=== PATIENT | female | born 1945 | race Caucasian/White ===

== ENCOUNTER 2021-01-15 09:22 | Emergency (ER) | payer MEDICARE, SELFPAY ==
[2021-01-15] VITALS (8 sets, daily range): BP systolic 134–168; BP diastolic 64–95; PULSE 58–77; RESP 16–24; TEMP 36.4; O2SAT 89–100
[2021-01-15 10:03] LABS: Basophils Percent Auto 0.6 % (0.2-1.2); Eosinophils Absolute Auto 0.1 K/mm3 (0-0.3); Eosinophils Percent Auto 1.6 % (0-4.4); Hematocrit 40.1 % (37.0-47.0); Hemoglobin 13.4 g/dL (12.0-15.0); Immature Granulocyte Absolute 0.01 K/mm3 (0.00-0.031); Immature Granulocyte Percent A 0.2 % (0-0.5); Lymphocytes Absolute Auto 1.64 K/mm3 (0.9-3.2); Lymphocytes Percent Auto 26.2 % (18.3-44.2); Mean Corpuscular HGB Conc 33.4 g/dl (32-36); Mean Corpuscular Hemoglobin 32.8 pg (26-34); Mean Corpuscular Volume 98.3 fl (80-100); Mean Platelet Volume 10.4 fl (7.4-10.4); Monocytes Absolute Auto 0.5 K/mm3 (0.1-0.6); Monocytes Percent Auto 7.4 % (2.6-8.5); Platelet Count Result 207 k/mm3 (150-375); Red Blood Count 4.08 M/mm3 (4.2-5.4); Red Cell Distribution Width 13.5 % (11.5-14.5); White Blood Count 6.3 K/mm3 (4.5-10.0)
[2021-01-15 10:17] LABS: Prothrombin Time 13.4 Seconds (11.1-14.7)
[2021-01-15 10:18] LABS: Partial Thromboplastin Time 23.8 SECONDS (22.3-36.8)
[2021-01-15 10:28] LABS: Alanine Aminotransferase 19 U/L (4-35); Albumin Level 4.1 g/dL (3.5-5.1); Alkaline Phosphatase 78 U/L (38-126); Anion Gap 12 mmol/L (8-16); Aspartate Amino Transferase 25 U/L (14-36); Blood Urea Nitrogen 18 mg/dL (7-17); Calcium 9.2 mg/dL (8.4-10.2); Carbon Dioxide 26 mmol/L (22-30); Chloride 100 mmol/L (98-107); Estimated CRCL calculation 40 ml/min; Estimated Glomerular Filt Rate 40; Glucose 110 mg/dL (65-110); Sodium 138 mmol/L (137-145)
--- NOTE | 2021-01-15 12:19 | ED.GIBLEED ---
HPI - GI Bleed General Chief complaint: GI Bleed Stated complaint: rectal bleed, sob, dizzy Time Seen by Provider: 01/15/21 09:34 History of Present Illness HPI Narrative: Patient is a 76-year-old female who presents to the ER with concerns of rectal bleeding. And over the last 3 or 4 days she has been having bright red blood per rectum. She has history of internal hemorrhoids and thinks one may be bleeding. Denies constipation or straining. No fevers or chills or sweats. Will occasionally turn the water red and she will have small flecks of blood in her stool. No syncope. Has chronic shortness of breath and wears oxygen as needed. She does not take any blood thinners or antiplatelet medications. Related Data Allergies Allergy/AdvReac Type Severity Reaction Status Date / Time No Known Allergies Allergy Unverified 02/05/18 12:47 Review of Systems Review of Systems: All systems reviewed & are unremarkable except as noted in HPI and below Constitutional: Constitutional: Denies chills, Denies fever(s) and Reports weakness ENT: Denies nasal congestion and Denies sore throat Gastrointestinal: Gastrointestinal: Denies abdominal pain, Denies constipation, Denies nausea and Denies vomiting Comments: Rectal bleeding Musculoskeletal: Musculoskeletal: Denies arthralgias, Denies joint swelling and Denies muscle cramps Integumentary/Breasts: Skin/Breast: Denies erythema and Denies rash PMFSH Past Medical History Medical History (Updated 01/15/21 @ 12:37 by Francisco Andrews MD) COPD (chronic obstructive pulmonary disease) Depression Hypothyroidism Surgical History Surgical History (Updated 01/15/21 @ 12:26 by Francisco Andrews MD) History of appendectomy History of hysterectomy Exam Narrative: GENERAL: Well-appearing, well-nourished, and in no acute distress. HEAD: Normocephalic, atraumatic. EYES: PERRL and EOMI. ENT: Mucous membranes moist. CHEST: Clear to auscultation. No respiratory distress. HEART: Regular rate and rhythm. Normal peripheral pulses. ABDOMEN: Soft, nontender, nondistended. Dried blood on outside of rectum without actively bleeding or thrombosed hemorrhoid. ANDRES without significant gross blood, there are only a couple small bright red clots that were no larger than 2 mm. EXTREMITIES: Normal range of motion. No edema. SKIN: Warm, dry, no rash. NEURO: Alert and oriented x3. Course Course Emergency Course: Labs unremarkable. Recommend stool softener and suppository. Follow-up with PCP. Patient verbalized understanding. Vital Signs Vital signs: Vital Signs Temperature 97.6 F 01/15/21 09:20 Pulse Rate 77 01/15/21 09:20 Respiratory Rate 16 01/15/21 09:20 Pulse Oximetry 89 L 01/15/21 09:20 Temperature 97.6 F 01/15/21 09:20 Pulse Rate 67 01/15/21 12:02 Respiratory Rate 23 H 01/15/21 12:02 Blood Pressure 139/91 H 01/15/21 12:02 Pulse Oximetry 100 01/15/21 11:03 MDM - GI Bleed Lab Data Result diagrams: 01/15/21 09:56 01/15/21 09:56 Labs: Lab Results 01/15/21 01/15/21 01/15/21 Range/Units 09:56 09:56 09:56 WBC 6.3 (4.5-10.0) K/mm3 RBC 4.08 L (4.2-5.4) M/mm3 Hgb 13.4 (12.0-15.0) g/dL Hct 40.1 (37.0-47.0) % MCV 98.3 (80-100) fl MCH 32.8 (26-34) pg MCHC 33.4 (32-36) g/dl RDW 13.5 (11.5-14.5) % Plt Count 207 (150-375) k/mm3 MPV 10.4 (7.4-10.4) fl Immature Gran % (Auto) 0.2 (0-0.5) % Neut % (Auto) 64.0 (45.5-73.1) % Lymph % (Auto) 26.2 (18.3-44.2) % Bates % (Auto) 7.4 (2.6-8.5) % Eos % (Auto) 1.6 (0-4.4) % Baso % (Auto) 0.6 (0.2-1.2) % Lymph # (Auto) 1.64 (0.9-3.2) K/mm3 Bates # (Auto) 0.5 (0.1-0.6) K/mm3 Eos # (Auto) 0.1 (0-0.3) K/mm3 Baso # (Auto) 0.0 (0.0-0.1) K/mm3 Abs Immat Gran (auto) 0.01 (0.00-0.031) K/mm3 Absolute Neuts (auto) 4.0 (1.3-6.7) K/mm3 Absolute Nucleated RBC 0.0 (0.0-0.012) K/mm3 Nucleated
== END 2021-01-15 13:00 | disposition home or self-care (01) ==
PROVIDERS: Emergency Provider Emergency Medicine; PCP Internal Medicine
DX: K64.9 Unspecified hemorrhoids (principal); J44.9 Chronic obstructive pulmonary disease, unspecified; E03.9 Hypothyroidism, unspecified
CPT/HCPCS: 36415; 80053; 85025; 85610; 85730; 86850; 86900; 86901; 99283

== ENCOUNTER 2021-09-22 20:08 | Emergency (ER) | payer MEDICARE, SELFPAY ==
--- NOTE | ~2021-09-22 | XR_ITS ---
XR chest 2V DATE: 09/22/2021 21:25 INDICATION: Bilateral rib pain and flank pain. Shortness of breath. History of COPD. TECHNIQUE: AP and lateral views COMPARISON: 02/05/2018 CT pulmonary scan 02/05/2018 portable AP chest FINDINGS: Heart size is within normal range. Is aortic calcification. No hilar or mediastinal. No pulmonary infiltrate or consolidation, pleural effusion or pulmonary vascular congestion or pneumo thorax. Diffuse osteopenia. Chronic loss of height and anterior wedging of T12 and interval moderate loss of height and anterior wedging of T8 since 02/05/2018. 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
[2021-09-22 20:12] VITALS: PULSE 71; RESP 16; TEMP 36.3; O2SAT 99
[2021-09-22 20:34] VITALS: BP 96/43; PULSE 67; O2SAT 99
--- NOTE | 2021-09-22 20:54 | ED.GENADULT ---
HPI - General Adult General Chief complaint: Unspecified Stated complaint: Bilateral flank/abd pain Time Seen by Provider: 09/22/21 20:30 History of Present Illness HPI narrative: 76-year-old female presenting to the emergency department for evaluation of bilateral posterior lower rib pain. Patient states that she began having similar symptoms on Friday and patient presented to [facility]. Patient was admitted for further work-up. Patient states she did have multiple CT scans that showed no acute abnormality. Patient states she was discharged home with medications for pain control including tizanidine for muscle spasm. Patient states today she had been feeling improved but was fairly active. Patient states this evening when she bent over she felt like she had spasms of her back that were compressing her lungs. Patient states with rest she was able to regain her breath. Patient is normally on 0 to 3 L of oxygen depending on level of activity. Patient is saturating at 99% on 1 L of nasal cannula O2. Patient denies any chest pains, denies any increase in breath at this time. Related Data Allergies Allergy/AdvReac Type Severity Reaction Status Date / Time No Known Allergies Allergy Unverified 02/05/18 12:47 Review of Systems Review of Systems: CONSTITUTIONAL: Denies fever, chills, or sweats. EYES: Denies visual changes, redness, or discharge. ENT: Denies rhinorrhea, congestion, sore throat, or otalgia. CARDIOVASCULAR: Denies chest pain, palpitations, or edema. RESPIRATORY: Cough, bilateral lower rib pain GASTROINTESTINAL: Denies abdominal pain, nausea, vomiting, or diarrhea. GENITOURINARY: Denies dysuria or hematuria. SKIN: Denies rash or itching. MUSCULOSKELETAL: Denies back pain, joint pain, or myalgia. NEUROLOGIC: Denies headache, numbness, or weakness. PMFSH Past Medical History Medical History (Updated 09/22/21 @ 22:11 by Aubrey Cornejo MD) COPD (chronic obstructive pulmonary disease) Depression Hypothyroidism Surgical History Surgical History (Updated 01/15/21 @ 12:26 by Francisco Andrews MD) History of appendectomy History of hysterectomy Exam Narrative: APPEARANCE: Well appearing, no pain, no distress, well-nourished. HEAD: normocephalic, atraumatic. EYES: PERRLA/EOMI, conjunctivae clear. NOSE: Normal no drainage EARS:TMS clear with good light reflex. THROAT: Pharynx clear, no exudate. NECK: Supple. No adenopathy, no masses. RESPIRATORY: Airway patent, respirations nonlabored. Clear to auscultation bilaterally, no rales, rhonchi, wheezing. Bilateral posterior lower rib tenderness with palpation. CARDIOVASCULAR: Regular rate and rhythm without murmurs rubs or gallops. ABDOMINAL: Soft, nontender, nondistended, normal bowel sounds MUSCULOSKELETAL: Moves all extremities. Strength/ROM intact, No edema, No calf tenderness. NEURO: Alert. Cranial nerves II through XII intact. Good gait. Good coordination SKIN: Warm, dry. Normal Color Course Course Emergency Course: Patient did feel improved with treatment. Chest x-ray showed no acute cardiopulmonary normality. Labs are within normal limits. Patient and family were updated on the results of the work-up. Patient was also updated on reasons to return to the ED. All questions and concerns were addressed. Patient does have follow-up on 10/02 Vital Signs Vital signs: Vital Signs Temperature 97.3 F L 09/22/21 20:12 Pulse Rate 71 09/22/21 20:12 Respiratory Rate 16 09/22/21 20:12 Pulse Oximetry 99 09/22/21 20:12 Oxygen Delivery Nasal Cannula 09/22/21 20:12 Oxygen Flow Rate 1 09/22/21 20:12 Temperature 97.3 F L 09/22/21 20:12 Pulse Rate 68 09/22/21 21:14 Respiratory Rate 20 09/22/21 21:14 Blood Pressure 96/43 L 09/22/21 20:34 Pulse Oximetry 99 09/22/21 20:34 Oxygen Delivery Nasal Cannula 09/22/21 20:12 Oxygen Flow Rate 1 09/22/21 20:12 Medical Decision Making Vital Signs Vital Signs: Vital Signs
[2021-09-22] MEDS: HYDROcodone/acetaminophen (*CRX) 5-325 MG TABLET 1 TAB PO ×2 (20:56→22:24)
--- NOTE | 2021-09-22 21:01 | PC.NURSE ---
Patient reports she wears 3L of O2 per nasal cannula at home as needed and at bedtime.
[2021-09-22 21:05] VITALS: PULSE 76; RESP 22
[2021-09-22] MEDS: ALBUTEROL SULFATE NEB 2.5 MG/3 ML INH 5 MG INHALATION (21:05)
[2021-09-22 21:14] VITALS: PULSE 68; RESP 20
[2021-09-22 21:19] LABS: Basophils Absolute Auto 0.1 K/mm3 (0.0-0.1); Basophils Percent Auto 0.5 % (0.2-1.2); Eosinophils Absolute Auto 0.1 K/mm3 (0-0.3); Eosinophils Percent Auto 0.5 % (0-4.4); Hematocrit 40.5 % (37.0-47.0); Hemoglobin 13.2 g/dL (12.0-15.0); Immature Granulocyte Absolute 0.04 K/mm3 (0.00-0.031); Immature Granulocyte Percent A 0.4 % (0-0.5); Lymphocytes Absolute Auto 1.93 K/mm3 (0.9-3.2); Lymphocytes Percent Auto 18.9 % (18.3-44.2); Mean Corpuscular HGB Conc 32.6 g/dl (32-36); Mean Corpuscular Hemoglobin 32.1 pg (26-34); Mean Corpuscular Volume 98.5 fl (80-100); Monocytes Absolute Auto 0.6 K/mm3 (0.1-0.6); Monocytes Percent Auto 5.5 % (2.6-8.5); Neutrophils Absolute Auto 7.6 K/mm3 (1.3-6.7); Neutrophils Percent Auto 74.2 % (45.5-73.1); Platelet Count Result 249 k/mm3 (150-375); Red Blood Count 4.11 M/mm3 (4.2-5.4); Red Cell Distribution Width 14.6 % (11.5-14.5); White Blood Count 10.2 K/mm3 (4.5-10.0)
[2021-09-22 21:27] LABS: Lactic Acid Reflex 2.5 mmol/L (0.7-2.0)
[2021-09-22 21:28] LABS: Alanine Aminotransferase 18 U/L (6-35); Albumin Level 4.3 g/dL (3.5-5.1); Alkaline Phosphatase 90 U/L (38-126); Anion Gap 8 mmol/L (8-16); Aspartate Amino Transferase 26 U/L (14-36); Bilirubin,Total 0.6 mg/dL (0.2-1.3); Blood Urea Nitrogen 33 mg/dL (7-17); Calcium 9.1 mg/dL (8.4-10.2); Carbon Dioxide 27 mmol/L (22-30); Chloride 97 mmol/L (98-107); Estimated CRCL calculation 29 ml/min; Estimated Glomerular Filt Rate 29; Glucose 94 mg/dL (65-110); Potassium 3.9 mmol/L (3.4-5.0); Sodium 132 mmol/L (137-145)
[2021-09-23 00:17] LABS: Reflex Lactic Acid Yes or No Add Lactic
== END 2021-09-22 22:33 | disposition home or self-care (01) ==
PROVIDERS: Emergency Provider Emergency Medicine; PCP Internal Medicine
DX: R07.81 Pleurodynia (principal); J44.9 Chronic obstructive pulmonary disease, unspecified; E03.9 Hypothyroidism, unspecified
CPT/HCPCS: 36415; 71046; 80053; 83605; 85025; 94640; 99283; A9270

== ENCOUNTER 2021-09-27 18:02 | Observation (INO) | payer MEDICARE, SELFPAY ==
[2021-09-27] VITALS (20 sets, daily range): BP systolic 88–128; BP diastolic 47–82; PULSE 67–84; RESP 10–24; TEMP 35.8–36.7; O2SAT 88–100; BMI 34.5
--- NOTE | 2021-09-27 | ECG_ITS ---
Measurements Intervals [place] Rate: 76 P: 23 [place]: 159 QRS: 33 QRSD: 88 T: 41 QT: 365 QTc: 411 Interpretive Statements SINUS RHYTHM MODERATE T-WAVE ABNORMALITY, CONSIDER ANTERIOR ISCHEMIA [-0.1+ mV T WAVE IN V3/V4] ABNORMAL ECG Electronically Signed On 10-01-2021 10:20:30 CDT by Joe Bro M.D.
--- NOTE | ~2021-09-27 | XR_ITS ---
EXAMINATION: XR chest 1V portable INDICATION: Cough TECHNIQUE: Portable AP chest at 1847 hours COMPARISON: 09/22/2021 FINDINGS: There are minimal airspace opacities of the left lung base. There is no pleural effusion or pneumothorax. The heart size is upper limits of normal for technique. IMPRESSION: 1. Minimal left basilar airspace opacities, consistent with atelectasis versus pneumonia. Reviewed, dictated and finalized at location F.
--- NOTE | 2021-09-27 18:36 | ED.GENADULT ---
HPI - General Adult General Chief complaint: Weakness <Argentina Salcedo PA-C - Last Filed: 09/28/21 00:01> Stated complaint: DEHYDRATION <Argentina Salcedo PA-C - Last Filed: 09/28/21 00:01> Time Seen by Provider: 09/27/21 18:22 <Argentina Salcedo PA-C - Last Filed: 09/28/21 00:01> History of Present Illness HPI narrative: Patient is a 76-year-old female with a history of COPD (on home O2) and hypothyroidism for evaluation of dehydration . Patient states that she has been feeling lightheaded with exertion and position changes over the past week or so, and has had about 3 episodes of presyncope. Denies falls or head injury. Additionally reporting a cough that she feels are compressing her lungs for the past 2 weeks.?The cough is productive of clear sputum. Patient is normally on 0 to 3 L of oxygen depending on level of activity for COPD. She presented to her primary care doctor today, was unable to get lab work due to bad veins , so reportedly he sent her to the ED to get rehydrated. Patient is unsure of any of her home medications, it is noted that she takes Lasix, but she is unsure why. Denies chest pain, shortness of breath, fevers, chills, abdominal pain, nausea, vomiting. She does have chronic back pain due to compression fracture that she takes [place] for, she has not taken this today. Last heart cath >1 year ago, was normal per patient. <Argentina Salcedo PA-C - Last Filed: 09/28/21 00:01> Related Data Home medications: Home Medications Medication Instructions Recorded Confirmed albuterol sulfate 90 mcg/actuation 2 inh inhalation PRN PRN Shortness 09/27/21 09/27/21 aerosol inhaler Of Breath Or Wheezing cefdinir 300 mg capsule 300 mg PO DAILY 09/27/21 09/27/21 diltiazem HCl 120 mg 120 mg PO DAILY 09/27/21 09/27/21 capsule,extended release 24 hr duloxetine 30 mg capsule,delayed 60 mg PO DAILY 09/27/21 09/28/21 release ergocalciferol (vitamin D2) 1,250 1,250 mcg PO DAILY 09/27/21 09/28/21 mcg (50,000 unit) capsule famotidine 20 mg tablet 20 tablet PO DAILY 09/27/21 09/28/21 furosemide 40 mg tablet 40 tablet PO DAILY 09/27/21 09/28/21 hydrochlorothiazide 25 mg tablet 25 mg PO DAILY 09/27/21 09/28/21 levothyroxine 100 mcg tablet 100 mcg PO DAILY 09/27/21 09/28/21 losartan 50 mg tablet 50 mg PO DAILY 09/27/21 09/28/21 magnesium oxide 400 mg (241.3 mg 400 mg PO DAILY 09/27/21 09/28/21 magnesium) tablet montelukast 10 mg tablet 10 tablet PO DAILY 09/27/21 09/28/21 potassium chloride 10 mEq 10 meq PO DAILY 09/27/21 09/28/21 capsule,extended release prednisone 20 mg tablet 20 mg PO DAILY 09/27/21 09/28/21 quetiapine 25 mg tablet 25 tablet PO DAILY 09/27/21 09/28/21 clonazepam 0.5 mg tablet 0.5 mg PO DAILY 09/28/21 09/28/21 escitalopram oxalate 5 mg tablet 5 mg PO DAILY 09/28/21 09/28/21 hydrocodone 5 mg-acetaminophen 325 5 - 325 tablet PO Q8H PRN pain 09/28/21 09/28/21 mg tablet tizanidine 4 mg tablet 4 mg PO HS PRN pain 09/28/21 09/28/21 <Argentina Salcedo PA-C - Last Filed: 09/28/21 00:01> Allergies/adverse reactions: Allergies Allergy/AdvReac Type Severity Reaction Status Date / Time No Known Allergies Allergy Verified 09/27/21 18:20 <Argentina Salcedo PA-C - Last Filed: 09/28/21 00:01> Review of Systems Review of Systems: Gen: Reports lightheadedness and presyncope. Eyes: Denies eye pain or visual change ENT: Denies congestion Respiratory: Denies shortness of breath or cough CV: Denies chest pain or palpitations GI: Denies abdominal pain nausea, emesis or diarrhea : denies burning, urgency, frequency or hematuria Musculoskeletal: Reports back pain. Neuro: Denies numbness, tingling, weakness or focal weakness Skin: Denies rash Except as documented, all other systems reviewed and negative <Argentina Salcedo PA-C - Last Filed: 09/28/21 00:01> [facility] Past Medical History Medical History: Medical History (Updated 09/27
[2021-09-27 18:58] LABS: Basophils Percent Auto 0.3 % (0.2-1.2); Eosinophils Absolute Auto 0.1 K/mm3 (0-0.3); Eosinophils Percent Auto 0.7 % (0-4.4); Hematocrit 45.3 % (37.0-47.0); Hemoglobin 14.9 g/dL (12.0-15.0); Immature Granulocyte Percent A 0.8 % (0-0.5); Mean Corpuscular HGB Conc 32.9 g/dl (32-36); Mean Corpuscular Hemoglobin 31.6 pg (26-34); Mean Corpuscular Volume 96.2 fl (80-100); Mean Platelet Volume 10.3 fl (7.4-10.4); Monocytes Absolute Auto 0.7 K/mm3 (0.1-0.6); Monocytes Percent Auto 5.2 % (2.6-8.5); Neutrophils Absolute Auto 9.1 K/mm3 (1.3-6.7); Platelet Count Result 334 k/mm3 (150-375); Red Blood Count 4.71 M/mm3 (4.2-5.4); Red Cell Distribution Width 13.9 % (11.5-14.5); White Blood Count 12.5 K/mm3 (4.5-10.0)
[2021-09-27 19:10] LABS: Alanine Aminotransferase 20 U/L (6-35); Albumin Level 5.1 g/dL (3.5-5.1); Alkaline Phosphatase 116 U/L (38-126); Anion Gap 10 mmol/L (8-16); Aspartate Amino Transferase 26 U/L (14-36); Bilirubin,Total 1.3 mg/dL (0.2-1.3); Blood Urea Nitrogen 29 mg/dL (7-17); Calcium 9.8 mg/dL (8.4-10.2); Carbon Dioxide 30 mmol/L (22-30); Chloride 90 mmol/L (98-107); Estimated Glomerular Filt Rate 29; Glucose 117 mg/dL (65-110); Potassium 3.1 mmol/L (3.4-5.0); Sodium 130 mmol/L (137-145)
[2021-09-27 19:22] LABS: NT Pro B Type Natriuretic Pept 506 pg/mL (5-100)
--- NOTE | 2021-09-27 20:21 | PM.IMHP ---
H&P: HPI History of Present Illness Date/Time: 09/27/21 20:21 Chief Complaint: Shortness of breath. Narrative: This is a 75-year-old female with past medical history significant for COPD/emphysema, chronic hypoxic respiratory failure patient uses 1 L of supplemental oxygen at nighttime 3 L, former smoker, osteoporosis, fracture vertebrae at the level of T12, chronic T8 vertebrae fracture. Patient presents for the 3rd time to the emergency room due to back pain however at that time there were no findings patient was discharged home with muscle relaxants however she comes back today due to worsening shortness of breath cough productive of phlegm which is whitish, has had chills, and decreased oral intake, fatigue, patient denies any chest pain, palpitations, leg swelling, calves pain, pain is still present it is along the rib cage on her back. Preliminary workup was significant for chest x-ray with lung infiltrate and a T12 which fracture of the vertebrae which has evolved. Patient has been admitted for further evaluation management and treatment. Review of Systems Review of Systems: Worsening shortness of breath, productive cough, of whitish sputum, fatigue, decreased oral intake. Constitutional: Constitutional: Reports chills, Reports fatigue, Denies night sweats and Reports poor appetite Eyes: Eyes: Denies change in vision ENT: Denies dysphagia, Denies vertigo, Denies dizziness, Denies nasal congestion, Denies nasal discharge and Denies odynophagia Cardiovascular: Cardiovascular: Denies chest pain, Denies syncope, Denies pedal edema, Denies claudication, Denies lightheadedness, Denies radiating jaw, neck or arm pain and Denies palpitations Respiratory: Respiratory: Reports cough, Denies hemoptysis, Denies pain with cough, Reports dyspnea and Reports dyspnea on exertion Gastrointestinal: Gastrointestinal: Denies abdominal pain, Denies dyspepsia, Denies heartburn, Denies diarrhea, Denies nausea and Denies vomiting Genitourinary: Genitourinary: Denies dysuria Musculoskeletal: Musculoskeletal: Reports back pain Integumentary/Breasts: Skin/Breast: Denies rash Neurologic: Denies vertigo, Denies dizziness, Denies focal weakness and Denies Sensory deficit (Neuro) Psychiatric: Psychiatric: Reports no additional psychiatric complaints and Reports as per HPI Endocrine: Endocrine: Denies cold intolerance, Denies flushing, Denies heat intolerance, Denies polyphagia, Denies polydipsia and Denies palpitations Hematologic/Lymphatic: Hematologic/Lymphatic: Reports no additional hematologic/lymphatic complaints and Reports as per HPI Allergic/Immunologic: Allergic/Immunologic: Reports no additional allergic/immunologic complaints and Reports as per HPI [facility] Past Medical History Medical History (Updated 09/27/21 @ 21:35 by Jessica Chowdhury MD) COPD (chronic obstructive pulmonary disease) Depression Hypothyroidism Surgical History Surgical History History of appendectomy History of hysterectomy Social History Social History (Updated 09/27/21 @ 21:00 by Jessica Chowdhury MD) Social History: Lives in apartment by herself sister visits her upset with her medications. Smoking status: Former smoker Tobacco type: cigars Alcohol intake: never Substance use: never Living arrangements: alone Meds Home Medications and Allergies Home Medications Medication Instructions Recorded Confirmed Type docusate sodium 100 mg capsule 100 mg PO DAILY #7 caps 01/15/21 Rx (Colace) hydrocortisone acetate 25 mg 25 mg RECTAL BID #12 ea 01/15/21 Rx rectal suppository (Anucort-HC) hydrocodone 5 mg-acetaminophen 325 1 tablet PO Q8H PRN pain #14 tabs 09/22/21 Rx mg tablet Allergies Allergy/AdvReac Type Severity Reaction Status Date / Time No Known Allergies Allergy Verified 09/27/21 18:20 Exam Narrative: Patient is laying in a stretcher in semi
[2021-09-27 20:42] LABS: Appearance Urine Clear (Clear); Bilirubin Urine 1+ (Negative); Blood Urine Negative (Negative); Color Urine Yellow (Yellow); Glucose Urine UA Negative (Negative); Ketones Urine Trace mg/dL (Negative); Leukocyte Esterase Ur 1+ LEU/UL (Negative); Nitrate Urine Positive (Negative); Protein Urine Negative (Negative); Urobilinogen Urine 0.2 mg/dL (<2.0); pH Urine 5.5 (5.0-9.0)
[2021-09-27 20:48] LABS: Bacteria Urine Trace /hpf; Mucus Urine Rare /lpf; Squamous Epithelial Cell Urine Occasional /hpf (Few); WBC Urine 31-50 /hpf
[2021-09-27 20:52] LABS: Add Urine Microscopic? YES
[2021-09-27 21:46] LABS: SARS-CoV-2 RNA PCR Negative
[2021-09-27] MEDS: METOCLOPRAMIDE HCL INJ 10 MG/2 ML VIAL IV PUSH (22:04)
--- NOTE | 2021-09-27 23:37 | ADMGEN ---
This patient, Vibha Hill, was admitted to [facility] Surg Room 315-02. Patient/family oriented to hospital policies and general routines including ID bracelet, bed and alarms, visiting hours, pain management, procedures, bathroom and other care routines, personal items, smoking policy, room service/diet, and visiting hours. Information on how to activate the Rapid Response Team has been discussed. Patient/Family are encouraged to report perceived risks to care and to ask questions if they do not understand what they are told or what they should do.
[2021-09-28] VITALS (7 sets, daily range): BP systolic 106–127; BP diastolic 63–81; PULSE 75–91; RESP 16–20; TEMP 36–36.3; O2SAT 94–96
--- NOTE | 2021-09-28 01:32 | PM.IMHP ---
H&P: HPI History of Present Illness Date/Time: 09/28/21 01:33 Chief Complaint: Shortness of breath Narrative: This is a 76-year-old female with past medical history significant for COPD/emphysema, supplemental oxygen 1 L by nasal cannula during the daytime and 3 L by nasal cannula at nighttime, hypertension, depression, hypothyroidism, former smoker. Patient presents to the emergency room for the 3rd time for evaluation of shortness of breath chest x-ray showed lung infiltrate. Patient has a chronic cough productive of white phlegm which is no change from her usual, patient denies any fevers, rigors, chills, no syncope, near syncope, no lightheadedness, no chest pain, no palpitations, no leg swelling, no ankle swelling. Patient also complains of having poor stamina has not been able to work with her physical therapy who comes home. Preliminary workup was significant for chest x-ray with lung infiltrate. Patient has been admitted for further evaluation management and treatment. Review of Systems Review of Systems: Shortness of breath. Constitutional: Constitutional: Denies chills, Reports fatigue, Denies fever(s), Denies malaise and Denies night sweats Eyes: Eyes: Denies change in vision ENT: Denies vertigo, Denies dizziness, Denies nasal congestion, Denies nasal discharge, Denies nose pain and Denies odynophagia Cardiovascular: Cardiovascular: Denies chest pain, Denies pedal edema, Denies irregular heart rhythm, Denies claudication, Denies lightheadedness, Denies radiating jaw, neck or arm pain, Denies palpitations, Denies dyspnea, Reports dyspnea on exertion and Denies orthopnea Respiratory: Respiratory: Denies chest congestion, Reports cough and Denies pain on inspiration Gastrointestinal: Gastrointestinal: Denies abdominal pain, Denies dyspepsia and Denies heartburn Genitourinary: Genitourinary: Denies dysuria Musculoskeletal: Musculoskeletal: Denies arthralgias and Denies joint swelling Integumentary/Breasts: Skin/Breast: Denies rash Psychiatric: Psychiatric: Reports no additional psychiatric complaints and Reports as per HPI Endocrine: Endocrine: Denies cold intolerance, Denies fatigue, Denies flushing, Denies heat intolerance, Denies polyphagia and Denies polydipsia Hematologic/Lymphatic: Hematologic/Lymphatic: Reports no additional hematologic/lymphatic complaints and Reports as per HPI Allergic/Immunologic: Allergic/Immunologic: Reports no additional allergic/immunologic complaints and Reports as per HPI PMFSH Past Medical History Medical History (Updated 09/27/21 @ 21:35 by Jessica Chowdhury MD) COPD (chronic obstructive pulmonary disease) Depression Hypothyroidism Surgical History Surgical History History of appendectomy History of hysterectomy Social History Social History (Updated 09/27/21 @ 21:00 by Jessica Chowdhury MD) Social History: Lives in apartment by herself sister visits her upset with her medications. Smoking status: Former smoker Tobacco type: cigars Second hand tobacco smoke exposure: No Additional smoking assessment comments: pt states she stopped smoking years ago. Alcohol intake: former Substance use: never Living arrangements: alone Spiritual care concerns: No Meds Home Medications and Allergies Home Medications Medication Instructions Recorded Confirmed Type docusate sodium 100 mg capsule 100 mg PO DAILY #7 caps 01/15/21 09/28/21 Rx (Colace) albuterol sulfate 90 mcg/actuation 2 inh inhalation PRN PRN Shortness 09/27/21 09/27/21 History aerosol inhaler Of Breath Or Wheezing cefdinir 300 mg capsule 300 mg PO DAILY 09/27/21 09/27/21 History diltiazem HCl 120 mg 120 mg PO DAILY 09/27/21 09/27/21 History capsule,extended release 24 hr duloxetine 30 mg capsule,delayed 30 mg PO DAILY 09/27/21 09/27/21 History release ergocalciferol (vitamin D2) 1,250 1,250 mcg PO DAILY 09/27/21 06
[2021-09-28] MEDS: LEVOTHYROXINE SODIUM 100 MCG TABLET PO (06:21)
[2021-09-28] MEDS: MAGNESIUM OXIDE 400 MG TABLET PO (09:02)
[2021-09-28] MEDS: predniSONE 20 MG TABLET PO (09:02)
[2021-09-28] MEDS: DOCUSATE SODIUM 100 MG CAPSULE PO (09:02)
[2021-09-28] MEDS: FAMOTIDINE 20 MG TABLET PO ×2 (09:02→16:42)
[2021-09-28] MEDS: MONTELUKAST SODIUM 10 MG TABLET PO (09:02)
[2021-09-28] MEDS: ENOXAPARIN 40 MG/0.4 ML SYRINGE SUB-Q (09:02)
[2021-09-28] MEDS: DULoxetine HCL 30 MG CAPSULE.DR PO (09:02)
[2021-09-28] MEDS: hydroCHLOROthiazide 25 MG TABLET PO (09:03)
[2021-09-28] MEDS: LOSARTAN POTASSIUM 50 MG TABLET PO (09:03)
--- NOTE | 2021-09-28 11:10 | PC.NURSE ---
Pt's sister, Lexii Pulido, called wanting an update. She informed me that the meds that had been entered into the system were not accurate. She is the one who handles all the meds so she provided me with updated information. I subsequently update the med rec to reflect the correct information. I attempted to contact the hospitalist, Dr. Theodore, to make him aware of this information but he did not answer and his voicemail was full.
--- NOTE | 2021-09-28 11:22 | PM.IMPN ---
Progress Note: A&P Assessment and Plan (1) Lung infiltrate: Code(s): R91.8 - Other nonspecific abnormal finding of lung field Status: Acute Assessment and Plan: Patient has been started on antibiotics Cultures in progress Supportive care (2) Chronic respiratory failure with hypoxia: Code(s): J96.11 - Chronic respiratory failure with hypoxia Status: Acute Assessment and Plan: Continue supplemental oxygen by nasal cannula (3) LEFTY (acute kidney injury): Code(s): N17.9 - Acute kidney failure, unspecified Status: Acute Assessment and Plan: Continue to monitor BUN and creatinine (4) Closed wedge compression fracture of T12 vertebra: Code(s): S22.080A - Wedge compression fracture of T11-T12 vertebra, initial encounter for closed fracture Status: Acute Assessment and Plan: Continue supportive care (5) Chronic kidney disease: Code(s): N18.9 - Chronic kidney disease, unspecified Status: Acute Assessment and Plan: Supportive care (6) COPD (chronic obstructive pulmonary disease): Code(s): J44.9 - Chronic obstructive pulmonary disease, unspecified Status: Acute (7) Hyponatremia: Code(s): E87.1 - Hypo-osmolality and hyponatremia Status: Acute Plan #Generalized weakness hypotension number presentation. Workup with evidence of pneumonia on chest x-ray mildly elevated white cell count of 12.5 with hyponatremia. Evidence of UTI on urinalysis #Hypotension improved with hydration #Hyponatremia IV normal saline #Hypokalemia replace and monitor #Pneumonia COVID negative. Cultures pending #UTI antibiotics follow cultures #Chronic hypoxic respiratory failure remains on same oxygen requirement. Continue same COVID negative BNP 506. #LEFTY on CKD stage 3 baseline creatinine 1.3 last year. Current creatinine 1.7 IV hydration continue to monitor. Hold Lasix #compression fracture T12 vertebra supportive care #COPD #DVT prophylaxis Lovenox #Anxiety depression home medication #Hypothyroidism home medication #Code status full code Subjective Date/time seen: 09/28/21 11:23 Interval history: HPI:This is a 76-year-old female with past medical history significant for COPD/emphysema, supplemental oxygen 1 L by nasal cannula during the daytime and 3 L by nasal cannula at nighttime, hypertension, depression, hypothyroidism, former smoker.? Patient presents to the emergency room for the 3rd time for evaluation of shortness of breath chest x-ray showed lung infiltrate.? Patient has a chronic cough productive of white phlegm which is no change from her usual, patient denies any fevers, rigors, chills, no syncope, near syncope, no lightheadedness, no chest pain, no palpitations, no leg swelling, no ankle swelling.? Patient also complains of having poor stamina has not been able to work with her physical therapy who comes home.? Preliminary workup was significant for chest x-ray with lung infiltrate.? Patient has been admitted for further evaluation management and treatment. 09/28/2021 She feels okay. Reports weakness and cough shortness of breath on exertion. Denies any leg swelling. Review of Systems Review of Systems: All systems reviewed & are unremarkable except as noted in HPI and below (HPI) Exam Narrative: APPEARANCE: Chronically ill-appearing not in acute distress Head: normocephalic and atraumatic. EYES: PERRLA/EOMI, conjunctivae clear THROAT: Oropharynx is clear. Mucous membranes are moist. NECK: Supple. No adenopathy, no masses. RESPIRATORY: Airway patent, respirations nonlabored. Clear to auscultation bilaterally, no rales, rhonchi, wheezing. CARDIOVASCULAR: Regular rate and rhythm without murmurs, rubs, or gallops. ABDOMINAL: Normoactive bowel sounds. Soft, nontender, nondistended. No rebound tenderness or guarding. MUSCULOSKELETAL: Extremities are warm and well-perfused. Moves all extremities well. No edema.
[2021-09-28] MEDS: ESCITALOPRAM OXALATE 5 MG TABLET PO (12:48)
[2021-09-28] MEDS: clonazePAM (*CRX) 0.5 MG TABLET PO (12:48)
[2021-09-28] MEDS: TIZANIDINE HCL 4 MG TABLET PO (20:51)
[2021-09-29 05:28] VITALS: BP 140/70; PULSE 62; RESP 20; TEMP 36.1; O2SAT 92
[2021-09-29] MEDS: LEVOTHYROXINE SODIUM 100 MCG TABLET PO (05:45)
[2021-09-29 06:07] LABS: Basophils Absolute Auto 0.1 K/mm3 (0.0-0.1); Basophils Percent Auto 0.5 % (0.2-1.2); Eosinophils Absolute Auto 0.1 K/mm3 (0-0.3); Eosinophils Percent Auto 0.5 % (0-4.4); Hematocrit 36.7 % (37.0-47.0); Hemoglobin 12.3 g/dL (12.0-15.0); Immature Granulocyte Absolute 0.06 K/mm3 (0.00-0.031); Immature Granulocyte Percent A 0.7 % (0-0.5); Lymphocytes Absolute Auto 2.23 K/mm3 (0.9-3.2); Lymphocytes Percent Auto 24.2 % (18.3-44.2); Mean Corpuscular HGB Conc 33.5 g/dl (32-36); Mean Corpuscular Hemoglobin 31.9 pg (26-34); Mean Corpuscular Volume 95.3 fl (80-100); Mean Platelet Volume 9.8 fl (7.4-10.4); Monocytes Absolute Auto 0.6 K/mm3 (0.1-0.6); Monocytes Percent Auto 6.9 % (2.6-8.5); Neutrophils Absolute Auto 6.2 K/mm3 (1.3-6.7); Neutrophils Percent Auto 67.2 % (45.5-73.1); Platelet Count Result 274 k/mm3 (150-375); Red Blood Count 3.85 M/mm3 (4.2-5.4); Red Cell Distribution Width 13.6 % (11.5-14.5); White Blood Count 9.2 K/mm3 (4.5-10.0)
[2021-09-29 06:20] LABS: Alanine Aminotransferase 17 U/L (6-35); Albumin Level 3.9 g/dL (3.5-5.1); Alkaline Phosphatase 85 U/L (38-126); Anion Gap 6 mmol/L (8-16); Aspartate Amino Transferase 25 U/L (14-36); Bilirubin,Total 0.8 mg/dL (0.2-1.3); Blood Urea Nitrogen 30 mg/dL (7-17); Calcium 8.9 mg/dL (8.4-10.2); Carbon Dioxide 29 mmol/L (22-30); Chloride 93 mmol/L (98-107); Estimated CRCL calculation 31 ml/min; Estimated Glomerular Filt Rate 31; Glucose 102 mg/dL (65-110); Potassium 3.1 mmol/L (3.4-5.0); Sodium 128 mmol/L (137-145)
[2021-09-29 09:00] VITALS: O2SAT 92
[2021-09-29] MEDS: predniSONE 20 MG TABLET PO (09:04)
[2021-09-29] MEDS: ENOXAPARIN 40 MG/0.4 ML SYRINGE SUB-Q (09:04)
[2021-09-29] MEDS: MONTELUKAST SODIUM 10 MG TABLET PO (09:04)
[2021-09-29] MEDS: DOCUSATE SODIUM 100 MG CAPSULE PO (09:04)
[2021-09-29] MEDS: ESCITALOPRAM OXALATE 5 MG TABLET PO (09:04)
[2021-09-29] MEDS: DULoxetine HCL 30 MG CAPSULE.DR PO (09:04)
[2021-09-29] MEDS: FAMOTIDINE 20 MG TABLET PO (09:04)
--- NOTE | 2021-09-29 11:00 | PM.DS ---
DS: Admitting Diagnosis Discharge Date 09/29/2021 Admitting Diagnosis Generalized weakness DS: Discharge Diagnosis Discharge Diagnosis Plan #Generalized weakness hypotension on presentation. Workup with evidence of pneumonia on chest x-ray mildly elevated white cell count of 12.5 with hyponatremia. Evidence of UTI on urinalysis. Treated with antibiotics IV fluid with improvement. Her WBC count continue to improve and normalize at the time of discharge. She was evaluated PT OT and was independent. She will continue oral antibiotics at discharge for her UTI and pneumonia. She is at her baseline oxygen requirement the time of discharge which will be continued as previously ordered #Hypotension improved with hydration and antibiotics #Hyponatremia IV normal saline mildly low but stable #Hypokalemia replace and monitor #Pneumonia COVID negative. Cultures no growth to date #UTI antibiotics urine culture with Citrobacter freundii which is pansensitive. #Chronic hypoxic respiratory failure remains on same oxygen requirement. Continue same COVID negative BNP 506. Resume Lasix and potassium supplement #LEFTY on CKD stage 3 baseline creatinine 1.3 last year. Current creatinine 1.7 IV hydration continue to monitor. He Lasix during hospital stay. Resume at discharge #compression fracture T12 vertebra supportive care #COPD #DVT prophylaxis Lovenox #Anxiety depression home medication #Hypothyroidism home medication #Code status full code DS: Summary Hospital Course Hospital Course: See above Time Spent with Patient Time attestation: Total time spent providing and/or coordinating discharge services: 50 minutes Exam Narrative: APPEARANCE: Chronically ill-appearing not in acute distress Head: normocephalic and atraumatic. EYES: PERRLA/EOMI, conjunctivae clear THROAT: Oropharynx is clear. Mucous membranes are moist. NECK: Supple. No adenopathy, no masses. RESPIRATORY: Airway patent, respirations nonlabored. Clear to auscultation bilaterally, no rales, rhonchi, wheezing. CARDIOVASCULAR: Regular rate and rhythm without murmurs, rubs, or gallops. ABDOMINAL: Normoactive bowel sounds. Soft, nontender, nondistended. No rebound tenderness or guarding. MUSCULOSKELETAL: Extremities are warm and well-perfused. Moves all extremities well. No edema. NEURO: Normal speech. No focal neurologic deficits. SKIN: Skin is warm and dry. No rashes. PSYCHIATRIC: Normal affect/mood. DS: Data Data Completed and Pending Labs on day of discharge: Labs from last 24 hours 09/29/21 09/29/21 05:52 05:52 WBC 9.2 RBC 3.85 L Hgb 12.3 Hct 36.7 L MCV 95.3 MCH 31.9 MCHC 33.5 RDW 13.6 Plt Count 274 MPV 9.8 Immature Gran % (Auto) 0.7 H Neut % (Auto) 67.2 Lymph % (Auto) 24.2 [place] % (Auto) 6.9 Eos % (Auto) 0.5 Baso % (Auto) 0.5 Lymph # (Auto) 2.23 [place] # (Auto) 0.6 Eos # (Auto) 0.1 Baso # (Auto) 0.1 Abs Immat Gran (auto) 0.06 H Absolute Neuts (auto) 6.2 Absolute Nucleated RBC 0.0 Nucleated RBC % 0.0 Sodium 128 L Potassium 3.1 L Chloride 93 L Carbon Dioxide 29 Anion Gap 6 L BUN 30 H Creatinine 1.60 H Estim Creat Clear Calc 31 Estimated GFR 31 L Glucose 102 Calcium 8.9 Magnesium 2.0 Total Bilirubin 0.8 AST 25 ALT 17 Alkaline Phosphatase 85 Total Protein 6.0 L Albumin 3.9 Preliminary micro results at discharge 09/28/21 02:04 Blood Culture - Preliminary Blood 09/27/21 21:27 Blood Culture - Preliminary Blood Imaging Radiologist's impression: ITS Impressions Chest X-Ray 09/27/21 19:17 IMPRESSION: 1. Minimal left basilar airspace opacities, consistent with atelectasis versus pneumonia. Discharge Plan Discharge Attending physician on discharge: Jus Theodore Consulting providers: [place] Salcedo Discharging Clinician: Jus Theodore Anticipated Discharge Date/Time: 09/29/21 10:57 Pat
[2021-09-29] MEDS: POTASSIUM CHLORIDE 20 MEQ PACKET (FOR LIQUID) 40 MEQ PO (12:25)
== END 2021-09-29 14:00 | disposition home or self-care (01) ==
LOC: ANHED 18:39 → ANH3MEDSUR 09-28 03:24
PROVIDERS: Physician Assistant; Admitting Provider Internal Medicine; Emergency Provider Emergency Medicine; PCP Internal Medicine; Visit Provider Internal Medicine
DX: I95.9 Hypotension, unspecified (principal); J44.9 Chronic obstructive pulmonary disease, unspecified; J96.11 Chronic respiratory failure with hypoxia; Z87.891 Personal history of nicotine dependence; M81.0 Age-related osteoporosis without current pathological fracture; E03.9 Hypothyroidism, unspecified; E87.1 Hypo-osmolality and hyponatremia; N17.9 Acute kidney failure, unspecified; S22.080A Wedge compression fracture of T11-T12 vertebra, initial encounter for closed fracture; E87.6 Hypokalemia; J18.9 Pneumonia, unspecified organism; N18.30 Chronic kidney disease, stage 3 unspecified; Z99.81 Dependence on supplemental oxygen; F41.8 Other specified anxiety disorders; Z20.822 Contact with and (suspected) exposure to COVID-19
CPT/HCPCS: 36415; 71045; 80053; 81001; 83735; 83880; 84484; 85025; 87040; 87077; 87086; 87186; 93005; 96365; 96366; 96367; 96372; 96375; 97161; 97165; 99285; A9270; C9803; G0378; J0456; J0696; J1650; J2765; J7512; U0003; U0005

== ENCOUNTER 2024-01-27 11:36 | Outpatient (CLI) | payer MEDICARE, SELFPAY ==
--- NOTE | ~2024-01-27 | PE_ITS ---
EXAMINATION: PET skull to mid thigh DATE: 01/27/2024 13:58 INDICATION: Solitary nodule of lung. TECHNIQUE: Blood glucose level was 102 mg/dL. 9.734 mCi of 18-fluorodeoxyglucose (18-FDG) was adminis tered i.v. Low dose computed tomography (CT) images were acquired from the base of the brain to the p roximal thighs for attenuation correction and anatomic localization. Automated exposure control was e mployed. Dose-length product (DLP) was 1133 mGy-cm. Positron emission tomography (PET) images were ac quired in the same distribution. COMPARISON: Chest CT 02/05/2018 FINDINGS: Head/neck: There are likely changes of ocular lens replacement surgeries. There is a 12 mm mass in ri ght parotid gland with maximum SUV of 8.1. There are no pathologically enlarged lymph nodes. Chest: There is mild emphysema. There are patchy airspace opacities in the upper lobes. Calcified javid ateral lung nodules and calcified hilar and mediastinal lymph nodes are consistent with old granuloma tous disease. There is a 4 mm nodule in right lung, likely benign. There is a 15 mm part-solid nodule in right lung upper lobe abutting the mediastinum with maximum SUV of 12.8. No pleural effusion. The heart size is normal. No pericardial effusion. There are coronary artery calcifications. Abdomen/pelvis/proximal thighs: Calcifications in the liver and spleen are consistent with old granul omatous disease. There are gallstones in the gallbladder which is normal in size. The pancreas, adren al glands, and kidneys are normal. There is calcified atherosclerosis of the aorta and many of the ot her arteries. 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 There are no pathologically en larged lymph nodes. There is no free intraperitoneal fluid. IMPRESSION: 1. 15 mL part-solid nodule with increased activity in right lung upper lobe abutting the mediastinum. This finding may be infection or malignancy. Comparison with outside imaging is recommended. If this is a new finding, noncontrast low-dose chest CT is recommended in 3 months. 2. Patchy airspace opacities in left lung upper lobe, consistent with atelectasis versus pneumonia. 3. 12 mm right parotid mass with increased activity. The differential diagnosis includes benign mixed tumor, Warthin tumor, and less likely primary malignancy or jose metastatic disease. Consider ultra sound-guided fine-needle aspiration. 4. 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 Reviewed, dictated and finalized at location A. IMPRESSION: 1. 15 mL part-solid nodule with increased activity in right lung upper lobe abu tting the mediastinum. This finding may be infection or malignancy. Comparison with outside imaging is recommended. If this is a new finding, noncontrast low- dose chest CT is recommended in 3 months. 2. Patchy airspace opacities in left lung upper lobe, consistent with atelectas is versus pneumonia. 3. 12 mm right parotid mass with increased activity. The differential diagnosis includes benign mixed tumor, Warthin tumor, and less likely primary malignancy or jose metastatic disease. Consider ultrasound-guided fine-needle aspiration . 4. 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
[2024-01-27 12:39] LABS: Glucose Point of Care 102 mg/dl (65-105)
== END 2024-01-27 11:37 | disposition home or self-care (01) ==
PROVIDERS: PCP Internal Medicine; Visit Provider Internal Medicine Pulmonary Disease
DX: R91.1 Solitary pulmonary nodule (principal); R91.8 Other nonspecific abnormal finding of lung field; K05.6 Periodontal disease, unspecified; I72.2 Aneurysm of renal artery
CPT/HCPCS: 78815; A9552

== ENCOUNTER 2024-03-30 10:42 | Outpatient (CLI) | payer MEDICARE, SELFPAY ==
--- NOTE | ~2024-03-30 | XR_ITS ---
EXAMINATION:XR_CERV2-3V_CR DATE: 03/30/2024 11:18 INDICATION: Lower cervical pain radiating to the top of the head TECHNIQUE: AP, lateral, lateral swimmers and odontoid views of the cervical spine are provided. COMPARISON: None FINDINGS: Thoracic kyphosis with exaggerated cervical lordosis. No spondylolisthesis or facet subluxation. Mild osteoarthritis at the atlantoaxial articulation. Cervical vertebral body and disc heights appear nor mal. Mild to moderate lower cervical predominant facet osteoarthritis. Evaluation limited in the lowe r cervical spine which is suboptimally visualized on the lateral swimmers projection and obscured on the lateral projection. Mild to moderate spondylosis in the upper thoracic spine. Arthroscopic calcif ic lesions at the bilateral carotid bulbs. Prevertebral soft tissues are otherwise unremarkable. Visu alized apices of the lungs are clear. IMPRESSION: 1. Exaggerated cervical lordosis with mild to moderate lower cervical predominant facet osteoarthriti s. 2. Thoracic kyphosis with mild to moderate upper thoracic spondylosis. Reviewed, dictated and finalized at location A. M OVEN OPERATOR IMPRESSION: 1. Exaggerated cervical lordosis with mild to moderate lower cervical predomina nt facet osteoarthritis. 2. Thoracic kyphosis with mild to moderate upper thoracic spondylosis.
--- NOTE | ~2024-03-30 | CT_ITS ---
EXAMINATION: CT brain wo con DATE: 03/30/2024 11:08 INDICATION: Headache. TECHNIQUE: Computed tomography (CT) of the head was performed without intravenous contrast. The mA wa s adjusted according to patient size. Iterative reconstruction technique was employed. The dose-lengt h product was 599.57 mGy-cm. COMPARISON: PET/CT 01/27/2024 FINDINGS: There is no intracranial hemorrhage, acute infarction, or abnormal intracranial mass lesion . There are scattered areas of low attenuation in the cerebral white matter, which is within normal l imits for the patient's age. The ventricles are normal in size. There are likely changes of ocular le ns replacement surgeries. The paranasal sinuses are clear. The mastoid air cells are normal. Partiall y visualized is a 12 x 10 mm right parotid mass. IMPRESSION: 1. Normal aging brain. 2. Stable 12 mm right parotid mass. The differential diagnosis includes benign mixed tumor, Warthin t umor, and less likely primary malignancy or jose metastatic disease. Consider ultrasound-guided fine needle aspiration. Reviewed, dictated and finalized at location A. AR TURNER OPERATOR IMPRESSION: 1. Normal aging brain. 2. Stable 12 mm right parotid mass. The differential diagnosis includes benign mixed tumor, Warthin tumor, and less likely primary malignancy or jose metasta tic disease. Consider ultrasound-guided fine needle aspiration.
== END 2024-03-30 10:43 | disposition home or self-care (01) ==
LOC: MICIMG 10:44
PROVIDERS: PCP Internal Medicine; Visit Provider Internal Medicine
DX: R51.9 Headache, unspecified (principal); M47.894 Other spondylosis, thoracic region
CPT/HCPCS: 70450; 72040

== ENCOUNTER 2024-05-31 15:21 | Outpatient (CLI) | payer MEDICARE, SELFPAY ==
--- OUTSIDE RECORDS SUMMARY | 2024-05-31 16:10 | XMS_ITS | CONTINUITY OF CARE DOCUMENT ---
Author Name elodia clifton Address Unknown Organization [facility] Address [address] [place] [address] Phone [phone] Care Team Providers Care Pie Topper Name Role Phone Quinton NARVAEZ, Sima Unavailable ALICIA HOOPER MD Unavailable ALICIA HOOPER MD Unavailable PROBLEMS Condition Status Date Provider Notes AV paroxysmal tachycardia (PSVT) active Carlos Alberto Alcantara MD Bipolar disorder active Sima Alcantara MD Sinus bradycardia active Sima Alcantara MD Hypothyroidism active Sima Alcantara MD COPD;has lung md active Santi Ramirez MD CKD stage 3 (gfr 40)- follow s Dr. Altman;neg renal ango active Sima Alcantara MD CAD- cor calcification seen on CT, nml cor on cath 11/13 active Sima Alcantara MD HTN borderline--LVEF 60%, ca th 10/2020 active Sima Alcantara MD Vitamin D deficiency active Santi Ramirez Tobacco use, quit active Santi Ramirez MD Lung nodule active Santi Ramirez MD Diastolic dysfunction and lvh active Santi Ramirez MD Obesity active Santi Ramirez MD ? Sleep apnea completed - Sima Alcantara MD CAD, cor calcification seen on CT, mild plaque LCX on cath 11/13 completed - Sima Alcantara MD Fatigue active Sima Alcantara MD Cramp, hands completed - Sima Alcantara MD SOB active Sima Alcantara MD Hyperthyroidism active Ap Julietalaryjustina Carotid arterial disease--<5 0% disease by doppler 11/2021 active Sima Alcantara MD Exposure to COVID-19 coronavirus completed - Sima Alcantara MD Atrial fibrillation active Sima Alcantara MD ENCOUNTERS Date Type Provider Location Encounter Diag nosis - In-person encounter Office Visit Sima Alcantara MD [place] [facility] - In-person encounter Office Visit Sima Alcantara MD [place] [facility] - In-person encounter Office Visit Sima Alcantara MD [place] [facility] ? Sleep apneaCAD, cor calcification seen on CT, mild plaque LCX on cath 11/13Cramp, handsExposure to COVID-19 coronavirusAtrial fibrillation - In-person encounter Office Visit Sima Alcantara MD [place] [facility] - In-person encounter Office Visit Sima Alcantara MD [place] [facility] Carotid arterial disease--<50% disease by doppler 11/2021 - In-person encounter Office Visit Sima Alcantara MD [place] [facility] Hyperthyroidism - In-person encounter Office Visit Sima Alcantara MD [place] [facility] SOB - In-person encounter Office Visit Sima Alcantara MD [facility] Office - In-person encounter Office Visit Sima Alcantara MD [place] [facility] HTN borderline--LVEF 60%, cath 10/2020 - In-person encounter Office Visit Sima Alcantara MD [place] [facility] Fatigue - In-person encounter Office Visit Sima Alcantara MD [place] [facility] CAD- cor calcification seen on CT, nml cor on cath 11/13HTN borderline--LVEF 60%, cath 10/2020 - In-person encounter Office Visit Santi Ramirez MD [place] [facility] COPD;has lung mdCKD stage 3 (gfr 40)- follows Dr. Altman;neg renal angoHTN borderline--LVEF 60%, cath 10/2020Vitamin D deficiencyTobacco use, quitLung noduleDiastolic dysfunction and lvhObesity - In-person encounter Office Visit Sima Alcantara MD [place] [facility] CKD stage 3 (gfr 40)- follows Dr. Altman;neg renal angoCAD- cor calcification seen on CT, nml cor on cath 11/13 VITAL SIGNS Date Observation Value Provider Body Mass Index (Ratio) 33.94 kg/m2 Elmer Alcantara MD Inhaled O2 2.5 L/min [facility] oxygen saturation, oximetry 92 % [facility] respiratory rate E&M 12 /min Dionna Mckeon pulse rate 74 /min Dionna Mckeon blood pressure, cuff size regular [facility], diastolic 78 mm[Hg] [facility], systolic 110 mm[Hg] Tab [facility] weight E&M 204 [lb_av] Dionna Mckeon height E&M 65 [in_i] Dionna Mckeon Body Mass Index (Ratio) 34.24 kg/m2 Jeanie ching [place] weight E&M 205.8 [lb_av] Dionna Mckeon pulse rate 95 /min Dionna Mckeon blood pressure, cuff size large [facility], diastolic 76 mm[Hg] [facility], systolic 118 mm[Hg] [facility] oxygen saturation, oximetry 93 % Dionna Mckeon respiratory rate E&M 12 /min Dionna Mckeon height E&M 65 [in_i] Dionna Mckeon Body Mass Index (Ratio) 34.61 kg/m2 Elmer Alcantara MD blood pressure, diastolic 87 mm[Hg] Li [facility] blood pressure, systolic 119 mm[Hg] Delia [facility] blood pressure, cuff size regular Ja rr blood pressure, diastolic 87 mm[Hg] Ja rret blood pressure, systolic 119 mm[Hg] Jar ret pulse rate 71 /min Clint oxygen saturation, oximetry 92 % Clint Inhaled O2 1 L/min Clint respiratory rate E&M 16 /min Clint weight E&M 208 [lb_av] Clint y height E&M 65 [in_i] Clint y Body Mass Index (Ratio) 33.44 kg/m2 Elmer Alcantara MD blood pressure, diastolic 83 mm[Hg] [facility] [place] blood pressure, systolic 129 mm[Hg] Mundo phanie [place] blood pressure, cuff size large [facility] [place] respiratory rate E&M 16 /min Guille ie Alpa pulse rate 88 /min Cayla Lohma n weight E&M 201 [lb_av] Cayla Lohma n height E&M 65 [in_i] Cayla Lohma n Inhaled O2 2 L/min Cayla Lohma n oxygen saturation, oximetry 91 % Cayla [place] Body Mass Index (Ratio) 34.28 kg/m2 Elmer Alcantara MD oxygen saturation, oximetry 95 % Deana Nichols pulse rate 64 /min Deana ramirez blood pressure, diastolic 79 mm[Hg] Wa mendy [place] blood pressure, systolic 112 mm[Hg] [facility] helviry [place] Inhaled O2 1 L/min Deana ramirez weight E&M 206 [lb_av] Daena Chandu ramirez respiratory rate E&M 16 /min Karen weston [place] blood pressure, cuff size large Wa mendy [place] height E&M 65 [in_i] Deana ramirez Body Mass Index (Ratio) 34.61 kg/m2 Elmer Alcantara MD blood pressure, cuff size large Wa mendy [place] blood pressure, diastolic 84 mm[Hg] Wa mendy [place] blood pressure, systolic 136 mm[Hg] [facility] enedina [place] respiratory rate E&M 16 /min Karen weston [place] pulse rate 95 /min Deana ramirez oxygen saturation, oximetry 98 % Deana Nichols weight E&M 208 [lb_av] Deana ramirez Inhaled O2 1 L/min Deana ramirez height E&M 65 [in_i] Deana ramirez Body Mass Index (Ratio) 37.44 kg/m2 Elmer Alcantara MD blood pressure, diastolic 74 mm[Hg] Munira connerLogvanessa blood pressure, systolic 142 mm[Hg] Delia Hicks blood pressure, diastolic 74 mm[Hg] Carol Treadwell blood pressure, systolic 142 mm[Hg] Cabrera Treadwell pulse rate 66 /min Alon [place] oxygen saturation, oximetry 85 % Alon Treadwell Inhaled O2 9 L/min Alon [place] weight E&M 225 [lb_av] Alon [place] blood pressure, cuff size regular Carol Treadwell height E&M 65 [in_i] Alon bangura Body Mass Index (Ratio) 40.60 kg/m2 Elmer Alcantara MD blood pressure, cuff size regular [facility] [place] blood pressure, diastolic 75 mm[Hg] Pa ris [place] blood pressure, systolic 157 mm[Hg] Par is [place] oxygen saturation, oximetry 98 % [facility] E&M 22 /min [facility] zaynab pulse rate 77 /min [facility] E&M 244 [lb_av] [facility] E&M 65 [in_i] [facility] Body Mass Index (Ratio) 41.43 kg/m2 Elmer Alcantara MD respiratory rate E&M 18 /min [facility] blood pressure, diastolic 57 mm[Hg] To [facility] blood pressure, systolic 101 mm[Hg] [facility] oxygen saturation, oximetry 92 % [facility] pulse rate 61 /min [facility] weight E&M 249 [lb_av] [facility] height E&M 65 [in_i] [facility] Body Mass Index (Ratio) 40.60 kg/m2 Elmer Alcantara MD oxygen saturation, oximetry 95 % [facility] E&M 16 /min Chastit y José pulse rate 71 /min Chastity José blood pressure, diastolic 64 mm[Hg] Ch astity José blood pressure, systolic 112 mm[Hg] Morena stity José weight E&M 244 [lb_av] Chastnayeli José height E&M 65 [in_i] Susan Kumar Body Mass Index (Ratio) 40.77 kg/m2 Dora Ramirez MD blood pressure, cuff size regular Cy nasir Mccullough blood pressure, diastolic 90 mm[Hg] Cy nasir Mccullough blood pressure, systolic 130 mm[Hg] Di johnyn Mccullough oxygen saturation, oximetry 92 % Nathalie Mccullough respiratory rate E&M 18 /min Nathaliejohnny Mccullough pulse rate 56 /min Nathaliejohnny Moreira l weight E&M 245 [lb_av] Nathalie Campbel l height E&M 65 [in_i] Nathalie Campbel l Body Mass Index (Ratio) 40.60 kg/m2 Elmer Alcantara MD blood pressure, resting Yes Pedro bryan [place] blood pressure, diastolic 74 mm[Hg] Jorje blackha [place] blood pressure, systolic 120 mm[Hg] Mireille silva [place] height E&M 65 [in_i] Tash [place] oxygen saturation, oximetry 90 % Tash [place] respiratory rate E&M 18 /min Tash [place] pulse rate 75 /min Tash [place] weight E&M 244 [lb_av] Tash [place] ALLERGIES No Known Drug Allergies RESULTS Date Observation Value Provider Reference Range Interpretation Location 4 pro brain natriuretic peptide 1125 pg/mL [facility] 0-301 High 4 microalbumin/creatin ine ratio, urine 13.9 MG/G CREAT [facility] 0.0-30.0 4 microalbumin, random, urine 1.38 mg/dL [facility] Units converted. See lab report for original value. 4 creatinine, random, urine 99.1 mg/dL [facility] Not Estab. 4 lipoprotein, beta, serum, point, quantitative, calculated 86 mg/dL [facility] 0-99 4 very low density lipoproteins 23 mg/dL [facility] 5-40 4 HDL cholesterol, serum 63 mg/dL [facility] >39 4 triglyceride, serum, random 113 mg/dL [facility] 0-149 4 cholesterol, serum 172 mg/dL [facility] 398-436 6744/08/1 4 hemoglobin A1C, blood, as % of total hemoglobin 5.0 % [facility] 4.8-5.6 4 free thyroxine index 3.3 [facility] 1.2-4.9 4 triiodothyronine resin uptake 32 % [facility] 24-39 4 thyroxine, serum, total 10.4 ug/dL [facility] 4.5-12.0 4 thyroid stimulating hormone, serum 0.485 u[IU]/mL [facility] 0.450-4.500 4 alanine aminotransferase (SGPT), serum 12 1/L [facility] 0-32 4 aspartate aminotransferase (SGOT), serum 16 1/L [facility] 0-40 4 alkaline phosphatase, serum 83 1/L [facility] 39-117 4 bilirubin, serum, total 0.6 mg/dL [facility] 0.0-1.2 4 albumin/globulin ratio, serum 1.6 [facility] 1.2-2.2 4 globulin, serum 2.6 [facility] 1.5-4.5 4 albumin, serum 4.2 g/dL [facility] 3.5-4.8 4 protein, total, serum 6.8 g/dL [facility] 6.0-8.5 4 calcium, serum 8.8 mg/dL [facility] 8.7-10.3 4 carbon dioxide, venous blood 19 mmol/L [facility] 20-29 Low 4 chloride, serum 102 mmol/L [facility] 96-106 4 potassium, serum 4.6 mmol/L [facility] 3.5-5.2 4 sodium, serum 141 mmol/L [facility] 047-769 8604/08/1 4 urea nitrogen/creatinine ratio, serum 13 [facility] 12-28 4 eGFR if 48 mL/min/{1 .73_m2} [facility] >59 Low 4 eGFR if not 42 mL/min/{1 .73_m2} [facility] >59 Low 4 creatinine, serum 1.27 mg/dL [facility] 0.57-1.00 High 4 urea nitrogen, blood 16 mg/dL [facility] 8-27 4 blood glucose, random 80 mg/dL [facility] 65-99 8 prothrombin time (patient) 11.2 s [facility] 9.1-12.0 8 international normalized ratio (INR) 1.1 [facility] 0.8-1.2 8 basophil count, absolute 0.0 x10E3/uL [facility] 0.0-0.2 8 Eosinophil Absolute Count 0.0 X10E3/UL [facility] 0.0-0.4 8 monocyte count, blood, automated 0.4 X10E3/UL [facility] 0.1-0.9 8 lymphocyte count, blood, automated 1.4 X10E3/UL [facility] 0.7-3.1 8 Absolute Neutrophils 4.6 X10E3/UL [facility] 1.4-7.0 8 basophils as percent of blood leukocytes 0 % [facility] Not Estab. 8 eosinophils as percent of blood leukocytes 0 % [facility] Not Estab. 8 monocytes as percent of blood leukocytes 6 % [facility] Not Estab. 8 lymphocytes as percent of blood leukocytes 22 % [facility] Not Estab. 8 neutrophils as percent of blood leukocytes 72 % [facility] Not Estab. 8 platelet count 233 X10E3/UL [facility] [phone]/07/1 8 red blood cell distribution width 14.1 % [facility] 12.3-15.4 8 mean corpuscular hemoglobin concentration, RBC 32.9 G/DL [facility] 31.5-35.7 8 mean corpuscular hemoglobin, RBC 30.0 pg [facility] 26.6-33.0 8 mean corpuscular volume, RBC 91 fL [facility] 79-97 8 hematocrit, blood 43.1 % [facility] 34.0-46.6 8 hemoglobin, blood 14.2 g/dL [facility] 11.1-15.9 8 erythrocyte (RBC) count 4.73 X10E6/UL [facility] 3.77-5.28 8 leukocyte count, blood 6.4 [facility]10E3/UL [facility] HISTORY OF MEDICATION USE Medication Status Instructions Dates Provider Indications Com ments diltiazem HCl 120 mg tablet extended release 24 hr active TAKE 1 TABLET BY MOUTH EVERY NIGHT Leelee Mccain Tylenol 500 mg active Dionna Mckeon loratadine 10 mg tablet active Dionna Mckeon Eliquis 5 mg tablet active Take 1 table t by mouth twice a day 08/31 Ap Mae ergocalciferol (vitamin D2) 1,250 mcg (50,000 unit) capsule active TAKE 1 CAPSULE BY MOUTH 1 TIME A WEEK atorvastatin 40 mg tablet active TAKE 1 TABLET BY MOUTH EVERY DAY 05/09 Merry Rushing furosemide 40 mg tablet active TAKE 1 TABLET BY MOUTH ONCE A DAY Sima Alcantara MD losartan 50 mg tablet completed TAKE 1 TABLET BY MOUTH DAILY 09/28 - 10/14 Dionna Mckeon hydrochlorothiazide 25 mg tablet completed Take 1 tablet by mouth once a day 09/10 - 10/22 Ap Mae atorvastatin 40 mg tablet completed Take 1 tablet by mouth once a day 09/02 - 05/09 Merry Rushing duloxetine 30 mg capsule,delayed release(DR/EC) active Ap Mae famotidine 20 mg tablet active Ap Mae furosemide 40 mg tablet completed Take 1 1/2 tablet by mouth once a day 08/21 - 06/26 Ap Mae diltiazem HCl 120 mg capsule,extended release 24hr completed TAKE ONE CAPSULE BY MOUTH EVERY EVENING 06/18 - 06/13 Ap Ahmedzai losartan 50 mg tablet completed TAKE 1 TABLET BY MOUTH DAILY 11/26 - 06/26 Nichelle Shuklar hydrochlorothiazide 25 mg tablet completed TAKE 1 TABLET BY MOUTH DAILY 11/25 - 08/21 Joya Fried atorvastatin 40 mg tablet completed TAKE 1 TABLET BY MOUTH DAILY 11/25 - 09/02 Joya Fried ergocalciferol (vitamin D2) 1,250 mcg (50,000 unit) capsule completed TAKE 1 CAPSULE BY MOUTH ONCE A WEEK 01/20 - Clint Azar magnesium 200 mg tablet completed 1 tablet by mouth every night 05/16 - 10/14 Dionna Mckeon hydrochlorothiazide 25 mg tablet completed Take 1 tablet by mouth once a day 12/03 - 11/25 Kimberly Bolanos ADIPEX-P 37.5 MG ORAL TABLET completed one tab by mouth daily 12/07 - 01/19 Sima Alcantara MD NALTREXONE HCL 50 MG ORAL TABLET completed 1/2 tab by mouth daily, if not effective after 1 week may increase to 1/2 tab twice daily 12/07 - 01/19 Sima Alcantara MD atorvastatin 40 mg tablet completed Take 1 tablet by mouth once a day 12/03 - 11/25 Kimberly Bolanos losartan 50 mg tablet completed Take 1 tablet by mouth once a day 12/03 - 11/26 Nichelle Rudolph ASPIRIN ADULT LOW DOSE 81 MG ORAL TABLET DELAYED RELEASE completed One Tab By Mouth Daily 10/19 - 12/07 Nathalie Mccullough TYLENOL EXTRA STRENGTH 500 MG ORAL TABLET completed as needed 10/19 - 05/16 Constantin Nacht Trelegy Ellipta 100-62.5-25 mcg blister with device completed Take 1 puff once a day 10/19 - 10/14 Dionnasmita Mckeon FLONASE ALLERGY RELIEF 50 MCG/ACT NASAL SUSPENSION completed once daily 10/19 - 05/16 Constantin Carbajal Dialyvite Vitamin D3 Max 1,250 mcg (50,000 unit) tablet completed tablet by mouth every other day 10/19 - 10/14 Dionna Mckeon levothyroxine 100 mcg tablet active 1 tablet by mouth once a day 10/19 Ap Julietasantiago montelukast 10 mg tablet completed 1 tablet by mouth once a day 10/19 - 10/14 Dionnasmita Mckeon ProAir HFA 90 mcg/actuation HFA aerosol inhaler completed as needed 09/11 - 10/14 Dionna Mckeon #85, 16 days supply, Filled 10/09/2018 escitalopram oxalate 5 mg tablet completed 1 tablet by mouth once a day 10/09 - 10/14 Dionnasmita Mckeon #14, 14 days supply, Prescribed by KEATON MARIO, Filled 10/09/2018 alprazolam 0.5 mg tablet active Take 1 tablet by mouth three times a day as directed 10/09 Tash Johnson #90, 30 days supply, Prescribed by KEATON MARIO, Filled 10/09/2018 SOCIAL HISTORY Date Observation Value Provider cigarette use yes Ap Ahmedzai smoking status Former smoker Ap Ahmedza i cigarette use yes Ap Ahmedzai smoking status Former smoker Ap Ahmedza i cigarette use yes Cayla Vince mirza smoking status Former smoker Cayla Katelyn clay social history reviewed E&M revi ewed - no changes required Ap Ahmedzai cigarette use yes Deana Carmona nd smoking status Former smoker Deana johnson social history reviewed E&M revi ewed - no changes required Ap Mae social history reviewed E&M revi ewed - no changes required Ap Mae social history reviewed E&M revi ewed - no changes required Ap Mae cigarette use yes Jessica Pryorron smoking status Former smoker Jessica Pryorron social history reviewed E&M revi ewed - no changes required Ap Mae social history E&M S moking History: Lucy altamirano is a former smoker. Sima Alcantara MD social history reviewed E&M revi ewed - no changes required Sima Alcantara MD cigarette use yes Fernie Aguirre smoking status Former smoker Fernie Aguirre number of grandchildren Sima Alcantara MD T sera Alcantara MD social history E&M S moking History: Lucy altamirano is a former smoker. Sima Alcantara MD social history reviewed E&M revi ewed - no changes required Sima Alcantara MD cigarette use yes Susan Ramirezue smoking status Former smoker Susan Ramirez ue smoking status Former smoker Santi ordoñez MD social history E&M S moking History: Lucy altamirano is a former smoker. Santi Ramirez MD social history reviewed E&M revi ewed - no changes required Santi Ramirez MD quit smoking, stage quit Santi terrazas MD appendectomy, history of yes Stewart Ramirez MD cigarette use yes Nathalie mercado social history reviewed E&M revi ewed - no changes required Sima Alcantara MD social history E&M S moking History: Lucy altamirano is a former smoker. Sima Alcantara MD cigarette use yes Tash Johnson smoking status Former smoker Tash montelonog FUNCTIONAL STATUS Date Observation Value Provider HRA, CV Assess/Plan, Angina (inactive) Management Plan continue current therapy Ap Ahmedzai HRA, CV Assess/Plan, Angina (inactive) Management Plan continue current therapy Ap Ahmedzai HRA, CV Assess/Plan, Angina (inactive) Management Plan continue current therapy Ap Ahmedzai HRA, CV Assess/Plan, Angina (inactive) Management Plan continue current therapy Ap Ahmedzai HRA, CV Assess/Plan, Angina (inactive) Management Plan continue current therapy Ap Ahmedzai HRA, CV Assess/Plan, Angina (inactive) Management Plan continue current therapy Ap Ahmedzai HRA, CV Assess/Plan, Angina (inactive) Management Plan continue current therapy Sima Alcantara MD HRA, CV Assess/Plan, Angina (inactive) Management Plan continue current therapy Sima Alcantara MD HRA, CV Assess/Plan, Angina (inactive) Management Plan continue current therapy Santi Ramirez MD HRA, CV Assess/Plan, Angina (inactive) Management Plan continue current therapy Sima Alcantara MD FAMILY HISTORY Family Member Condition Father Family History of Co ronary Artery Disease: INSURANCE PROVIDERS Payer name Policy type / Coverage type [place] [employer] republic[employer] ID [employer] MEDICARE ADVANTAGE HMO-POS HMO [id number] ADVANCE DIRECTIVES Name Date DISCUSSED - NO DECISION MADE TREATMENT PLAN Date Name Performer [id number],S, Ap Ahmedza i [id number],S, Ap Ahmedza i [id number],S, Ap Ahmedza i [id number],S, Ap Ahmedza i [id number],S, Ap Ahmedza i [id number],S, Ap Ahmedza i [id number],S, Ap Ahmedza i [id number],S, Ap Ahmedza i [id number],S, Ap Ahmedza i [id number],S, Ap Ahmedza i [id number],S, Ap Ahmedza i [id number],S, Ap Ahmedza i [id number],S, Ap Ahmedza i [id number],S, Ap Ahmedza i [id number],S, Ap Ahmedza i [id number],S, Pa Ahmedza i [id number],S, Ap Ahmedza i [id number],S, Ap Ahmedza i [id number],S, Ap Ahmedza i [id number],S, Ap Ahmedza i [id number],S, Ap Ahmedza i [id number],S, Ap Ahmedza i [id number],S, Ap Ahmedza i [id number],S, Ap Ahmedza i [id number],S, Ap Ahmedza i [id number],S, Ap Ahmedza i [id number],S, Ap Ahmedza i [id number],S, Ap Ahmedza i [id number],S, Ap Ahmedza i [id number],S, Ap Ahmedza i [id number],S, Ap Ahmedza i [id number],N, Ap Ahmedza i [id number],S, Ap Ahmedza i [id number],S, Ap Ahmedza i [id number],S, Ap Ahmedza i [id number],S, Ap Ahmedza i [id number],S, Ap Ahmedza i [id number],S, Ap Ahmedza i [id number],S, Ap Ahmedza i [id number],S, Ap medza i [id number],S, Ap medza i [id number],S, Ap medza i [id number],S, Ap medza i [id number],W, Sima Alcantara MD [id number],S, Sima Alcantara MD [id number],S, Sima Alcantara MD [id number],S, Sima Alcantara MD [id number],S, Sima Alcantara MD [id number],SSima MD [id number],SSima MD Cardiology:This visi t has been a part of the consistent, comprehensive, and ongoing management of the chronic medical condition(s) listed above for the patient. Her updated medication list for this problem includes: Diltiazem Hcl 120 Mg Tablet Extended Release 24 Hr (Diltiazem hcl) ..... Take 1 tablet by mouth every night Sima Alcantara MD Cardiology Ap Mae Cardiology: H er updated medication list for this problem includes: Furosemide 40 Mg Tablet (Furosemide) ..... Take 1 tablet by mouth once a day Diltiazem Hcl 120 Mg Tablet Extended Release 24 Hr (Diltiazem hcl) ..... Take 1 tablet by mouth every night Ap Mae Cardiology: B P today: 110/78 P rior BP: 118/76 (10/15/2023) Labs Reviewed: C reat: 1.27 (12/09/2018) C hol: 172 (12/09/2018) HDL: 63 (12/09/2018) LDL: 86 (12/09/2018) T (12/09/2018) Her updated medication list for this problem includes: Furosemide 40 Mg Tablet (Furosemide) ..... Take 1 tablet by mouth once a day Diltiazem Hcl 120 Mg Tablet Extended Release 24 Hr (Diltiazem hcl) ..... Take 1 tablet by mouth every night Ap Mae Cardiology Ap Mae Cardiology Ap Mae Cardiology Ap Mae Cardiology: H er updated medication list for this problem includes: Diltiazem Hcl 120 Mg Tablet Extended Release 24 Hr (Diltiazem hcl) ..... Take 1 tablet by mouth every night Ap Mae Cardiology Ap Mae Cardiology Sima Alcantara MD Cardiology Sima Alcantara MD Cardiology Sima Alcantara MD Cardiology Sima Alcantara MD Cardiology:This brandoni t has been a part of the consistent, comprehensive, and ongoing management of the chronic medical condition(s) listed above for the patient. Her updated medication list for this problem includes: Diltiazem Hcl 120 Mg Tablet Extended Release 24 Hr (Diltiazem hcl) ..... Take 1 tablet by mouth every night Sima Alcantara MD Cardiology Ap Ahmedzai Cardiology Ap Ahmedzai Cardiology: O rders: M onitor - Telemetry (Mobile Cardiac) ([id number]) Ap Ahmedzai Cardiology Ap Ahmedzai Cardiology: B P today: 119/87 P rior BP: 129/83 (06/26/2022) Labs Reviewed: C reat: 1.27 (12/09/2018) C hol: 172 (12/09/2018) HDL: 63 (12/09/2018) LDL: 86 (12/09/2018) T (12/09/2018) Ap Ahmedzai Cardiology Ap Ahmedzai Cardiology Ap Ahmedzai Cardiology Ap Ahmedzai Cardiology Ap Ahmedzai Cardiology Ap Ahmedzai Cardiology Ap Ahmedzai Cardiology Ap Ahmedzai Cardiology Ap Ahmedzai Cardiology Ap Ahmedzai Cardiology Ap Ahmedzai Cardiology Ap Ahmedzai Cardiology Ap Ahmedzai Cardiology Ap Ahmedzai Cardiology Ap Ahmedzai Cardiology Ap Ahmedzai Cardiology Ap Ahmedzai Cardiology Ap Ahmedzai Cardiology Ap Ahmedzai Cardiology Ap Ahmedzai Cardiology Ap Ahmedzai Cardiology Ap Ahmedzai Cardiology Ap Ahmedzai Cardiology Ap Ahmedzai Cardiology Ap Ahmedzai Cardiology Ap Ahmedzai Cardiology Ap Ahmedzai Cardiology Ap Ahmedzai Cardiology Ap Ahmedzai Cardiology Ap Ahmedzai Telehealth Ap Ahmedzai Telehealth Ap Ahmedzai Telehealth Ap Ahmedzai Telehealth Ap Ahmedzai Telehealth Ap Ahmedzai Telehealth Ap Ahmedzai Telehealth Ap Ahmedzai Telehealth Ap Ahmedzai Telehealth Ap Ahmedzai Telehealth Ap Ahmedzai Cardiology Ap Ahmedzai Cardiology Ap Ahmedzai Cardiology Ap Ahmedzai Cardiology Ap Ahmedzai Cardiology Ap Ahmedzai Cardiology Ap Rendonmedzai Telehealth Sima Alcantara MD Telehealth Sima Alcantara MD Telehealth Sima Alcantara MD Telehealth Sima Alcantara MD Telehealth Sima Alcantara MD Telehealth Sima Alcantara MD Telehealth Sima Alcantara MD Telehealth Constantin Carbajal Telehealth Constantin Carbajal Telehealth Constantin Florest Telehealth Constantin Florest Telehealth Constantin Florest Telehealth Constantin Carbajal Telehealth:Currently on Losartan 50mg. Was not able to tolerate HCTZ, she got palpitations on this drug. Sima Alcantara MD Telehealth:Will check LABS: Magn esium and CMP Sima Alcantara MD Telehealth:She is us ing supplemental oxygen at night and reports that it has improved her sleep. However she continues to fatigue quickly. She continues to follow with pulmonology. will f/u in six months. Sima Alcantara MD Telehealth:Not currently using C PAP. Sima Alcantara MD Cardiology Sima Alcantara MD Cardiology Sima Alcantara MD Cardiology Sima Alcantara MD Cardiology Sima Alcantara MD Cardiology Sima Alcantara MD Cardiology Sima Alcantara MD Cardiology Sima Alcantara MD Cardiology Sima Alcantara MD Cardiology Sima Alcantara MD Cardiology Sima Alcantara MD Cardiology Sima Alcantara MD Cardiology Sima Alcantara MD Cardiology follow up Sanit almaraz MD Cardiology follow up :many sx wi ll tubbs Santi Ramirez MD Cardiology follow up Santi almaraz MD Cardiology follow up Santi almaraz MD Cardiology follow up Santi almaraz MD Cardiology follow up Santi almaraz MD Cardiology follow up :will try naltrexone nad adipex to lose wt, and refer to surgery Santi Ramirez MD Cardiology follow up :gettting y earlyu ct Santi Ramirez MD Cardiology follow up Santi almaraz MD Cardiology follow up :plauqe on cath, pos nuc Santi Ramirez MD Cardiology Sima Alcantara MD Cardiology Sima Alcantara MD Cardiology Sima Alcantara MD Cardiology Sima Alcantara MD Cardiology Sima Alcantara MD Date Name Complete Echo Monitor - Telemetry (Mobile Cardiac) Monitor - Telemetry (Mobile Cardiac) Carotid Duplex Bilat eral COMPREHENSIVE METABO LIC PANEL, W/EGFR MAGNESIUM URINALYSIS, RANDOM, MICROALB/CREATININE HEMOGLOBIN A1c THYROID PANEL WITH T SH, 3RD GENERATION PROBNP, N TERMINAL LIPID PANEL COMPREHENSIVE METABO LIC PANEL, W/EGFR PROBNP, N TERMINAL COMPREHENSIVE METABO LIC PANEL, W/EGFR URINALYSIS, RANDOM, MICROALB/CREATININE HEMOGLOBIN A1c LIPID PANEL THYROID PANEL WITH T SH, 3RD GENERATION Complete Echo Holter Monitor 24 Hr PROTHROMBIN TIME WIT H INR CBC (INCLUDES DIFF/P LT) HISTORY OF PROCEDURES Procedure Date Procedure Name Provider Procedure Notes S tatus Complex e/m visit add on Sima Alcantara MD completed Complex e/m visit add on Sima Alcantara MD completed EKG Sima Alcantara MD completed EKG Sima Alcantara MD completed Event Monitor Sima Alcantara MD comple dann Holter, 24 or 48 Santi Ramirez MD co mpleted Regadenoson, 4 units Sima Alcantara MD completed Cardiolite, 2 units Sima Alcantara MD completed SPECT Images Sima Alcantara MD complet ed Stress EKG Sima Alcantara MD completed EKG Sima Alcantara MD completed
[2024-05-31 16:37] LABS: Basophils Absolute Auto 0.1 K/mm3 (0.0-0.1); Basophils Percent Auto 0.7 % (0.2-1.2); Eosinophils Absolute Auto 0.1 K/mm3 (0-0.3); Hematocrit 46.2 % (37.0-47.0); Hemoglobin 15.1 g/dL (12.0-15.0); Immature Granulocyte Absolute 0.04 K/mm3 (0.00-0.031); Immature Granulocyte Percent A 0.4 % (0-0.5); Lymphocytes Absolute Auto 2.11 K/mm3 (0.9-3.2); Mean Corpuscular HGB Conc 32.7 g/dl (32-36); Mean Corpuscular Hemoglobin 31.6 pg (26-34); Mean Corpuscular Volume 96.7 fl (80-100); Mean Platelet Volume 10.6 fl (7.4-10.4); Monocytes Absolute Auto 0.4 K/mm3 (0.1-0.6); Monocytes Percent Auto 3.9 % (2.6-8.5); Neutrophils Absolute Auto 7.3 K/mm3 (1.3-6.7); Platelet Count Result 273 k/mm3 (150-375); Red Blood Count 4.78 M/mm3 (4.2-5.4); Red Cell Distribution Width 14.7 % (11.5-14.5)
[2024-05-31 16:41] LABS: Alanine Aminotransferase 11 U/L (6-35); Albumin Level 4.5 g/dL (3.5-5.1); Alkaline Phosphatase 99 U/L (38-126); Anion Gap 12 mmol/L (4-12); Aspartate Amino Transferase 21 U/L (14-36); Bilirubin,Total 0.9 mg/dL (0.2-1.3); Blood Urea Nitrogen 24 mg/dL (7-17); Calcium 9.6 mg/dL (8.4-10.2); Carbon Dioxide 28 mmol/L (22-30); Chloride 100 mmol/L (98-107); Cholesterol 243 mg/dL (0-200); Estimated Glomerular Filt Rate 38; Glucose 102 mg/dL (65-110); HDL Direct 70 mg/dL; Potassium 3.9 mmol/L (3.4-5.0); Sodium 140 mmol/L (137-145); Triglycerides 178 mg/dL (<150)
[2024-05-31 16:43] LABS: Magnesium 2.2 mg/dL (1.6-2.3); Phosphorus 3.4 mg/dL (2.5-4.5); Uric Acid 9.2 mg/dL (2.5-7.5)
[2024-05-31 16:52] LABS: LDL Cholesterol Direct 119 mg/dL; Parathyroid Intact 130.5 pg/mL (14.5-75.2)
[2024-05-31 17:02] LABS: Add Urine Microscopic? YES; Appearance Urine Clear (Clear); Bacteria Urine 3+ /hpf; Bilirubin Urine Negative (Negative); Blood Urine Negative (Negative); Color Urine Yellow (Yellow); Glucose Urine UA Negative (Negative); Ketones Urine Negative (Negative); Leukocyte Esterase Ur 1+ LEU/UL (Negative); Mucus Urine Present /lpf; Need Manual Microscopic Reviewed; Nitrate Urine Negative (Negative); Non Pathogenic Casts 0-2; Protein Urine Negative (Negative); RBC Urine 0-2 /hpf (0-2); Squamous Epithelial Cell Urine Occasional /hpf (Few); Urobilinogen Urine 0.2 mg/dL (<2.0); WBC Urine 0-5 /hpf (0-3); pH Urine 6.5 (5.0-9.0)
[2024-05-31 17:18] LABS: Free T4 Free Thyroxine 1.61 ng/dL (0.78-2.19); Vitamin D 25 Hydroxy 34.3 ng/mL
[2024-05-31 17:29] LABS: Hemoglobin A1C 5.2 % (<5.7)
[2024-05-31 17:40] LABS: Total Protein Urine Random 10 mg/dL
[2024-05-31 18:09] LABS: Creatinine Urine 37.4 mg/dL
[2024-05-31 18:10] LABS: Creatinine Urine 37.7 mg/dL; Ur Ttl Prot Creatinine Ratio 0.27 mg/mg (0-0.20)
[2024-05-31 18:15] LABS: MALB Creatinine Ratio < 16.0 mg/g (0-30); Microalbumin Urine Random < 6.0 mg/L (0-16.7)
== END 2024-05-31 15:22 | disposition home or self-care (01) ==
PROVIDERS: PCP Internal Medicine; Referring Provider Internal Medicine
DX: I12.9 Hypertensive chronic kidney disease with stage 1 through stage 4 chronic kidney disease, or unspecified chronic kidney disease (principal); E11.22 Type 2 diabetes mellitus with diabetic chronic kidney disease; N18.30 Chronic kidney disease, stage 3 unspecified; E78.5 Hyperlipidemia, unspecified; E55.9 Vitamin D deficiency, unspecified; R60.9 Edema, unspecified; E11.65 Type 2 diabetes mellitus with hyperglycemia; R82.90 Unspecified abnormal findings in urine
CPT/HCPCS: 36415; 80053; 80061; 81001; 82043; 82306; 82570; 83036; 83735; 83970; 84100; 84156; 84439; 84443; 84550; 85025; 87086; 87186

== ENCOUNTER 2024-08-11 15:04 | Outpatient (CLI) | payer MEDICARE, SELFPAY ==
--- OUTSIDE RECORDS SUMMARY | 2024-08-11 15:24 | XMS_ITS ---
Author Organization [facility] Address [address] [place] [address] Care Team Providers Care Hotel And Dining Room Cashier Name Role Phone Angie Willams Unavailable [phone] SOCIAL HISTORY Sex Assigned At : Social History Observation Description Sex Assigned At Female Encounters Encounter Location Date Provider Diagnosis [place] [facility] [address] [facility] [address] [phone] 04/12/2024 Angie Willams PLAN OF TREATMENT Next Appt Details Provider Name:Angie ordoñez, 08/16/2024 03:45:00 PM, [address], [place], [address], Progress Notes * MARIO CURTISB:1945 ( 79 yo F)Acc No.[id number]:04/12/2024 Progress Notes Patient: MARGIE CURTIS Provider: ANGIE WILLAMS M.D :1945 Age:79 Y Sex:Female Date:04/12/2024 Address:[address] [place] [address] Subjective: * Chief Complaints: * * Medical History: Objective: Assessment: Plan: * Treatment: * Billing Information: * Visit Code: * Procedure Codes: * Sign off status: Pending * Provider: ANGIE WILLAMS M.D Date: 04/12/2024
--- OUTSIDE RECORDS SUMMARY | 2024-08-11 15:24 | XMS_ITS | Patient Health Record ---
Author Organization [facility] Address [address] [facility] [address] [place] [address] Care Team Providers Care Community Relations Director Name Role Phone Faiza Altman Unavailable [phone] REASON FOR REFERRAL No Information MEDICATIONS Medication SIG (Take, Route, Frequency, Duration) Notes Start Date End Date Status Atorvastatin Calcium 40 MG 1and a half tablet Orally Once a day for 90 days d/c last for just forty 04/07/2023 Active Atorvastatin Calcium 40 MG 1 and a half tablet Orally Once a day for 120 days 12/09/2022 Active SOCIAL HISTORY Sex Assigned At : Social History Observation Description Sex Assigned At Female Encounters Encounter Location Date Provider Diagnosis [place] [facility] [address] [place] [address] 01/12/2024 Faiza Agapito Chronic kidney disease, stage 3b N18.32 ; Hypokalemia E87.6 ; Hypoparathyroidism, unspecified E20.9 and Anxiety disorder, unspecified F41.9 [place] [address] [place] [id number] 04/12/2024 [place] [address] 05/10/2024 Faiza Agapito [facility] [address] [place] [address] 06/14/2024 Faiza Agapito ASSESSMENTS Encounter Date Diagnosis Assessment Notes Treatment Notes Treatment Clinical Notes Section Notes 01/12/2024 Chronic kidney disease, stage 3b (ICD-10 - N18.32) 01/12/2024 Hypokalemia (ICD-10 - E87.6) 01/12/2024 Hypoparathyroidi sm, unspecified (ICD-10 - E20.9) 01/12/2024 Anxiety disorder, unspecified (ICD-10 - F41.9) PLAN OF TREATMENT Next Appt Details Provider Name:Faiza ordoñez, 08/16/2024 03:45:00 PM, [address], [place], [address],
--- OUTSIDE RECORDS SUMMARY | 2024-08-11 15:24 | XMS_ITS ---
Author Organization [facility] Address [address] [place] [address] Care Team Providers Care Ux Developer Name Role Phone Angie Willams Unavailable [phone] REASON FOR VISIT pt needs phone call SOCIAL HISTORY Sex Assigned At : Social History Observation Description Sex Assigned At Female Encounters Encounter Location Date Provider Diagnosis [place] [facility] [address] [facility] [address] [phone] 06/14/2024 Angie Willams PLAN OF TREATMENT Next Appt Details Provider Name:Angie ordoñez, 08/16/2024 03:45:00 PM, [address], [place], [address], Progress Notes * AMRIO CURTISB:1945 ( 79 yo F)Acc No.[id number]:06/14/2024 Progress Notes Patient: MARGIE CURTIS Provider: ANGIE WILLAMS M.D :1945 Age:79 Y Sex:Female Date:06/14/2024 Address:[address] [place] [address] Subjective: * Chief Complaints: * 1. Pt needs phone call. * Medical History: Objective: Assessment: Plan: * Treatment: * Billing Information: * Visit Code: * Procedure Codes: * Sign off status: Pending * Provider: ANGIE WILLAMS M.D Date: 06/14/2024
--- OUTSIDE RECORDS SUMMARY | 2024-08-11 15:24 | XMS_ITS | CONTINUITY OF CARE DOCUMENT ---
Author Name elodia clifton Address Unknown Organization [facility] Address [address] [facility] [address] [place] [address] Phone [phone] Care Team Providers Care Legislative Assistant Name Role Phone Quinton NARVAEZ, Sima Unavailable [phone] ALICIA HOOPER MD Unavailable [phone] ALICIA HOOPER MD Unavailable PROBLEMS Condition Status [...] active Sima Alcantara MD Hyperthyroidism active Ap Mae Carotid arterial disease--<5 0% disease by doppler 11/2021 active Sima Alcantara MD Exposure to COVID-19 coronavirus completed - Sima Alcantara MD Atrial fibrillation active Sima Alcantara MD Infrarenal abdominal aortic aneurysm, 4.5 cm active Ap Mae ENCOUNTERS Date Type Provider Location Encounter Diag nosis - In-person encounter Office Visit Sima Alcantara MD [facility] Infrarenal abdominal aortic aneurysm, 4.5 cm - In-person encounter Office Visit Sima Alcantara MD [facility] - In-person encounter Office Visit Sima Alcantara MD [facility] - In-person encounter Office Visit Sima Alcantara MD [facility] ? Sleep apneaCAD, cor calcification seen on CT, mild plaque LCX on cath 11/13Cramp, handsExposure to COVID-19 coronavirusAtrial fibrillation - In-person encounter Office Visit Sima Alcantara MD [facility] - In-person encounter Office Visit Sima Alcantara MD [facility] Carotid arterial disease--<50% disease by doppler 11/2021 - In-person encounter Office Visit Sima Alcantara MD [facility] Hyperthyroidism - In-person encounter Office Visit Sima Alcantara MD [facility] SOB - In-person encounter Office Visit Sima Alcantara MD [facility] Office - In-person encounter Office Visit Sima Alcantara MD [facility] HTN borderline--LVEF 60%, cath 10/2020 - In-person encounter Office Visit Sima Alcantara MD [facility] Fatigue - In-person encounter Office Visit Sima Alcantara MD [facility] CAD- cor calcification seen on CT, nml cor on cath 11/13HTN borderline--LVEF 60%, cath 10/2020 - In-person encounter Office Visit Santi Ramirez MD [facility] COPD;has lung mdCKD stage 3 (gfr 40)- follows Dr. Altman;neg renal angoHTN borderline--LVEF 60%, cath 10/2020Vitamin D deficiencyTobacco use, quitLung noduleDiastolic dysfunction and lvhObesity - In-person encounter Office Visit Sima Alcantara MD [facility] CKD stage 3 (gfr 40)- follows Dr. Altman;neg renal angoCAD- cor calcification seen on CT, nml cor on cath 11/13 VITAL SIGNS Date Observation Value Provider Body Mass Index (Ratio) 33.78 kg/m2 Elmer Alcantara MD blood pressure, diastolic 82 mm[Hg] Kassie Johnson blood pressure, systolic 112 mm[Hg] Estela Johnson oxygen saturation, oximetry 84 % Leslie Johnson pulse rate 74 /min Leslie Johnson respiratory rate E&M 14 /min Leslie Johnson weight E&M 203 [lb_av] Leslie Johnson height E&M 65 [in_i] Leslie Johnson blood pressure, cuff size regular Kassie Johnson Body Mass Index (Ratio) 33.94 kg/m2 Elmer Alcantara MD Inhaled O2 2.5 L/min Dionna Mckeon oxygen saturation, oximetry 92 % Dionna Mckeon respiratory rate E&M 12 /min Dionna Mckeon pulse rate 74 /min Dionna Mckeon blood pressure, cuff size regular Blair bourgeois Mckeon blood pressure, diastolic 78 mm[Hg] Ta bk Mckeon blood pressure, systolic 110 mm[Hg] Tab chas Mckeon weight E&M 204 [lb_av] Dionna Mckeon height E&M 65 [in_i] Dionna [place] Body Mass Index (Ratio) 34.24 kg/m2 Jeanie ching Puhse weight E&M 205.8 [lb_av] Dionna Mckeon pulse rate 95 /min Dionna [place] blood pressure, cuff size large Blair bourgeois [place] blood pressure, diastolic 76 mm[Hg] Blair bourgeois [place] blood pressure, systolic 118 mm[Hg] Tab chas [place] oxygen saturation, oximetry 93 % Dionna [place] respiratory rate E&M 12 /min Dionna [place] height E&M 65 [in_i] Dionna [place] Body Mass Index (Ratio) 34.61 kg/m2 Elmer Alcantara MD blood pressure, diastolic 87 mm[Hg] Munira nkLogic blood pressure, systolic 119 mm[Hg] Delia kLogic blood pressure, cuff size regular Ja rret blood pressure, diastolic 87 mm[Hg] Ja rret blood pressure, systolic 119 mm[Hg] Jar ret pulse rate 71 /min Clint er y oxygen saturation, oximetry 92 % Clint Inhaled O2 1 L/min Clint erda y respiratory rate E&M 16 /min Clint weight E&M 208 [lb_av] Clint erda y height E&M 65 [in_i] Clint Meek y Body Mass Index (Ratio) 33.44 kg/m2 Elmer Alcantara MD blood pressure, diastolic 83 mm[Hg] [facility] [place] blood pressure, systolic 129 mm[Hg] Mundo steinberg [place] blood pressure, cuff size large [facility] [place] respiratory rate E&M 16 /min Guille ie [place] pulse rate 88 /min Cayla Vickima n weight E&M 201 [lb_av] Calya Vickima n height E&M 65 [in_i] Cayla Vickima n Inhaled O2 2 L/min [facility], oximetry 91 % Cayla [place] Body Mass Index (Ratio) 34.28 kg/m2 Elmer Alcantara MD oxygen saturation, oximetry 95 % Deana Nichols pulse rate 64 /min Deana ramirez blood pressure, diastolic 79 mm[Hg] Mi mendy Simone blood pressure, systolic 112 mm[Hg] Jules helle Simone Inhaled O2 1 L/min Deana ramirez weight E&M 206 [lb_av] Deana ramirez respiratory rate E&M 16 /min Karen Nichols blood pressure, cuff size large Amalia finkviry Nichols height E&M 65 [in_i] Deana ramirez Body Mass Index (Ratio) 34.61 kg/m2 Elmer Alcantara MD blood pressure, cuff size large Amalia brooke Simone blood pressure, diastolic 84 mm[Hg] Mi mendy Simone blood pressure, systolic 136 mm[Hg] Jules helle Simone respiratory rate E&M 16 /min Karen weston Simone pulse rate 95 /min Deana Schofiled james oxygen saturation, oximetry 98 % Deana Simone weight E&M 208 [lb_av] Deana Schofield james Inhaled O2 1 L/min Deana Chandu ramirez height E&M 65 [in_i] Deana Chandu ramirez Body Mass Index (Ratio) 37.44 kg/m2 Elmer Alcantara MD blood pressure, diastolic 74 mm[Hg] Munira nkLogic blood pressure, systolic 142 mm[Hg] Delia Radhaogvanessa blood pressure, diastolic 74 mm[Hg] Carol Treadwell [...] blood pressure, cuff size regular Pa ris Nixon blood pressure, diastolic 75 mm[Hg] Pa ris [place] blood pressure, systolic 157 mm[Hg] Par is [place] oxygen saturation, oximetry 98 % Jessica Nixon respiratory rate E&M 22 /min Jessica H zaynab pulse rate 77 /min Jessica Nixon weight E&M 244 [lb_av] Jessica Nixon height E&M 65 [in_i] Jessica Nixon Body Mass Index (Ratio) 41.43 kg/m2 Elmer Alcantara MD respiratory rate E&M 18 /min [facility] blood pressure, diastolic 57 mm[Hg] To [facility] blood pressure, systolic 101 mm[Hg] [facility] oxygen saturation, oximetry 92 % [facility] pulse rate 61 /min [facility] weight E&M 249 [lb_av] [facility] height E&M 65 [in_i] [facility] Body Mass Index (Ratio) 40.60 kg/m2 Elmer Alcantara MD oxygen saturation, oximetry 95 % [facility] respiratory rate E&M 16 /min Chastit y José pulse rate 71 /min [facility] José blood pressure, diastolic 64 mm[Hg] astity José blood pressure, systolic 112 mm[Hg] Morena stity José weight E&M 244 [lb_av] [facility] E&M 65 [in_i] [facility] (Ratio) 40.77 kg/m2 Dora Ramirez MD blood pressure, cuff size regular Cy ntmaral Mccullough blood pressure, diastolic 90 mm[Hg] Cy ntmaral Mccullough blood pressure, systolic 130 mm[Hg] Di johnny Mccullough oxygen saturation, oximetry 92 % Nathalie Mccullough respiratory rate E&M 18 /min Nathalie Mccullough pulse rate 56 /min Nathalie Campbel l weight E&M 245 [lb_av] Nathalie Campbel l height E&M 65 [in_i] Nathalie Campbel l Body Mass Index (Ratio) 40.60 kg/m2 Elmer Alcantara MD blood pressure, resting Yes [place] bryan O'Betito blood pressure, diastolic 74 mm[Hg] Ma rsha O'Betito blood pressure, systolic 120 mm[Hg] Mireille Schmidtal height E&M 65 [in_i] Tash ClaudioBetito oxygen saturation, oximetry 90 % Tash O'Betito [...] 0-149 4 cholesterol, serum 172 mg/dL [employer] [id number]/08/1 4 hemoglobin A1C, blood, as % of [...] 3.5-4.8 4 protein, total, serum 6.8 g/dL [facility] 6.0-8.5 4 calcium, serum 8.8 mg/dL [facility] 8.7-10.3 4 carbon dioxide, venous blood 19 mmol/L [employer] 20-29 Low 4 chloride, serum 102 mmol/L [employer] 96-106 4 potassium, serum 4.6 mmol/L [employer] 3.5-5.2 4 sodium, serum 141 mmol/L [employer] 501-657 0907/08/1 4 urea nitrogen/creatinine ratio, serum 13 [employer] [...] Estab. 8 platelet count 233 X10E3/UL [facility] [phone]/07/1 8 red blood cell distribution width 14.1 [...] 3.77-5.28 8 leukocyte count, blood 6.4 X10E3/UL [employer] 3.4-10.8 HISTORY OF MEDICATION USE Medication Status Instructions Dates Provider Indications Com ments diltiazem HCl 120 mg tablet extended release 24 hr active Take 1 tablet by mouth every night Joya Fried Tylenol 500 mg active Dionna Mike loratadine 10 mg tablet active Dionna Mckeon Eliquis 5 mg tablet active Take 1 table t by mouth twice a day 08/31 Nicolette Phelps ergocalciferol (vitamin D2) 1,250 mcg (50,000 unit) capsule active TAKE 1 CAPSULE BY MOUTH 1 TIME A WEEK Clint Easterday atorvastatin 40 mg tablet active TAKE 1 TABLET BY MOUTH EVERY DAY 05/09 Ap Lirianozai furosemide 40 mg tablet active TAKE 1 TABLET BY MOUTH ONCE A DAY Nicolette Coeenz losartan 50 mg tablet completed TAKE 1 TABLET BY MOUTH DAILY 09/28 - 10/14 Dionna Mckeon hydrochlorothiazide 25 mg tablet completed Take 1 tablet by mouth once a day 09/10 - 10/22 Ap Lirianozai atorvastatin 40 mg tablet completed Take 1 tablet by mouth once a day 09/02 - 05/09 Merry Chu duloxetine 30 mg capsule,delayed release(DR/EC) active Ap Lirianozawhitney famotidine 20 mg tablet active Ap Lirianozai furosemide 40 mg tablet completed Take 1 1/2 tablet by mouth once a day 08/21 - 06/26 Ap Lirianozai diltiazem HCl 120 mg capsule,extended release 24hr completed TAKE ONE CAPSULE BY MOUTH EVERY EVENING 06/18 - 06/13 Ap Lirianozai losartan 50 mg tablet completed TAKE 1 TABLET BY MOUTH DAILY 11/26 - 06/26 Nichelle Rudolph hydrochlorothiazide 25 mg tablet completed TAKE 1 TABLET BY MOUTH DAILY 11/25 - 08/21 Joya Fried atorvastatin 40 mg tablet completed TAKE 1 TABLET BY MOUTH DAILY 11/25 - 09/02 Joya Fried ergocalciferol (vitamin D2) 1,250 mcg (50,000 unit) capsule completed TAKE 1 CAPSULE BY MOUTH ONCE A WEEK 01/20 - Clint er magnesium 200 mg tablet completed 1 tablet by mouth every night 05/16 - 10/14 Dionna Mckeon hydrochlorothiazide 25 mg tablet completed Take 1 tablet by mouth once a day 12/03 - 11/25 Kimberly Cici ADIPEX-P 37.5 MG ORAL TABLET completed one [...] completed as needed 10/19 - 05/16 Constantin Carbajal Trelegy Ellipta 100-62.5-25 mcg blister with device completed Take 1 puff once a day 10/19 - 10/14 Dionna Mckeon FLONASE ALLERGY RELIEF 50 MCG/ACT NASAL SUSPENSION completed once daily 10/19 - 05/16 Constantin Carbajal Dialyvite Vitamin D3 Max 1,250 mcg (50,000 unit) tablet completed tablet by mouth every other day 10/19 - 10/14 Dionna Mckeon levothyroxine 100 mcg tablet active 1 tablet by mouth once a day 10/19 Ap Mae montelukast 10 mg tablet completed 1 tablet by mouth once a day 10/19 - 10/14 Dionna Mckeon ProAir HFA 90 mcg/actuation HFA aerosol inhaler completed as needed 09/11 - 10/14 Dionna Mckeon #85, 16 days supply, Filled 10/09/2018 escitalopram oxalate 5 mg tablet completed 1 tablet by mouth once a day 10/09 - 10/14 Dionna Mckeon #14, 14 days supply, Prescribed by [...] Ap Ahmedzai smoking status Former smoker Ap Rendonmedza i cigarette use yes Cayla Clarke an smoking status Former smoker Cayla clay social history reviewed E&M revi ewed - no changes required Ap Ahmedzai cigarette use yes Deana Carmona ricardo smoking status Former smoker Deana johnson social history reviewed E&M revi ewed - no changes required Ap Rendonmedzai social history reviewed E&M revi ewed - no changes required Ap Ahmedzai social history reviewed E&M revi ewed - no changes required Ap Ahmedzai cigarette use yes Jessica Pryorron smoking status Former smoker Jessica Alicea social history reviewed E&M revi ewed - no changes required Ap Ahmedzai social history E&M S moking History: Lucy altamirano is a former smoker. Sima Alcantara MD social history reviewed E&M revi ewed - no changes required Sima Alcantara MD cigarette use yes Tonsirvin Aguirre smoking status Former smoker Tonsirvin Aguirre number of grandchildren Sima Alcantara MD [...] Tash Johnson smoking status Former smoker Tash Cain'Luna l FUNCTIONAL STATUS Date Observation Value Provider HRA, [...] Payer name Policy type / Coverage type [place] red constitution party ID AARP MEDICARE ADVANTAGE HMO-POS HMO [id number] ADVANCE DIRECTIVES Name Date DISCUSSED - NO DECISION MADE TREATMENT PLAN Date Name Performer [id number],S, Ap Ahmedza i [id number],S, Ap Ahmedza i [id number],S, Ap Ahmedza i [id number],S, Ap Ahmedza i [id number],S, Ap Ahmedza i [id number],S, Ap Ahmedza i [id number],S, Ap Ahmedza i [id number],S, Ap Ahmedza i [id number],S, Ap Ahmedza i [id number],S, Ap Ahmedza i [id number],S, Ap Ahmedza i [id number],S, Ap Ahmedza i [id number],S, Ap Ahmedza i [id number],S, Ap Ahmedza i [id number],S, Ap Ahmedza i [id number],S, Ap Ahmedza i [id number],S, Ap Ahmedza i [id number],S, Ap Ahmedza i [id number],S, Ap Ahmedza i [id number],S, Ap Ahmedza i [id number],S, Ap Ahmedza i [id number],S, Ap Ahmedza i [id number],S, Ap Ahmedza i [id number],S, Ap Ahmedza i [id number],S, Ap Ahmedza i [id number],S, Ap Ahmedza i [id number],S, Ap Ahmedza i [id number],S, Ap Ahmedza i [id number],S, Ap Ahmedza i [id number],S, Ap Ahmedza i [id number],S, Ap Ahmedza i [id number],N, Ap Ahmedza i [id number],S, Ap Ahmedza i [id number],S, Ap Ahmedza i [id number],S, Ap Ahmedza i [id number],S, Ap Ahmedza i [id number],S, Ap Ahmedza i [id number],S, Ap Ahmedza i [id number],S, Ap Ahmedza i [id number],S, Ap Trimble i [id number],S, Ap Trimble i [id number],S, Ap Lirianosukhdeep i [id number],S, Ap Trimble i [id number],W, Sima Alcantara MD [id number],S, Sima Alcantara MD [id number],S, Sima Alcantara MD [id number],S, Sima Alcantara MD [id number],S, Sima Alcantara MD [id number],S, Sima Alcantara MD [id number],S, Sima Alcantara MD Cardiology Sima Alcantara MD Cardiology Sima Alcantara MD Cardiology: B P today: 112/82 P rior BP: 110/78 (01/14/2024) Labs Reviewed: C reat: 1.27 (12/09/2018) C hol: 172 (12/09/2018) HDL: 63 (12/09/2018) LDL: 86 (12/09/2018) T (12/09/2018) Her updated medication list for this problem includes: Diltiazem Hcl 120 Mg Tablet Extended Release 24 Hr (Diltiazem hcl) ..... Take 1 tablet by mouth every night Furosemide 40 Mg Tablet (Furosemide) ..... Take 1 tablet by mouth once a day Sima Alcantara MD Cardiology Sima Alcantara MD Cardiology: H er updated medication list for this problem includes: Diltiazem Hcl 120 Mg Tablet Extended Release 24 Hr (Diltiazem hcl) ..... Take 1 tablet by mouth every night Furosemide 40 Mg Tablet (Furosemide) ..... Take 1 tablet by mouth once a day Sima Alcantara MD Cardiology:This visi t has been a part of the consistent, comprehensive, and ongoing management of the chronic medical condition(s) listed above for the patient. Her updated medication list for this problem includes: Diltiazem Hcl 120 Mg Tablet Extended Release 24 Hr (Diltiazem hcl) ..... Take 1 tablet by mouth every night Sima Alcantara MD Cardiology Sima Alcantara MD Cardiology:This visi t has been a [...] by mouth every night Ap Mae Cardiology pA Mae Cardiology Sima Alcantara MD Cardiology Sima Alcantara MD Cardiology Sima Alcantara MD Cardiology Sima Alcantara MD Cardiology:This visi t has been a part of the consistent, comprehensive, and ongoing management of the chronic medical condition(s) listed above for the patient. Her updated medication list for this problem includes: Diltiazem Hcl 120 Mg Tablet Extended Release 24 Hr (Diltiazem hcl) ..... Take 1 tablet by mouth every night Sima Alcantara MD Cardiology Ap Mae Cardiology Ap Mae Cardiology: O rders: M onitor - Telemetry (Mobile Cardiac) ([id number]) Ap Mae Cardiology Ap Mae Cardiology: B P today: 119/87 P rior BP: 129/83 (06/26/2022) Labs Reviewed: C reat: 1.27 (12/09/2018) C hol: 172 (12/09/2018) HDL: 63 (12/09/2018) LDL: 86 (12/09/2018) T (12/09/2018) Ap Rendonmedzai Cardiology Ap Ahmedzai Cardiology Ap Rendonmedzai Cardiology Ap Ahmedzai Cardiology Ap Ahmedzai Cardiology Ap Ahmedzai Cardiology Ap Ahmedzai Cardiology Ap Rendonmedzai Cardiology Ap Ahmedzai Cardiology Ap Ahmedzai Cardiology Ap Rendonmedzai Cardiology Ap Ahmedzai Cardiology Ap Rendonmedzai Cardiology Ap Rendonmedzai Cardiology Ap Ahmedzai Cardiology Ap Ahmedzai Cardiology [...] Cardiology Ap Ahmedzai Cardiology Ap Ahmedzai Telehealth Sima Alcantara MD Telehealth Sima Alcantara MD Telehealth Sima Alcantara MD Telehealth Sima Alcantara MD Telehealth Sima Alcantara MD Telehealth Sima Alcantara MD Telehealth Sima Alcantara MD Telehealth Constantin Sandrat Telehealth Constantin Sandrat Telehealth Constantin Sandrat Telehealth Constantin Nacht Telehealth Constantin Nacht Telehealth Constantin Sandrat Telehealth:Currently on Losartan 50mg. Was not able [...] Cardiology Sima Alcantara MD Cardiology follow up Santi almaraz MD Cardiology follow up :many sx [...] MD Cardiology Sima Alcantara MD Date Name Aorta Duplex Ultraso und Complete Echo Monitor - Telemetry (Mobile Cardiac) [...]
--- OUTSIDE RECORDS SUMMARY | 2024-08-11 15:25 | XMS_ITS ---
Author Organization [facility] Address [address] [place] [address] Care Team Providers Care Straddle Buggy Operator Name Role Phone Angie Willams Unavailable [phone] SOCIAL HISTORY Sex Assigned At : Social History Observation Description Sex Assigned At Female Encounters Encounter Location Date Provider Diagnosis [facility] [address] [facility] [address] [id number] 05/10/2024 Angie Willams PLAN OF TREATMENT Next Appt Details Provider Name:Angie ordoñez, 08/16/2024 03:45:00 PM, [address], [place], [address], Progress Notes * MARIO CURTISB:1945 ( 79 yo F)Acc No.[id number]:05/10/2024 Progress Notes Patient: MARGIE CURTIS Provider: ANGIE WILLAMS M.D :1945 Age:79 Y Sex:Female Date:05/10/2024 Address:[address] [place] [address] Subjective: * Chief Complaints: * * Medical History: Objective: Assessment: Plan: * Treatment: * Billing Information: * Visit Code: * Procedure Codes: * Sign off status: Pending * Provider: ANGIE WILLAMS M.D Date: 05/10/2024
[2024-08-11 15:47] LABS: Basophils Absolute Auto 0.1 K/mm3 (0.0-0.1); Basophils Percent Auto 0.7 % (0.2-1.2); Eosinophils Absolute Auto 0.1 K/mm3 (0-0.3); Eosinophils Percent Auto 1.3 % (0-4.4); Hematocrit 45.2 % (37.0-47.0); Hemoglobin 14.1 g/dL (12.0-15.0); Immature Granulocyte Absolute 0.05 K/mm3 (0.00-0.031); Immature Granulocyte Percent A 0.5 % (0-0.5); Lymphocytes Absolute Auto 2.47 K/mm3 (0.9-3.2); Mean Corpuscular HGB Conc 31.2 g/dl (32-36); Mean Corpuscular Hemoglobin 30.7 pg (26-34); Mean Corpuscular Volume 98.3 fl (80-100); Mean Platelet Volume 10.2 fl (7.4-10.4); Monocytes Absolute Auto 0.6 K/mm3 (0.1-0.6); Monocytes Percent Auto 5.7 % (2.6-8.5); Neutrophils Absolute Auto 7.4 K/mm3 (1.3-6.7); Neutrophils Percent Auto 68.8 % (45.5-73.1); Platelet Count Result 277 k/mm3 (150-375); Red Cell Distribution Width 13.1 % (11.5-14.5); White Blood Count 10.7 K/mm3 (4.5-10.0)
[2024-08-11 15:54] LABS: Add Urine Microscopic? YES; Appearance Urine Turbid (Clear); Bacteria Urine 4+ /hpf; Bilirubin Urine Negative (Negative); Blood Urine 3+ (Negative); Budding Yeast Urine Present /hpf; Color Urine Yellow (Yellow); Glucose Urine UA Negative (Negative); Ketones Urine Negative (Negative); Leukocyte Esterase Ur 3+ LEU/UL (Negative); Need Manual Microscopic Reviewed; Nitrate Urine Positive (Negative); Non Pathogenic Casts 0-2; Protein Urine Trace mg/dL (Negative); RBC Urine 21-50 /hpf (0-2); Specific Grav Ur 1.014 (1.001-1.035); Squamous Epithelial Cell Urine Many /hpf (Few); Urobilinogen Urine 0.2 mg/dL (<2.0); WBC Urine >100 /hpf (0-3); pH Urine 5.5 (5.0-9.0)
[2024-08-11 16:12] LABS: Parathyroid Intact 126.1 pg/mL (14.5-75.2)
[2024-08-11 16:17] LABS: Vitamin D 25 Hydroxy 32.4 ng/mL
--- OUTSIDE RECORDS SUMMARY | 2024-08-11 16:21 | XMS_ITS | CONTINUITY OF CARE DOCUMENT ---
Author Name elodia clifton Address Unknown Organization [facility] Address [address] [place] [address] Phone [phone] Care Team Providers Care Access Control Officer Name Role Phone Quinton NARVAEZ, Sima Unavailable ALICIA HOOPER MD Unavailable [phone] ALICIA HOOPER MD Unavailable PROBLEMS Condition Status [...] Alcantara MD SOB active Sima Alcantara MD Atrial fibrillation active Sima Alcantara MD Infrarenal abdominal aortic aneurysm, 4.5 cm active Ap Ahmedzai Exposure to COVID-19 coronavirus completed - Sima Alcantara MD Carotid arterial disease--<5 0% disease by doppler 11/2021 active Sima Alcantara MD Hyperthyroidism active Ap Lirianozai ENCOUNTERS Date Type Provider Location Encounter Diag nosis - In-person encounter Office Visit Sima Alcantara MD [facility] Infrarenal abdominal aortic aneurysm, 4.5 cm - In-person encounter Office Visit Sima Alcantara MD [facility] - In-person encounter Office Visit Sima Alcantara MD [facility] - In-person encounter Office Visit Sima Alcantara MD [facility] ? Sleep apneaCAD, cor calcification seen on CT, mild plaque LCX on cath 11/13Cramp, handsExposure to COVID-19 coronavirusAtrial fibrillation - In-person encounter Office Visit Sima Alcantara MD [facility] - In-person encounter Office Visit Sima Alcantara MD [facility] Carotid arterial disease--<50% disease by doppler 11/2021 - In-person encounter Office Visit Sima Alcantara MD [facility] Hyperthyroidism - In-person encounter Office Visit Sima Alcantara MD [facility] SOB - In-person encounter Office Visit Sima Alcantara MD [facility] Office - In-person encounter Office Visit Sima Alcantara MD [facility] HTN borderline--LVEF 60%, cath 10/2020 - In-person encounter Office Visit Sima Alcantara MD [facility] Fatigue - In-person encounter Office Visit Sima Alcantara MD [facility] CAD- cor calcification seen on CT, nml cor on cath 11/13HTN borderline--LVEF 60%, cath 10/2020 - In-person encounter Office Visit Santi Ramirez MD [facility] COPD;has lung mdCKD stage 3 (gfr 40)- follows Dr. Altman;neg renal angoHTN borderline--LVEF 60%, cath 10/2020Vitamin D deficiencyTobacco use, quitLung noduleDiastolic dysfunction and lvhObesity - In-person encounter Office Visit Sima Alcantara MD [facility] CKD stage 3 (gfr 40)- follows [...] Dionna Mckeon height E&M 65 [in_i] Dionna Kunia Body Mass Index (Ratio) 34.24 kg/m2 Jeanie ching Puhse weight E&M 205.8 [lb_av] Dionna Mckeon pulse rate 95 /min Dionna Kunia blood pressure, cuff size large Blair bourgeois Kunia blood pressure, diastolic 76 mm[Hg] Blair bourgeois Kunia blood pressure, systolic 118 mm[Hg] Tab chas Kunia oxygen saturation, oximetry 93 % Dionna Kunia respiratory rate E&M 12 /min Dionna Kunia height E&M 65 [in_i] Dionna Kunia Body Mass Index (Ratio) 34.61 kg/m2 Elmer [...] blood pressure, diastolic 83 mm[Hg] [place] blood pressure, systolic 129 mm[Hg] Mundo steinberg [place] blood pressure, cuff size large [place] respiratory rate E&M 16 /min Guille ie Carter pulse rate 88 /min Cayla Vickima n weight E&M 201 [lb_av] Cayla Vickima n height E&M 65 [in_i] Cayla Vickima n Inhaled O2 2 L/min [facility], oximetry 91 % Cayla Carter Body Mass Index (Ratio) 34.28 kg/m2 Elmer [...] weston Simone pulse rate 95 /min Deana Schofield james oxygen saturation, oximetry 98 % Deana [...] blood pressure, diastolic 75 mm[Hg] Pa ris [place] blood pressure, systolic 157 mm[Hg] Par is [place] oxygen saturation, oximetry 98 % Jessica Nixon respiratory rate E&M 22 /min Jessica H zaynab pulse rate 77 /min Jessica Nixon weight E&M 244 [lb_av] Jessica Nixon height E&M 65 [in_i] Jessica Nixon Body Mass Index (Ratio) 41.43 kg/m2 Elmer Alcantara MD respiratory rate E&M 18 /min [facility] blood pressure, diastolic 57 mm[Hg] To [facility] blood pressure, systolic 101 mm[Hg] Ton [facility] oxygen saturation, oximetry 92 % [facility] pulse rate 61 /min [facility] weight E&M 249 [lb_av] [facility] height E&M 65 [in_i] [facility] Body Mass Index (Ratio) 40.60 kg/m2 Elmer Alcantara MD oxygen saturation, oximetry 95 % [facility] respiratory rate E&M 16 /min Chastit y José pulse rate 71 /min [facility] José blood pressure, diastolic 64 mm[Hg] astity José blood pressure, systolic 112 mm[Hg] Morena stity José weight E&M 244 [lb_av] [facility] E&M 65 [in_i] [facility] (Ratio) 40.77 kg/m2 Dora [...] Elmer Alcantara MD blood pressure, resting Yes [place] bryan [place] blood pressure, diastolic 74 mm[Hg] [...] 0-149 4 cholesterol, serum 172 mg/dL [employer] [phone]/08/1 4 hemoglobin A1C, blood, as % of [...] 3.5-5.2 4 sodium, serum 141 mmol/L [employer] [phone]/08/1 4 urea nitrogen/creatinine ratio, serum 13 [employer] [...] Estab. 8 platelet count 233 X10E3/UL [employer] [phone]/07/1 8 red blood cell distribution width 14.1 [...] TABLET BY MOUTH DAILY 11/25 - 09/02 Joay Fried ergocalciferol (vitamin D2) 1,250 mcg (50,000 [...] Payer name Policy type / Coverage type [employer] party ID AARP MEDICARE ADVANTAGE HMO-POS HMO [id number] ADVANCE DIRECTIVES Name Date DISCUSSED - NO DECISION MADE TREATMENT PLAN Date Name Performer [id number],S, Ap Ahmedza i [id number],S, Ap Ahmedza i [id number],S, Ap Ahmedza i [id number],S, Ap Ahmedza i [id number],S, Ap Ahmedza i [id number],S, Ap Ahmedza i [id number],S, Ap Ahmedza i [id number],S, Ap Ahmedza i [id number],S, Ap Ahmedza i [id number],S, Ap Ahmedza i [id number],S, Ap Ahmedza i [id number],S, Ap Ahmedza i [id number],S, Ap Ahmedza i [id number],S, Ap Ahmedza i [id number],S, Ap Ahmedza i [id number],S, Ap Ahmedza i [id number],S, Ap Ahmedza i [id number],S, Ap Ahmedza i [id number],S, Ap Ahmedza i [id number],S, Ap Ahmedza i [id number],S, Ap Ahmedza i [id number],S, Ap Ahmedza i [id number],S, Ap Ahmedza i [id number],S, Ap Ahmedza i [id number],S, Ap Ahmedza i [id number],S, Ap Ahmedza i [id number],S, Ap Ahmedza i [id number],S, Ap Ahmedza i [id number],S, Ap Ahmedza i [id number],S, Ap Ahmedza i [id number],S, Ap Ahmedza i [id number],N, Ap Ahmedza i [id number],S, Ap Ahmedza i [id number],S, Ap Ahmedza i [id number],S, Ap Ahmedza i [id number],S, Ap Ahmedza i [id number],S, Ap Ahmedza i [id number],S, Ap Ahmedza i [id number],S, Ap Ahmedza i [id number],S, Ap Trimble i [id number],S, Ap Trimble i [id number],S, Ap Lirianosukhdeep i [id number],S, Ap Trimble i [id number],W, Sima Alcantara MD [id number],S, Sima Alcantara MD [id number],S, Sima Alcantara MD [id number],S, Sima Alcantara MD [id number],S, Sima Alcantara MD [id number],S, Sima Alcantara MD [id number],S, Sima Alcantara MD Cardiology Sima Alcantara MD [...] rders: M onitor - Telemetry (Mobile Cardiac) ([id number]) [facility]: B [...] Cardiology Ap Ahmedzai Cardiology Ap Ahmedzai Cardiology Pa Ahmedzai Cardiology Ap Ahmedzai Cardiology Ap Ahmedzai [...]
[2024-08-11 17:06] LABS: Albumin Level 4.7 g/dL (3.5-5.1); Anion Gap 16 mmol/L (4-12); Blood Urea Nitrogen 18 mg/dL (7-17); Calcium 9.2 mg/dL (8.4-10.2); Carbon Dioxide 25 mmol/L (22-30); Chloride 99 mmol/L (98-107); Estimated Glomerular Filt Rate 35; Glucose 94 mg/dL (65-110); Phosphorus 3.7 mg/dL (2.5-4.5); Potassium 3.3 mmol/L (3.4-5.0); Sodium 140 mmol/L (137-145); Uric Acid 9.2 mg/dL (2.5-7.5)
[2024-08-11 22:27] LABS: Creatinine Urine 79.9 mg/dL; Total Protein Urine Random 19 mg/dL; Ur Ttl Prot Creatinine Ratio 0.24 mg/mg (0-0.20)
== END 2024-08-11 15:05 | disposition home or self-care (01) ==
PROVIDERS: PCP Internal Medicine
DX: I12.9 Hypertensive chronic kidney disease with stage 1 through stage 4 chronic kidney disease, or unspecified chronic kidney disease (principal); N18.9 Chronic kidney disease, unspecified; E55.9 Vitamin D deficiency, unspecified; R60.9 Edema, unspecified
CPT/HCPCS: 36415; 80069; 81001; 82306; 82570; 83735; 83970; 84156; 84550; 85025

== ENCOUNTER 2024-11-02 10:48 | Inpatient (IN) | payer MEDICARE, SELFPAY ==
[2024-11-02] VITALS (7 sets, daily range): BP systolic 109–141; BP diastolic 54–79; PULSE 64–75; RESP 14–18; TEMP 36.3–36.4; O2SAT 90–100; BMI 33.8
--- NOTE | ~2024-11-02 | MR_ITS ---
EXAMINATION: MR thoracic spine wo con, MR lumbar spine wo con DATE: 11/03/2024 10:21 INDICATION: Intractable back pain. Abnormal CT. TECHNIQUE: 1. Magnetic resonance imaging (MRI) of the thoracic spine was performed without intravenous contrast. Sagittal localizer T1-weighted FSE of the cervicothoracic spine was obtained. Thoracic spine sequenc es included sagittal T2-weighted FSE, sagittal T1-weighted SE, Sagittal T2-weighted FS FSE, and axial T2-weighted FSE. 2. MRI of the lumbar spine was performed without intravenous contrast. Sequences included sagittal T2 -weighted FSE, sagittal T2-weighted FS FSE, sagittal T1-weighted FSE, and axial T2-weighted FSE. COMPARISON: CT dated 11/02/2024 FINDINGS: THORACIC SPINE MRI: Thoracic kyphosis. Chronic T8 burst fracture with 80% anterior and 20% posterior vertebral body heigh t loss with negligible retropulsion and with normal marrow signal. Additional chronic T12 compression fracture with 20% anterior vertebral body height loss also with normal marrow signal. Remaining vert ebral body heights are normal with small Schmorl's nodes along the inferior endplate of T9 and superi or endplate of T11 with normal marrow signal throughout. Mild disc height loss at multiple levels fro m T2-T3 through T10-T11. Annular fissure and small central disc protrusion at T4-T5 which results in mild central canal stenosis and indents the undersurface of the cord. Additional small central disc p rotrusion at T6-T7, more diffuse mild disc bulges at T7-T8, T8-T9 and T11-T12 with mild central canal stenosis at each level. Severe multilevel thoracic facet osteoarthritis contributing to moderate deb ral foraminal stenosis bilaterally at T7-T8 to T9-T10 with minimal to mild neural from stenosis at ma ny of the remaining thoracic levels. Paravertebral soft tissues are unremarkable. LUMBAR SPINE MRI: 6 degrees lumbar dextrocurvature. Sagittal alignment is normal. There is a mild L1 compression fractu re with 10 % anterior vertebral body height loss. There is minimal increased fluid signal along the l inear low signal intensity fracture plane which underlies the superior endplate suggesting this is real bacute. More caudal lumbar vertebral body heights are normal with otherwise normal marrow signal. Mil d to moderate disc height loss at L4-L5 and with left-sided predominance at L3-L4. Annular fissure at L3-L4. Incompletely visualized fusiform aneurysms of the suprarenal and infrarenal aorta. Paraverteb ral soft tissues are otherwise unremarkable. The following disc levels are specifically discussed: T12-L1: Eccentric to the left disc bulge. There is moderate bilateral facet joint osteoarthritis. The re is mild bilateral neural foraminal stenosis. There is mild central canal stenosis. L1-L2: The disc does not extend beyond the endplate margin. There is moderate bilateral facet joint o steoarthritis. There is mild left neural foraminal stenosis. There is no central canal stenosis. L2-L3: The disc does not extend beyond the endplate margin. There is mild bilateral facet joint osteo arthritis. There is mild left neural foraminal stenosis. There is no central canal stenosis. L3-L4: Disc is bulging. There is moderate right and severe left facet joint osteoarthritis. There is mild right and mild to moderate left neural foraminal stenosis. There is mild central canal stenosis. L4-L5: Disc is bulging. There is a right and severe left facet joint osteoarthritis. There is mild to moderate bilateral neural foraminal stenosis. There is mild central canal stenosis. L5-S1: Mild central to left foraminal zone disc protrusion. There is severe bilateral facet joint ost eoarthritis. There is mild left neural foraminal stenosis. There is no central canal stenosis. IMPRESSION: 1. Subacute appearing mild L1 compression fracture and chronic appearing T8 burst fracture and T12 co mpression fracture. 2. Mild thoracic and moderate lumbar spondylosis. 3. Incompletely visualized abdominal aortic aneurysms. See prior CT report for further detail. Reviewed, dictated and finalized at location A. IMPRESSION: 1. Subacute appearing mild L1 compression fracture and chronic appearing T8 bur st fracture and T12 compression fracture. 2. Mild thoracic and moderate lumbar spondylosis. 3. Incompletely visualized abdominal aortic aneurysms. See prior CT report for further detail.
--- NOTE | ~2024-11-02 | CT_ITS ---
CTA chest PE abdomen pel Ordering provider: Argentina High PA-C History: . back pain, sob, elevated dimer, UTI . Comparison: February 05, 2018 Technique: CT angiogram chest was performed following timed intravenous injection of contrast. Thin s lice axial images and reformatted coronal images were obtained. Three dimensional reformatted images of the chest were also obtained using a [employer] workstation. Also, CT of the abdomen and pelvis was pe rformed with IV contrast. . Automated exposure control and iterative reconstruction technique were e mployed. The dose-length product was 1367.23 mGy-cm. 100 mL Omnipaque 350 was given IV. FINDINGS: CHEST: --PULMONARY ARTERIES: No pulmonary embolus. --VISUALIZED THORACIC INLET: Normal. --MEDIASTINUM: Aorta/coronary arteries: Mild atheromatous disease. Heart/other: The heart is slightly enlarged. Lymph nodes:Paratracheal lymph node is seen measuring 1.4 cm. Right hilar lymph nodes are noted measu ring 2.8 x 1.2 cm. --LUNGS: A mass is seen in the right upper lobe anteriorly measuring 2.7 x 3x 3.9 cm. Nodule measuring 8 mm is seen in the right middle lobe. Tiny nodule also seen in the right upper lobe anteriorly measuring 6 mm. Distal atelectasis seen in the right upper lobe anteriorly. Focal areas of groundglass appearance are seen in the left upper lobe which may be fibrotic or atelectatic or focal pneumonia. Nodules are less likely. Follow-up advised Dependent atelectatic changes are noted. No infiltrates or effusions. No pneumothorax. --MUSCULOSKELETAL: Bones: Compression fracture is seen in T8 and T12 which may be acute or chronic. MRI is advised.. Age appropriate degenerative changes of the spine. Superficial soft tissues: The superficial soft tissues are normal. ABDOMEN/PELVIS: --MUSCULOSKELETAL: Superficial soft tissues: The superficial soft tissues are normal. Bones: Compression fracture is seen in the superior endplate of L1 which may be acute or chronic. MRI is advised. Age appropriate degenerative changes of the spine. --UPPER ABDOMINAL ORGANS: Liver: Mild fat infiltration. Gallbladder: soft tissue density in the fundus of the gallbladder. Further evaluation advised. Disten ded with no stones. Spleen: Normal. Stomach/duodenum: Normal. Pancreas: Normal. Adrenals: Normal. Kidneys: Tiny cyst in the right kidney midpole. --PELVIC ORGANS: The bladder is normal. No bladder stones. --BOWEL AND MESENTERY: Colon: Mild diverticulosis without diverticulitis sigmoid colon. Normal appendix. Small Bowel: Normal. No obstruction. Peritoneum/mesentery: No free air or free fluid. No mesenteric lymphadenopathy. --RETROPERITONEUM: Abdominal aortic aneurysm is seen measuring 3.5 x 4.5 cm. Another aneurysmal dila tation area is seen with mural thrombus which measures 4.5 x 4.5 cm. Otherwise, Moderate atheromatous disease of the abdominal aorta. No retroperitoneal lymphadenopathy. IMPRESSION: CHEST: 1. No pulmonary embolism or dissection of the aorta seen. 2. Mass in the right upper lobe anteriorly. Further evaluation advised. 3. Nodules in the right upper and middle lobes. 3 months follow-up CT is advised. 4. Prominent paratracheal and right hilar lymphadenopathy. 5. Focal areas of atelectasis versus pneumonia versus fibrotic changes in the left upper lobe. Groun dglass nodule is less likely. 6. Compression fracture of T8 and T12 which may be acute or chronic. MRI is advised. ABDOMEN/PELVIS: 1. No aneurysmal dilatation seen in the abdominal aorta with the largest measuring 4.5 x 4.5 cm. 2. Soft tissue density in the fundus of the gallbladder. Further evaluation advised. 3. Fat infiltration of the liver. 4. Compression fracture of L1 which may be acute or chronic. MRI is advised. 5. No evidence of appendicitis, diverticulitis or intestinal obstruction. Reviewed, dictated and finalized at location A. IMPRESSION: CHEST: 1. No pulmonary embolism or dissection of the aorta seen. 2. Mass in the right upper lobe anteriorly. Further evaluation advised. 3. Nodules in the right upper and middle lobes. 3 months follow-up CT is advis ed. 4. Prominent paratracheal and right hilar lymphadenopathy. 5. Focal areas of atelectasis versus pneumonia versus fibrotic changes in the left upper lobe. Groundglass nodule is less likely. 6. Compression fracture of T8 and T12 which may be acute or chronic. MRI is ad vised. ABDOMEN/PELVIS: 1. No aneurysmal dilatation seen in the abdominal aorta with the largest measu ring 4.5 x 4.5 cm. 2. Soft tissue density in the fundus of the gallbladder. Further evaluation ad vised. 3. Fat infiltration of the liver. 4. Compression fracture of L1 which may be acute or chronic. MRI is advised. 5. No evidence of appendicitis, diverticulitis or intestinal obstruction.
--- NOTE | ~2024-11-02 | MR_ITS ---
EXAMINATION: MR abdomen wo/w con DATE: 11/05/2024 14:13 INDICATION: Gallbladder density TECHNIQUE: Magnetic resonance imaging (MRI) of the abdomen was performed without and with 18 mL Multi papo intravenous contrast. Sequences included coronal T2-weighted SS-FSE, coronal and axial FS 2D-F IESTA, axial STIR FSE, axial T2-weighted SS-FSE, axial T2-weighted FS SS-FSE, axial diffusion-weighte d SE, axial dual-echo T1-weighted FSPGR, and axial and coronal T1-weighted LAVA. Postcontrast axial T 1-weighted LAVA images were obtained in a time course. Postcontrast coronal T1-weighted LAVA images w ere obtained. COMPARISON: CT dated 11/02/2024 and ultrasound dated 11/03/2024. FINDINGS: Partially visualized mass at the anterior medial right upper lobe concerning for malignancy. Arch siz e is normal. No pericardial or pleural effusion. 1.4 cm T2 hyperintense, T1 hypointense lesion at the posterior right hepatic lobe which is difficult to distinguish on the post contrast imaging due to t he relatively small size and motion artifact. There is been interval change in configuration of T1 hy perintense, T2 hypointense sludge which layers along the dependent body the otherwise normal gallblad carlos which previously demonstrated a more nodular appearance at the fundus on the recent prior CT. Spl een, pancreas, bilateral adrenal glands and left kidney are normal. 1 cm nonenhancing T2 hyperintense right renal cyst. Visualized bowels are unremarkable. No pathologically enlarged abdominal lymphaden opathy. Fusiform infrarenal abdominal aortic aneurysm measuring up to 4.5 cm. T1 hyperintense fat sa turating hemangioma at T11. There is mild enhancement extending horizontally along a compression frac ture underlying the superior endplate of L1 with mild associated vertebral body height loss. Chronic T8 burst fracture and T12 compression fracture with normal marrow signal and without enhancement. IMPRESSION: 1. Nodular region of concern at the gallbladder fundus corresponds to mobile nonenhancing gallbladder sludge. 2. Enhancing mass at the anteromedial right upper lobe concerning for malignancy. 3. 1.4 cm indeterminate nodule at the posterior right hepatic lobe which is unable be distinguished f rom the surrounding liver on the post contrast imaging and which assessment is limited by respiratory motion artifact. Differential would include hemangioma, focal nodular hyperplasia or metastatic dise ase. Reviewed, dictated and finalized at location A. IMPRESSION: 1. Nodular region of concern at the gallbladder fundus corresponds to mobile no nenhancing gallbladder sludge. 2. Enhancing mass at the anteromedial right upper lobe concerning for malignanc y. 3. 1.4 cm indeterminate nodule at the posterior right hepatic lobe which is nuria ble be distinguished from the surrounding liver on the post contrast imaging an d which assessment is limited by respiratory motion artifact. Differential woul d include hemangioma, focal nodular hyperplasia or metastatic disease.
--- NOTE | ~2024-11-02 | US_ITS ---
EXAM: ABDOMEN ULTRASOUND HISTORY: Abnormal CT imaging COMPARISON: None. Reference is made to a CTA of the chest abdomen and pelvis, performed less than 24 hours earlier. FINDINGS: LIVER: The liver is increased in echogenicity and unremarkable in size. The portal vein is patent, demonstrating hepatopedal flow. GALLBLADDER: No stones are identified within the gallbladder. No gallbladder wall thickening or pericholecystic fluid. The abnormality seen on CT examination is not reproducible on static or cine ultrasound images obtain ed by the cardiovascular technologist. BILE DUCTS: Common bile duct measures 4.8mm. PANCREAS: Limited evaluation of the pancreas secondary to overlying bowel gas IMPRESSION: Limited evaluation of the pancreas secondary to overlying bowel gas. The abnormality seen in the gallbladder on CT examination is not reproducible on static or cine ultra sound images obtained by the cardiovascular technologist. Recommend contrast-enhanced CT or MRI of the abdomen utilizing liver mass protocol (late arterial, po rtal venous and delayed phase images, +/- precontrast images) for further evaluation, if the patient is clinically able. Given the finding on prior CT examination of the chest of a right upper lobe lung mass with multiple scattered pulmonary nodules, this abnormality in the gallbladder does not likely represent metastatic disease, however a second primary may be present. Reviewed, dictated and finalized at location A. IMPRESSION: Limited evaluation of the pancreas secondary to overlying bowel gas. The abnormality seen in the gallbladder on CT examination is not reproducible o n static or cine ultrasound images obtained by the cardiovascular technologist. Recommend contrast-enhanced CT or MRI of the abdomen utilizing liver mass haris col (late arterial, portal venous and delayed phase images, +/- precontrast tevin ges) for further evaluation, if the patient is clinically able. Given the finding on prior CT examination of the chest of a right upper lobe rowdy ng mass with multiple scattered pulmonary nodules, this abnormality in the gall bladder does not likely represent metastatic disease, however a second primary may be present.
--- NOTE | 2024-11-02 12:08 | ED.BACK ---
HPI - Back Pain/Injury General Chief Complaint: Back Pain/Injury <Argentina High PA-C - Last Filed: 11/02/24 18:24> Stated Complaint: back pain <YURIDIA Hedrick Last Filed: 11/02/24 18:24> Time Seen by Provider: 11/02/24 11:48 <YURIDIA Hedrick Last Filed: 11/02/24 18:24> Source: patient <YURIDIA Hedrick Last Filed: 11/02/24 18:24> Mode of arrival: EMS <YURIDIA Hedrick Last Filed: 11/02/24 18:24> Limitations: no limitations <YURIDIA Hedrick Last Filed: 11/02/24 18:24> History of Present Illness HPI Narrative: This is a 79 year old female that presents to the ER for mid back pain. Reports the pain is constant. Worse with movement. Worsening over the last couple of days. She has been taking Tylenol with little relief. Reports her grandson in the end of last month and she laid in bed for several days after that. Reports shortness of breath, history of COPD, a chronic cough. She lives home alone and is having trouble caring for herself. Denies fevers, numbness, weakness. <Argentina High PA-C - Last Filed: 11/02/24 18:24> Related Data Home Medications: Home Medications ?Medication ?Instructions ?Recorded ?Confirmed ?Last Taken ?Type albuterol sulfate 90 mcg/actuation 2 inh inhalation PRN PRN Shortness 09/27/21 11/02/24 11/01/24 History aerosol inhaler Of Breath Or Wheezing diltiazem HCl 120 mg 120 mg PO HS 09/27/21 11/02/24 11/01/24 History capsule,extended release 24 hr duloxetine 30 mg capsule,delayed 60 mg PO DAILY 09/27/21 11/02/24 11/01/24 History release ergocalciferol (vitamin D2) 1,250 1,250 mcg PO WEEKLY 09/27/21 11/02/24 11/01/24 History mcg (50,000 unit) capsule famotidine 20 mg tablet 20 tablet PO DAILY 09/27/21 11/02/24 11/01/24 History furosemide 40 mg tablet 40 tablet PO DAILY 09/27/21 11/02/24 11/01/24 History levothyroxine 100 mcg tablet 125 mcg PO DAILY 09/27/21 11/02/24 11/01/24 History montelukast 10 mg tablet 10 tablet PO DAILY 09/27/21 11/02/24 11/01/24 History hydrocodone 5 mg-acetaminophen 325 5 - 325 tablet PO Q8H PRN pain 09/28/21 11/02/24 11/01/24 History mg tablet alprazolam 0.25 mg tablet 0.25 mg PO TID 11/02/24 11/02/24 11/01/24 History apixaban 5 mg tablet (Eliquis) 5 mg PO Q12H 11/02/24 11/02/24 11/01/24 History atorvastatin 40 mg tablet 40 mg PO DAILY 11/02/24 11/02/24 11/01/24 History potassium chloride 10 mEq 10 meq PO EVERY OTHER DAY 11/02/24 11/02/24 11/01/24 History tablet,extended release <Argentina High PA-C - Last Filed: 11/02/24 18:24> Allergies/Adverse Reactions: Allergies Allergy/AdvReac Type Severity Reaction Status Date / Time No Known Allergies Allergy Verified 11/02/24 10:57 <Argentina High PA-C - Last Filed: 11/02/24 18:24> Review of Systems Review of Systems: All systems reviewed & are unremarkable except as noted in HPI and below <Argentina High PA-C - Last Filed: 11/02/24 18:24> [facility] Past Medical History Medical History: Medical History (Updated 11/02/24 @ 18:24 by Argentina High PA-C) Depression Hypothyroidism COPD (chronic obstructive pulmonary disease) <Argentina High PA-C - Last Filed: 11/02/24 18:24> Surgical History Surgical History: Surgical History History of hysterectomy History of appendectomy <Argentina High PA-C - Last Filed: 11/02/24 18:24> Social History Social History: Social History (Updated 09/27/21 @ 21:00 by Jessica Chowdhury MD) Social History: Lives in apartment by herself sister visits her upset with her medications. Smoking status: Former smoker Tobacco type: cigars Second hand tobacco smoke exposure: No Additional smoking assessment comments: pt states she stopped smoking years ago. Alcohol intake: never Substance use: former Do You Feel Safe in your Home?: Yes Lack of Transportation: No Lack of Food: Never True Current Housing: I Have Housing Concerned About Future Housing: No Difficulty Paying Gas/Electric Bills: No Difficulty Paying for Meds: No Currently Unemployed: No Education: Decline to Answer Difficulty w/ Childcare or Family Care: No Living arrangements: alone Spiritual care concerns: No <Argentina High PA-C - Last Filed: 11/02/24 18:24> Exam Narrative: GENERAL: Elderly, well-nourished, and in no acute distress. HEAD: Normocephalic, atraumatic. EYES: EOMI. ENT: Nares clear, no rhinorrhea or epistaxis. Mucous membranes moist. Oropharynx without tonsillar hypertrophy exudate or other lesions. Bilateral TMs pearly bermudez non-bulging NECK: Supple. No adenopathy or masses. CHEST: No respiratory distress. Lung sounds with diffuse wheezing. No rales or rhonchi HEART: Regular rate and rhythm. No murmur heard. Normal peripheral pulses. EXTREMITIES: Normal range of motion. No edema. SKIN: Warm, dry, no rash. NEURO: No focal deficits. Alert and oriented x3. PSYCH: Normal mood and affect <YURIDIA Hedrick Last Filed: 11/02/24 18:24> Course Course Emergency Course: Patient updated on her workup. Feels like she is not safe to go home at this time. It did take 2 people to get her up to use the bedside commode. She lives home alone. Will consult hospitalist for admission <YURIDIA Hedrick Last Filed: 11/02/24 18:24> REGIONAL BRANCH MANAGER/PA Physician Supervision For this patient encounter, I reviewed the REGIONAL BRANCH MANAGER or PA documentation, treatment plan, and medical decision making; and I had [id number] time with this patient. <Aubrey Cornejo MD - Last Filed: 11/02/24 21:36> Consultations Consultation #1: Spoke with hospitalist about patient and workup who accepts admission <Argentina High PA-C - Last Filed: 11/02/24 18:24> Date: 11/02/24 <Argentina High PA-C - Last Filed: 11/02/24 18:24> Vital Signs Vital signs: Vital Signs Temperature 97.5 F L 11/02/24 10:47 Pulse Rate 69 11/02/24 10:47 Respiratory Rate 14 11/02/24 10:47 Blood Pressure 109/54 L 11/02/24 10:47 Pulse Oximetry 95 11/02/24 10:47 Oxygen Delivery Nasal Cannula 11/02/24 10:47 Oxygen Flow Rate 2 11/02/24 10:47 Temperature 97.4 F L 11/02/24 21:27 Pulse Rate 72 11/02/24 21:27 Respiratory Rate 18 11/02/24 21:27 Blood Pressure 115/67 11/02/24 21:27 Pulse Oximetry 93 11/02/24 21:27 Oxygen Delivery Nasal Cannula 11/02/24 10:47 Oxygen Flow Rate 2 11/02/24 10:47 <Argentina High PA-C - Last Filed: 11/02/24 18:24> Vital Signs Temperature 97.5 F L 11/02/24 10:47 Pulse Rate 69 11/02/24 10:47 Respiratory Rate 14 11/02/24 10:47 Blood Pressure 109/54 L 11/02/24 10:47 Pulse Oximetry 95 11/02/24 10:47 Oxygen Delivery Nasal Cannula 11/02/24 10:47 Oxygen Flow Rate 2 11/02/24 10:47 Temperature 97.4 F L 11/02/24 21:27 Pulse Rate 72 11/02/24 21:27 Respiratory Rate 18 11/02/24 21:27 Blood Pressure 115/67 11/02/24 21:27 Pulse Oximetry 93 11/02/24 21:27 Oxygen Delivery Nasal Cannula 11/02/24 10:47 Oxygen Flow Rate 2 11/02/24 10:47 <Aubrey Cornejo MD - Last Filed: 11/02/24 21:36> MDM - Back Pain/Injury MDM Narrative Medical decision making narrative: Patient presents to the emergency department for mid back pain, shortness of breath, difficulty with ADLs. She is afebrile and nontoxic appearing. Her vitals are stable. Cbc without leukocytosis. Metabolic panel with kidney function appears to be around her baseline. Urine with evidence of infection. This was sent for culture. Patient started on IV antibiotics. Influenza, RSV and COVID screens are negative. D-dimer elevated, CTA of the chest with abdomen and pelvis obtained for further evaluation. No PE. Mass in the right upper lobe. Lymphadenopathy. Atelectasis, versus pneumonia, versus fibrotic changes. Compression fractures at T8, T12, L1, acute versus chronic. Patient updated on her workup. Feels like she is not safe to go home at this time. It did take 2 people to get her up to use the bedside commode. She lives home alone. Spoke with hospitalist about patient and workup who accepts admission <Argentina High PA-C - Last Filed: 11/02/24 18:24> Differential Diagnosis Differential diagnosis: Likely lumbar radiculopathy, sciatica, strain of lumbar region, renal colic, pyelonephritis, thoracic back pain and other (UTI, PE, pneumonia, lung cancer) <Argentina High PA-C - Last Filed: 11/02/24 18:24> Lab Data Attestation: I reviewed the patient's lab results. <Argentina High PA-C - Last Filed: 11/02/24 18:24> Result diagrams: 11/02/24 12:44 11/02/24 12:44 <YURIDIA Hedrick Last Filed: 11/02/24 18:24> Labs: Lab Results 11/02/24 11/02/24 Range/Units 12:44 12:56 WBC 9.6 (4.5-10.0) K/mm3 RBC 4.83 (4.2-5.4) M/mm3 Hgb 14.0 (12.0-15.0) g/dL Hct 44.3 (37.0-47.0) % MCV 91.7 (80-100) fl MCH 29.0 (26-34) pg MCHC 31.6 L (32-36) g/dl RDW 14.3 (11.5-14.5) % Plt Count 273 (150-375) k/mm3 MPV 10.1 (7.4-10.4) fl Immature Gran % (Auto) 0.4 (0-0.5) % Neut % (Auto) 79.3 H (45.5-73.1) % Lymph % (Auto) 12.6 L (18.3-44.2) % Caldwell % (Auto) 5.7 (2.6-8.5) % Eos % (Auto) 1.5 (0-4.4) % Baso % (Auto) 0.5 (0.2-1.2) % Lymph # (Auto) 1.21 (0.9-3.2) K/mm3 Caldwell # (Auto) 0.6 (0.1-0.6) K/mm3 Eos # (Auto) 0.1 (0-0.3) K/mm3 Baso # (Auto) 0.1 (0.0-0.1) K/mm3 Abs Immat Gran (auto) 0.04 H (0.00-0.031) K/mm3 Absolute Neuts (auto) 7.6 H (1.3-6.7) K/mm3 Absolute Nucleated RBC 0.000 (0.0-0.012) K/mm3 Nucleated RBC % 0.0 (0.0-0.2) % PT 19.4 H (11.1-14.7) Seconds INR 1.7 APTT 35.3 (22.3-36.8) Seconds D-Dimer 1.40 H (<0.48) ug/mL Sodium 137 (137-145) mmol/L Potassium 3.9 (3.4-5.0) mmol/L Chloride 99 (98-107) mmol/L Carbon Dioxide 26 (22-30) mmol/L Anion Gap 12 (4-12) mmol/L BUN 25 H (7-17) mg/dL Creatinine 1.46 H (0.7-1.0) mg/dL Estim Creat Clear Calc 32 ml/min Estimated GFR 35 L (59 - ) Glucose 97 (65-110) mg/dL Calcium 9.4 (8.4-10.2) mg/dL Total Bilirubin 0.9 (0.2-1.3) mg/dL AST 23 (14-36) U/L ALT 12 (6-35) U/L Alkaline Phosphatase 109 (38-126) U/L Total Protein 8.1 (6.3-8.2) g/dL Albumin 4.4 (3.5-5.1) g/dL Urine Color Yellow (Yellow) Urine Appearance Cloudy H (Clear) Urine pH 6.0 (5.0-9.0) Ur Specific [place] 1.011 (1.001-1.035) Urine Protein Negative (Negative) mg/dL Urine Glucose (UA) Negative (Negative) mg/dL Urine Ketones Negative (Negative) mg/dL Ur Blood (Man) Negative (Negative) Urine Nitrate Positive H (Negative) Urine Bilirubin Negative (Negative) Urine Urobilinogen 0.2 (<2.0) mg/dL Leukocyte Esterase Rfl 2+ H (Negative) WILVER/UL Urine RBC 0-2 (0-2) /hpf Urine WBC 11-20 H (0-3) /hpf Ur Squamous Epith Cells Occasional (Few) /hpf Urine Bacteria 4+ H /hpf Urine Casts 0-2 Influenza A (RT-PCR) Negative (Negative) Influenza B (RT-PCR) Negative (Negative) RSV (RT-PCR) Negative (Negative) SARS-CoV-2 RNA (RT-PCR) Negative (Negative) <Argentina High PA-C - Last Filed: 11/02/24 18:24> Lab Results 11/02/24 11/02/24 Range/Units 12:44 12:56 WBC 9.6 (4.5-10.0) K/mm3 RBC 4.83 (4.2-5.4) M/mm3 Hgb 14.0 (12.0-15.0) g/dL Hct 44.3 (37.0-47.0) % MCV 91.7 (80-100) fl MCH 29.0 (26-34) pg MCHC 31.6 L (32-36) g/dl RDW 14.3 (11.5-14.5) % Plt Count 273 (150-375) k/mm3 MPV 10.1 (7.4-10.4) fl Immature Gran % (Auto) 0.4 (0-0.5) % Neut % (Auto) 79.3 H (45.5-73.1) % Lymph % (Auto) 12.6 L (18.3-44.2) % Caldwell % (Auto) 5.7 (2.6-8.5) % Eos % (Auto) 1.5 (0-4.4) % Baso % (Auto) 0.5 (0.2-1.2) % Lymph # (Auto) 1.21 (0.9-3.2) K/mm3 Caldwell # (Auto) 0.6 (0.1-0.6) K/mm3 Eos # (Auto) 0.1 (0-0.3) K/mm3 Baso # (Auto) 0.1 (0.0-0.1) K/mm3 Abs Immat Gran (auto) 0.04 H (0.00-0.031) K/mm3 Absolute Neuts (auto) 7.6 H (1.3-6.7) K/mm3 Absolute Nucleated RBC 0.000 (0.0-0.012) K/mm3 Nucleated RBC % 0.0 (0.0-0.2) % PT 19.4 H (11.1-14.7) Seconds INR 1.7 APTT 35.3 (22.3-36.8) Seconds D-Dimer 1.40 H (<0.48) ug/mL Sodium 137 (137-145) mmol/L Potassium 3.9 (3.4-5.0) mmol/L Chloride 99 (98-107) mmol/L Carbon Dioxide 26 (22-30) mmol/L Anion Gap 12 (4-12) mmol/L BUN 25 H (7-17) mg/dL Creatinine 1.46 H (0.7-1.0) mg/dL Estim Creat Clear Calc 32 ml/min Estimated GFR 35 L (59 - ) Glucose 97 (65-110) mg/dL Calcium 9.4 (8.4-10.2) mg/dL Total Bilirubin 0.9 (0.2-1.3) mg/dL AST 23 (14-36) U/L ALT 12 (6-35) U/L Alkaline Phosphatase 109 (38-126) U/L Total Protein 8.1 (6.3-8.2) g/dL Albumin 4.4 (3.5-5.1) g/dL Urine Color Yellow (Yellow) Urine Appearance Cloudy H (Clear) Urine pH 6.0 (5.0-9.0) Ur Specific [place] 1.011 (1.001-1.035) Urine Protein Negative (Negative) mg/dL Urine Glucose (UA) Negative (Negative) mg/dL Urine Ketones Negative (Negative) mg/dL Ur Blood (Man) Negative (Negative) Urine Nitrate Positive H (Negative) Urine Bilirubin Negative (Negative) Urine Urobilinogen 0.2 (<2.0) mg/dL Leukocyte Esterase Rfl 2+ H (Negative) WILVER/UL Urine RBC 0-2 (0-2) /hpf Urine WBC 11-20 H (0-3) /hpf Ur Squamous Epith Cells Occasional (Few) /hpf Urine Bacteria 4+ H /hpf Urine Casts 0-2 Influenza A (RT-PCR) Negative (Negative) Influenza B (RT-PCR) Negative (Negative) RSV (RT-PCR) Negative (Negative) SARS-CoV-2 RNA (RT-PCR) Negative (Negative) <Aubrey Cornejo MD - Last Filed: 11/02/24 21:36> Imaging Data Radiologist's impression: ITS Impressions Chest/Abdomen/Pelvis CTA 11/02/24 15:19 IMPRESSION: CHEST: 1. No pulmonary embolism or dissection of the aorta seen. 2. Mass in the right upper lobe anteriorly. Further evaluation advised. 3. Nodules in the right upper and middle lobes. 3 months follow-up CT is advised. 4. Prominent paratracheal and right hilar lymphadenopathy. 5. Focal areas of atelectasis versus pneumonia versus fibrotic changes in the left upper lobe. Groundglass nodule is less likely. 6. Compression fracture of T8 and T12 which may be acute or chronic. MRI is advised. ABDOMEN/PELVIS: 1. No aneurysmal dilatation seen in the abdominal aorta with the largest measuring 4.5 x 4.5 cm. 2. Soft tissue density in the fundus of the gallbladder. Further evaluation advised. 3. Fat infiltration of the liver. 4. Compression fracture of L1 which may be acute or chronic. MRI is advised. 5. No evidence of appendicitis, diverticulitis or intestinal obstruction. <Argentina High PA-C - Last Filed: 11/02/24 18:24> ECG Data EKG #1: ECG completion date: 11/02/24 <Argentina High PA-C - Last Filed: 11/02/24 18:24> EKG Interpretation: normal rate, sinus rhythm, non-specific ST changes (T wave inversions laterally), normal QT and no acute changes (compared to EKG 12/2018) <YURIDIA Hedrick Last Filed: 11/02/24 18:24> Critical Care Time Critical Care Time Critical Care Time: No <YURIDIA Hedrick Last Filed: 11/02/24 18:24> Discharge Plan Discharge Clinical Impression: Mass of upper lobe of right lung, Compression fracture, Acute UTI <YURIDIA Hedrick Last Filed: 11/02/24 18:24> Patient Disposition: Still a Patient <YURIDIA Hedrick Last Filed: 11/02/24 18:24> Condition: Stable <YURIDIA Hedrick Last Filed: 11/02/24 18:24>
--- OUTSIDE RECORDS SUMMARY | 2024-11-02 12:13 | XMS_ITS | Patient Health Record ---
Author Organization [facility] Address [address] [place] [address] Care Team Providers Care Merchandise Buyer Name Role Phone Faiza Altman Unavailable [phone] Reason For Referral No Information Medications Medication SIG (Take, Route, Frequency, Duration) Notes Start Date End Date Status Atorvastatin Calcium 40 MG 1and a half tablet Orally Once a day; Duration: 90 days d/c last for just forty 04/07/2023 Active Klor-Con 10 10 MEQ 1 tablet with food Orally every other day; Duration: 90 days 08/18/2024 02/14/2025 Active Atorvastatin Calcium 40 MG 1 and a half tablet Orally Once a day; Duration: 120 days 12/09/2022 Active Social History Sex Assigned At : Social History Observation Description Sex Assigned At Female Problems Problem Type SNOMED Code ICD Code Onset Dates Problem Status W/U Status Risk Notes Problem Hypothyroidism (44313581) Hypothyroidism, unspecified (E03.9) Active confirmed Problem Hypoparathyroidism (65585956) Hypoparathyroidi sm, unspecified (E20.9) Active confirmed Problem Secondary hyperparathyroidism (25739834) Secondary hyperparathyroid ism, not elsewhere classified (E21.1) Active confirmed Problem Hyperlipidemia (72099203) Hyperlipidemia, unspecified (E78.5) Active confirmed Problem Hyperuricemia withou t signs of inflammatory arthritis and tophaceous disease (010575611) Hyperuricemia without signs of inflammatory arthritis and tophaceous disease (E79.0) Active confirmed Problem Hypokalemia (55767203) Hypokalemia (E87.6) Active confirmed Problem Anxiety disorder (682149260) Anxiety disorder, unspecified (F41.9) Active confirmed Problem Renal osteodystrophy (34865035) Renal osteodystrophy (N25.0) Active confirmed Problem Pyuria (2083134) Pyuria (R82.81) Active confirm ed Problem Chronic kidney disease stage 3A (disorder) (594875943) Chronic kidney disease, stage 3a (N18.31) Active confirmed Problem Chronic kidney disease stage 3B (disorder) (951085390) Chronic kidney disease, stage 3b (N18.32) Active confirmed Encounters Encounter Location Date Provider Diagnosis [place] [facility] [address] [facility] [address] [place] [address] 01/12/2024 Faiza Altman Chronic kidney disease, stage 3b N18.32 ; Hypokalemia E87.6 ; Hypoparathyroidism, unspecified E20.9 and Anxiety disorder, unspecified F41.9 [facility] [place] [facility] [address] [place] [address] 08/16/2024 Faiza Agapito Chronic kidney disease, stage 3a N18.31 ; Hypokalemia E87.6 ; Hyperuricemia without signs of inflammatory arthritis and tophaceous disease E79.0 and Pyuria R82.81 [facility] [place] [facility] [address] [place] [address] 08/18/2024 Faiza Altman Assessments Encounter Date Diagnosis (ICD Code) Assessment Notes Treatment Notes Treatment Clinical Notes Section Notes 01/12/2024 Chronic kidney disease, stage 3b (ICD-10 - N18.32) 08/16/2024 Chronic kidney disease, stage 3a (ICD-10 - N18.31) 08/16/2024 Hypokalemia (ICD-10 - E87.6) 01/12/2024 Hypokalemia (ICD-10 - E87.6) 01/12/2024 Hypoparathyroidism , unspecified (ICD-10 - E20.9) 08/16/2024 Hyperuricemia without signs of inflammatory arthritis and tophaceous disease (ICD-10 - E79.0) 08/16/2024 Pyuria (ICD-10 - R82.81) 01/12/2024 Anxiety disorder, unspecified (ICD-10 - F41.9) Plan Of Treatment Next Appt Details Provider Name:Faiza ordoñez, 02/14/2025 02:30:00 PM, [address], [place], [address],
--- OUTSIDE RECORDS SUMMARY | 2024-11-02 12:13 | XMS_ITS ---
Author Organization [facility] Address [address] [place] [address] Care Team Providers Care Grinder Set Up Operator Thread Tool Name Role Phone Faiza Willams Unavailable [phone] REASON FOR VISIT pt needs phone call Social History Sex Assigned At : Social History Observation Description Sex Assigned At Female Encounters Encounter Location Date Provider Diagnosis [place] [facility] [address] [facility] [address] [place] [address] 06/14/2024 Faiza Willams Plan Of Treatment Next Appt Details Provider Name:Faiza ordoñez, 02/14/2025 02:30:00 PM, [address], [place], [address], Progress Notes * MARIO CURTISB:1945 ( 79 yo F)Acc No.[id number]:06/14/2024 Progress Notes Patient: MARGIE CAMPOS Provider: Queenie WILLAMS M.D :1945 A ge:79 Y S ex:Female Date:06/14/2024 Address:[address] [place] [address] Subjective: * Chief Complaints: * 1 . Pt needs phone call. * Medical History: Objective: * Vitals: Assessment: Plan: * Treatment: * Billing Information: * Visit Code: * Procedure Codes: * Electronic signature of Liberty Willams MD on 11/02/2024 at 12:13 PM CDT Sign off status: Pending * Provider: Queenie WILLAMS M.D Date: 0 06/14/2024 Generated for Nadira myers/Rosalind/eTransmitting on: 0 11/02/2024 12:13 PM CDT
--- OUTSIDE RECORDS SUMMARY | 2024-11-02 12:13 | XMS_ITS | Patient Health Record ---
Author Organization [facility] Address [address] [place] [address] Care Team Providers Care Spray Painter Name Role Phone Tre Coto Primary Care Provider Reason For Referral No Information Medications Medication SIG (Take, Route, Frequency, Duration) Notes Start Date End Date Status Montelukast Sodium 10 MG 1 tablet in the evening Orally Once a day Active Levothyroxine Sodium 112 MCG 1 tablet on an empty stomach in the morning Orally Once a day Active ProAir HFA 108 (90 Base) MCG/ACT 2 puffs as needed Inhalation every 6 hrs Active ALPRAZolam 0.5 MG 1 tablet Orally twic e daily and 2 tablets every night at bedtime Active Venlafaxine HCl ER 75 MG 1 capsule with food Orally Once a day Active Fluticasone Propionate 50 MCG/ACT 1 spray in each nostril Nasally Once a day Active Dulera 100-5 MCG/ACT 2 puffs Inhalation Twice a day Active Problems Problem Type SNOMED Code ICD Code Onset Dates Problem Status W/U Status Risk Notes Problem Anxiety (12436228) Anxiety (F41.9) Active confi rmed Problem Depressive disorder (disorder) (29297959) Depression, unspecified depression type (F32.9) Active confirmed Problem Hypothyroidism (37705870) Hypothyroidism, unspecified type (E03.9) Active confirmed Problem COPD - Chronic obstructive pulmonary disease (22322765) Chronic obstructive pulmonary disease, unspecified COPD type (J44.9) Active confirmed Plan Of Treatment No Information Insurance Providers Payer Name Payer Address Payer Phone Subscriber Number Group Number Insured Name Patient Relationship to Insured Coverage Start Date Coverage End Date [employer] Medicare Complete [address] [place] [address] [phone] [id number] [address] Self - patient is the insured 7 Medical (General) History Medical History History ICD Code COPD depression anxiety hypothyroidism Surgical History Surgery Date(Month/Year) hystorectomy bladder tied up appendectomy
--- OUTSIDE RECORDS SUMMARY | 2024-11-02 12:14 | XMS_ITS ---
Author Organization [facility] Address [address] [place] [address] Care Team Providers Care Reach Lift Truck Driver Name Role Phone Agapito Faiza Unavailable [phone] Social History Sex Assigned At : Social History Observation Description Sex Assigned At Female Problems Problem Type SNOMED Code ICD Code Onset Dates Problem Status W/U Status Risk Notes Problem Hyperuricemia without signs of inflammatory arthritis and tophaceous disease (836283284) Hyperuricemia without signs of inflammatory arthritis and tophaceous disease (E79.0) Active confirmed Problem Pyuria (9570971) Pyuria (R82.81) Active confirm ed Encounters Encounter Location Date Provider Diagnosis [facility] [place] [facility] [address] [place] [address] 08/16/2024 Faiza Willams Chronic kidney disease, stage [...] [address], [place], [address], Progress Notes * MARIO CURTISB:1945 ( 79 yo F)Acc No.[id number]:08/16/2024 Progress Notes Patient: MARGIE CAMPOS Provider: Queenie WILLAMS M.D :1945 A ge:79 Y S ex:Female Date:08/16/2024 Address:[address] [place] [address] Subjective: * Chief Complaints: * * Medical History: Objective: * Vitals: Assessment: * Assessment: 1. C hronic kidney disease, stage 3a - N18.31 (Primary) 2 . H ypokalemia - E87.6 3 . H yperuricemia without signs of inflammatory arthritis and tophaceous disease - E79.0 4 . P yuria - R82.81 Plan: * Treatment: * Billing Information: * Visit Code: 17729 Office Visit, Est Pt., Level 3. * Procedure Codes: * Electronic signature of Liberty Willams MD on 11/02/2024 at 12:13 PM CDT Sign off status: Pending * Provider: Queenie WILLAMS M.D Date: 0 08/16/2024 Generated for Nadira myers/Rosalind/Kristen on: 0 11/02/2024 12:13 PM CDT
--- OUTSIDE RECORDS SUMMARY | 2024-11-02 12:14 | XMS_ITS ---
Author Organization [facility] Address [address] [place] [address] Care Team Providers Care Quarter Supervisor Name Role Phone Agapito Faiza Unavailable [phone] Social History Sex Assigned At : Social History Observation Description Sex Assigned At Female Encounters Encounter Location Date Provider Diagnosis [facility] [address] [facility] [address] [place] [address] 05/10/2024 Faiza Willams Plan Of Treatment Next Appt Details Provider Name:Faiza ordoñez, 02/14/2025 02:30:00 PM, [address], [place], [address], Progress Notes * MARIO CURTISB:1945 ( 79 yo F)Acc No.[id number]:05/10/2024 Progress Notes Patient: MARGIE CAMPOS Provider: Queenie WILLAMS M.D :1945 A ge:79 Y S ex:Female Date:05/10/2024 Address:[address] [place] [address] Subjective: * Chief Complaints: * * Medical History: Objective: * Vitals: Assessment: Plan: * Treatment: * Billing Information: * Visit Code: * Procedure Codes: * Electronic signature of Liberty Willams MD on 11/02/2024 at 12:13 PM CDT Sign off status: Pending * Provider: Queenie WILLAMS M.D Date: 05/10/2024 Generated for Ashleyi louis/Rosalind/eTransmitting on: 11/02/2024 12:13 PM CDT
--- NOTE | 2024-11-02 12:24 | ECG_ITS ---
Test Date: 2024-11-02 12:31:49 Measurements Intervals [place] Rate: 85 P: 66 RI: 161 QRS: 45 QRSD: 80 T: 22 QT: 400 QTc: 477 Interpretive Statements SINUS RHYTHM NONSPECIFIC T-WAVE ABNORMALITY ABNORMAL ECG No previous ECG available for comparison Electronically Signed On 11-03-2024 07:35:43 CDT by Yaya Henao M.D.
[2024-11-02 12:53] LABS: Hematocrit 44.3 % (37.0-47.0); Hemoglobin 14.0 g/dL (12.0-15.0); Immature Granulocyte Percent A 0.4 % (0-0.5); Lymphocytes Absolute Auto 1.21 K/mm3 (0.9-3.2); Mean Corpuscular HGB Conc 31.6 g/dl (32-36); Mean Corpuscular Hemoglobin 29.0 pg (26-34); Mean Corpuscular Volume 91.7 fl (80-100); Nucleated Red Blood Cells Absolute Auto 0.000 K/mm3 (0.0-0.012); Nucleated Red Blood Cells Perc 0.0 % (0.0-0.2); Platelet Count Result 273 k/mm3 (150-375); Red Blood Count 4.83 M/mm3 (4.2-5.4); White Blood Count 9.6 K/mm3 (4.5-10.0)
[2024-11-02] MEDS: oxyCODONE HCL (*CRX) 5 MG TAB IR PO ×2 (13:00→19:20)
[2024-11-02] MEDS: LIDOCAINE 5% PATCH 1 PATCH TRANSDERM (13:00)
[2024-11-02 13:05] LABS: Alanine Aminotransferase 12 U/L (6-35); Albumin Level 4.4 g/dL (3.5-5.1); Alkaline Phosphatase 109 U/L (38-126); Anion Gap 12 mmol/L (4-12); Aspartate Amino Transferase 23 U/L (14-36); Bilirubin,Total 0.9 mg/dL (0.2-1.3); Blood Urea Nitrogen 25 mg/dL (7-17); Calcium 9.4 mg/dL (8.4-10.2); Carbon Dioxide 26 mmol/L (22-30); Chloride 99 mmol/L (98-107); Estimated CRCL calculation 32 ml/min; Estimated Glomerular Filt Rate 35; Glucose 97 mg/dL (65-110); Potassium 3.9 mmol/L (3.4-5.0); Sodium 137 mmol/L (137-145); Total Protein 8.1 g/dL (6.3-8.2)
[2024-11-02 13:06] LABS: INR 1.7; Partial Thromboplastin Time 35.3 Seconds (22.3-36.8); Prothrombin Time 19.4 Seconds (11.1-14.7)
[2024-11-02 13:10] LABS: Add Urine Microscopic? YES; Appearance Urine Cloudy (Clear); Glucose Urine UA Negative (Negative); Leukocyte Esterase Ur 2+ LEU/UL (Negative); Nitrate Urine Positive (Negative); Non Pathogenic Casts 0-2; Specific Grav Ur 1.011 (1.001-1.035)
[2024-11-02 13:48] LABS: Influenza A QL RT-PCR Negative (Negative); Influenza B QL RT-PCR Negative (Negative); RSV RNA, RT-PCR Negative (Negative); SARS-CoV-2 RNA PCR Negative (Negative)
[2024-11-02] MEDS: diazePAM INJ (*CRX) 10 MG/2 ML SYRINGE 5 MG IV PUSH (16:53)
--- NOTE | 2024-11-02 17:00 | PC.NURSE ---
GUILLE High at bedside updating pt.
[2024-11-02] MEDS: cefTRIAXone 1 GM in SODIUM CHLORIDE 0.9% IV 50 ML 100 ML IVPB (18:01)
--- NOTE | 2024-11-02 19:01 | PC.NURSE ---
Pt. requesting more medication for back pain. Pt. states the Valium didn't help at all. GUILLE High notified.
--- NOTE | 2024-11-02 22:22 | P.HP_ITS ---
H&P: HPI History of Present Illness Date/Time: 11/02/24 22:22 Chief Complaint: Mid Back pain 4 days Narrative: 79-year-old female with a past medical history a prior T12 compression fracture, hepatic steatosis, chronic kidney disease, depression, hypothyroidism and COPD on chronic home O2 of 2 L with activity who presented to the ER via EMS from home due to 4 days of thoracic back pain. The patient reported that she has been less active since the 26 of October. She reports that on October 25 the family found her 31-year-old grandson . The cause of his was unknown. Since that time she has been depressed and having difficulty coping. She has had associated decreased appetite. She has been laying in bed more. Then 4 days ago when she went to get up out of bed she started IV midthoracic back pain. The pain occurred without known injury. He she denies any fevers or chills. Her UA in the ER was suspicious for UTI but she denies any urinary symptoms such as increased urinary urgency frequency or hematuria. She denies any CVA tenderness. She does report that her midthoracic pain is worse on the right side and usually occurs with any movement including rolling over in bed. She denies any lower extremity weakness or numbness. She is still able to ambulate without assistance. She reports that me that the only thing she has been taking at home for pain is Tylenol. The patient's med rec states that she is on [place] p.r.n. but there is no evidence of narcotic prescription on the patient's prescription drug monitoring program database. She denied taking [place] at the time my evaluation Review of Systems 2 Review of Systems: 12 systems were reviewed with pertinent positives and negatives per HPI. Except as documented in the HPI, all other systems were reviewed and are negative. [facility] Past Medical History Medical History (Updated 11/03/24 @ 04:02 by Jolie Napier DO) Hepatic steatosis Closed wedge compression fracture of T12 vertebra (2021) Chronic respiratory failure with hypoxia Chronic kidney disease Stage IIIB baseline creatinine 1.3-1 point 4 5 Depression Hypothyroidism COPD (chronic obstructive pulmonary disease) Surgical History Surgical History (Updated 11/03/24 @ 03:50 by Jolie Napier DO) Status post cataract extraction of both eyes with insertion of intraocular lens History of hysterectomy History of appendectomy Social History Social History (Updated 11/03/24 @ 03:49 by Jolie Napier DO) Social History: Lives in apartment by herself. She was twice. She had 4 children 1 of her children is due to accident. She reports that her other children are healthy. She used to smoke 1.5 packs cigarettes per day. She smoked from the time she was a teenager until age 69. Code status: Full code (?as long as there is a chance) His surrogate decision maker: Lexii Clements (sister) Smoking packs per day: 1.5 Smoking cigarettes per day: 30.0 Years smoked: 50 Smoking pack-years: 75.00 Smoking status: Former smoker Tobacco type: cigarettes and cigars Second hand tobacco smoke exposure: No Additional smoking assessment comments: 2014 Alcohol intake: former Alcohol use details: She used to drink moderate to heavy amount of alcohol but quit over 20 years ago. Substance use: former Do You Feel Safe in your Home?: Yes Lack of Transportation: No Lack of Food: Never True Current Housing: I Have Housing Concerned About Future Housing: No Difficulty Paying Gas/Electric Bills: No Difficulty Paying for Meds: No Currently Unemployed: No Education: Decline to Answer Difficulty w/ Childcare or Family Care: No Living arrangements: alone Spiritual care concerns: No Meds Home Medications and Allergies Home Medications ?Medication ?Instructions ?Recorded ?Confirmed ?Type albuterol sulfate 90 mcg/actuation 2 inh inhalation PRN PRN Shortness 09/27/21 11/02/24 History aerosol inhaler Of Breath Or Wheezing diltiazem HCl 120 mg 120 mg PO HS 09/27/21 11/02/24 History capsule,extended release 24 hr duloxetine 30 mg capsule,delayed 60 mg PO DAILY 09/27/21 11/02/24 History release ergocalciferol (vitamin D2) 1,250 1,250 mcg PO WEEKLY 09/27/21 11/02/24 History mcg (50,000 unit) capsule famotidine 20 mg tablet 20 tablet PO DAILY 09/27/21 11/02/24 History furosemide 40 mg tablet 40 tablet PO DAILY 09/27/21 11/02/24 History levothyroxine 100 mcg tablet 125 mcg PO DAILY 09/27/21 11/02/24 History montelukast 10 mg tablet 10 tablet PO DAILY 09/27/21 11/02/24 History hydrocodone 5 mg-acetaminophen 325 1 tablet PO Q8H PRN pain 09/28/21 11/02/24 History mg tablet alprazolam 0.25 mg tablet 0.25 mg PO TID 11/02/24 11/02/24 History apixaban 5 mg tablet (Eliquis) 5 mg PO Q12H 11/02/24 11/02/24 History atorvastatin 40 mg tablet 40 mg PO DAILY 11/02/24 11/02/24 History potassium chloride 10 mEq 10 meq PO EVERY OTHER DAY 11/02/24 11/02/24 History tablet,extended release Allergies Allergy/AdvReac Type Severity Reaction Status Date / Time No Known Allergies Allergy Verified 11/02/24 10:57 Vital Signs Vital Signs - 24 hr 11/02/24 10:47 11/02/24 13:01 11/02/24 13:38 Temperature 97.5 F L Pulse Rate 69 75 70 Respiratory Rate 14 18 15 Blood Pressure 109/54 L 137/71 128/78 Pulse Oximetry 95 90 100 Oxygen Delivery Nasal Cannula Oxygen Flow Rate 2 11/02/24 16:30 11/02/24 16:52 11/02/24 18:08 Temperature Pulse Rate 75 70 64 Respiratory Rate 18 15 14 Blood Pressure 141/79 H 135/79 125/56 L Pulse Oximetry 95 90 99 Oxygen Delivery Oxygen Flow Rate 11/02/24 21:27 Temperature 97.4 F L Pulse Rate 72 Respiratory Rate 18 Blood Pressure 115/67 Pulse Oximetry 93 Oxygen Delivery Oxygen Flow Rate Exam 2 Narrative: Weight 92.2 kg BMI 33.8 Const: Other: Obese, chronically ill-appearing, no acute distress lying on her right side in bed HENMT: Other: Mucous membranes are moist, no oral pharyngeal erythema, edentulous in upper and lower jaw, nasal cannula in place Eyes: Other: No conjunctival pallor, no scleral icterus, pupils are equal and reactive, bilateral lens implants Neck: Other: Large neck circumference, no lymphadenopathy, no thyromegaly Resp: Other: Decreased breath sounds bilaterally anterior lung ruano, occasional end- expiratory wheezing left lung field, no increased work of breathing Cardio: Other: Regular rate, regular rhythm, 2+ bilateral radial pedal pulses GI: Other: Obese, soft, nontender, normoactive bowel sounds : Other: Pure wick catheter in place Back/Spine/Pelvis: Other: Reproducible tenderness palpation at the T8 vertebral, no CVA tenderness Skin: Other: Mild jaundice, no pallor Neuro: Other: Alert oriented x4, speech is clear but slow, no facial asymmetry, no localizing neurologic deficits noted Extrem: Other: No clubbing, cyanosis or edema, moves all extremities equally Psych: Other: Depressed affect, no suicidal or homicidal ideation, fair judgment and insight H&P: Results Labs Labs: Laboratory Tests 11/02/24 12:44 11/02/24 12:44 11/02/24 11/02/24 12:44 12:56 WBC 9.6 RBC 4.83 Hgb 14.0 Hct 44.3 MCV 91.7 MCH 29.0 MCHC 31.6 L RDW 14.3 Plt Count 273 MPV 10.1 Immature Gran % (Auto) 0.4 Neut % (Auto) 79.3 H Lymph % (Auto) 12.6 L [place] % (Auto) 5.7 Eos % (Auto) 1.5 Baso % (Auto) 0.5 Lymph # (Auto) 1.21 [place] # (Auto) 0.6 Eos # (Auto) 0.1 Baso # (Auto) 0.1 Abs Immat Gran (auto) 0.04 H Absolute Neuts (auto) 7.6 H Absolute Nucleated RBC 0.000 Nucleated RBC % 0.0 PT 19.4 H INR 1.7 APTT 35.3 D-Dimer 1.40 H Sodium 137 Potassium 3.9 Chloride 99 Carbon Dioxide 26 Anion Gap 12 BUN 25 H Creatinine 1.46 H Estim Creat Clear Calc 32 Estimated GFR 35 L Glucose 97 Calcium 9.4 Total Bilirubin 0.9 AST 23 ALT 12 Alkaline Phosphatase 109 Total Protein 8.1 Albumin 4.4 Urine Color Yellow Urine Appearance Cloudy H Urine pH 6.0 Ur Specific [place] 1.011 Urine Protein Negative Urine Glucose (UA) Negative Urine Ketones Negative Ur Blood (Man) Negative Urine Nitrate Positive H Urine Bilirubin Negative Urine Urobilinogen 0.2 Leukocyte Esterase Rfl 2+ H Urine RBC 0-2 Urine WBC 11-20 H Ur Squamous Epith Cells Occasional Urine Bacteria 4+ H Urine Casts 0-2 Influenza A (RT-PCR) Negative Influenza B (RT-PCR) Negative RSV (RT-PCR) Negative SARS-CoV-2 RNA (RT-PCR) Negative Impressions Chest/Abdomen/Pelvis CTA 11/02/24 15:19 IMPRESSION: CHEST: 1. No pulmonary embolism or dissection of the aorta seen. 2. Mass in the right upper lobe anteriorly. Further evaluation advised. 3. Nodules in the right upper and middle lobes. 3 months follow-up CT is advised. 4. Prominent paratracheal and right hilar lymphadenopathy. 5. Focal areas of atelectasis versus pneumonia versus fibrotic changes in the left upper lobe. Groundglass nodule is less likely. 6. Compression fracture of T8 and T12 which may be acute or chronic. MRI is advised. ABDOMEN/PELVIS: 1. No aneurysmal dilatation seen in the abdominal aorta with the largest measuring 4.5 x 4.5 cm. 2. Soft tissue density in the fundus of the gallbladder. Further evaluation advised. 3. Fat infiltration of the liver. 4. Compression fracture of L1 which may be acute or chronic. MRI is advised. 5. No evidence of appendicitis, diverticulitis or intestinal obstruction. EKG: Normal sinus rhythm, ST deviation moderate T-wave abnormality QTC of 477 All imaging and EKGs personally reviewed and interpreted. And unless stated otherwise agree with radiologic and cardiology interpretation. Assessment and Plan Assessment and plan (1) Compression fracture: Status: Acute (2) Abnormal urinalysis: Code(s): R82.90 - Unspecified abnormal findings in urine Status: Acute (3) Gallbladder mass: Code(s): K82.8 - Other specified diseases of gallbladder Status: Acute (4) Mass of upper lobe of right lung: Code(s): R91.8 - Other nonspecific abnormal finding of lung field Status: Acute (5) Grieving: Code(s): F43.21 - Adjustment disorder with depressed mood Status: Acute Plan Patient is having intractable thoracic back pain and CT suggest TA compression fracture of indeterminate age. She this correlates with the level of the patient's pain. Although patient has not had any recent injury is could this be idiopathic. But she also does have history of lung mass and CT suggest mass of the gallbladder. Will obtain MRI for further delineation of fracture rule out component of pathologic pathologic fracture from malignancy. Will provide pain medications with [place], muscle relaxer and lidocaine patch. Will obtain right upper quadrant ultrasound to see if there is further delineation of the patient's possible gallbladder mass. Patient states that she has been told in the past that she had gallstones but then had follow-up with a surgeon who told her she did not have gallstones she denies known history of possible mass. Patient does have an abnormal urinalysis that could be consistent with UTI but denies significant urinary symptoms. She is afebrile and does not have a white count. Will discontinue antibiotics and await urine culture. Will continue patient's home medications for anxiety, depression, hypertension, diuretic therapy and levothyroxine. The patient does have some acute grieving due to recent loss of her grandson. Her responses appropriate for the situation. Patient has been admitted as observation status. MEDICAL DECISION MAKING NARRATIVE -Spoke with the ED provider in detail regarding patient's evaluation, workup and management -Patient seen and examined at bedside -Collaborated with patient's nurse at the bedside in detail and addressed all concerns -Labs, electrolytes, radiology, investigations and test results reviewed -ED/Consult/Nursing/Ancilliary notes on the chart reviewed and appreciated -Spoke with patient/family at the bedside and all questions answered. Quality VTE Prophylaxis VTE prophylaxis: mechanical ordered (SCDs) Hospitalist MIPS Advance Care Plan I have confirmed that the patient's Advanced Care Plan is present, code status is documented, or surrogate decision maker is listed in patient medical record.: Yes Medication Reconciliation I have utilized all available resources to obtain, update and review the patients current medications (includes all prescriptions, OTC, herbals, cannabis, and nutritional supplements).: Yes
[2024-11-03] VITALS (7 sets, daily range): BP systolic 112–124; BP diastolic 61–83; PULSE 65–84; RESP 12–16; TEMP 36.1–36.4; O2SAT 93–98
[2024-11-03] MEDS: APIXABAN 5 MG TABLET PO ×3 (00:02→20:00)
[2024-11-03] MEDS: dilTIAZem HCL CD 120 MG CAP.24HR PO ×2 (00:07→19:59)
[2024-11-03] MEDS: LEVOTHYROXINE SODIUM 125 MCG TABLET PO (05:43)
[2024-11-03] MEDS: ALPRAZolam (*CRX) 0.25 MG TABLET PO ×2 (05:54→14:12)
--- NOTE | 2024-11-03 05:54 | PC.NURSE ---
Patient having various anxious requests, takes alprazolam TID, requested AM dose early since she didn't get her afternoon dose, confirmed with provider and gave 0900 med at 0554
[2024-11-03] MEDS: HYDROcodone/acetaminophen (*CRX) 5-325 MG TABLET 1 TAB PO ×2 (11:18→17:42)
[2024-11-03] MEDS: LIDOCAINE 5% PATCH 1 PATCH TRANSDERM (11:19)
[2024-11-03] MEDS: ATORVASTATIN 40 MG TABLET PO (11:21)
[2024-11-03] MEDS: FAMOTIDINE 20 MG TABLET PO ×2 (11:21→17:42)
[2024-11-03] MEDS: FUROSEMIDE 40 MG TABLET PO (11:21)
[2024-11-03] MEDS: MONTELUKAST SODIUM 10 MG TABLET PO (11:26)
--- NOTE | 2024-11-03 16:19 | PM.IMPN ---
Progress Note: A&P Assessment and Plan (1) Abnormal urinalysis: Code(s): R82.90 - Unspecified abnormal findings in urine Status: Acute (2) Gallbladder mass: Code(s): K82.8 - Other specified diseases of gallbladder Status: Acute (3) Compression fracture: Status: Acute Plan Mild lumbar compression fracture. Continue PT OT and pain medication p.r.n.. Awaiting urine culture. To consider further evaluation of gallbladder lesion Full code. SCDs. Subjective Date/time seen: 11/03/24 16:19 Interval history: No acute overnight events. Patient reports pain is significant but controlled with p.r.n. pain medications. Has no abdominal pain. No vomiting no nausea. Review of Systems Review of Systems: All systems reviewed & are unremarkable except as noted in HPI and below (Subjective) Exam Const: General: comfortable and no acute distress HENMT: Mouth: Yes moist mucous membranes Eyes: Pupils: Equal, round and reactive pupils present Neck: Neck: supple Resp: Effort & Inspection: normal respiratory effort Auscultation: clear to auscultation bilaterally Cardio: Rate: regular rate Rhythm: regular rhythm GI: GI Palp: Yes Soft to palpation Extrem: General: no edema Objective Data Vital Signs Vital Signs: Vital Signs - 24 hr 11/02/24 16:30 11/02/24 16:52 11/02/24 18:08 Temperature Pulse Rate 75 70 64 Respiratory Rate 18 15 14 Blood Pressure 141/79 H 135/79 125/56 L Pulse Oximetry 95 90 99 Oxygen Delivery Oxygen Flow Rate 11/02/24 21:27 11/03/24 04:45 11/03/24 06:00 Temperature 97.4 F L 97.5 F L Pulse Rate 72 75 Respiratory Rate 18 16 Blood Pressure 115/67 112/72 Pulse Oximetry 93 94 98 Oxygen Delivery Nasal Cannula Oxygen Flow Rate 2 11/03/24 08:00 11/03/24 10:28 Temperature Pulse Rate Respiratory Rate Blood Pressure Pulse Oximetry 96 94 Oxygen Delivery Nasal Cannula Nasal Cannula Oxygen Flow Rate 2 2 Intake/Output Intake/Output: Intake & Output 10/31/24 11/01/24 11/02/24 11/03/24 23:59 23:59 23:59 23:59 Intake Total 50 300 Output Total 200 Balance 50 100 Meds/Results Medications: Active Medications Generic Name Dose Route Start Last Admin Trade Name Freq PRN Reason Stop Dose Admin Hydrocodone Bitart/Acetaminophen 1 tab 11/02/24 23:37 11/03/24 11:18 Hydrocodone/Acetaminophen (*Crx) 5-325 Mg Tablet PO 1 tab Q6H PRN Administration Pain Rated 7-10 Albuterol 2 puff 11/02/24 23:31 Albuterol Sulfate (*Sp) Aerosol 1 Puff INHALATION Q6H PRN Shortness Of Breath Or Wheezing Alprazolam 0.25 mg 11/03/24 09:00 11/03/24 14:12 Alprazolam (*Crx) 0.25 Mg Tablet PO 0.25 mg TID [facility] Administration Apixaban 5 mg 11/02/24 23:35 11/03/24 11:20 Apixaban 5 Mg Tablet PO 5 mg Q12HR [facility] Administration Atorvastatin Calcium 40 mg 11/03/24 09:00 11/03/24 11:21 Atorvastatin 40 Mg Tablet PO 40 mg DAILY [facility] Administration Cyclobenzaprine HCl 5 mg 11/02/24 23:37 Cyclobenzaprine Hcl 5 Mg Tablet PO Q8H PRN Muscle Spasm Diltiazem HCl 120 mg 11/03/24 00:05 11/03/24 00:07 Diltiazem Hcl Cd 120 Mg Cap.24hr PO 120 mg HS [facility] Administration Duloxetine HCl 60 mg 11/03/24 09:00 11/03/24 11:20 Duloxetine Hcl 30 Mg Capsule.Dr PO 60 mg DAILY [facility] Administration Ergocalciferol 1,250 mcg 11/08/24 09:00 Ergocalciferol (Vitamin D2) 1,250 Mcg (50,000 Units) Capsule PO Mo@0900 [facility] Famotidine 20 mg 11/03/24 09:00 11/03/24 11:21 Famotidine 20 Mg Tablet PO 20 mg BID [facility] Administration Furosemide 40 mg 11/03/24 09:00 11/03/24 11:21 Furosemide 40 Mg Tablet PO 40 mg QAM [place] Administration Ceftriaxone Sodium 1 gm/ 50 mls @ 100 mls/hr 11/03/24 18:00 Sodium Chloride IVPB Q24H [facility] Levothyroxine Sodium 125 mcg 11/03/24 06:30 11/03/24 05:43 Levothyroxine Sodium 125 Mcg Tablet PO 125 mcg DAILY@0630 [facility] Administration Lidocaine 1 patch 11/03/24 09:00 11/03/24 11:19 Lidocaine 5% Patch TRANSDERM 1 patch DAILY [facility] Administration Montelukast Sodium 10 mg 11/03/24 11:25 11/03/24 11:26 Montelukast Sodium 10 Mg Tablet PO 10 mg DAILY [facility] Administration Polyethylene Glycol 17 gm 11/03/24 13:25 11/03/24 14:11 Polyethylene Glycol 3350 17 Gm Powd.Pack PO 17 gm DAILY PRN Administration Constipation Radiology Results: ITS Impressions Chest/Abdomen/Pelvis CTA 11/02/24 15:19 IMPRESSION: CHEST: 1. No pulmonary embolism or dissection of the aorta seen. 2. Mass in the right upper lobe anteriorly. Further evaluation advised. 3. Nodules in the right upper and middle lobes. 3 months follow-up CT is advised. 4. Prominent paratracheal and right hilar lymphadenopathy. 5. Focal areas of atelectasis versus pneumonia versus fibrotic changes in the left upper lobe. Groundglass nodule is less likely. 6. Compression fracture of T8 and T12 which may be acute or chronic. MRI is advised. ABDOMEN/PELVIS: 1. No aneurysmal dilatation seen in the abdominal aorta with the largest measuring 4.5 x 4.5 cm. 2. Soft tissue density in the fundus of the gallbladder. Further evaluation advised. 3. Fat infiltration of the liver. 4. Compression fracture of L1 which may be acute or chronic. MRI is advised. 5. No evidence of appendicitis, diverticulitis or intestinal obstruction. Lumbar Spine MRI 11/03/24 10:28 IMPRESSION: 1. Subacute appearing mild L1 compression fracture and chronic appearing T8 burst fracture and T12 compression fracture. 2. Mild thoracic and moderate lumbar spondylosis. 3. Incompletely visualized abdominal aortic aneurysms. See prior CT report for further detail. Thoracic Spine MRI 11/03/24 10:28 IMPRESSION: 1. Subacute appearing mild L1 compression fracture and chronic appearing T8 burst fracture and T12 compression fracture. 2. Mild thoracic and moderate lumbar spondylosis. 3. Incompletely visualized abdominal aortic aneurysms. See prior CT report for further detail. Upper Quadrant Ultrasound 11/03/24 10:57 IMPRESSION: Limited evaluation of the pancreas secondary to overlying bowel gas. The abnormality seen in the gallbladder on CT examination is not reproducible on static or cine ultrasound images obtained by the cardiovascular radiologic technologist. Recommend contrast-enhanced CT or MRI of the abdomen utilizing liver mass protocol (late arterial, portal venous and delayed phase images, +/- precontrast images) for further evaluation, if the patient is clinically able. Given the finding on prior CT examination of the chest of a right upper lobe lung mass with multiple scattered pulmonary nodules, this abnormality in the gallbladder does not likely represent metastatic disease, however a second primary may be present.
[2024-11-03] MEDS: cefTRIAXone 1 GM in SODIUM CHLORIDE 0.9% IV 50 ML 100 ML IVPB (17:41)
[2024-11-03] MEDS: CYCLOBENZAPRINE HCL 5 MG TABLET PO (20:00)
[2024-11-04] VITALS (9 sets, daily range): BP systolic 102–125; BP diastolic 58–65; PULSE 64–78; RESP 16; TEMP 36.1–36.5; O2SAT 86–98
[2024-11-04] MEDS: ALPRAZolam (*CRX) 0.25 MG TABLET PO ×4 (02:40→16:24)
[2024-11-04] MEDS: LEVOTHYROXINE SODIUM 125 MCG TABLET PO (05:40)
[2024-11-04] MEDS: FUROSEMIDE 40 MG TABLET PO (09:19)
[2024-11-04] MEDS: APIXABAN 5 MG TABLET PO ×2 (09:19→20:13)
[2024-11-04] MEDS: ATORVASTATIN 40 MG TABLET PO (09:19)
[2024-11-04] MEDS: FAMOTIDINE 20 MG TABLET PO ×2 (09:19→16:25)
[2024-11-04] MEDS: LIDOCAINE 5% PATCH 1 PATCH TRANSDERM (09:20)
[2024-11-04] MEDS: MONTELUKAST SODIUM 10 MG TABLET PO (09:20)
[2024-11-04] MEDS: CYCLOBENZAPRINE HCL 5 MG TABLET PO (09:57)
[2024-11-04] MEDS: HYDROcodone/acetaminophen (*CRX) 5-325 MG TABLET 1 TAB PO (09:57)
--- NOTE | 2024-11-04 15:15 | P.PNIM_ITS ---
Progress Note: A&P Assessment and Plan (1) COPD (chronic obstructive pulmonary disease): Code(s): J44.9 - Chronic obstructive pulmonary disease, unspecified Status: Acute (2) Lung infiltrate: Code(s): R91.8 - Other nonspecific abnormal finding of lung field Status: Acute (3) Chronic respiratory failure with hypoxia: Code(s): J96.11 - Chronic respiratory failure with hypoxia Status: Acute (4) Mass of upper lobe of right lung: Code(s): R91.8 - Other nonspecific abnormal finding of lung field Status: Acute (5) Gallbladder mass: Code(s): K82.8 - Other specified diseases of gallbladder Status: Acute Plan Continue pain regimen. Continue PT OT. Care coordination arranging for SNF. D iscussed the lung mass results with the patient and considering the risk versus benefits she wants to wait for further follow-up/imaging in the outpatient setting. She is amenable to further imaging about the gallbladder mass. MRI abdomen with liver protocol ordered. Urine culture currently isolating Gram- negative bacilli. Continue ceftriaxone. Left lower extremity cellulitis improved as well. Full code. Saline lock IV. 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 Subjective Date/time seen: 11/04/24 15:15 Interval history: Pain is well controlled. Patient is unsure about her left lower leg she has not checked a. She has no complaints. Review of Systems Review of Systems: All systems reviewed & are unremarkable except as noted in HPI and below (Subjective) Exam Const: General: comfortable and no acute distress HENMT: Mouth: Yes moist mucous membranes Eyes: Pupils: Equal, round and reactive pupils present Neck: Neck: supple Resp: Effort & Inspection: normal respiratory effort Auscultation: clear to auscultation bilaterally Cardio: Rate: regular rate Rhythm: regular rhythm GI: GI Palp: Yes Soft to palpation Extrem: General: edema Other: Left lower extremity erythema, minimal Objective Data Vital Signs Vital Signs: Vital Signs - 24 hr 11/03/24 20:00 11/03/24 20:32 11/04/24 05:29 Temperature 97.0 F L 97.7 F Pulse Rate 65 65 64 Respiratory Rate 12 12 16 Blood Pressure 124/83 107/58 L Pulse Oximetry 93 93 94 Oxygen Delivery Nasal Cannula Oxygen Flow Rate 2 11/04/24 08:00 11/04/24 09:05 11/04/24 09:11 Temperature Pulse Rate Respiratory Rate Blood Pressure Pulse Oximetry 94 94 Oxygen Delivery Nasal Cannula Nasal Cannula Nasal Cannula Oxygen Flow Rate 2 2 2 11/04/24 09:28 11/04/24 09:44 11/04/24 09:46 Temperature Pulse Rate Respiratory Rate Blood Pressure Pulse Oximetry 86 L 94 Oxygen Delivery Nasal Cannula Nasal Cannula Nasal Cannula Oxygen Flow Rate 3 2 3 Intake/Output Intake/Output: Intake & Output 11/01/24 11/02/24 11/03/24 11/04/24 23:59 23:59 23:59 23:59 Intake Total 50 690 636 Output Total 850 500 Balance 50 -160 136 Meds/Results Medications: Active Medications Generic Name Dose Route Start Last Admin Trade Name Freq PRN Reason Stop Dose Admin Hydrocodone Bitart/Acetaminophen 1 tab 11/02/24 23:37 11/04/24 09:57 Hydrocodone/Acetaminophen (*Crx) 5-325 Mg Tablet PO 1 tab Q6H PRN Administration Pain Rated 7-10 Albuterol 2 puff 11/02/24 23:31 Albuterol Sulfate (*Sp) Aerosol 1 Puff INHALATION Q6H PRN Shortness Of Breath Or Wheezing Alprazolam 0.25 mg 11/03/24 09:00 11/04/24 12:56 Alprazolam (*Crx) 0.25 Mg Tablet PO 0.25 mg TID [place] Administration Apixaban 5 mg 11/02/24 23:35 11/04/24 09:19 Apixaban 5 Mg Tablet PO 5 mg Q12HR [place] Administration Atorvastatin Calcium 40 mg 11/03/24 09:00 11/04/24 09:19 Atorvastatin 40 Mg Tablet PO 40 mg DAILY [place] Administration Cyclobenzaprine HCl 5 mg 11/02/24 23:37 11/04/24 09:57 Cyclobenzaprine Hcl 5 Mg Tablet PO 5 mg Q8H PRN Administration Muscle Spasm Diltiazem HCl 120 mg 11/03/24 00:05 11/03/24 19:59 Diltiazem Hcl Cd 120 Mg Cap.24hr PO 120 mg HS [place] Administration Duloxetine HCl 60 mg 11/03/24 09:00 11/04/24 09:19 Duloxetine Hcl 30 Mg Capsule.Dr PO 60 mg DAILY [facility] Administration Ergocalciferol 1,250 mcg 11/08/24 09:00 Ergocalciferol (Vitamin D2) 1,250 Mcg (50,000 Units) Capsule PO Mo@0900 [facility] Famotidine 20 mg 11/03/24 09:00 11/04/24 09:19 Famotidine 20 Mg Tablet PO 20 mg BID [facility] Administration Furosemide 40 mg 11/03/24 09:00 11/04/24 09:19 Furosemide 40 Mg Tablet PO 40 mg QAM [place] Administration Ceftriaxone Sodium 1 gm/ 50 mls @ 100 mls/hr 11/03/24 18:00 11/03/24 20:01 Sodium Chloride IVPB Infused Q24H [facility] Infusion Levothyroxine Sodium 125 mcg 11/03/24 06:30 11/04/24 05:40 Levothyroxine Sodium 125 Mcg Tablet PO 125 mcg DAILY@0630 [facility] Administration Lidocaine 1 patch 11/03/24 09:00 11/04/24 09:20 Lidocaine 5% Patch TRANSDERM 1 patch DAILY [facility] Administration Montelukast Sodium 10 mg 11/03/24 11:25 11/04/24 09:20 Montelukast Sodium 10 Mg Tablet PO 10 mg DAILY [facility] Administration Polyethylene Glycol 17 gm 11/03/24 13:25 11/03/24 14:11 Polyethylene Glycol 3350 17 Gm Powd.Pack PO 17 gm DAILY PRN Administration Constipation Senna/Docusate Sodium 1 tab 11/04/24 17:00 Senna/Docusate Sodium Tablet PO BID [facility] Radiology Results: ITS Impressions Chest/Abdomen/Pelvis CTA 11/02/24 15:19 IMPRESSION: CHEST: 1. No pulmonary embolism or dissection of the aorta seen. 2. Mass in the right upper lobe anteriorly. Further evaluation advised. 3. Nodules in the right upper and middle lobes. 3 months follow-up CT is advised. 4. Prominent paratracheal and right hilar lymphadenopathy. 5. Focal areas of atelectasis versus pneumonia versus fibrotic changes in the left upper lobe. Groundglass nodule is less likely. 6. Compression fracture of T8 and T12 which may be acute or chronic. MRI is advised. ABDOMEN/PELVIS: 1. No aneurysmal dilatation seen in the abdominal aorta with the largest measuring 4.5 x 4.5 cm. 2. Soft tissue density in the fundus of the gallbladder. Further evaluation advised. 3. Fat infiltration of the liver. 4. Compression fracture of L1 which may be acute or chronic. MRI is advised. 5. No evidence of appendicitis, diverticulitis or intestinal obstruction. Lumbar Spine MRI 11/03/24 10:28 IMPRESSION: 1. Subacute appearing mild L1 compression fracture and chronic appearing T8 burst fracture and T12 compression fracture. 2. Mild thoracic and moderate lumbar spondylosis. 3. Incompletely visualized abdominal aortic aneurysms. See prior CT report for further detail. Thoracic Spine MRI 11/03/24 10:28 IMPRESSION: 1. Subacute appearing mild L1 compression fracture and chronic appearing T8 burst fracture and T12 compression fracture. 2. Mild thoracic and moderate lumbar spondylosis. 3. Incompletely visualized abdominal aortic aneurysms. See prior CT report for further detail. Upper Quadrant Ultrasound 11/03/24 10:57 IMPRESSION: Limited evaluation of the pancreas secondary to overlying bowel gas. The abnormality seen in the gallbladder on CT examination is not reproducible on static or cine ultrasound images obtained by the echocardiography radiology technologist. Recommend contrast-enhanced CT or MRI of the abdomen utilizing liver mass prot ocol (late arterial, portal venous and delayed phase images, +/- precontrast images) for further evaluation, if the patient is clinically able. Given the finding on prior CT examination of the chest of a right upper lobe lung mass with multiple scattered pulmonary nodules, this abnormality in the gallbladder does not likely represent metastatic disease, however a second primary may be present.
[2024-11-04] MEDS: SENNA/DOCUSATE SODIUM TABLET 1 TAB PO (16:24)
[2024-11-04] MEDS: cefTRIAXone 1 GM in SODIUM CHLORIDE 0.9% IV 50 ML 100 ML IVPB (17:08)
[2024-11-04] MEDS: dilTIAZem HCL CD 120 MG CAP.24HR PO (20:13)
[2024-11-05 00:01] VITALS: PULSE 65; RESP 18
[2024-11-05] MEDS: ALBUTEROL SULFATE (*SP) AEROSOL 1 PUFF 2 PUFF INHALATION (00:01)
[2024-11-05] MEDS: HYDROcodone/acetaminophen (*CRX) 5-325 MG TABLET 1 TAB PO ×3 (00:02→15:26)
[2024-11-05] MEDS: CYCLOBENZAPRINE HCL 5 MG TABLET PO ×2 (00:02→15:27)
[2024-11-05] MEDS: LEVOTHYROXINE SODIUM 125 MCG TABLET PO (05:29)
[2024-11-05 05:47] VITALS: BP 132/50; PULSE 71; RESP 16; TEMP 36.3; O2SAT 94
--- NOTE | 2024-11-05 06:35 | PCRCNOTE ---
0000 - RN called RT; patient requests PRN Albuterol; A/C in room was not functioning at that moment and the heat was affecting breathing; When A/C came back on, patient feeling better
[2024-11-05 07:37] VITALS: O2SAT 95
[2024-11-05] MEDS: LIDOCAINE 5% PATCH 1 PATCH TRANSDERM (08:39)
[2024-11-05] MEDS: APIXABAN 5 MG TABLET PO ×2 (08:40→21:10)
[2024-11-05] MEDS: MONTELUKAST SODIUM 10 MG TABLET PO (08:41)
[2024-11-05] MEDS: FAMOTIDINE 20 MG TABLET PO ×2 (08:41→16:03)
[2024-11-05] MEDS: ATORVASTATIN 40 MG TABLET PO (08:41)
[2024-11-05] MEDS: FUROSEMIDE 40 MG TABLET PO (08:41)
[2024-11-05] MEDS: ALPRAZolam (*CRX) 0.25 MG TABLET PO ×3 (08:41→16:03)
--- NOTE | 2024-11-05 10:44 | PM.IMPN ---
Progress Note: A&P Assessment and Plan (1) COPD (chronic obstructive pulmonary disease): Code(s): J44.9 - Chronic obstructive pulmonary disease, unspecified Status: Acute (2) Lung infiltrate: Code(s): R91.8 - Other nonspecific abnormal finding of lung field Status: Acute (3) Chronic respiratory failure with hypoxia: Code(s): J96.11 - Chronic respiratory failure with hypoxia Status: Acute (4) Mass of upper lobe of right lung: Code(s): R91.8 - Other nonspecific abnormal finding of lung field Status: Acute (5) Gallbladder mass: Code(s): K82.8 - Other specified diseases of gallbladder Status: Acute Plan Continue pain regimen. Continue PT OT. Care coordination arranging for SNF. Discussed the lung mass results with the patient and considering the risk versus benefits she wants to wait for further follow-up/imaging in the outpatient setting. She is amenable to further imaging about the gallbladder mass. MRI abdomen with liver protocol ordered. Urine culture currently isolating Gram-negative bacilli. Continue ceftriaxone. 11/05/2024: Pain is well controlled. Disposition remains SNF. Pending MRI abdomen with liver protocol., sensitivities pending. Continue ceftriaxone. Check labs today. Full code. Saline lock IV. 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 Subjective Date/time seen: 11/05/24 10:45 Interval history: No major acute overnight events. Patient denies any complaints including pain, dysuria, change in urine characteristics. Review of Systems Review of Systems: All systems reviewed & are unremarkable except as noted in HPI and below (Subjective) Exam Const: General: comfortable and no acute distress Other: A&O x3, obese. HENMT: Mouth: Yes moist mucous membranes Eyes: Pupils: Equal, round and reactive pupils present Neck: Neck: supple Resp: Effort & Inspection: normal respiratory effort Auscultation: clear to auscultation bilaterally Cardio: Rate: regular rate Rhythm: regular rhythm GI: Inspection: non-distended GI Palp: Yes Soft to palpation Neuro: Motor exam (neuro): 5/5 motor strength present throughout Extrem: General: no edema Objective Data Vital Signs Vital Signs: Vital Signs - 24 hr 11/04/24 14:00 11/04/24 19:32 11/04/24 20:00 Temperature 97.0 F L Pulse Rate 78 Respiratory Rate 16 Blood Pressure 125/60 Pulse Oximetry 95 97 98 Oxygen Delivery Nasal Cannula Nasal Cannula Oxygen Flow Rate 2 2 11/04/24 20:14 11/05/24 00:01 11/05/24 05:47 Temperature 97.1 F L 97.4 F L Pulse Rate 68 65 71 Respiratory Rate 16 18 16 Blood Pressure 102/65 132/50 L Pulse Oximetry 98 94 Oxygen Delivery Oxygen Flow Rate 11/05/24 07:37 Temperature Pulse Rate Respiratory Rate Blood Pressure Pulse Oximetry 95 Oxygen Delivery Nasal Cannula Oxygen Flow Rate 2 Intake/Output Intake/Output: Intake & Output 11/02/24 11/03/24 11/04/24 11/05/24 23:59 23:59 23:59 23:59 Intake Total 50 074 719 8642 Output Total 850 500 400 Balance 50 -160 422 710 Meds/Results Medications: Active Medications Generic Name Dose Route Start Last Admin Trade Name Freq PRN Reason Stop Dose Admin Hydrocodone Bitart/Acetaminophen 1 tab 11/02/24 23:37 11/05/24 08:40 Hydrocodone/Acetaminophen (*Crx) 5-325 Mg Tablet PO 1 tab Q6H PRN Administration Pain Rated 7-10 Albuterol 2 puff 11/02/24 23:31 11/05/24 00:01 Albuterol Sulfate (*Sp) Aerosol 1 Puff INHALATION 2 puff Q6H PRN Administration Shortness Of Breath Or Wheezing Alprazolam 0.25 mg 11/03/24 09:00 11/05/24 08:41 Alprazolam (*Crx) 0.25 Mg Tablet PO 0.25 mg TID [place] Administration Apixaban 5 mg 11/02/24 23:35 11/05/24 08:40 Apixaban 5 Mg Tablet PO 5 mg Q12HR [place] Administration Atorvastatin Calcium 40 mg 11/03/24 09:00 11/05/24 08:41 Atorvastatin 40 Mg Tablet PO 40 mg DAILY [place] Administration Cyclobenzaprine HCl 5 mg 11/02/24 23:37 11/05/24 00:02 Cyclobenzaprine Hcl 5 Mg Tablet PO 5 mg Q8H PRN Administration Muscle Spasm Diltiazem HCl 120 mg 11/03/24 00:05 11/04/24 20:13 Diltiazem Hcl Cd 120 Mg Cap.24hr PO 120 mg HS [place] Administration Duloxetine HCl 60 mg 11/03/24 09:00 11/05/24 08:41 Duloxetine Hcl 30 Mg Capsule.Dr PO 60 mg DAILY [place] Administration Ergocalciferol 1,250 mcg 11/08/24 09:00 Ergocalciferol (Vitamin D2) 1,250 Mcg (50,000 Units) Capsule PO Mo@0900 [place] Famotidine 20 mg 11/03/24 09:00 11/05/24 08:41 Famotidine 20 Mg Tablet PO 20 mg BID [place] Administration Furosemide 40 mg 11/03/24 09:00 11/05/24 08:41 Furosemide 40 Mg Tablet PO 40 mg QAM [place] Administration Ceftriaxone Sodium 1 gm/ 50 mls @ 100 mls/hr 11/03/24 18:00 11/04/24 17:33 Sodium Chloride IVPB Infused Q24H [place] Infusion Levothyroxine Sodium 125 mcg 11/03/24 06:30 11/05/24 05:29 Levothyroxine Sodium 125 Mcg Tablet PO 125 mcg DAILY@0630 [place] Administration Lidocaine 1 patch 11/03/24 09:00 11/05/24 08:39 Lidocaine 5% Patch TRANSDERM 1 patch DAILY [place] Administration Montelukast Sodium 10 mg 11/03/24 11:25 11/05/24 08:41 Montelukast Sodium 10 Mg Tablet PO 10 mg DAILY [place] Administration Polyethylene Glycol 17 gm 11/03/24 13:25 11/03/24 14:11 Polyethylene Glycol 3350 17 Gm Powd.Pack PO 17 gm DAILY PRN Administration Constipation Radiology Results: ITS Impressions Chest/Abdomen/Pelvis CTA 11/02/24 15:19 IMPRESSION: CHEST: 1. No pulmonary embolism or dissection of the aorta seen. 2. Mass in the right upper lobe anteriorly. Further evaluation advised. 3. Nodules in the right upper and middle lobes. 3 months follow-up CT is advised. 4. Prominent paratracheal and right hilar lymphadenopathy. 5. Focal areas of atelectasis versus pneumonia versus fibrotic changes in the left upper lobe. Groundglass nodule is less likely. 6. Compression fracture of T8 and T12 which may be acute or chronic. MRI is advised. ABDOMEN/PELVIS: 1. No aneurysmal dilatation seen in the abdominal aorta with the largest measuring 4.5 x 4.5 cm. 2. Soft tissue density in the fundus of the gallbladder. Further evaluation advised. 3. Fat infiltration of the liver. 4. Compression fracture of L1 which may be acute or chronic. MRI is advised. 5. No evidence of appendicitis, diverticulitis or intestinal obstruction. Lumbar Spine MRI 11/03/24 10:28 IMPRESSION: 1. Subacute appearing mild L1 compression fracture and chronic appearing T8 burst fracture and T12 compression fracture. 2. Mild thoracic and moderate lumbar spondylosis. 3. Incompletely visualized abdominal aortic aneurysms. See prior CT report for further detail. Thoracic Spine MRI 11/03/24 10:28 IMPRESSION: 1. Subacute appearing mild L1 compression fracture and chronic appearing T8 burst fracture and T12 compression fracture. 2. Mild thoracic and moderate lumbar spondylosis. 3. Incompletely visualized abdominal aortic aneurysms. See prior CT report for further detail. Upper Quadrant Ultrasound 11/03/24 10:57 IMPRESSION: Limited evaluation of the pancreas secondary to overlying bowel gas. The abnormality seen in the gallbladder on CT examination is not reproducible on static or cine ultrasound images obtained by the certified hyperbaric technologist. Recommend contrast-enhanced CT or MRI of the abdomen utilizing liver mass protocol (late arterial, portal venous and delayed phase images, +/- precontrast images) for further evaluation, if the patient is clinically able. Given the finding on prior CT examination of the chest of a right upper lobe lung mass with multiple scattered pulmonary nodules, this abnormality in the gallbladder does not likely represent metastatic disease, however a second primary may be present.
[2024-11-05 11:43] LABS: Hematocrit 42.7 % (37.0-47.0); Hemoglobin 12.8 g/dL (12.0-15.0); Immature Granulocyte Percent A 0.4 % (0-0.5); Lymphocytes Absolute Auto 0.82 K/mm3 (0.9-3.2); Mean Corpuscular HGB Conc 30.0 g/dl (32-36); Mean Corpuscular Hemoglobin 29.3 pg (26-34); Mean Corpuscular Volume 97.7 fl (80-100); Nucleated Red Blood Cells Absolute Auto 0.000 K/mm3 (0.0-0.012); Nucleated Red Blood Cells Perc 0.0 % (0.0-0.2); Platelet Count Result 243 k/mm3 (150-375); Red Blood Count 4.37 M/mm3 (4.2-5.4); White Blood Count 7.0 K/mm3 (4.5-10.0)
[2024-11-05 11:50] LABS: Anion Gap 10 mmol/L (4-12); Blood Urea Nitrogen 25 mg/dL (7-17); Calcium 9.0 mg/dL (8.4-10.2); Carbon Dioxide 24 mmol/L (22-30); Chloride 101 mmol/L (98-107); Estimated CRCL calculation 36 ml/min; Estimated Glomerular Filt Rate 41; Glucose 121 mg/dL (65-110); Magnesium 2.3 mg/dL (1.6-2.3); Potassium 4.0 mmol/L (3.4-5.0); Sodium 135 mmol/L (137-145)
[2024-11-05 14:00] VITALS: BP 130/58; PULSE 68; RESP 16; TEMP 36.4; O2SAT 95
[2024-11-05] MEDS: cefTRIAXone 1 GM in SODIUM CHLORIDE 0.9% IV 50 ML 100 ML IVPB (17:16)
[2024-11-05 20:56] VITALS: BP 128/57; PULSE 63; RESP 14; TEMP 36.2; O2SAT 92
[2024-11-05] MEDS: dilTIAZem HCL CD 120 MG CAP.24HR PO (21:10)
[2024-11-06] VITALS (8 sets, daily range): BP systolic 106–137; BP diastolic 48–75; PULSE 56–79; RESP 13–18; TEMP 36.2–36.3; O2SAT 90–96
[2024-11-06] MEDS: HYDROcodone/acetaminophen (*CRX) 5-325 MG TABLET 1 TAB PO ×3 (05:13→22:16)
[2024-11-06] MEDS: LEVOTHYROXINE SODIUM 125 MCG TABLET PO (05:13)
[2024-11-06] MEDS: MONTELUKAST SODIUM 10 MG TABLET PO (09:42)
[2024-11-06] MEDS: ALPRAZolam (*CRX) 0.25 MG TABLET PO ×3 (09:42→16:38)
[2024-11-06] MEDS: FUROSEMIDE 40 MG TABLET PO (09:42)
[2024-11-06] MEDS: APIXABAN 5 MG TABLET PO ×2 (09:42→22:04)
[2024-11-06] MEDS: FAMOTIDINE 20 MG TABLET PO ×2 (09:42→16:38)
[2024-11-06] MEDS: LIDOCAINE 5% PATCH 1 PATCH TRANSDERM (09:42)
[2024-11-06] MEDS: ATORVASTATIN 40 MG TABLET PO (09:42)
[2024-11-06] MEDS: CYCLOBENZAPRINE HCL 5 MG TABLET PO ×2 (12:08→22:16)
--- NOTE | 2024-11-06 15:56 | P.PNIM_ITS ---
Progress Note: A&P Assessment and Plan (1) COPD (chronic obstructive pulmonary disease): Code(s): J44.9 - Chronic obstructive pulmonary disease, unspecified Status: Acute (2) Lung infiltrate: Code(s): R91.8 - Other nonspecific abnormal finding of lung field Status: Acute (3) Chronic respiratory failure with hypoxia: Code(s): J96.11 - Chronic respiratory failure with hypoxia Status: Acute (4) Mass of upper lobe of right lung: Code(s): R91.8 - Other nonspecific abnormal finding of lung field Status: Acute (5) Gallbladder mass: Code(s): K82.8 - Other specified diseases of gallbladder Status: Acute Plan Continue pain regimen. Continue PT OT. Care coordination arranging for SNF. D iscussed the lung mass results with the patient and considering the risk versus benefits she wants to wait for further follow-up/imaging in the outpatient setting. She is amenable to further imaging about the gallbladder mass. MRI abdomen with liver protocol ordered. Urine culture currently isolating Gram- negative bacilli. Continue ceftriaxone. 11/05/2024: Pain is well controlled. Disposition remains SNF. Pending MRI abdomen with liver protocol., sensitivities pending. Continue ceftriaxone. Check labs today. 11/06/2024: Care coordination arranging for SNF discharge. MRI results r eviewed with the patient. She does not want to go through radiation and chemotherapy, she does not want to seek out further evaluation. She will follow-up with her driver helper and primary care. E coli growing in the urine. Sensitive to Augmentin, discontinue ceftriaxone and start Augmentin. Full code. Saline lock IV. 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 Subjective Date/time seen: 11/06/24 15:56 Interval history: No major acute overnight events. Patient denies any complaints including pain, dysuria, change in urine characteristics. Review of Systems Review of Systems: All systems reviewed & are unremarkable except as noted in HPI and below (Subjective) Exam Const: General: comfortable and no acute distress Other: A&O x3, obese. HENMT: Mouth: Yes moist mucous membranes Eyes: Pupils: Equal, round and reactive pupils present Neck: Neck: supple Resp: Effort & Inspection: normal respiratory effort Auscultation: clear to auscultation bilaterally Cardio: Rate: regular rate Rhythm: regular rhythm GI: Inspection: non-distended GI Palp: Yes Soft to palpation Neuro: Motor exam (neuro): 5/5 motor strength present throughout Extrem: General: no edema Objective Data Vital Signs Vital Signs: Vital Signs - 24 hr 11/05/24 20:56 11/06/24 06:00 11/06/24 07:45 Temperature 97.1 F L 97.4 F L Pulse Rate 63 56 L Respiratory Rate 14 13 Blood Pressure 128/57 L 106/48 L Pulse Oximetry 92 96 96 Oxygen Delivery Nasal Cannula Oxygen Flow Rate 2 11/06/24 12:58 11/06/24 14:00 Temperature 97.2 F L Pulse Rate 79 Respiratory Rate 16 Blood Pressure 124/75 Pulse Oximetry 91 94 Oxygen Delivery Nasal Cannula Oxygen Flow Rate 1 Intake/Output Intake/Output: Intake & Output 11/03/24 11/04/24 11/05/24 11/06/24 23:59 23:59 23:59 23:59 Intake Total 711 711 2595 1000 Output Total 850 500 400 Balance -100 881 0118 1000 Meds/Results Medications: Active Medications Generic Name Dose Route Start Last Admin Trade Name Freq PRN Reason Stop Dose Admin Hydrocodone Bitart/Acetaminophen 1 tab 11/02/24 23:37 11/06/24 12:08 Hydrocodone/Acetaminophen (*Crx) 5-325 Mg Tablet PO 1 tab Q6H PRN Administration Pain Rated 7-10 Albuterol 2 puff 11/02/24 23:31 11/05/24 00:01 Albuterol Sulfate (*Sp) Aerosol 1 Puff INHALATION 2 puff Q6H PRN Administration Shortness Of Breath Or Wheezing Alprazolam 0.25 mg 11/03/24 09:00 11/06/24 12:08 Alprazolam (*Crx) 0.25 Mg Tablet PO 0.25 mg TID [place] Administration Amoxicillin/Clavulanate Potassium 1 tablet 11/06/24 21:00 Amoxicillin/Clavulanate K 875-125 Mg Tab PO Q12HR [place] Apixaban 5 mg 11/02/24 23:35 11/06/24 09:42 Apixaban 5 Mg Tablet PO 5 mg Q12HR [place] Administration Atorvastatin Calcium 40 mg 11/03/24 09:00 11/06/24 09:42 Atorvastatin 40 Mg Tablet PO 40 mg DAILY [place] Administration Cyclobenzaprine HCl 5 mg 11/02/24 23:37 07/12/25 12:08 Cyclobenzaprine Hcl 5 Mg Tablet PO 5 mg Q8H PRN Administration Muscle Spasm Diltiazem HCl 120 mg 11/03/24 00:05 11/05/24 21:10 Diltiazem Hcl Cd 120 Mg Cap.24hr PO 120 mg HS [place] Administration Duloxetine HCl 60 mg 11/03/24 09:00 11/06/24 09:42 Duloxetine Hcl 30 Mg Capsule.Dr PO 60 mg DAILY [place] Administration Ergocalciferol 1,250 mcg 11/08/24 09:00 Ergocalciferol (Vitamin D2) 1,250 Mcg (50,000 Units) Capsule PO Mo@0900 [place] Famotidine 20 mg 11/03/24 09:00 11/06/24 09:42 Famotidine 20 Mg Tablet PO 20 mg BID [place] Administration Furosemide 40 mg 11/03/24 09:00 11/06/24 09:42 Furosemide 40 Mg Tablet PO 40 mg QAM [place] Administration Levothyroxine Sodium 125 mcg 11/03/24 06:30 11/06/24 05:13 Levothyroxine Sodium 125 Mcg Tablet PO 125 mcg DAILY@0630 [place] Administration Lidocaine 1 patch 11/03/24 09:00 11/06/24 09:42 Lidocaine 5% Patch TRANSDERM 1 patch DAILY [place] Administration Montelukast Sodium 10 mg 11/03/24 11:25 11/06/24 09:42 Montelukast Sodium 10 Mg Tablet PO 10 mg DAILY [place] Administration Polyethylene Glycol 17 gm 11/03/24 13:25 11/03/24 14:11 Polyethylene Glycol 3350 17 Gm Powd.Pack PO 17 gm DAILY PRN Administration Constipation Radiology Results: ITS Impressions Chest/Abdomen/Pelvis CTA 11/02/24 15:19 IMPRESSION: CHEST: 1. No pulmonary embolism or dissection of the aorta seen. 2. Mass in the right upper lobe anteriorly. Further evaluation advised. 3. Nodules in the right upper and middle lobes. 3 months follow-up CT is advised. 4. Prominent paratracheal and right hilar lymphadenopathy. 5. Focal areas of atelectasis versus pneumonia versus fibrotic changes in the left upper lobe. Groundglass nodule is less likely. 6. Compression fracture of T8 and T12 which may be acute or chronic. MRI is advised. ABDOMEN/PELVIS: 1. No aneurysmal dilatation seen in the abdominal aorta with the largest measuring 4.5 x 4.5 cm. 2. Soft tissue density in the fundus of the gallbladder. Further evaluation advised. 3. Fat infiltration of the liver. 4. Compression fracture of L1 which may be acute or chronic. MRI is advised. 5. No evidence of appendicitis, diverticulitis or intestinal obstruction. Lumbar Spine MRI 11/03/24 10:28 IMPRESSION: 1. Subacute appearing mild L1 compression fracture and chronic appearing T8 burst fracture and T12 compression fracture. 2. Mild thoracic and moderate lumbar spondylosis. 3. Incompletely visualized abdominal aortic aneurysms. See prior CT report for further detail. Thoracic Spine MRI 11/03/24 10:28 IMPRESSION: 1. Subacute appearing mild L1 compression fracture and chronic appearing T8 burst fracture and T12 compression fracture. 2. Mild thoracic and moderate lumbar spondylosis. 3. Incompletely visualized abdominal aortic aneurysms. See prior CT report for further detail. Upper Quadrant Ultrasound 11/03/24 10:57 IMPRESSION: Limited evaluation of the pancreas secondary to overlying bowel gas. The abnormality seen in the gallbladder on CT examination is not reproducible on static or cine ultrasound images obtained by the lead neurodiagnostic technologist. Recommend contrast-enhanced CT or MRI of the abdomen utilizing liver mass protocol (late arterial, portal venous and delayed phase images, +/- precontrast images) for further evaluation, if the patient is clinically able. Given the finding on prior CT examination of the chest of a right upper lobe lung mass with multiple scattered pulmonary nodules, this abnormality in the gallbladder does not likely represent metastatic disease, however a second primary may be present. Abdomen MRI 11/05/24 15:38 IMPRESSION: 1. Nodular region of concern at the gallbladder fundus corresponds to mobile nonenhancing gallbladder sludge. 2. Enhancing mass at the anteromedial right upper lobe concerning for malignancy. 3. 1.4 cm indeterminate nodule at the posterior right hepatic lobe which is unable be distinguished from the surrounding liver on the post contrast imaging and which assessment is limited by respiratory motion artifact. Differential would include hemangioma, focal nodular hyperplasia or metastatic disease. Labs Labs: Laboratory Results - last 24 hr 11/05/24 19:48 POC Capillary Glucose 109 H
[2024-11-06] MEDS: ALBUTEROL SULFATE (*SP) AEROSOL 1 PUFF 2 PUFF INHALATION (19:10)
[2024-11-06] MEDS: dilTIAZem HCL CD 120 MG CAP.24HR PO (22:04)
[2024-11-07] MEDS: LEVOTHYROXINE SODIUM 125 MCG TABLET PO (05:50)
[2024-11-07 06:00] VITALS: BP 124/61; PULSE 52; RESP 13; TEMP 36.3; O2SAT 94
[2024-11-07 08:00] VITALS: O2SAT 94
[2024-11-07] MEDS: ALPRAZolam (*CRX) 0.25 MG TABLET PO ×3 (08:53→16:17)
[2024-11-07] MEDS: MONTELUKAST SODIUM 10 MG TABLET PO (08:53)
[2024-11-07] MEDS: ATORVASTATIN 40 MG TABLET PO (08:53)
[2024-11-07] MEDS: FAMOTIDINE 20 MG TABLET PO ×2 (08:53→16:17)
[2024-11-07] MEDS: FUROSEMIDE 40 MG TABLET PO (08:53)
[2024-11-07] MEDS: APIXABAN 5 MG TABLET PO ×2 (08:54→21:10)
[2024-11-07] MEDS: LIDOCAINE 5% PATCH 1 PATCH TRANSDERM (08:54)
--- NOTE | 2024-11-07 13:32 | P.PNIM_ITS ---
Progress Note: A&P Assessment and Plan (1) COPD (chronic obstructive pulmonary disease): Code(s): J44.9 - Chronic obstructive pulmonary disease, unspecified Status: Acute (2) Lung infiltrate: Code(s): R91.8 - Other nonspecific abnormal finding of lung field Status: Acute (3) Chronic respiratory failure with hypoxia: Code(s): J96.11 - Chronic respiratory failure with hypoxia Status: Acute (4) Mass of upper lobe of right lung: Code(s): R91.8 - Other nonspecific abnormal finding of lung field Status: Acute (5) Gallbladder mass: Code(s): K82.8 - Other specified diseases of gallbladder Status: Acute Plan Continue pain regimen. Continue PT OT. Care coordination arranging for SNF. D iscussed the lung mass results with the patient and considering the risk versus benefits she wants to wait for further follow-up/imaging in the outpatient setting. She is amenable to further imaging about the gallbladder mass. MRI abdomen with liver protocol ordered. Urine culture currently isolating Gram- negative bacilli. Continue ceftriaxone. 11/05/2024: Pain is well controlled. Disposition remains SNF. Pending MRI abdomen with liver protocol., sensitivities pending. Continue ceftriaxone. Check labs today. 11/06/2024: Care coordination arranging for SNF discharge. MRI results r eviewed with the patient. She does not want to go through radiation and chemotherapy, she does not want to seek out further evaluation. She will follow-up with her grader marker and primary care. E coli growing in the urine. Sensitive to Augmentin, discontinue ceftriaxone and start Augmentin. 11/07/2024: Care coordination arrangements ongoing. Patient has no further complaints. Continue Augmentin. Full code. Saline lock IV. 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 Subjective Date/time seen: 11/07/24 13:32 Interval history: No major acute overnight events. Patient denies pain. Review of Systems Review of Systems: All systems reviewed & are unremarkable except as noted in HPI and below (Subjective) Exam Const: General: comfortable and no acute distress Other: A&O x3, obese. HENMT: Mouth: Yes moist mucous membranes Eyes: Pupils: Equal, round and reactive pupils present Neck: Neck: supple Resp: Effort & Inspection: normal respiratory effort Auscultation: clear to auscultation bilaterally Cardio: Rate: regular rate Rhythm: regular rhythm GI: Inspection: non-distended GI Palp: Yes Soft to palpation Neuro: Motor exam (neuro): 5/5 motor strength present throughout Extrem: General: no edema Objective Data Vital Signs Vital Signs: Vital Signs - 24 hr 11/06/24 14:00 11/06/24 19:15 11/06/24 19:16 Temperature 97.2 F L Pulse Rate 79 70 Respiratory Rate 16 18 Blood Pressure 124/75 Pulse Oximetry 94 90 Oxygen Delivery Nasal Cannula Oxygen Flow Rate 2 11/06/24 22:00 11/06/24 22:04 11/07/24 06:00 Temperature 97.4 F L 97.3 F L Pulse Rate 57 L 52 L Respiratory Rate 17 13 Blood Pressure 137/58 L 124/61 Pulse Oximetry 92 92 94 Oxygen Delivery Nasal Cannula Oxygen Flow Rate 2 11/07/24 08:00 Temperature Pulse Rate Respiratory Rate Blood Pressure Pulse Oximetry 94 Oxygen Delivery Nasal Cannula Oxygen Flow Rate 2 Intake/Output Intake/Output: Intake & Output 11/04/24 11/05/24 11/06/24 11/07/24 23:59 23:59 23:59 23:59 Intake Total 922 2240 1240 240 Output Total 500 400 Balance 422 1840 1240 240 Meds/Results Medications: Active Medications Generic Name Dose Route Start Last Admin Trade Name Freq PRN Reason Stop Dose Admin Hydrocodone Bitart/Acetaminophen 1 tab 11/02/24 23:37 11/06/24 22:16 Hydrocodone/Acetaminophen (*Crx) 5-325 Mg Tablet PO 1 tab Q6H PRN Administration Pain Rated 7-10 Albuterol 2 puff 11/02/24 23:31 11/06/24 19:10 Albuterol Sulfate (*Sp) Aerosol 1 Puff INHALATION 2 puff Q6H PRN Administration Shortness Of Breath Or Wheezing Alprazolam 0.25 mg 11/03/24 09:00 11/07/24 12:28 Alprazolam (*Crx) 0.25 Mg Tablet PO 0.25 mg TID LAKE Administration Amoxicillin/Clavulanate Potassium 1 tablet 11/06/24 21:00 11/07/24 08:53 Amoxicillin/Clavulanate K 875-125 Mg Tab PO 1 tablet Q12HR LAKE Administration Apixaban 5 mg 11/02/24 23:35 11/07/24 08:54 Apixaban 5 Mg Tablet PO 5 mg Q12HR [place] Administration Atorvastatin Calcium 40 mg 11/03/24 09:00 11/07/24 08:53 Atorvastatin 40 Mg Tablet PO 40 mg DAILY [place] Administration Cyclobenzaprine HCl 5 mg 11/02/24 23:37 11/06/24 22:16 Cyclobenzaprine Hcl 5 Mg Tablet PO 5 mg Q8H PRN Administration Muscle Spasm Diltiazem HCl 120 mg 11/03/24 00:05 11/06/24 22:04 Diltiazem Hcl Cd 120 Mg Cap.24hr PO 120 mg HS LAKE Administration Duloxetine HCl 60 mg 11/03/24 09:00 11/07/24 08:53 Duloxetine Hcl 30 Mg Capsule.Dr PO 60 mg DAILY [place] Administration Ergocalciferol 1,250 mcg 11/08/24 09:00 Ergocalciferol (Vitamin D2) 1,250 Mcg (50,000 Units) Capsule PO Mo@0900 LAKE Famotidine 20 mg 11/03/24 09:00 11/07/24 08:53 Famotidine 20 Mg Tablet PO 20 mg BID LA[place] Administration Furosemide 40 mg 11/03/24 09:00 11/07/24 08:53 Furosemide 40 Mg Tablet PO 40 mg QAM LAKE Administration Levothyroxine Sodium 125 mcg 11/03/24 06:30 11/07/24 05:50 Levothyroxine Sodium 125 Mcg Tablet PO 125 mcg DAILY@0630 LAKE Administration Lidocaine 1 patch 11/03/24 09:00 11/07/24 08:54 Lidocaine 5% Patch TRANSDERM 1 patch DAILY [place] Administration Montelukast Sodium 10 mg 11/03/24 11:25 11/07/24 08:53 Montelukast Sodium 10 Mg Tablet PO 10 mg DAILY [place] Administration Polyethylene Glycol 17 gm 11/03/24 13:25 11/03/24 14:11 Polyethylene Glycol 3350 17 Gm Powd.Pack PO 17 gm DAILY PRN Administration Constipation Radiology Results: ITS Impressions Chest/Abdomen/Pelvis CTA 11/02/24 15:19 IMPRESSION: CHEST: 1. No pulmonary embolism or dissection of the aorta seen. 2. Mass in the right upper lobe anteriorly. Further evaluation advised. 3. Nodules in the right upper and middle lobes. 3 months follow-up CT is advised. 4. Prominent paratracheal and right hilar lymphadenopathy. 5. Focal areas of atelectasis versus pneumonia versus fibrotic changes in the left upper lobe. Groundglass nodule is less likely. 6. Compression fracture of T8 and T12 which may be acute or chronic. MRI is advised. ABDOMEN/PELVIS: 1. No aneurysmal dilatation seen in the abdominal aorta with the largest measuring 4.5 x 4.5 cm. 2. Soft tissue density in the fundus of the gallbladder. Further evaluation advised. 3. Fat infiltration of the liver. 4. Compression fracture of L1 which may be acute or chronic. MRI is advised. 5. No evidence of appendicitis, diverticulitis or intestinal obstruction. Lumbar Spine MRI 11/03/24 10:28 IMPRESSION: 1. Subacute appearing mild L1 compression fracture and chronic appearing T8 burst fracture and T12 compression fracture. 2. Mild thoracic and moderate lumbar spondylosis. 3. Incompletely visualized abdominal aortic aneurysms. See prior CT report for further detail. Thoracic Spine MRI 11/03/24 10:28 IMPRESSION: 1. Subacute appearing mild L1 compression fracture and chronic appearing T8 burst fracture and T12 compression fracture. 2. Mild thoracic and moderate lumbar spondylosis. 3. Incompletely visualized abdominal aortic aneurysms. See prior CT report for further detail. Upper Quadrant Ultrasound 11/03/24 10:57 IMPRESSION: Limited evaluation of the pancreas secondary to overlying bowel gas. The abnormality seen in the gallbladder on CT examination is not reproducible on static or cine ultrasound images obtained by the health information technologist. Recommend contrast-enhanced CT or MRI of the abdomen utilizing liver mass protocol (late arterial, portal venous and delayed phase images, +/- precontrast images) for further evaluation, if the patient is clinically able. Given the finding on prior CT examination of the chest of a right upper lobe lung mass with multiple scattered pulmonary nodules, this abnormality in the gallbladder does not likely represent metastatic disease, however a second primary may be present. Abdomen MRI 11/05/24 15:38 IMPRESSION: 1. Nodular region of concern at the gallbladder fundus corresponds to mobile nonenhancing gallbladder sludge. 2. Enhancing mass at the anteromedial right upper lobe concerning for malignancy. 3. 1.4 cm indeterminate nodule at the posterior right hepatic lobe which is unable be distinguished from the surrounding liver on the post contrast imaging and which assessment is limited by respiratory motion artifact. Differential would include hemangioma, focal nodular hyperplasia or metastatic disease. Labs Labs: Laboratory Results - last 24 hr 11/05/24 19:48 POC Capillary Glucose 109 H
[2024-11-07 14:00] VITALS: BP 107/57; PULSE 71; RESP 20; TEMP 36.6; O2SAT 95
[2024-11-07] MEDS: HYDROcodone/acetaminophen (*CRX) 5-325 MG TABLET 1 TAB PO (16:17)
[2024-11-07] MEDS: CYCLOBENZAPRINE HCL 5 MG TABLET PO (16:17)
[2024-11-07 21:10] VITALS: O2SAT 97
[2024-11-07] MEDS: dilTIAZem HCL CD 120 MG CAP.24HR PO (21:10)
[2024-11-07 21:38] VITALS: PULSE 70; RESP 20; O2SAT 90
[2024-11-07 22:00] VITALS: BP 137/69; PULSE 76; RESP 18; TEMP 36.7; O2SAT 97
[2024-11-08] MEDS: HYDROcodone/acetaminophen (*CRX) 5-325 MG TABLET 1 TAB PO ×3 (00:32→20:51)
[2024-11-08 06:00] VITALS: BP 132/67; PULSE 72; RESP 18; TEMP 36.6; O2SAT 99
[2024-11-08] MEDS: LEVOTHYROXINE SODIUM 125 MCG TABLET PO (06:21)
[2024-11-08] MEDS: FUROSEMIDE 40 MG TABLET PO (08:09)
[2024-11-08] MEDS: FAMOTIDINE 20 MG TABLET PO ×2 (08:09→17:40)
[2024-11-08] MEDS: MONTELUKAST SODIUM 10 MG TABLET PO (08:09)
[2024-11-08] MEDS: ALPRAZolam (*CRX) 0.25 MG TABLET PO ×3 (08:09→17:40)
[2024-11-08] MEDS: ATORVASTATIN 40 MG TABLET PO (08:09)
[2024-11-08 08:10] VITALS: O2SAT 90
[2024-11-08] MEDS: APIXABAN 5 MG TABLET PO ×2 (08:10→20:52)
[2024-11-08] MEDS: LIDOCAINE 5% PATCH 1 PATCH TRANSDERM (08:13)
[2024-11-08] MEDS: ERGOCALCIFEROL (VITAMIN D2) 1,250 MCG (50,000 UNITS) CAPSULE 1250 MCG PO (09:14)
--- NOTE | 2024-11-08 11:56 | PM.IMPN ---
Progress Note: A&P Assessment and Plan (1) COPD (chronic obstructive pulmonary disease): Code(s): J44.9 - Chronic obstructive pulmonary disease, unspecified Status: Acute (2) Lung infiltrate: Code(s): R91.8 - Other nonspecific abnormal finding of lung field Status: Acute (3) Chronic respiratory failure with hypoxia: Code(s): J96.11 - Chronic respiratory failure with hypoxia Status: Acute (4) Mass of upper lobe of right lung: Code(s): R91.8 - Other nonspecific abnormal finding of lung field Status: Acute (5) Gallbladder mass: Code(s): K82.8 - Other specified diseases of gallbladder Status: Acute Plan 79-year-old female with a past medical history a prior T12 compression fracture, hepatic steatosis, chronic kidney disease, depression, hypothyroidism and COPD on chronic home O2 of 2 L with activity who presented to the ER via EMS from home due to 4 days of thoracic back pain. The patient reported that she has been less active since the 26 of October. Severe back pain MRI showed Subacute appearing mild L1 compression fracture and chronic appearing T8 burst fracture and T12 compression fracture. Continue pain regimen. Continue PT OT. Care coordination arranging for SNF. Right lung mass CT showed A mass is seen in the right upper lobe anteriorly measuring 2.[address] Talbert discussed the lung mass results with the patient and considering the risk versus benefits she wants to wait for further follow-up/imaging in the outpatient setting. She does not want to go through radiation and chemotherapy, she does not want to seek out further evaluation. She will follow-up with her social service manager and primary care. I have discussed with patient again about high risk of lung cancer, patient does not want to pursue further diagnosis including biopsy and patient does not want to pursue chemo or radiotherapy if she would have lung cancer. She wants to follow with her social service manager, Dr. Payan in [place] in [place] Soft tissue density in the fundus of the gallbladder on CT She is amenable to further imaging about the gallbladder mass. MRI abdomen with liver protocol ordered. PATIENT DOES NOT WANT TO PURSUE FURTHER DIAGNOSIS OF THE MASS AT GALLBLADDER AND LIVER UTI E coli growing in the urine. Sensitive to Augmentin, discontinue ceftriaxone and start Augmentin. Care coordination arranging for SNF discharge. MRI results reviewed with the patient. Full code. Saline lock IV. 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 Patient will be discharged to detention today Subjective Date/time seen: 11/08/24 11:56 Interval history: I saw exam patient today, patient feels better pain is better controlled oral narcotic medication Patient denies focal weakness, urine or fecal incontinence Exam Narrative: GENERAL: Pleasant, in no acute distress. Well-nourished. - EYES: EOMI. Anicteric. - HENT: Moist mucous membranes. - LUNGS: Clear to auscultation bilaterally, no wheezing, rhonchi, or rales. - CARDIOVASCULAR: Regular rate and rhythm. No murmur. No JVD. - ABDOMEN: Soft, non-tender and non-distended. No palpable masses. - EXTREMITIES: No edema. Peripheral pulses 2+. Non-tender. Mid and low spent tenderness by palpation - NEUROLOGIC: No focal neurological deficits. CN II-XII grossly intact. - PSYCHIATRIC: Awake, Alert and oriented x 3. Appropriate mood and affect. - SKIN: No rashes or lesions. Warm. - LYMPH: No cervical lymphadenopathy. Objective Data Vital Signs Vital Signs: Vital Signs - 24 hr 11/07/24 14:00 11/07/24 21:10 11/07/24 21:38 Temperature 97.8 F Pulse Rate 71 70 Respiratory Rate 20 20 Blood Pressure 107/57 L Pulse Oximetry 95 97 90 Oxygen Delivery Nasal Cannula Nasal Cannula Oxygen Flow Rate 3 3 Fraction of Inspired Oxygen 32 11/07/24 22:00 11/08/24 06:00 11/08/24 08:10 Temperature 98.1 F 97.9 F Pulse Rate 76 72 Respiratory Rate 18 18 Blood Pressure 137/69 132/67 Pulse Oximetry 97 99 90 Oxygen Delivery Nasal Cannula Oxygen Flow Rate 2 Fraction of Inspired Oxygen Intake/Output Intake/Output: Intake & Output 11/05/24 11/06/24 11/07/24 11/08/24 23:59 23:59 23:59 23:59 Intake Total 2240 1240 540 240 Output Total 400 Balance 1840 1240 540 240 Meds/Results Medications: Active Medications Generic Name Dose Route Start Last Admin Trade Name Freq PRN Reason Stop Dose Admin Hydrocodone Bitart/Acetaminophen 1 tab 11/02/24 23:37 11/08/24 09:17 Hydrocodone/Acetaminophen (*Crx) 5-325 Mg Tablet PO 1 tab Q6H PRN Administration Pain Rated 7-10 Albuterol 2 puff 11/02/24 23:31 11/06/24 19:10 Albuterol Sulfate (*Sp) Aerosol 1 Puff INHALATION 2 puff Q6H PRN Administration Shortness Of Breath Or Wheezing Alprazolam 0.25 mg 11/03/24 09:00 11/08/24 08:09 Alprazolam (*Crx) 0.25 Mg Tablet PO 0.25 mg TID LA[place] Administration Amoxicillin/Clavulanate Potassium 1 tablet 11/06/24 21:00 11/08/24 08:09 Amoxicillin/Clavulanate K 875-125 Mg Tab PO 1 tablet Q12HR [place] Administration Apixaban 5 mg 11/02/24 23:35 11/08/24 08:10 Apixaban 5 Mg Tablet PO 5 mg Q12HR [place] Administration Atorvastatin Calcium 40 mg 11/03/24 09:00 11/08/24 08:09 Atorvastatin 40 Mg Tablet PO 40 mg DAILY [place] Administration Cyclobenzaprine HCl 5 mg 11/02/24 23:37 11/07/24 16:17 Cyclobenzaprine Hcl 5 Mg Tablet PO 5 mg Q8H PRN Administration Muscle Spasm Diltiazem HCl 120 mg 11/03/24 00:05 11/07/24 21:10 Diltiazem Hcl Cd 120 Mg Cap.24hr PO 120 mg HS LAKE Administration Duloxetine HCl 60 mg 11/03/24 09:00 11/08/24 08:10 Duloxetine Hcl 30 Mg Capsule.Dr PO 60 mg DAILY [place] Administration Ergocalciferol 1,250 mcg 11/08/24 09:00 11/08/24 09:14 Ergocalciferol (Vitamin D2) 1,250 Mcg (50,000 Units) Capsule PO 1,250 mcg Mo@0900 [place] Administration Famotidine 20 mg 11/03/24 09:00 11/08/24 08:09 Famotidine 20 Mg Tablet PO 20 mg BID [place] Administration Furosemide 40 mg 11/03/24 09:00 11/08/24 08:09 Furosemide 40 Mg Tablet PO 40 mg QAM [place] Administration Levothyroxine Sodium 125 mcg 11/03/24 06:30 11/08/24 06:21 Levothyroxine Sodium 125 Mcg Tablet PO 125 mcg DAILY@0630 [place] Administration Lidocaine 1 patch 11/03/24 09:00 11/08/24 08:13 Lidocaine 5% Patch TRANSDERM 1 patch DAILY [place] Administration Montelukast Sodium 10 mg 11/03/24 11:25 11/08/24 08:09 Montelukast Sodium 10 Mg Tablet PO 10 mg DAILY [place] Administration Polyethylene Glycol 17 gm 11/03/24 13:25 11/03/24 14:11 Polyethylene Glycol 3350 17 Gm Powd.Pack PO 17 gm DAILY PRN Administration Constipation Radiology Results: ITS Impressions Chest/Abdomen/Pelvis CTA 11/02/24 15:19 IMPRESSION: CHEST: 1. No pulmonary embolism or dissection of the aorta seen. 2. Mass in the right upper lobe anteriorly. Further evaluation advised. 3. Nodules in the right upper and middle lobes. 3 months follow-up CT is advised. 4. Prominent paratracheal and right hilar lymphadenopathy. 5. Focal areas of atelectasis versus pneumonia versus fibrotic changes in the left upper lobe. Groundglass nodule is less likely. 6. Compression fracture of T8 and T12 which may be acute or chronic. MRI is advised. ABDOMEN/PELVIS: 1. No aneurysmal dilatation seen in the abdominal aorta with the largest measuring 4.5 x 4.5 cm. 2. Soft tissue density in the fundus of the gallbladder. Further evaluation advised. 3. Fat infiltration of the liver. 4. Compression fracture of L1 which may be acute or chronic. MRI is advised. 5. No evidence of appendicitis, diverticulitis or intestinal obstruction. Lumbar Spine MRI 11/03/24 10:28 IMPRESSION: 1. Subacute appearing mild L1 compression fracture and chronic appearing T8 burst fracture and T12 compression fracture. 2. Mild thoracic and moderate lumbar spondylosis. 3. Incompletely visualized abdominal aortic aneurysms. See prior CT report for further detail. Thoracic Spine MRI 11/03/24 10:28 IMPRESSION: 1. Subacute appearing mild L1 compression fracture and chronic appearing T8 burst fracture and T12 compression fracture. 2. Mild thoracic and moderate lumbar spondylosis. 3. Incompletely visualized abdominal aortic aneurysms. See prior CT report for further detail. Upper Quadrant Ultrasound 11/03/24 10:57 IMPRESSION: Limited evaluation of the pancreas secondary to overlying bowel gas. The abnormality seen in the gallbladder on CT examination is not reproducible on static or cine ultrasound images obtained by the processing technologist. Recommend contrast-enhanced CT or MRI of the abdomen utilizing liver mass protocol (late arterial, portal venous and delayed phase images, +/- precontrast images) for further evaluation, if the patient is clinically able. Given the finding on prior CT examination of the chest of a right upper lobe lung mass with multiple scattered pulmonary nodules, this abnormality in the gallbladder does not likely represent metastatic disease, however a second primary may be present. Abdomen MRI 11/05/24 15:38 IMPRESSION: 1. Nodular region of concern at the gallbladder fundus corresponds to mobile nonenhancing gallbladder sludge. 2. Enhancing mass at the anteromedial right upper lobe concerning for malignancy. 3. 1.4 cm indeterminate nodule at the posterior right hepatic lobe which is unable be distinguished from the surrounding liver on the post contrast imaging and which assessment is limited by respiratory motion artifact. Differential would include hemangioma, focal nodular hyperplasia or metastatic disease.
[2024-11-08 14:00] VITALS: BP 106/59; PULSE 58; RESP 18; TEMP 35.9; O2SAT 93
--- NOTE | 2024-11-08 15:46 | PM.DS ---
DS: Admitting Diagnosis Discharge Date 11/08/24 DS: Discharge Diagnosis Discharge Diagnosis Plan (1) COPD (chronic obstructive pulmonary disease): Code(s): J44.9 - Chronic obstructive pulmonary disease, unspecified Status: Acute (2) Lung infiltrate: Code(s): R91.8 - Other nonspecific abnormal finding of lung field Status: Acute (3) Chronic respiratory failure with hypoxia: Code(s): J96.11 - Chronic respiratory failure with hypoxia Status: Acute (4) Mass of upper lobe of right lung: Code(s): R91.8 - Other nonspecific abnormal finding of lung field Status: Acute (5) Gallbladder mass: Code(s): K82.8 - Other specified diseases of gallbladder Status: Acute DS: Summary Time Spent with Patient Time attestation: Total time spent providing and/or coordinating discharge services: DS: Data Data Completed and Pending Labs on day of discharge: Preliminary micro results at discharge 11/02/24 17:31 Blood Culture - Preliminary Blood 11/02/24 17:31 Blood Culture - Preliminary Blood Discharge Plan Discharge Patient Language: Egyptian Discharge Medications: No Action potassium chloride 10 mEq tablet extended release 10 meq PO EVERY OTHER DAY alprazolam 0.25 mg tablet 0.25 mg PO TID Eliquis 5 mg tablet 5 mg PO Q12H atorvastatin 40 mg tablet 40 mg PO DAILY furosemide 40 mg tablet 40 tablet PO DAILY levothyroxine 100 mcg tablet 125 mcg PO DAILY famotidine 20 mg tablet 20 tablet PO DAILY diltiazem HCl 120 mg capsule,extended release 24hr 120 mg PO HS montelukast 10 mg tablet 10 tablet PO DAILY ergocalciferol (vitamin D2) 1,250 mcg (50,000 unit) capsule 1,250 mcg PO WEEKLY albuterol sulfate 90 mcg/actuation HFA aerosol inhaler 2 inh INHALATION PRN PRN (Reason: Shortness Of Breath Or Wheezing) duloxetine 30 mg capsule,delayed release(DR/EC) 60 mg PO DAILY hydrocodone-acetaminophen 5-325 mg tablet 1 tablet PO Q8H PRN (Reason: pain) Date of admission: 11/03/24 07:55 Primary Care Provider: Sebas,Saji Admitting Provider: Terrence Mendoza Attending physician on admission: Nabor Erwin Condition: Stable
[2024-11-08 20:25] VITALS: BP 121/55; PULSE 58; RESP 20; TEMP 36.8; O2SAT 93
[2024-11-08 20:51] VITALS: O2SAT 94
[2024-11-08] MEDS: dilTIAZem HCL CD 120 MG CAP.24HR PO (20:51)
[2024-11-08 23:56] VITALS: PULSE 55; RESP 16
[2024-11-08] MEDS: ALBUTEROL SULFATE (*SP) AEROSOL 1 PUFF 2 PUFF INHALATION (23:56)
[2024-11-09] VITALS: PULSE 55; RESP 16; O2SAT 91
[2024-11-09] MEDS: HYDROcodone/acetaminophen (*CRX) 5-325 MG TABLET 1 TAB PO ×2 (03:46→11:48)
[2024-11-09 05:00] VITALS: BP 135/66; PULSE 50; RESP 20; TEMP 35.7; O2SAT 92
[2024-11-09] MEDS: LEVOTHYROXINE SODIUM 125 MCG TABLET PO (05:51)
[2024-11-09 08:26] VITALS: O2SAT 91
[2024-11-09] MEDS: ATORVASTATIN 40 MG TABLET PO (08:41)
[2024-11-09] MEDS: APIXABAN 5 MG TABLET PO (08:41)
[2024-11-09] MEDS: FAMOTIDINE 20 MG TABLET PO (08:41)
[2024-11-09] MEDS: MONTELUKAST SODIUM 10 MG TABLET PO (08:41)
[2024-11-09] MEDS: FUROSEMIDE 40 MG TABLET PO (08:41)
[2024-11-09] MEDS: ALPRAZolam (*CRX) 0.25 MG TABLET PO ×2 (08:41→11:51)
--- NOTE | 2024-11-09 10:14 | PCNWS ---
Weekly nutritional screen. Patient is tolerating current Heart healthy diet with adequate intake, 50-100%. No weight loss reported. No nutritional needs at this time.
--- NOTE | 2024-11-09 10:38 | P.PNIM_ITS ---
Progress Note: A&P Assessment and Plan (1) COPD (chronic obstructive pulmonary disease): Code(s): J44.9 - Chronic obstructive pulmonary disease, unspecified Status: Acute (2) Lung infiltrate: Code(s): R91.8 - Other nonspecific abnormal finding of lung field Status: Acute (3) Chronic respiratory failure with hypoxia: Code(s): J96.11 - Chronic respiratory failure with hypoxia Status: Acute (4) Mass of upper lobe of right lung: Code(s): R91.8 - Other nonspecific abnormal finding of lung field Status: Acute (5) Gallbladder mass: Code(s): K82.8 - Other specified diseases of gallbladder Status: Acute Plan (1) COPD (chronic obstructive pulmonary disease): Code(s): J44.9 - Chronic obstructive pulmonary disease, unspecified Status: Acute (2) Lung infiltrate: Code(s): R91.8 - Other nonspecific abnormal finding of lung field Status: Acute (3) Chronic respiratory failure with hypoxia: Code(s): J96.11 - Chronic respiratory failure with hypoxia Status: Acute (4) Mass of upper lobe of right lung: Code(s): R91.8 - Other nonspecific abnormal finding of lung field Status: Acute (5) Gallbladder mass: Code(s): K82.8 - Other specified diseases of gallbladder Status: Acute 79-year-old female with a past medical history a prior T12 compression fracture, hepatic steatosis, chronic kidney disease, depression, hypothyroidism and COPD on chronic home O2 of 2 L with activity who presented to the ER via EMS from home due to 4 days of thoracic back pain. The patient reported that she has been less active since the 26 of October. Severe back pain MRI showed Subacute appearing mild L1 compression fracture and chronic appearing T8 burst fracture and T12 compression fracture. Continue pain regimen. Continue PT OT. Care coordination arranging for SNF. Right lung mass CT showed A mass is seen in the right upper lobe anteriorly measuring 2.[address] Talbert discussed the lung mass results with the patient and considering the risk versus benefits she wants to wait for further follow-up/imaging in the outpatient setting. She does not want to go through radiation and chemotherapy, she does not want to seek out further evaluation. She will follow-up with her otr owner operator and primary care. I have discussed with patient again about high risk of lung cancer, patient does not want to pursue further diagnosis including biopsy and patient does not want to pursue chemo or radiotherapy if she would have lung cancer. She wants to follow with her otr owner operator, Dr. Payan in [place] in [place] Soft tissue density in the fundus of the gallbladder on CT She is amenable to further imaging about the gallbladder mass. MRI abdomen with liver protocol ordered. PATIENT DOES NOT WANT TO PURSUE FURTHER DIAGNOSIS OF THE MASS AT GALLBLADDER AND LIVER UTI E coli growing in the urine. Sensitive to Augmentin, discontinue ceftriaxone and start Augmentin. Care coordination arranging for SNF discharge. Subjective Date/time seen: 11/09/24 10:38 Interval history: I saw exam patient today, Patient has no new issue even overnight, patient still have back pain Patient denies cough, shortness breath, abdomen pain, nausea vomiting diarrhea Exam Narrative: GENERAL: Pleasant, in no acute distress. Well-nourished. - EYES: EOMI. Anicteric. - HENT: Moist mucous membranes. - LUNGS: Clear to auscultation bilateral ly, no wheezing, rhonchi, or rales. - CARDIOVASCULAR: Regular rate and rhyth m. No murmur. No JVD. - ABDOMEN: Soft, non-tender and non-dist ended. No palpable masses. - EXTREMITIES: No edema. Peripheral puls es 2+. Non-tender. Mid and low spent tenderness by palpation - NEUROLOGIC: No focal neurological defi cits. CN II-XII grossly intact. - PSYCHIATRIC: Awake, Alert and oriented x 3. Appropriate mood and affect. - SKIN: No rashes or lesions. Warm. - LYMPH: No cervical lymphadenopathy. Objective Data Vital Signs Vital Signs: Vital Signs - 24 hr 11/08/24 14:00 11/08/24 20:25 11/08/24 20:51 Temperature 96.6 F L 98.2 F Pulse Rate 58 L 58 L Respiratory Rate 18 20 Blood Pressure 106/59 L 121/55 L Pulse Oximetry 93 93 94 Oxygen Delivery Nasal Cannula Oxygen Flow Rate 3 11/08/24 23:56 11/09/24 00:00 11/09/24 05:00 Temperature 96.2 F L Pulse Rate 55 L 55 L 50 L Respiratory Rate 16 16 20 Blood Pressure 135/66 Pulse Oximetry 91 92 Oxygen Delivery Nasal Cannula Oxygen Flow Rate 2 11/09/24 08:26 Temperature Pulse Rate Respiratory Rate Blood Pressure Pulse Oximetry 91 Oxygen Delivery Nasal Cannula Oxygen Flow Rate 2 Intake/Output Intake/Output: Intake & Output 11/06/24 11/07/24 11/08/24 11/09/24 23:59 23:59 23:59 23:59 Intake Total 1240 540 720 540 Balance 1240 540 720 540 Meds/Results Medications: Active Medications Generic Name Dose Route Start Last Admin Trade Name Freq PRN Reason Stop Dose Admin Hydrocodone Bitart/Acetaminophen 1 tab 11/02/24 23:37 11/09/24 03:46 Hydrocodone/Acetaminophen (*Crx) 5-325 Mg Tablet PO 1 tab Q6H PRN Administration Pain Rated 7-10 Albuterol 2 puff 11/02/24 23:31 11/08/24 23:56 Albuterol Sulfate (*Sp) Aerosol 1 Puff INHALATION 2 puff Q6H PRN Administration Shortness Of Breath Or Wheezing Alprazolam 0.25 mg 11/03/24 09:00 11/09/24 08:41 Alprazolam (*Crx) 0.25 Mg Tablet PO 0.25 mg TID LAKE Administration Amoxicillin/Clavulanate Potassium 1 tablet 11/06/24 21:00 11/09/24 08:41 Amoxicillin/Clavulanate K 875-125 Mg Tab PO 1 tablet Q12HR LAKE Administration Apixaban 5 mg 11/02/24 23:35 11/09/24 08:41 Apixaban 5 Mg Tablet PO 5 mg Q12HR LAKE Administration Atorvastatin Calcium 40 mg 11/03/24 09:00 11/09/24 08:41 Atorvastatin 40 Mg Tablet PO 40 mg DAILY LAKE Administration Cyclobenzaprine HCl 5 mg 11/02/24 23:37 11/07/24 16:17 Cyclobenzaprine Hcl 5 Mg Tablet PO 5 mg Q8H PRN Administration Muscle Spasm Diltiazem HCl 120 mg 11/03/24 00:05 11/08/24 20:51 Diltiazem Hcl Cd 120 Mg Cap.24hr PO 120 mg HS LAKE Administration Duloxetine HCl 60 mg 11/03/24 09:00 11/09/24 08:41 Duloxetine Hcl 30 Mg Capsule.Dr PO 60 mg DAILY LAKE Administration Ergocalciferol 1,250 mcg 11/08/24 09:00 11/08/24 09:14 Ergocalciferol (Vitamin D2) 1,250 Mcg (50,000 Units) Capsule PO 1,250 mcg Mo@0900 LAKE Administration Famotidine 20 mg 11/03/24 09:00 11/09/24 08:41 Famotidine 20 Mg Tablet PO 20 mg BID LAKE Administration Furosemide 40 mg 11/03/24 09:00 11/09/24 08:41 Furosemide 40 Mg Tablet PO 40 mg QAM LAKE Administration Levothyroxine Sodium 125 mcg 11/03/24 06:30 11/09/24 05:51 Levothyroxine Sodium 125 Mcg Tablet PO 125 mcg DAILY@0630 LAKE Administration Lidocaine 1 patch 11/03/24 09:00 11/08/24 08:13 Lidocaine 5% Patch TRANSDERM 1 patch DAILY [place] Administration Montelukast Sodium 10 mg 11/03/24 11:25 11/09/24 08:41 Montelukast Sodium 10 Mg Tablet PO 10 mg DAILY [place]KE Administration Polyethylene Glycol 17 gm 11/03/24 13:25 11/03/24 14:11 Polyethylene Glycol 3350 17 Gm Powd.Pack PO 17 gm DAILY PRN Administration Constipation Radiology Results: ITS Impressions Chest/Abdomen/Pelvis CTA 11/02/24 15:19 IMPRESSION: CHEST: 1. No pulmonary embolism or dissection of the aorta seen. 2. Mass in the right upper lobe anteriorly. Further evaluation advised. 3. Nodules in the right upper and middle lobes. 3 months follow-up CT is advised. 4. Prominent paratracheal and right hilar lymphadenopathy. 5. Focal areas of atelectasis versus pneumonia versus fibrotic changes in the left upper lobe. Groundglass nodule is less likely. 6. Compression fracture of T8 and T12 which may be acute or chronic. MRI is advised. ABDOMEN/PELVIS: 1. No aneurysmal dilatation seen in the abdominal aorta with the largest measuring 4.5 x 4.5 cm. 2. Soft tissue density in the fundus of the gallbladder. Further evaluation advised. 3. Fat infiltration of the liver. 4. Compression fracture of L1 which may be acute or chronic. MRI is advised. 5. No evidence of appendicitis, diverticulitis or intestinal obstruction. Lumbar Spine MRI 11/03/24 10:28 IMPRESSION: 1. Subacute appearing mild L1 compression fracture and chronic appearing T8 burst fracture and T12 compression fracture. 2. Mild thoracic and moderate lumbar spondylosis. 3. Incompletely visualized abdominal aortic aneurysms. See prior CT report for further detail. Thoracic Spine MRI 11/03/24 10:28 IMPRESSION: 1. Subacute appearing mild L1 compression fracture and chronic appearing T8 burst fracture and T12 compression fracture. 2. Mild thoracic and moderate lumbar spondylosis. 3. Incompletely visualized abdominal aortic aneurysms. See prior CT report for further detail. Upper Quadrant Ultrasound 11/03/24 10:57 IMPRESSION: Limited evaluation of the pancreas secondary to overlying bowel gas. The abnormality seen in the gallbladder on CT examination is not reproducible on static or cine ultrasound images obtained by the echocardiography radiology technologist. Recommend contrast-enhanced CT or MRI of the abdomen utilizing liver mass protocol (late arterial, portal venous and delayed phase images, +/- precontrast images) for further evaluation, if the patient is clinically able. Given the finding on prior CT examination of the chest of a right upper lobe lung mass with multiple scattered pulmonary nodules, this abnormality in the gallbladder does not likely represent metastatic disease, however a second primary may be present. Abdomen MRI 11/05/24 15:38 IMPRESSION: 1. Nodular region of concern at the gallbladder fundus corresponds to mobile nonenhancing gallbladder sludge. 2. Enhancing mass at the anteromedial right upper lobe concerning for malignancy. 3. 1.4 cm indeterminate nodule at the posterior right hepatic lobe which is unable be distinguished from the surrounding liver on the post contrast imaging and which assessment is limited by respiratory motion artifact. Differential would include hemangioma, focal nodular hyperplasia or metastatic disease.
--- NOTE | 2024-11-09 10:38 | PM.DS ---
DS: Admitting Diagnosis Discharge Date 11/09/24 Admitting Diagnosis (1) COPD (chronic obstructive pulmonary disease): Code(s): J44.9 - Chronic obstructive pulmonary disease, unspecified Status: Acute (2) Lung infiltrate: Code(s): R91.8 - Other nonspecific abnormal finding of lung field Status: Acute (3) Chronic respiratory failure with hypoxia: Code(s): J96.11 - Chronic respiratory failure with hypoxia Status: Acute (4) Mass of upper lobe of right lung: Code(s): R91.8 - Other nonspecific abnormal finding of lung field Status: Acute (5) Gallbladder mass: Code(s): K82.8 - Other specified diseases of gallbladder Status: Acute DS: Discharge Diagnosis Discharge Diagnosis (1) COPD (chronic obstructive pulmonary disease): Code(s): J44.9 - Chronic obstructive pulmonary disease, unspecified Status: Acute (2) Lung infiltrate: Code(s): R91.8 - Other nonspecific abnormal finding of lung field Status: Acute (3) Chronic respiratory failure with hypoxia: Code(s): J96.11 - Chronic respiratory failure with hypoxia Status: Acute (4) Mass of upper lobe of right lung: Code(s): R91.8 - Other nonspecific abnormal finding of lung field Status: Acute (5) Gallbladder mass: Code(s): K82.8 - Other specified diseases of gallbladder Status: Acute DS: Summary Hospital Course Hospital Course: 79-year-old female with a past medical history a prior T12 compression fracture, hepatic steatosis, chronic kidney disease, depression, hypothyroidism and COPD on chronic home O2 of 2 L with activity who presented to the ER via EMS from home due to 4 days of thoracic back pain. The patient reported that she has been less active since the 26 of October. Severe back pain MRI showed Subacute appearing mild L1 compression fracture and chronic appearing T8 burst fracture and T12 compression fracture. Continue pain regimen. Continue PT OT. Care coordination arranging for SNF. Right lung mass CT showed A mass is seen in the right upper lobe anteriorly measuring 2.7 [address] Talbert discussed the lung mass results with the patient and considering the risk versus benefits she wants to wait for further follow-up/imaging in the outpatient setting. She does not want to go through radiation and chemotherapy, she does not want to seek out further evaluation. She will follow-up with her family medicine resident and primary care. I have discussed with patient again about high risk of lung cancer, patient does not want to pursue further diagnosis including biopsy and patient does not want to pursue chemo or radiotherapy if she would have lung cancer. She wants to follow with her family medicine resident, Dr. Payan in [place] in [place] Soft tissue density in the fundus of the gallbladder on CT She is amenable to further imaging about the gallbladder mass. MRI abdomen with liver protocol ordered. PATIENT DOES NOT WANT TO PURSUE FURTHER DIAGNOSIS OF THE MASS AT GALLBLADDER AND LIVER UTI E coli growing in the urine. Sensitive to Augmentin, discontinue ceftriaxone and changed to Augmentin. Completed antibiotics treatment Care coordination arranging for SNF discharge. Time Spent with Patient Time attestation: Total time spent providing and/or coordinating discharge services: Exam Narrative: GENERAL: Pleasant, in no acute distress. Well-nourished. - EYES: EOMI. Anicteric. - HENT: Moist mucous membranes. - LUNGS: Clear to auscultation bilaterally, no wheezing, rhonchi, or rales. - CARDIOVASCULAR: Regular rate and rhythm. No murmur. No JVD. - ABDOMEN: Soft, non-tender and non-distended. No palpable masses. - EXTREMITIES: No edema. Peripheral pulses 2+. Non-tender. Mid and low sine tenderness by palpation - NEUROLOGIC: No focal neurological deficits. CN II-XII grossly intact. - PSYCHIATRIC: Awake, Alert and oriented x 3. Appropriate mood and affect. - SKIN: No rashes or lesions. Warm. - LYMPH: No cervical lymphadenopathy. DS: Data Data Completed and Pending Labs on day of discharge: Preliminary micro results at discharge 11/02/24 17:31 Blood Culture - Preliminary Blood 11/02/24 17:31 Blood Culture - Preliminary Blood Discharge Plan Discharge Attending physician on discharge: J Luis Joyner Discharging Clinician: J Luis Joyner Anticipated Discharge Date/Time: 11/09/24 10:38 Patient Disposition: SNF Activity: as tolerated Diet: as tolerated and heart healthy Patient Language: Tristanian Stand Alone Forms: General Discharge Information Follow-up/Referrals: Sebas,MD Saji [Primary Care Provider] - (Patient needs to see primary care doctor in 1 week) Discharge Medications: New oxycodone 5 mg tablet 5 mg PO Q6H PRN (Reason: pain) Qty: 20 0RF alprazolam 0.25 mg Tablet 0.25 mg PO TID Qty: 20 0RF Continued potassium chloride 10 mEq tablet extended release 10 meq PO EVERY OTHER DAY alprazolam 0.25 mg tablet 0.25 mg PO TID Eliquis 5 mg tablet 5 mg PO Q12H atorvastatin 40 mg tablet 40 mg PO DAILY furosemide 40 mg tablet 40 tablet PO DAILY levothyroxine 100 mcg tablet 125 mcg PO DAILY famotidine 20 mg tablet 20 tablet PO DAILY diltiazem HCl 120 mg capsule,extended release 24hr 120 mg PO HS montelukast 10 mg tablet 10 tablet PO DAILY ergocalciferol (vitamin D2) 1,250 mcg (50,000 unit) capsule 1,250 mcg PO WEEKLY albuterol sulfate 90 mcg/actuation HFA aerosol inhaler 2 inh INHALATION PRN PRN (Reason: Shortness Of Breath Or Wheezing) duloxetine 30 mg capsule,delayed release(DR/EC) 60 mg PO DAILY Discontinued hydrocodone-acetaminophen 5-325 mg tablet 1 tablet PO Q8H PRN (Reason: pain) Date of admission: 11/03/24 07:55 Primary Care Provider: Sebas,Saji Admitting Provider: Terrence Mendoza Attending physician on admission: Nabor Erwin Condition: Stable
[2024-11-09] MEDS: LIDOCAINE 5% PATCH 1 PATCH TRANSDERM (11:48)
[2024-11-09] MEDS: CYCLOBENZAPRINE HCL 5 MG TABLET PO (12:52)
== END 2024-11-09 13:25 | DRG 552 ==
LOC: ANHED 17:44 → ANH3MEDSUR 18:46
PROVIDERS: General Practice; Admitting Provider Internal Medicine; Emergency Provider Physician Assistant; PCP Internal Medicine; Visit Provider Internal Medicine
DX: S22.080A Wedge compression fracture of T11-T12 vertebra, initial encounter for closed fracture (principal); S32.010A Wedge compression fracture of first lumbar vertebra, initial encounter for closed fracture; J96.11 Chronic respiratory failure with hypoxia; N39.0 Urinary tract infection, site not specified; B96.20 Unspecified Escherichia coli [E. coli] as the cause of diseases classified elsewhere; S22.061A Stable burst fracture of T7-T8 vertebra, initial encounter for closed fracture; R91.8 Other nonspecific abnormal finding of lung field; K82.8 Other specified diseases of gallbladder; J44.9 Chronic obstructive pulmonary disease, unspecified; I12.9 Hypertensive chronic kidney disease with stage 1 through stage 4 chronic kidney disease, or unspecified chronic kidney disease; N18.32 Chronic kidney disease, stage 3b; K76.0 Fatty (change of) liver, not elsewhere classified; E03.9 Hypothyroidism, unspecified; F43.21 Adjustment disorder with depressed mood; F41.9 Anxiety disorder, unspecified; F32.A Depression, unspecified; Z20.822 Contact with and (suspected) exposure to COVID-19; Z79.01 Long term (current) use of anticoagulants; Z79.51 Long term (current) use of inhaled steroids; Z79.899 Other long term (current) drug therapy; Z87.891 Personal history of nicotine dependence; Z96.1 Presence of intraocular lens; Z98.42 Cataract extraction status, left eye; Z98.41 Cataract extraction status, right eye; Z99.81 Dependence on supplemental oxygen
CPT/HCPCS: 36415; 71275; 72146; 72148; 74177; 74183; 76705; 80048; 80053; 81001; 82948; 83735; 85025; 85380; 85610; 85730; 87040; 87086; 87637; 93005; 94640; 96365; 96375; 97110; 97116; 97162; 97166; 97530; 97535; 99285; A9270; A9577; J0696; J3360; Q9967

== ENCOUNTER 2024-11-10 14:59 | Emergency (ER) | payer MEDICARE, SELFPAY ==
--- NOTE | ~2024-11-10 | XR_ITS ---
EXAMINATION: XR chest 1V portable Exam Date/Time: 11/10/2024 15:35 CDT HISTORY: SOB/cough Comparison: CTPA with abdomen pelvis 11/02/2024; MR abdomen 11/05/2024. RESULT: Lines, tubes, and devices: None. Lungs and pleura: Significant rightward rotation. 6 mm right middle lobe nodule. 4.2 cm mass in the right upper lobe. Minimal streaky bibasilar atelectasis/scar. Emphysematous change. Cardiomediastinal silhouette: Stable, given interval differences in positioning and technique. Other: No acute osseous or upper abdominal finding. IMPRESSION: No acute cardiopulmonary process. Grossly stable right upper lobe mass and right middle lobe nodule. Reviewed, dictated and finalized at location K. IMPRESSION: No acute cardiopulmonary process. Grossly stable right upper lobe mass and righ t middle lobe nodule.
[2024-11-10 14:56] VITALS: BP 118/70; PULSE 83; RESP 30; TEMP 36.4; O2SAT 89
--- NOTE | 2024-11-10 15:07 | ECG_ITS ---
Test Date: 2024-11-10 15:19:31 Measurements Intervals [place] Rate: 65 P: 0 ND: 0 QRS: 17 QRSD: 94 T: 78 QT: 436 QTc: 456 Interpretive Statements SINUS RHYTHM ST DEVIATION AND T-WAVE ABNORMALITY, CONSIDERISCHEMIA Electronically Signed On 11-10-2024 23:29:19 CDT by Carlos Alejo D.O
[2024-11-10 15:08] VITALS: O2SAT 93
[2024-11-10 15:21] VITALS: O2SAT 95
[2024-11-10 15:28] LABS: Hematocrit 41.4 % (37.0-47.0); Hemoglobin 13.0 g/dL (12.0-15.0); Immature Granulocyte Percent A 0.3 % (0-0.5); Lymphocytes Absolute Auto 2.00 K/mm3 (0.9-3.2); Mean Corpuscular HGB Conc 31.4 g/dl (32-36); Mean Corpuscular Hemoglobin 29.0 pg (26-34); Mean Corpuscular Volume 92.2 fl (80-100); Nucleated Red Blood Cells Absolute Auto 0.000 K/mm3 (0.0-0.012); Nucleated Red Blood Cells Perc 0.0 % (0.0-0.2); Platelet Count Result 324 k/mm3 (150-375); Red Blood Count 4.49 M/mm3 (4.2-5.4); White Blood Count 11.8 K/mm3 (4.5-10.0)
[2024-11-10 15:39] LABS: Alanine Aminotransferase 17 U/L (6-35); Albumin Level 4.5 g/dL (3.5-5.1); Alkaline Phosphatase 112 U/L (38-126); Anion Gap 14 mmol/L (4-12); Aspartate Amino Transferase 27 U/L (14-36); Bilirubin,Total 1.0 mg/dL (0.2-1.3); Blood Urea Nitrogen 22 mg/dL (7-17); Calcium 9.4 mg/dL (8.4-10.2); Carbon Dioxide 24 mmol/L (22-30); Chloride 98 mmol/L (98-107); Estimated CRCL calculation 32 ml/min; Estimated Glomerular Filt Rate 35; Glucose 115 mg/dL (65-110); Potassium 3.6 mmol/L (3.4-5.0); Sodium 136 mmol/L (137-145); Total Protein 7.8 g/dL (6.3-8.2)
[2024-11-10 16:45] VITALS: PULSE 71; RESP 20
[2024-11-10] MEDS: IPRATROPIUM BR 0.02% INH SOLN 0.5 MG/2.5 ML VIAL 1 MG INHALATION (16:45)
[2024-11-10] MEDS: ALBUTEROL SULFATE NEB 2.5 MG/3 ML INH 15 MG INHALATION (16:45)
--- OUTSIDE RECORDS SUMMARY | 2024-11-10 16:52 | XMS_ITS ---
Author Organization [facility] Address [address] [place] [address] Care Team Providers Care Vibrating Screen Operator Name Role Phone Faiza Willams Unavailable [phone] REASON FOR VISIT pt needs phone call Social History Sex Assigned At : Social History Observation Description Sex Assigned At Female Encounters Encounter Location Date Provider Diagnosis [place] [facility] [address] [facility] [address] [place] [address] 06/14/2024 Faiza Willams Plan Of Treatment Next Appt Details Provider Name:Faiza ordoñez, 02/14/2025 02:30:00 PM, [address], [place], [address], Progress Notes * MARIO CURTISB:1945 ( 79 yo F)Acc No.[id number]:06/14/2024 Progress Notes Patient: MARGIE CAMPOS Provider: Queenie WILLAMS M.D :1945 A ge:79 Y S ex:Female Date:06/14/2024 Address:[address] [place] [address] Subjective: * Chief Complaints: * 1 . Pt needs phone call. * Medical History: Objective: * Vitals: Assessment: Plan: * Treatment: * Billing Information: * Visit Code: * Procedure Codes: * Electronic signature of Liberty Willams MD on 11/10/2024 at 04:51 PM CDT Sign off status: Pending * Provider: Queenie WILLAMS M.D Date: 06/14/2024 Generated for Nadira myers/Rosalind/eTransmitting on: 0 11/10/2024 04:51 PM CDT
--- OUTSIDE RECORDS SUMMARY | 2024-11-10 16:52 | XMS_ITS | Patient Health Record ---
Author Organization [facility] Address [address] [place] [address] Care Team Providers Care Pattern Chart Writer Name Role Phone Faiza Altman Unavailable [phone] Reason For Referral No Information Medications Medication [...] Status W/U Status Risk Notes Problem Hypothyroidism (84479980) Hypothyroidism, unspecified (E03.9) Active confirmed Problem Hypoparathyroidism (59798943) Hypoparathyroidi sm, unspecified (E20.9) Active confirmed Problem Secondary hyperparathyroidism (59774201) Secondary hyperparathyroid ism, not elsewhere classified (E21.1) Active confirmed Problem Hyperlipidemia (43756738) Hyperlipidemia, unspecified (E78.5) Active confirmed Problem Hyperuricemia withou t signs of inflammatory arthritis and tophaceous disease (285050004) Hyperuricemia without signs of inflammatory arthritis and tophaceous disease (E79.0) Active confirmed Problem Hypokalemia (36988300) Hypokalemia (E87.6) Active confirmed Problem Anxiety disorder (454517111) Anxiety disorder, unspecified (F41.9) Active confirmed Problem Renal osteodystrophy (19764752) Renal osteodystrophy (N25.0) Active confirmed Problem Pyuria (9696142) Pyuria (R82.81) Active confirm ed Problem Chronic kidney disease stage 3A (disorder) (009438225) Chronic kidney disease, stage 3a (N18.31) Active confirmed Problem Chronic kidney disease stage 3B (disorder) (487844099) Chronic kidney disease, stage 3b (N18.32) Active confirmed Encounters Encounter Location Date Provider Diagnosis [place] [facility] [address] [facility] [address] [place] [address] 01/12/2024 Faiza Altman Chronic kidney disease, stage 3b N18.32 ; Hypokalemia E87.6 ; Hypoparathyroidism, unspecified E20.9 and Anxiety disorder, unspecified F41.9 [facility] [place] [facility] [address] [place] [address] 08/16/2024 Faiza Agapito Chronic kidney disease, stage 3a N18.31 ; Hypokalemia E87.6 ; Hyperuricemia without signs of inflammatory arthritis and tophaceous disease E79.0 and Pyuria R82.81 [facility] [place] [facility] [address] [place] [address] 08/18/2024 Faiza Altman Assessments Encounter Date Diagnosis [...] [address], [place], [address],
--- OUTSIDE RECORDS SUMMARY | 2024-11-10 16:52 | XMS_ITS ---
Author Organization [facility] Address [address] [place] [address] Care Team Providers Care Fire Services Plumber Name Role Phone Agapito Faiza Unavailable [phone] Social History Sex Assigned At : Social History Observation Description Sex Assigned At Female Encounters Encounter Location Date Provider Diagnosis [place] [facility] [address] [facility] [address] [place] [address] 05/10/2024 Faiza Willams Plan Of Treatment Next Appt Details Provider Name:Faiza ordoñez, 02/14/2025 02:30:00 PM, [address], [place], [address], Progress Notes * MARIO CURTISB:1945 ( 79 yo F)Acc No.[id number]:05/10/2024 Progress Notes Patient: MARGIE CAMPOS Provider: Queenie WILLAMS M.D :1945 A ge:79 Y S ex:Female Date:05/10/2024 Address:[address] [place] [address] Subjective: * Chief Complaints: * * Medical History: Objective: * Vitals: Assessment: Plan: * Treatment: * Billing Information: * Visit Code: * Procedure Codes: * Electronic signature of Liberty Willams MD on 11/10/2024 at 04:52 PM CDT Sign off status: Pending * Provider: Queenie WILLAMS M.D Date: 05/10/2024 Generated for Ashleyi louis/Fanan/eTransmitting on: 11/10/2024 04:52 PM CDT
--- OUTSIDE RECORDS SUMMARY | 2024-11-10 16:52 | XMS_ITS | Patient Health Record ---
Author Organization [facility] Address [address] [place] [address] Care Team Providers Care Emergency Service Worker Name Role Phone Tre Coto Primary Care [...] Status W/U Status Risk Notes Problem Anxiety (76536174) Anxiety (F41.9) Active confi rmed Problem Depressive disorder (disorder) (72608525) Depression, unspecified depression type (F32.9) Active confirmed Problem Hypothyroidism (76204360) Hypothyroidism, unspecified type (E03.9) Active confirmed Problem COPD - Chronic obstructive pulmonary disease (96725901) Chronic obstructive pulmonary disease, unspecified COPD type (J44.9) Active confirmed Plan Of Treatment No Information Insurance Providers Payer Name Payer Address Payer Phone Subscriber Number Group Number Insured Name Patient Relationship to Insured Coverage Start Date Coverage End Date [employer] Medicare Complete [address] [address] [place] [address] [id number] [address] Self - patient is the insured 7 Medical (General) History Medical History History ICD Code COPD depression anxiety hypothyroidism Surgical History Surgery Date(Month/Year) hystorectomy bladder tied up appendectomy
--- OUTSIDE RECORDS SUMMARY | 2024-11-10 16:52 | XMS_ITS ---
Author Organization [facility] Address [address] [place] [address] Care Team Providers Care Farm Technician Name Role Phone Agapito Faiza Unavailable [phone] Social History Sex Assigned At : Social History Observation Description Sex Assigned At Female Problems Problem Type SNOMED Code ICD Code Onset Dates Problem Status W/U Status Risk Notes Problem Hyperuricemia without signs of inflammatory arthritis and tophaceous disease (111251314) Hyperuricemia without signs of inflammatory arthritis and tophaceous disease (E79.0) Active confirmed Problem Pyuria (7728245) Pyuria (R82.81) Active confirm ed Encounters Encounter Location Date Provider Diagnosis [facility] [place] [facility] [address] [place] [address] 08/16/2024 Faiza Willams Chronic kidney disease, stage [...] 02:30:00 PM, [address], [place], [address], Progress Notes * MARIO CURTISB:1945 ( 79 yo F)Acc No.[id number]:08/16/2024 Progress Notes Patient: MARGIE CAMPOS Provider: Queenie WILLAMS M.D :1945 A ge:79 Y S ex:Female Date:08/16/2024 Address:[address] [place] [address] Subjective: * Chief Complaints: * * Medical History: Objective: * Vitals: Assessment: * Assessment: 1. C hronic kidney disease, stage 3a - N18.31 (Primary) 2 . H ypokalemia - E87.6 3 . H yperuricemia without signs of inflammatory arthritis and tophaceous disease - E79.0 4 . P yuria - R82.81 Plan: * Treatment: * Billing Information: * Visit Code: 66254 Office Visit, Est Pt., Level 3. * Procedure Codes: * Electronic signature of Liberty Willams MD on 11/10/2024 at 04:52 PM CDT Sign off status: Pending * Provider: Queenie WILLAMS M.D Date: 0 08/16/2024 Generated for Nadira myers/Rosalind/Kristen on: 0 11/10/2024 04:52 PM CDT
[2024-11-10 17:01] VITALS: BP 103/68; PULSE 74; RESP 17; O2SAT 99
[2024-11-10 18:31] VITALS: BP 103/50; PULSE 88; RESP 18; O2SAT 96
--- NOTE | 2024-11-10 18:45 | ED.SOB ---
HPI - SOB/Dyspnea General Chief Complaint: Shortness of Breath/Dyspnea Stated Complaint: low O2 sats, productive cough Time Seen by Provider: 11/10/24 15:44 History of Present Illness HPI Narrative: Patient with history of COPD, recently discharged from here to rehab, sent here from rehab due to low oxygen and cough. Patient adamantly refused to go back to rehab. Related Data Home Medications ?Medication ?Instructions ?Recorded ?Confirmed ?Last Taken ?Type albuterol sulfate 90 mcg/actuation 2 inh inhalation PRN PRN Shortness 09/27/21 11/02/24 11/01/24 History aerosol inhaler Of Breath Or Wheezing diltiazem HCl 120 mg 120 mg PO HS 09/27/21 11/02/24 11/01/24 History capsule,extended release 24 hr duloxetine 30 mg capsule,delayed 60 mg PO DAILY 09/27/21 11/02/24 11/01/24 History release ergocalciferol (vitamin D2) 1,250 1,250 mcg PO WEEKLY 09/27/21 11/02/24 11/01/24 History mcg (50,000 unit) capsule famotidine 20 mg tablet 20 tablet PO DAILY 09/27/21 11/02/24 11/01/24 History furosemide 40 mg tablet 40 tablet PO DAILY 09/27/21 11/02/24 11/01/24 History levothyroxine 100 mcg tablet 125 mcg PO DAILY 09/27/21 11/02/24 11/01/24 History montelukast 10 mg tablet 10 tablet PO DAILY 09/27/21 11/02/24 11/01/24 History alprazolam 0.25 mg tablet 0.25 mg PO TID 11/02/24 11/02/24 11/01/24 History apixaban 5 mg tablet (Eliquis) 5 mg PO Q12H 11/02/24 11/02/24 11/01/24 History atorvastatin 40 mg tablet 40 mg PO DAILY 11/02/24 11/02/24 11/01/24 History potassium chloride 10 mEq 10 meq PO EVERY OTHER DAY 11/02/24 11/02/24 11/01/24 History tablet,extended release Allergies Allergy/AdvReac Type Severity Reaction Status Date / Time No Known Allergies Allergy Verified 11/10/24 16:35 Review of Systems Review of Systems: All systems reviewed & are unremarkable except as noted in HPI and below [facility] Past Medical History Medical History (Updated 11/10/24 @ 18:41 by Lindsay Khan MD) Hepatic steatosis Closed wedge compression fracture of T12 vertebra (2021) Chronic respiratory failure with hypoxia Chronic kidney disease Stage IIIB baseline creatinine 1.3-1 point 4 5 Depression Hypothyroidism COPD (chronic obstructive pulmonary disease) Surgical History Surgical History (Updated 11/03/24 @ 03:50 by Jolie Napier DO) Status post cataract extraction of both eyes with insertion of intraocular lens History of hysterectomy History of appendectomy Social History Social History (Updated 11/03/24 @ 03:49 by Jolie Napier DO) Social History: Lives in apartment by herself. She was twice. She had 4 children 1 of her children is due to accident. She reports that her other children are healthy. She used to smoke 1.5 packs cigarettes per day. She smoked from the time she was a teenager until age 69. Code status: Full code (?as long as there is a chance) His surrogate decision maker: Lexii Clements (sister) Smoking packs per day: 1.5 Smoking cigarettes per day: 30.0 Years smoked: 50 Smoking pack-years: 75.00 Smoking status: Former smoker Tobacco type: cigarettes and cigars Second hand tobacco smoke exposure: No Additional smoking assessment comments: 2014 Alcohol intake: former Alcohol use details: She used to drink moderate to heavy amount of alcohol but quit over 20 years ago. Substance use: former Do You Feel Safe in your Home?: Yes Lack of Transportation: No Lack of Food: Never True Current Housing: I Have Housing Concerned About Future Housing: No Difficulty Paying Gas/Electric Bills: No Difficulty Paying for Meds: No Currently Unemployed: No Education: Decline to Answer Difficulty w/ Childcare or Family Care: No Living arrangements: alone Spiritual care concerns: No Exam Narrative: EXAMINATION OF ORGAN SYSTEMS/BODY AREAS: Constitutional: Vital signs per nursing GENERAL: Slightly dyspneic HEAD: Normal with no signs of head trauma. EYES: EOMI, conjunctiva normal ENT: Hearing grossly intact LUNGS: Dyspneic, extensive wheezing all lung ruano HEART: [Regular rate and rhythm] ABD: [Soft], [nontender to palpation] EXT: Normal range of motion SKIN: [No rashes or lesions.] NEURO: [Alert and oriented x 3. No gross focal sensory or strength deficits.] PSYCH: Normal affect Course Vital Signs Vital signs: Vital Signs Temperature 97.6 F 11/10/24 14:56 Pulse Rate 83 11/10/24 14:56 Respiratory Rate 30 H 11/10/24 14:56 Blood Pressure 118/70 11/10/24 14:56 Pulse Oximetry 89 L 11/10/24 14:56 Oxygen Delivery Nasal Cannula 11/10/24 14:56 Oxygen Flow Rate 3 11/10/24 14:56 Temperature 97.6 F 11/10/24 14:56 Pulse Rate 88 11/10/24 18:31 Respiratory Rate 18 11/10/24 18:31 Blood Pressure 103/50 L 11/10/24 18:31 Pulse Oximetry 96 11/10/24 18:31 Oxygen Delivery Nasal Cannula 11/10/24 15:21 Oxygen Flow Rate 5 11/10/24 15:21 MDM - SOB/Dyspnea MDM Narrative Medical decision making narrative: ED COURSE AND MEDICAL DECISION MAKIN-year-old female with acute dyspnea and wheezing likely due to acute COPD exacerbation based on history and exam. Nebulizer treatments are started and steroids given. Patient monitored in the ED for a couple of hours and on reevaluation is feeling significantly better. No respiratory distress or accessory muscle use. Good air movement bilateral lungs. I have able to turn her oxygen back down to her normal baseline and she is satting 91-94% on this in no distress. Labs within acceptable limits, chest x-ray here stable, known signs of new pneumonia, have low concern for PE as she is already on blood thinners. Did discuss discharge patient back to the senior living, patient at this point absolutely refuses to go back to senior living. She wants to go home. Granddaughter at bedside. Patient is capable of making her own decisions. She understands the risks of going home, her granddaughter lives extremely close by and feels comfortable with this plan and will be checking on her. There are no stairs in their house and she has oxygen at home. Prescriptions for [albuterol and steroid course] provided. I did also provide prescriptions for breathing treatments and nebulizer. She is given strict return precautions; I did also let her know that if at any point she changed her mind about going home, she can always return to the emergency room. Lab Data 11/10/24 15:22 11/10/24 15:21 Labs: Lab Results 11/10/24 11/10/24 Range/Units 15:21 15:22 WBC 11.8 H (4.5-10.0) K/mm3 RBC 4.49 (4.2-5.4) M/mm3 Hgb 13.0 (12.0-15.0) g/dL Hct 41.4 (37.0-47.0) % MCV 92.2 D (80-100) fl MCH 29.0 (26-34) pg MCHC 31.4 L (32-36) g/dl RDW 14.5 (11.5-14.5) % Plt Count 324 (150-375) k/mm3 MPV 10.4 (7.4-10.4) fl Immature Gran % (Auto) 0.3 (0-0.5) % Neut % (Auto) 77.1 H (45.5-73.1) % Lymph % (Auto) 16.9 L (18.3-44.2) % [place] % (Auto) 4.6 (2.6-8.5) % Eos % (Auto) 0.6 (0-4.4) % Baso % (Auto) 0.5 (0.2-1.2) % Lymph # (Auto) 2.00 (0.9-3.2) K/mm3 [place] # (Auto) 0.5 (0.1-0.6) K/mm3 Eos # (Auto) 0.1 (0-0.3) K/mm3 Baso # (Auto) 0.1 (0.0-0.1) K/mm3 Abs Immat Gran (auto) 0.04 H (0.00-0.031) K/mm3 Absolute Neuts (auto) 9.1 H (1.3-6.7) K/mm3 Absolute Nucleated RBC 0.000 (0.0-0.012) K/mm3 Nucleated RBC % 0.0 (0.0-0.2) % Sodium 136 L (137-145) mmol/L Potassium 3.6 (3.4-5.0) mmol/L Chloride 98 (98-107) mmol/L Carbon Dioxide 24 (22-30) mmol/L Anion Gap 14 H (4-12) mmol/L BUN 22 H (7-17) mg/dL Creatinine 1.45 H (0.7-1.0) mg/dL Estim Creat Clear Calc 32 ml/min Estimated GFR 35 L (59 - ) Glucose 115 H (65-110) mg/dL Calcium 9.4 (8.4-10.2) mg/dL Total Bilirubin 1.0 (0.2-1.3) mg/dL AST 27 (14-36) U/L ALT 17 (6-35) U/L Alkaline Phosphatase 112 (38-126) U/L Total Protein 7.8 (6.3-8.2) g/dL Albumin 4.5 (3.5-5.1) g/dL Discharge Plan Discharge Clinical Impression: Acute exacerbation of chronic bronchitis Patient Disposition: Home Condition: Stable Instructions: Chronic Bronchitis (ED) Additional Instructions: Please make sure to use the medications as prescribed. Try to do breathing treatments at home every 4-6 hours for your breathing. The steroids as prescribed. You can also use a rescue inhaler in the meantime. If you experience any concerning issues, or do not feel comfortable caring for yourself at home, please return to the emergency room. Patient Language: Turkish Prescriptions: New prednisone 20 mg tablet 40 mg PO DAILY 4 Days Qty: 8 0RF albuterol sulfate 90 mcg/actuation HFA aerosol inhaler 2 puff inhalation QID PRN (Reason: shortness of breath or wheezing) Qty: 8.5 0RF ipratropium-albuterol 0.5 mg-3 mg(2.5 mg base)/3 mL solution for nebulization 3 ml inhalation Q4H PRN (Reason: shortness of breath or wheezing) Qty: 180 0RF (DME) nebulizers [Compact Compressor Nebulizer] Misc See Rx Instructions .Route Qty: 1 0RF Rx Instructions: As directed No Action potassium chloride 10 mEq tablet extended release 10 meq PO EVERY OTHER DAY alprazolam 0.25 mg tablet 0.25 mg PO TID Eliquis 5 mg tablet 5 mg PO Q12H atorvastatin 40 mg tablet 40 mg PO DAILY oxycodone 5 mg tablet 5 mg PO Q6H PRN (Reason: pain) Qty: 20 0RF alprazolam 0.25 mg Tablet 0.25 mg PO TID Qty: 20 0RF furosemide 40 mg tablet 40 tablet PO DAILY levothyroxine 100 mcg tablet 125 mcg PO DAILY famotidine 20 mg tablet 20 tablet PO DAILY diltiazem HCl 120 mg capsule,extended release 24hr 120 mg PO HS montelukast 10 mg tablet 10 tablet PO DAILY ergocalciferol (vitamin D2) 1,250 mcg (50,000 unit) capsule 1,250 mcg PO WEEKLY albuterol sulfate 90 mcg/actuation HFA aerosol inhaler 2 inh INHALATION PRN PRN (Reason: Shortness Of Breath Or Wheezing) duloxetine 30 mg capsule,delayed release(DR/EC) 60 mg PO DAILY Follow-up/Referrals: Sebas,MD Saji [Primary Care Provider] - 2 Days
== END 2024-11-10 20:16 | disposition home or self-care (01) ==
PROVIDERS: Emergency Provider Emergency Medicine; PCP Internal Medicine
DX: J42 Unspecified chronic bronchitis (principal); K76.0 Fatty (change of) liver, not elsewhere classified; N18.30 Chronic kidney disease, stage 3 unspecified; F32.A Depression, unspecified; E03.9 Hypothyroidism, unspecified; J96.11 Chronic respiratory failure with hypoxia
CPT/HCPCS: 36415; 71045; 80053; 85025; 93005; 94640; 96374; 99284; J2919

== ENCOUNTER 2024-11-16 15:52 | Emergency (ER) | payer MEDICARE, SELFPAY ==
[2024-11-16 15:56] VITALS: BP 146/88; PULSE 57; RESP 17; TEMP 36.4; O2SAT 96
[2024-11-16 16:39] LABS: Hematocrit 43.0 % (37.0-47.0); Hemoglobin 13.5 g/dL (12.0-15.0); Immature Granulocyte Percent A 0.8 % (0-0.5); Lymphocytes Absolute Auto 2.91 K/mm3 (0.9-3.2); Mean Corpuscular HGB Conc 31.4 g/dl (32-36); Mean Corpuscular Hemoglobin 28.7 pg (26-34); Mean Corpuscular Volume 91.5 fl (80-100); Nucleated Red Blood Cells Absolute Auto 0.000 K/mm3 (0.0-0.012); Nucleated Red Blood Cells Perc 0.0 % (0.0-0.2); Platelet Count Result 416 k/mm3 (150-375); Red Blood Count 4.70 M/mm3 (4.2-5.4); White Blood Count 14.5 K/mm3 (4.5-10.0)
[2024-11-16 16:58] LABS: Alanine Aminotransferase 21 U/L (6-35); Albumin Level 4.2 g/dL (3.5-5.1); Alkaline Phosphatase 117 U/L (38-126); Anion Gap 11 mmol/L (4-12); Aspartate Amino Transferase 33 U/L (14-36); Bilirubin,Total 0.8 mg/dL (0.2-1.3); Blood Urea Nitrogen 27 mg/dL (7-17); Calcium 9.2 mg/dL (8.4-10.2); Carbon Dioxide 28 mmol/L (22-30); Chloride 99 mmol/L (98-107); Estimated CRCL calculation 34 ml/min; Estimated Glomerular Filt Rate 38; Glucose 90 mg/dL (65-110); Sodium 138 mmol/L (137-145); Total Protein 7.3 g/dL (6.3-8.2)
[2024-11-16 17:00] VITALS: BP 151/83; PULSE 72; RESP 15; O2SAT 97
[2024-11-16 17:01] LABS: INR 1.5; Prothrombin Time 18.1 Seconds (11.1-14.7)
[2024-11-16 17:02] LABS: Partial Thromboplastin Time 27.7 Seconds (22.3-36.8)
[2024-11-16 17:07] LABS: Potassium 3.3 mmol/L (3.4-5.0)
[2024-11-16 17:33] LABS: Magnesium 2.2 mg/dL (1.6-2.3)
--- NOTE | 2024-11-16 17:44 | ED_ITS ---
HPI - GI Bleed General Chief complaint: GI Bleed Stated complaint: Coffee ground emesis Time Seen by Provider: 11/16/24 17:13 Source: patient Mode of arrival: EMS Limitations: no limitations History of Present Illness HPI Narrative: This is a 79-year-old female that presents to the emergency department for dark stools. Ongoing since yesterday. Reports she recently finished a steroid for a COPD exacerbation. She was also started on meloxicam for her back pain. She has had about 6 dark stools since yesterday. Denies fever, abdominal pain, vomiting. Related Data Home Medications ?Medication ?Instructions ?Recorded ?Confirmed ?Last Taken ?Type albuterol sulfate 90 mcg/actuation 2 inh inhalation PRN PRN Shortness 09/27/21 11/02/24 11/01/24 History aerosol inhaler Of Breath Or Wheezing diltiazem HCl 120 mg 120 mg PO HS 09/27/21 11/02/24 11/01/24 History capsule,extended release 24 hr duloxetine 30 mg capsule,delayed 60 mg PO DAILY 09/27/21 11/02/24 11/01/24 History release ergocalciferol (vitamin D2) 1,250 1,250 mcg PO WEEKLY 09/27/21 11/02/24 11/01/24 History mcg (50,000 unit) capsule famotidine 20 mg tablet 20 tablet PO DAILY 09/27/21 11/02/24 11/01/24 History furosemide 40 mg tablet 40 tablet PO DAILY 09/27/21 11/02/24 11/01/24 History levothyroxine 100 mcg tablet 125 mcg PO DAILY 09/27/21 11/02/24 11/01/24 History montelukast 10 mg tablet 10 tablet PO DAILY 09/27/21 11/02/24 11/01/24 History alprazolam 0.25 mg tablet 0.25 mg PO TID 11/02/24 11/02/24 11/01/24 History apixaban 5 mg tablet (Eliquis) 5 mg PO Q12H 11/02/24 11/02/24 11/01/24 History atorvastatin 40 mg tablet 40 mg PO DAILY 11/02/24 11/02/24 11/01/24 History potassium chloride 10 mEq 10 meq PO EVERY OTHER DAY 11/02/24 11/02/24 11/01/24 History tablet,extended release Allergies Allergy/AdvReac Type Severity Reaction Status Date / Time No Known Allergies Allergy Verified 11/10/24 16:35 Review of Systems 2 Review of Systems: All systems reviewed & are unremarkable except as noted in HPI and below PMFSH Past Medical History Medical History (Updated 11/16/24 @ 20:05 by [place] High PA-C) Hepatic steatosis Closed wedge compression fracture of T12 vertebra (2021) Chronic respiratory failure with hypoxia Chronic kidney disease Stage IIIB baseline creatinine 1.3-1 point 4 5 Depression Hypothyroidism COPD (chronic obstructive pulmonary disease) Surgical History Surgical History (Updated 11/03/24 @ 03:50 by Jolie Napier DO) Status post cataract extraction of both eyes with insertion of intraocular lens History of hysterectomy History of appendectomy Social History Social History (Updated 11/03/24 @ 03:49 by Jolie Napier DO) Social History: Lives in apartment by herself. She was twice. She had 4 children 1 of her children is due to accident. She reports that her other children are healthy. She used to smoke 1.5 packs cigarettes per day. She smoked from the time she was a teenager until age 69. Code status: Full code (?as long as there is a chance) His surrogate decision maker: Lexii Clements (sister) Smoking packs per day: 1.5 Smoking cigarettes per day: 30.0 Years smoked: 50 Smoking pack-years: 75.00 Smoking status: Former smoker Tobacco type: cigarettes and cigars Second hand tobacco smoke exposure: No Additional smoking assessment comments: 2014 Alcohol intake: former Alcohol use details: She used to drink moderate to heavy amount of alcohol but quit over 20 years ago. Substance use: former Do You Feel Safe in your Home?: Yes Lack of Transportation: No Lack of Food: Never True Current Housing: I Have Housing Concerned About Future Housing: No Difficulty Paying Gas/Electric Bills: No Difficulty Paying for Meds: No Currently Unemployed: No Education: Decline to Answer Difficulty w/ Childcare or Family Care: No Living arrangements: alone Spiritual care concerns: No Exam 2 Narrative: GENERAL: Elderly, well-nourished, and in no acute distress. HEAD: Normocephalic, atraumatic. EYES: EOMI. CHEST: Clear to auscultation. No respiratory distress. No wheezes rales or rhonchi HEART: Regular rate and rhythm. No murmur heard. Normal peripheral pulses. ABDOMEN: Soft, nontender, nondistended, normal active bowel sounds. Several external hemorrhoids, no active bleeding. Hemoccult negative EXTREMITIES: Normal range of motion. No edema. SKIN: Warm, dry, no rash. NEURO: No focal deficits. Alert and oriented x3. PSYCH: Normal mood and affect Course Course Emergency Course: Patient updated on her workup thus far. Refused CT scan. Will be given information for follow up with GI Vital Signs Vital signs: Vital Signs Temperature 97.6 F 11/16/24 15:56 Pulse Rate 57 L 11/16/24 15:56 Respiratory Rate 17 11/16/24 15:56 Blood Pressure 146/88 H 11/16/24 15:56 Pulse Oximetry 96 11/16/24 15:56 Oxygen Delivery Nasal Cannula 11/16/24 15:56 Oxygen Flow Rate 3 11/16/24 15:56 Temperature 97.6 F 11/16/24 15:56 Pulse Rate 57 L 11/16/24 15:56 Respiratory Rate 17 11/16/24 15:56 Blood Pressure 146/88 H 11/16/24 15:56 Pulse Oximetry 96 11/16/24 15:56 Oxygen Delivery Nasal Cannula 11/16/24 15:56 Oxygen Flow Rate 3 11/16/24 15:56 MDM - GI Bleed MDM Narrative Medical decision making narrative: Patient presents to the ER for melena. Ongoing since yesterday. Patient is Hemoccult negative today. Brown stool noted on ANDRES. Her vitals are stable. CBC with mild leukocytosis to 14.5. Patient did recently finish a steroid. Metabolic panel with kidney function appears to be around her baseline. Patient given a dose of Protonix in the ER. Patient updated on her workup thus far. Refused CT scan. Will be given information for follow up with GI. She was given warnings to return to the ER Differential Diagnosis Differential diagnosis: Likely hemorrhoids, gastritis, Upper gastrointestinal hemorrhage, Lower gastrointestinal hemorrhage, hematochezia, melena and anal fissure Lab Data Attestation: I reviewed the patient's lab results. 11/16/24 16:20 11/16/24 16:20 Labs: Lab Results 11/16/24 Range/Units 16:20 WBC 14.5 H (4.5-10.0) K/mm3 RBC 4.70 (4.2-5.4) M/mm3 Hgb 13.5 (12.0-15.0) g/dL Hct 43.0 (37.0-47.0) % MCV 91.5 (80-100) fl MCH 28.7 (26-34) pg MCHC 31.4 L (32-36) g/dl RDW 14.3 (11.5-14.5) % Plt Count 416 H (150-375) k/mm3 MPV 10.0 (7.4-10.4) fl Immature Gran % (Auto) 0.8 H (0-0.5) % Neut % (Auto) 73.7 H (45.5-73.1) % Lymph % (Auto) 20.0 (18.3-44.2) % Wallace % (Auto) 5.1 (2.6-8.5) % Eos % (Auto) 0.1 (0-4.4) % Baso % (Auto) 0.3 (0.2-1.2) % Lymph # (Auto) 2.91 (0.9-3.2) K/mm3 [place] # (Auto) 0.7 H (0.1-0.6) K/mm3 Eos # (Auto) 0.0 (0-0.3) K/mm3 Baso # (Auto) 0.1 (0.0-0.1) K/mm3 Abs Immat Gran (auto) 0.11 H (0.00-0.031) K/mm3 Absolute Neuts (auto) 10.7 H (1.3-6.7) K/mm3 Absolute Nucleated RBC 0.000 (0.0-0.012) K/mm3 Nucleated RBC % 0.0 (0.0-0.2) % PT 18.1 H (11.1-14.7) Seconds INR 1.5 APTT 27.7 (22.3-36.8) Seconds Sodium 138 (137-145) mmol/L Potassium 3.3 L (3.4-5.0) mmol/L Chloride 99 (98-107) mmol/L Carbon Dioxide 28 (22-30) mmol/L Anion Gap 11 (4-12) mmol/L BUN 27 H (7-17) mg/dL Creatinine 1.35 H (0.7-1.0) mg/dL Estim Creat Clear Calc 34 ml/min Estimated GFR 38 L (59 - ) Glucose 90 (65-110) mg/dL Calcium 9.2 (8.4-10.2) mg/dL Magnesium 2.2 (1.6-2.3) mg/dL Total Bilirubin 0.8 (0.2-1.3) mg/dL AST 33 (14-36) U/L ALT 21 (6-35) U/L Alkaline Phosphatase 117 (38-126) U/L Total Protein 7.3 (6.3-8.2) g/dL Albumin 4.2 (3.5-5.1) g/dL Blood Type O Positive Antibody Screen Negative Critical Care Time Critical Care Time Critical Care Time: No Discharge Plan Discharge Clinical Impression: Melena Patient Disposition: Home Condition: Stable Instructions: Gastritis (ED), Diet for Stomach Ulcers and Gastritis (ED), Melena (ED) Additional Instructions: Return to the ER if you experience fever, abdominal pain with nausea and vomiting, you are unable to keep down liquids or solids, worsening bleeding, or any other symptoms that are concerning to you Take pantoprazole as prescribed Follow up with gastroenterology Patient Language: Lithuanian Prescriptions: New pantoprazole 40 mg tablet,delayed release (DR/EC) 40 mg PO HS 28 Days Qty: 28 0RF No Action potassium chloride 10 mEq tablet extended release 10 meq PO EVERY OTHER DAY alprazolam 0.25 mg tablet 0.25 mg PO TID Eliquis 5 mg tablet 5 mg PO Q12H atorvastatin 40 mg tablet 40 mg PO DAILY oxycodone 5 mg tablet 5 mg PO Q6H PRN (Reason: pain) Qty: 20 0RF alprazolam 0.25 mg Tablet 0.25 mg PO TID Qty: 20 0RF furosemide 40 mg tablet 40 tablet PO DAILY levothyroxine 100 mcg tablet 125 mcg PO DAILY famotidine 20 mg tablet 20 tablet PO DAILY diltiazem HCl 120 mg capsule,extended release 24hr 120 mg PO HS montelukast 10 mg tablet 10 tablet PO DAILY ergocalciferol (vitamin D2) 1,250 mcg (50,000 unit) capsule 1,250 mcg PO WEEKLY albuterol sulfate 90 mcg/actuation HFA aerosol inhaler 2 inh INHALATION PRN PRN (Reason: Shortness Of Breath Or Wheezing) duloxetine 30 mg capsule,delayed release(DR/EC) 60 mg PO DAILY prednisone 20 mg tablet 40 mg PO DAILY 4 Days Qty: 8 0RF albuterol sulfate 90 mcg/actuation HFA aerosol inhaler 2 puff inhalation QID PRN (Reason: shortness of breath or wheezing) Qty: 8.5 0RF ipratropium-albuterol 0.5 mg-3 mg(2.5 mg base)/3 mL solution for nebulization 3 ml inhalation Q4H PRN (Reason: shortness of breath or wheezing) Qty: 180 0RF (DME) nebulizers [Compact Compressor Nebulizer] Misc See Rx Instructions .Route Qty: 1 0RF Rx Instructions: As directed Follow-up/Referrals: Sebas,MD Saji [Primary Care Provider] - Abelino Fernandez MD [Physician] -
--- OUTSIDE RECORDS SUMMARY | 2024-11-16 17:46 | XMS_ITS ---
Author Organization [facility] Address [address] [place] [address] Care Team Providers Care Auto Accessories Installer Name Role Phone Faiza Willams Unavailable [phone] REASON FOR VISIT pt needs phone call Social History Sex Assigned At : Social History Observation Description Sex Assigned At Female Encounters Encounter Location Date Provider Diagnosis [place] [facility] [address] [facility] [address] [place] [address] 06/14/2024 Faiza Willams Plan Of Treatment Next Appt Details Provider Name:Faiza ordoñez, 02/14/2025 02:30:00 PM, [address], [place], [address], Progress Notes * MARIO CURTISB:1945 ( 79 yo F)Acc No.[id number]:06/14/2024 Progress Notes Patient: MARGIE CAMPOS Provider: Queenie WILLAMS M.D :1945 A ge:79 Y S ex:Female Date:06/14/2024 Address:[address] [place] [address] Subjective: * Chief Complaints: * 1 . Pt needs phone call. * Medical History: Objective: * Vitals: Assessment: Plan: * Treatment: * Billing Information: * Visit Code: * Procedure Codes: * Electronic signature of Liberty Willams MD on 11/16/2024 at 05:46 PM CDT Sign off status: Pending * Provider: Queenie WILLAMS M.D Date: 06/14/2024 Generated for Nadira myers/Rosalind/eTransmitting on: 0 11/16/2024 05:46 PM CDT
--- OUTSIDE RECORDS SUMMARY | 2024-11-16 17:46 | XMS_ITS | Patient Health Record ---
Author Organization [facility] Address [address] [place] [address] Care Team Providers Care Documentum Consultant Name Role Phone Faiza Altman Unavailable [phone] Reason For Referral No Information Medications Medication [...] Status W/U Status Risk Notes Problem Hypothyroidism (68696075) Hypothyroidism, unspecified (E03.9) Active confirmed Problem Hypoparathyroidism (35758231) Hypoparathyroidi sm, unspecified (E20.9) Active confirmed Problem Secondary hyperparathyroidism (68589549) Secondary hyperparathyroid ism, not elsewhere classified (E21.1) Active confirmed Problem Hyperlipidemia (89557419) Hyperlipidemia, unspecified (E78.5) Active confirmed Problem Hyperuricemia withou t signs of inflammatory arthritis and tophaceous disease (211065304) Hyperuricemia without signs of inflammatory arthritis and tophaceous disease (E79.0) Active confirmed Problem Hypokalemia (92232254) Hypokalemia (E87.6) Active confirmed Problem Anxiety disorder (380705299) Anxiety disorder, unspecified (F41.9) Active confirmed Problem Renal osteodystrophy (66327281) Renal osteodystrophy (N25.0) Active confirmed Problem Pyuria (6685580) Pyuria (R82.81) Active confirm ed Problem Chronic kidney disease stage 3A (disorder) (539446938) Chronic kidney disease, stage 3a (N18.31) Active confirmed Problem Chronic kidney disease stage 3B (disorder) (068159568) Chronic kidney disease, stage 3b (N18.32) Active confirmed Encounters Encounter Location Date Provider Diagnosis [place] [facility] [address] [facility] [address] [place] [address] 01/12/2024 Faiza Altman Chronic kidney disease, stage 3b N18.32 ; Hypokalemia E87.6 ; Hypoparathyroidism, unspecified E20.9 and Anxiety disorder, unspecified F41.9 [facility] [place] [facility] [address] [place] [address] 08/16/2024 Faiza Agapito Chronic kidney disease, stage 3a N18.31 ; Hypokalemia E87.6 ; Hyperuricemia without signs of inflammatory arthritis and tophaceous disease E79.0 and Pyuria R82.81 [facility] [place] [facility] [address] [place] [address] 08/18/2024 Faiza Altman Assessments Encounter Date Diagnosis [...] [address], [place], [address],
--- OUTSIDE RECORDS SUMMARY | 2024-11-16 17:46 | XMS_ITS | Patient Health Record ---
Author Organization [facility] Address [address] [place] [address] Care Team Providers Care Reel Man Name Role Phone Tre Coto Primary Care [...] Status W/U Status Risk Notes Problem Anxiety (87741289) Anxiety (F41.9) Active confi rmed Problem Depressive disorder (disorder) (54873375) Depression, unspecified depression type (F32.9) Active confirmed Problem Hypothyroidism (32672635) Hypothyroidism, unspecified type (E03.9) Active confirmed Problem COPD - Chronic obstructive pulmonary disease (13945103) Chronic obstructive pulmonary disease, unspecified COPD type (J44.9) Active confirmed Plan Of Treatment No Information Insurance Providers Payer Name Payer Address Payer Phone Subscriber Number Group Number Insured Name Patient Relationship to Insured Coverage Start Date Coverage End Date AARP Medicare Complete [address] [address] [place] [address] [id number] [address] Self - patient is the insured 7 Medical (General) History Medical History History ICD Code COPD depression anxiety hypothyroidism Surgical History Surgery Date(Month/Year) hystorectomy bladder tied up appendectomy
--- OUTSIDE RECORDS SUMMARY | 2024-11-16 17:46 | XMS_ITS ---
Author Organization [facility] Address [address] [place] [address] Care Team Providers Care Oracle Webcenter Consultant Name Role Phone Agapito Faiza Unavailable [phone] Social History Sex Assigned At : Social History Observation Description Sex Assigned At Female Encounters Encounter Location Date Provider Diagnosis [place] [facility] [address] [facility] [address] [place] [address] 05/10/2024 Faiza Willams Plan Of Treatment Next Appt Details Provider Name:Faiza ordoñez, 02/14/2025 02:30:00 PM, [address], [place], [address], Progress Notes * MARIO CURTISB:1945 ( 79 yo F)Acc No.[id number]:05/10/2024 Progress Notes Patient: MARGIE CAMPOS Provider: Queenie WILLAMS M.D :1945 A ge:79 Y S ex:Female Date:05/10/2024 Address:[address] [place] [address] Subjective: * Chief Complaints: * * Medical History: Objective: * Vitals: Assessment: Plan: * Treatment: * Billing Information: * Visit Code: * Procedure Codes: * Electronic signature of [place] Willams MD on 11/16/2024 at 05:46 PM CDT Sign off status: Pending * Provider: Queenie WILLAMS M.D Date: 05/10/2024 Generated for Nadira myers/Rosalind/eTransmitting on: 11/16/2024 05:46 PM CDT
--- OUTSIDE RECORDS SUMMARY | 2024-11-16 17:46 | XMS_ITS ---
Author Organization [facility] Address [address] [place] [address] Care Team Providers Care Molded Goods Controls Operator Name Role Phone Agapito Faiza Unavailable [phone] Social History Sex Assigned At : Social History Observation Description Sex Assigned At Female Problems Problem Type SNOMED Code ICD Code Onset Dates Problem Status W/U Status Risk Notes Problem Hyperuricemia without signs of inflammatory arthritis and tophaceous disease (279482889) Hyperuricemia without signs of inflammatory arthritis and tophaceous disease (E79.0) Active confirmed Problem Pyuria (2581826) Pyuria (R82.81) Active confirm ed Encounters Encounter Location Date Provider Diagnosis [facility] [place] [facility] [address] [place] [address] 08/16/2024 Faiza Willams Chronic kidney disease, stage [...] 02:30:00 PM, [address], [place], [address], Progress Notes * MARIO CURTISB:1945 ( 79 yo F)Acc No.[id number]:08/16/2024 Progress Notes Patient: MARGIE CAMPOS Provider: Queenie WILLAMS M.D :1945 A ge:79 Y S ex:Female Date:08/16/2024 Address:[address] [place] [address] Subjective: * Chief Complaints: * * Medical History: Objective: * Vitals: Assessment: * Assessment: 1. C hronic kidney disease, stage 3a - N18.31 (Primary) 2 . H ypokalemia - E87.6 3 . H yperuricemia without signs of inflammatory arthritis and tophaceous disease - E79.0 4 . P yuria - R82.81 Plan: * Treatment: * Billing Information: * Visit Code: 13639 Office Visit, Est Pt., Level 3. * Procedure Codes: * Electronic signature of [place] Willams MD on 11/16/2024 at 05:46 PM CDT Sign off status: Pending * Provider: Queenie WILLAMS M.D Date: 0 08/16/2024 Generated for Nadira myers/Rosalind/Kristen on: 0 11/16/2024 05:46 PM CDT
[2024-11-16 18:30] VITALS: BP 121/93; PULSE 71; RESP 16; O2SAT 100
[2024-11-16] MEDS: PANTOPRAZOLE SODIUM IV 40 MG VIAL 80 MG IV PUSH (18:35)
[2024-11-16 19:45] VITALS: BP 129/66; PULSE 62; RESP 17; O2SAT 98
[2024-11-16] MEDS: POTASSIUM CHLORIDE 20 MEQ ER TABLET 40 MEQ PO (20:31)
[2024-11-16 21:00] VITALS: BP 130/64; PULSE 72; RESP 15; TEMP 36.6; O2SAT 94
== END 2024-11-16 21:10 | disposition home or self-care (01) ==
PROVIDERS: Emergency Medicine; Emergency Provider Physician Assistant; PCP Internal Medicine
DX: K92.1 Melena (principal); J44.9 Chronic obstructive pulmonary disease, unspecified; J96.11 Chronic respiratory failure with hypoxia; N18.32 Chronic kidney disease, stage 3b; E03.9 Hypothyroidism, unspecified; F32.A Depression, unspecified; Z87.891 Personal history of nicotine dependence; Z96.1 Presence of intraocular lens; Z98.42 Cataract extraction status, left eye; Z98.41 Cataract extraction status, right eye; Z90.710 Acquired absence of both cervix and uterus; Z79.01 Long term (current) use of anticoagulants; Z79.899 Other long term (current) drug therapy
CPT/HCPCS: 36415; 80053; 83735; 85025; 85610; 85730; 86850; 86900; 86901; 96374; 99284; A9270; J2470

== ENCOUNTER 2025-01-06 16:05 | Emergency (ER) | payer MEDICARE, SELFPAY ==
--- OUTSIDE RECORDS SUMMARY | 2024-01-12 10:00 | XMS_ITS ---
Author Organization [facility] Office Address [address] [place] [address] Care Team Providers Care Audit Spec Name Role Phone Faiza Willams Unavailable [phone] Social History Sex Assigned At : Social History Observation Description Sex Assigned At Female Problems Problem Type SNOMED Code ICD Code Onset Dates Problem Status W/U Status Risk Notes Problem Chronic kidney disease stage 3B (disorder) (702262916) Chronic kidney disease, stage 3b (N18.32) Active confirmed Problem Hypokalemia (77232770) Hypokalemia (E87.6) Active confirmed Problem Hypoparathyroidism (48269643) Hypoparathyroi dism, unspecified (E20.9) Active confirmed Problem Anxiety disorder (702586603) Anxiety disorder, unspecified (F41.9) Active confirmed Encounters Encounter Location Date Provider Diagnosis [place] [facility] [address] [facility] [address] [place] [address] 01/12/2024 Faiza Willams Chronic kidney disease, stage 3b N18.32 ; Hypokalemia E87.6 ; Hypoparathyroidism, unspecified E20.9 and Anxiety disorder, unspecified F41.9 Assessments Encounter Date Diagnosis (ICD Code) Assessment Notes Treatment Notes Treatment Clinical Notes Section Notes 01/12/2024 Chronic kidney disease, stage 3b (ICD-10 - N18.32) 01/12/2024 Hypokalemia (ICD-10 - E87.6) 01/12/2024 Hypoparathyroidi sm, unspecified (ICD-10 - E20.9) 01/12/2024 Anxiety disorder, unspecified (ICD-10 - F41.9) Plan Of Treatment Next Appt Details Provider Name:Faiza ordoñez, 02/14/2025 02:30:00 PM, [address], [place], [address], Progress Notes * EVITA CURTISADOB:1945 ( 79 yo F)Acc No.[id number]:01/12/2024 Progress Notes Patient: MARGIE CAMPOS Provider: Queenie WILLAMS M.D :1945 A ge:79 Y S ex:Female Date:01/12/2024 Address:[address] [place] [address] Subjective: * Chief Complaints: * * Medical History: Objective: * Vitals: Assessment: * Assessment: 1. C hronic kidney disease, stage 3b - N18.32 (Primary) 2 . H ypokalemia - E87.6 3 . H ypoparathyroidism, unspecified - E20.9 4 . A nxiety disorder, unspecified - F41.9 Plan: * Treatment: * Billing Information: * Visit Code: 07768 Office Visit, Est Pt., Level 3. * Procedure Codes: * Electronic signature of Liberty Willams MD on 01/06/2025 at 04:52 PM CDT Sign off status: Pending * Provider: Queenie WILLAMS M.D Date: 01/12/2024 Generated for Nadira myers/Rosalind/Kristen on: 01/06/2025 04:52 PM CDT
--- OUTSIDE RECORDS SUMMARY | 2024-04-12 10:30 | XMS_ITS ---
Author Organization [facility] Office Address [address] [place] [address] Care Team Providers Care Production Tester Name Role Phone Agapito Faiza Unavailable [phone] Social History Sex Assigned At : Social History Observation Description Sex Assigned At Female Encounters Encounter Location Date Provider Diagnosis [place] [facility] [address] [facility] [address] [place] [address] 04/12/2024 Faiza Willams Plan Of Treatment Next Appt Details Provider Name:Faiza ordoñez, 02/14/2025 02:30:00 PM, [address], [place], [address], Progress Notes * MARIO CURTISB:1945 ( 79 yo F)Acc No.[id number]:04/12/2024 Progress Notes Patient: MARGIE CAMPOS Provider: Queenie WILLAMS M.D :1945 A ge:79 Y S ex:Female Date:04/12/2024 Address:[address] [place] [address] Subjective: * Chief Complaints: * * Medical History: Objective: * Vitals: Assessment: Plan: * Treatment: * Billing Information: * Visit Code: * Procedure Codes: * Electronic signature of Liberty Willams MD on 01/06/2025 at 04:52 PM CDT Sign off status: Pending * Provider: Queenie WILLAMS M.D Date: 06/13/2023 Generated for Ashleyi ng/Fanan/eTransmitting on: 0 01/06/2025 04:52 PM CDT
--- OUTSIDE RECORDS SUMMARY | 2024-05-10 09:15 | XMS_ITS ---
Author Organization [facility] Address [address] [place] [address] Care Team Providers Care Environmental Issues Instructor Name Role Phone Agapito Faiza Unavailable [phone] Social History Sex Assigned At : Social History Observation Description Sex Assigned At Female Encounters Encounter Location Date Provider Diagnosis [place] [facility] [address] [facility] [address] [place] [address] 05/10/2024 Faiza Willams Plan Of Treatment Next Appt Details Provider Name:Faiza ordoñez, 02/14/2025 02:30:00 PM, [address], [place], [address], Progress Notes * MARIO CURTISB:1945 ( 79 yo F)Acc No.[id number]:05/10/2024 Progress Notes Patient: MARGIE CAMPOS Provider: Queenie WILLAMS M.D :1945 A ge:79 Y S ex:Female Date:05/10/2024 Address:[address] [place] [address] Subjective: * Chief Complaints: * * Medical History: Objective: * Vitals: Assessment: Plan: * Treatment: * Billing Information: * Visit Code: * Procedure Codes: * Electronic signature of Liberty Willams MD on 01/06/2025 at 04:53 PM CDT Sign off status: Pending * Provider: Queenie WILLAMS M.D Date: 05/10/2024 Generated for Ashleyi louis/Fanan/eTransmitting on: 0 01/06/2025 04:53 PM CDT
--- OUTSIDE RECORDS SUMMARY | 2024-06-14 09:15 | XMS_ITS ---
Author Organization [facility] Address [address] [place] [address] Care Team Providers Care Billboard Poster Helper Name Role Phone Faiza Willams Unavailable [phone] REASON FOR VISIT pt needs phone call Social History Sex Assigned At : Social History Observation Description Sex Assigned At Female Encounters Encounter Location Date Provider Diagnosis [place] [facility] [address] [facility] [address] [place] [address] 06/14/2024 Faiza Willams Plan Of Treatment Next Appt Details Provider Name:Faiza ordoñez, 02/14/2025 02:30:00 PM, [address], [place], [address], Progress Notes * MARIO CURTISB:1945 ( 79 yo F)Acc No.[id number]:06/14/2024 Progress Notes Patient: MARGIE CAMPOS Provider: Queenie WILLAMS M.D :1945 A ge:79 Y S ex:Female Date:06/14/2024 Address:[address] [place] [address] Subjective: * Chief Complaints: * 1 . Pt needs phone call. * Medical History: Objective: * Vitals: Assessment: Plan: * Treatment: * Billing Information: * Visit Code: * Procedure Codes: * Electronic signature of Liberty Willams MD on 01/06/2025 at 04:52 PM CDT Sign off status: Pending * Provider: Queenie WILLAMS M.D Date: 0 06/14/2024 Generated for Nadira myers/Rosalind/eTransmitting on: 0 01/06/2025 04:52 PM CDT
--- OUTSIDE RECORDS SUMMARY | 2024-08-16 10:45 | XMS_ITS ---
Author Organization [facility] Address [address] [place] [address] Care Team Providers Care Evp Managing Director Name Role Phone Agapito Faiza Unavailable [phone] Social History Sex Assigned At : Social History Observation Description Sex Assigned At Female Problems Problem Type SNOMED Code ICD Code Onset Dates Problem Status W/U Status Risk Notes Problem Hyperuricemia without signs of inflammatory arthritis and tophaceous disease (596337164) Hyperuricemia without signs of inflammatory arthritis and tophaceous disease (E79.0) Active confirmed Problem Pyuria (2656772) Pyuria (R82.81) Active confirm ed Encounters Encounter Location Date Provider Diagnosis [facility] [place] [facility] [address] [place] [address] 08/16/2024 Faiza Willams Chronic kidney disease, stage 3a N18.31 ; Hypokalemia E87.6 ; Hyperuricemia without signs of inflammatory arthritis and tophaceous disease E79.0 and Pyuria R82.81 Assessments Encounter Date Diagnosis (ICD Code) Assessment Notes Treatment Notes Treatment Clinical Notes Section Notes 08/16/2024 Chronic kidney disease, stage 3a (ICD-10 - N18.31) 08/16/2024 Hypokalemia (ICD-10 - E87.6) 08/16/2024 Hyperuricemia without signs of inflammatory arthritis and tophaceous disease (ICD-10 - E79.0) 08/16/2024 Pyuria (ICD-10 - R82.81) Plan Of Treatment Next Appt Details Provider Name:Faiza ordoñez, 02/14/2025 02:30:00 PM, [address], [place], [address], Progress Notes * MARIO CURTISB:1945 ( 79 yo F)Acc No.[id number]:08/16/2024 Progress Notes Patient: MARGIE CAMPOS Provider: Queenie WILLAMS M.D :1945 A ge:79 Y S ex:Female Date:08/16/2024 Address:[address] [place] [address] Subjective: * Chief Complaints: * * Medical History: Objective: * Vitals: Assessment: * Assessment: 1. C hronic kidney disease, stage 3a - N18.31 (Primary) 2 . H ypokalemia - E87.6 3 . H yperuricemia without signs of inflammatory arthritis and tophaceous disease - E79.0 4 . P yuria - R82.81 Plan: * Treatment: * Billing Information: * Visit Code: 44999 Office Visit, Est Pt., Level 3. * Procedure Codes: * Electronic signature of Liberty Willams MD on 01/06/2025 at 04:53 PM CDT Sign off status: Pending * Provider: Queenie WILLAMS M.D Date: 0 08/16/2024 Generated for Nadira myers/Rosalind/Kristen on: 0 01/06/2025 04:53 PM CDT
--- NOTE | ~2025-01-06 | CT_ITS ---
EXAMINATION: CT cervical spine wo con COMPARISON: None HISTORY: fall on blood thinners TECHNIQUE: Axial images were obtained through the spine without IV contrast. Coronal, sagittal reconstruction images were obtained from the axial views. CT scan performed using dose optimization techniques including the following automated exposure control; adjustment of mA and/or kV; use of iterative reconstruction technique. Automatic exposure control was used to reduce radiation dose. Permanent radiation dose record is archived to PACS. FINDINGS: Grade 1 anterolisthesis C6 on C7, no fracture. Moderate loss of disc height at C4-5 C5-6 with moderate canal and foraminal stenosis. Soft tissues unremarkable. The lung apices demonstrate chronic changes with a spiculated density in the left upper lobe measuring 1.1 x 1 cm incompletely evaluated, dedicated chest CT is recommended. Impression: 1. No acute fracture. Spiculated left lung lesion. CT chest recommended Reviewed, dictated and finalized at location A. Impression: 1. No acute fracture. Spiculated left lung lesion. CT chest recommended
--- NOTE | ~2025-01-06 | CT_ITS ---
EXAMINATION: CT brain wo con, 01/06/2025 17:40 CDT HISTORY: fall on blood thinners COMPARISON: 01/06/2025. Technique: Axial images obtained of the brain without contrast. One or more of the following dose reduction techniques were used: automated exposure control, adjustment of the mA and/or kV according to patient size, use of iterative reconstruction technique. Findings: No acute infarct or parenchymal hemorrhage. No abnormal mass or mass effect. No midline shift. No extra-axial fluid collections. No hydrocephalus. Mastoid air cells unremarkable. Sinuses and orbits unremarkable. No acute fracture. There are lytic lesions identified bilaterally predominantly involving the vertex of the skull 2.5 x 2 cm concerning for metastatic disease. These appear relatively unchanged compared to the previous study. Comparison bone scan suggested to further assess. No significant facial or scalp soft tissue swelling evident. No radiopaque foreign body is seen. Impression: 1.No acute intracranial abnormality. Osseous Metastasis detailed above Reviewed, dictated and finalized at location A. Impression: 1.No acute intracranial abnormality. Osseous Metastasis detailed above
[2025-01-06 16:08] VITALS: BP 105/56; PULSE 75; RESP 16; TEMP 36.5; O2SAT 90
--- OUTSIDE RECORDS SUMMARY | 2025-01-06 16:53 | XMS_ITS | Patient Health Record ---
Author Organization [facility] Address [address] [place] [address] Care Team Providers Care Dust Mill Operator Name Role Phone Tre Coto Primary Care Provider [phone] Reason For Referral No Information Medications Medication [...] Status W/U Status Risk Notes Problem Anxiety (97815700) Anxiety (F41.9) Active confi rmed Problem Depressive disorder (disorder) (14426846) Depression, unspecified depression type (F32.9) Active confirmed Problem Hypothyroidism (75820805) Hypothyroidism, unspecified type (E03.9) Active confirmed Problem COPD - Chronic obstructive pulmonary disease (36492059) Chronic obstructive pulmonary disease, unspecified COPD type (J44.9) Active confirmed Plan Of Treatment No Information Insurance Providers Payer Name Payer Address Payer Phone Subscriber Number Group Number Insured Name Patient Relationship to Insured Coverage Start Date Coverage End Date AARP Medicare Complete [address] [address] [place] [address] [phone] [id number] [address] Self - patient is the insured 7 Medical (General) History Medical History History ICD Code COPD depression anxiety hypothyroidism Surgical History Surgery Date(Month/Year) hystorectomy bladder tied up appendectomy
--- OUTSIDE RECORDS SUMMARY | 2025-01-06 16:53 | XMS_ITS | Patient Health Record ---
Author Organization [facility] Address [address] [place] [address] Care Team Providers Care Shoe Cutter Name Role Phone Faiza Altman Unavailable [phone] Reason For Referral No Information Medications Medication [...] Status W/U Status Risk Notes Problem Hypothyroidism (60005784) Hypothyroidism, unspecified (E03.9) Active confirmed Problem Hypoparathyroidism (60905549) Hypoparathyroidi sm, unspecified (E20.9) Active confirmed Problem Secondary hyperparathyroidism (76024496) Secondary hyperparathyroid ism, not elsewhere classified (E21.1) Active confirmed Problem Hyperlipidemia (81856528) Hyperlipidemia, unspecified (E78.5) Active confirmed Problem Hyperuricemia withou t signs of inflammatory arthritis and tophaceous disease (160156370) Hyperuricemia without signs of inflammatory arthritis and tophaceous disease (E79.0) Active confirmed Problem Hypokalemia (95619229) Hypokalemia (E87.6) Active confirmed Problem Anxiety disorder (907498414) Anxiety disorder, unspecified (F41.9) Active confirmed Problem Renal osteodystrophy (26866404) Renal osteodystrophy (N25.0) Active confirmed Problem Pyuria (4661374) Pyuria (R82.81) Active confirm ed Problem Chronic kidney disease stage 3A (disorder) (844919691) Chronic kidney disease, stage 3a (N18.31) Active confirmed Problem Chronic kidney disease stage 3B (disorder) (314910150) Chronic kidney disease, stage 3b (N18.32) Active confirmed Encounters Encounter Location Date Provider Diagnosis [place] [facility] [address] [facility] [address] [place] [address] 01/12/2024 Faiza Altman Chronic kidney disease, stage 3b N18.32 ; Hypokalemia E87.6 ; Hypoparathyroidism, unspecified E20.9 and Anxiety disorder, unspecified F41.9 [facility] [place] [facility] [address] [place] [address] 08/16/2024 Faiza Agapito Chronic kidney disease, stage 3a N18.31 ; Hypokalemia E87.6 ; Hyperuricemia without signs of inflammatory arthritis and tophaceous disease E79.0 and Pyuria R82.81 [facility] [place] [facility] [address] [place] [address] 08/18/2024 Faiza Altman Assessments Encounter Date Diagnosis [...] 02:30:00 PM, [address], [place], [address],
[2025-01-06 18:21] VITALS: BP 136/97; PULSE 103; O2SAT 95
--- NOTE | 2025-01-06 18:22 | ECG_ITS ---
Test Date: 2025-01-06 18:52:18 Measurements Intervals [place] Rate: 89 P: 0 NV: 0 QRS: 21 QRSD: 94 T: 8 QT: 335 QTc: 409 Interpretive Statements ATRIAL FIBRILLATION NONSPECIFIC ST & T-WAVE ABNORMALITY ABNORMAL RHYTHM ECG Compared to ECG 11/10/2024 15:19:31 Sinus rhythm no longer present T-wave abnormality still present Electronically Signed On 01-07-2025 15:17:25 CDT by Jeff Carreno M.D.
--- NOTE | 2025-01-06 18:23 | ED.HEATRA ---
HPI - Head Injury General Chief complaint: Head Injury Stated complaint: head injury Time Seen by Provider: 01/06/25 18:11 History of Present Illness HPI Narrative: This is a 79-year-old female with history of AFib on Eliquis, COPD, CKD presents the ED for straight to head. Patient states that 2 days ago, she became a little dizzy while in the bathroom and hit her head against a kitchen cabinet. She denies falling. She states she has been having headaches since then but has not had any dizziness since then. Denies changes in vision, numbness, tingling, changes in vision. Related Data Home Medications ?Medication ?Instructions ?Recorded ?Confirmed ?Last Taken ?Type albuterol sulfate 90 mcg/actuation 2 inh inhalation PRN PRN Shortness 09/27/21 11/02/24 11/01/24 History aerosol inhaler Of Breath Or Wheezing diltiazem HCl 120 mg 120 mg PO HS 09/27/21 11/02/24 11/01/24 History capsule,extended release 24 hr duloxetine 30 mg capsule,delayed 60 mg PO DAILY 09/27/21 11/02/24 11/01/24 History release ergocalciferol (vitamin D2) 1,250 1,250 mcg PO WEEKLY 09/27/21 11/02/24 11/01/24 History mcg (50,000 unit) capsule famotidine 20 mg tablet 20 tablet PO DAILY 09/27/21 11/02/24 11/01/24 History furosemide 40 mg tablet 40 tablet PO DAILY 09/27/21 11/02/24 11/01/24 History levothyroxine 100 mcg tablet 125 mcg PO DAILY 09/27/21 11/02/24 11/01/24 History montelukast 10 mg tablet 10 tablet PO DAILY 09/27/21 11/02/24 11/01/24 History alprazolam 0.25 mg tablet 0.25 mg PO TID 11/02/24 11/02/24 11/01/24 History apixaban 5 mg tablet (Eliquis) 5 mg PO Q12H 11/02/24 11/02/24 11/01/24 History atorvastatin 40 mg tablet 40 mg PO DAILY 11/02/24 11/02/24 11/01/24 History potassium chloride 10 mEq 10 meq PO EVERY OTHER DAY 0711/02/24 11/01/24 History tablet,extended release Allergies Allergy/AdvReac Type Severity Reaction Status Date / Time No Known Allergies Allergy Verified 01/06/25 16:12 Review of Systems Review of Systems: Gen.: Denies fevers or chills Eyes: Denies eye pain or visual change ENT: Denies congestion Respiratory: Denies shortness of breath or cough CV: Denies chest pain or palpitations GI: Denies abdominal pain nausea, emesis or diarrhea denies burning, urgency, frequency or hematuria Musculoskeletal: Denies back pain or muscle pain Neuro: Denies numbness, tingling, weakness or focal weakness Skin: Denies rash Except as documented, all other systems reviewed and negative [facility] Past Medical History Medical History (Updated 01/06/25 @ 19:46 by Clemente Quinones MD) Hepatic steatosis Closed wedge compression fracture of T12 vertebra (2021) Chronic respiratory failure with hypoxia Chronic kidney disease Stage IIIB baseline creatinine 1.3-1 point 4 5 Depression Hypothyroidism COPD (chronic obstructive pulmonary disease) Surgical History Surgical History (Updated 11/03/24 @ 03:50 by Jolie Napier DO) Status post cataract extraction of both eyes with insertion of intraocular lens History of hysterectomy History of appendectomy Social History Social History (Updated 11/03/24 @ 03:49 by Jolie Napier DO) Social History: Lives in apartment by herself. She was twice. She had 4 children 1 of her children is due to accident. She reports that her other children are healthy. She used to smoke 1.5 packs cigarettes per day. She smoked from the time she was a teenager until age 69. Code status: Full code (?as long as there is a chance) His surrogate decision maker: Lexii Clements (sister) Smoking packs per day: 1.5 Smoking cigarettes per day: 30.0 Years smoked: 50 Smoking pack-years: 75.00 Smoking status: Former smoker Tobacco type: cigarettes and cigars Second hand tobacco smoke exposure: No Additional smoking assessment comments: 2014 Alcohol intake: former Alcohol use details: She used to drink moderate to heavy amount of alcohol but quit over 20 years ago. Substance use: former Do You Feel Safe in your Home?: Yes Lack of Transportation: No Lack of Food: Never True Current Housing: I Have Housing Concerned About Future Housing: No Difficulty Paying Gas/Electric Bills: No Difficulty Paying for Meds: No Currently Unemployed: No Education: Decline to Answer Difficulty w/ Childcare or Family Care: No Living arrangements: alone Spiritual care concerns: No Exam Narrative: APPEARANCE: No acute distress, nontoxic, resting in bed EYES: EOMI HEENT: Normocephalic, small hematoma to the right occiput. Mild tenderness to palpation to the right frontal scalp. RESPIRATORY: No respiratory distress Clear to auscultation bilaterally with no rhonchi wheezing or rales. CARDIOVASCULAR: irregularly irregular without murmurs rubs or gallops. ABDOMINAL: Soft, nontender, nondistended, no rebound or guarding MUSCULOSKELETAl: Moves all extremities. No clubbing, cyanosis or edema. NEURO: Awake and alert. Following commands, speech normal, no focal deficits SKIN:: Warm, dry. No rashes lesions or abrasions PSYCHIATRIC: Normal affect/mood, Course Vital Signs Vital signs: Vital Signs Temperature 97.7 F 01/06/25 16:08 Pulse Rate 75 01/06/25 16:08 Respiratory Rate 16 01/06/25 16:08 Blood Pressure 105/56 L 01/06/25 16:08 Pulse Oximetry 90 01/06/25 16:08 Oxygen Delivery Room Air 01/06/25 16:08 Temperature 97.7 F 01/06/25 16:08 Pulse Rate 93 01/06/25 20:02 Respiratory Rate 16 01/06/25 20:02 Blood Pressure 130/89 01/06/25 20:02 Pulse Oximetry 97 01/06/25 20:02 Oxygen Delivery Nasal Cannula 01/06/25 18:21 Oxygen Flow Rate 1 01/06/25 18:21 MDM - Head Injury MDM Narrative Medical decision making narrative: 79-year-old female who presented to the ED for a to with a right-sided headache. On initial evaluation patient was in no acute distress afebrile, hemodynamically stable. She was on her baseline oxygen. She had mild tenderness palpation the right frontal scalp and a small hematoma to her right occiput. She had a nonfocal neuro exam. CT head and C-spine showed no acute process. Patient was able to ambulate to the department is baseline. She was deemed for discharge this time. She was advised to follow-up with her PCP in the next week for evaluation. Patient was agreeable to this plan. Given strict return precautions. Differential Diagnosis Differential diagnosis: Likely concussion without loss of consciousness, closed head injury, subarachnoid hematoma, postconcussion syndrome and subdural hematoma Medical Records Attestation: I reviewed the patient's medical records. Imaging Data Attestation: I personally reviewed and interpreted this imaging study as follows: (I reviewed the radiologist's interpretation) Radiologist's impression: Impressions Head CT 01/06/25 17:54 Impression: 1.No acute intracranial abnormality. Osseous Metastasis detailed above Cervical Spine CT 01/06/25 17:56 Impression: 1. No acute fracture. Spiculated left lung lesion. CT chest recommended ECG Data EKG #1: ECG completion date: 01/06/25 ECG completion time: 18:52 Interpretation: AFib rate of 89, normal axis, nonspecific T-wave change, no acute ST wave changes. Discharge Plan Discharge Clinical Impression: Fall Qualifiers: Encounter type: initial encounter Qualified Code(s): W19.XXXA - Unspecified fall, initial encounter CHI (closed head injury) Qualifiers: Encounter type: initial encounter Qualified Code(s): S09.90XA - Unspecified injury of head, initial encounter Patient Disposition: Home Condition: Stable Instructions: Antibiotic Form, Head Injury (ED) Additional Instructions: Follow-up with your PCP in the next week for re-evaluation. Return to the ED for any new or worsening symptoms. Patient Language: Maltese Prescriptions: No Action potassium chloride 10 mEq tablet extended release 10 meq PO EVERY OTHER DAY alprazolam 0.25 mg tablet 0.25 mg PO TID Eliquis 5 mg tablet 5 mg PO Q12H atorvastatin 40 mg tablet 40 mg PO DAILY oxycodone 5 mg tablet 5 mg PO Q6H PRN (Reason: pain) Qty: 20 0RF alprazolam 0.25 mg Tablet 0.25 mg PO TID Qty: 20 0RF furosemide 40 mg tablet 40 tablet PO DAILY levothyroxine 100 mcg tablet 125 mcg PO DAILY famotidine 20 mg tablet 20 tablet PO DAILY diltiazem HCl 120 mg capsule,extended release 24hr 120 mg PO HS montelukast 10 mg tablet 10 tablet PO DAILY ergocalciferol (vitamin D2) 1,250 mcg (50,000 unit) capsule 1,250 mcg PO WEEKLY albuterol sulfate 90 mcg/actuation HFA aerosol inhaler 2 inh INHALATION PRN PRN (Reason: Shortness Of Breath Or Wheezing) duloxetine 30 mg capsule,delayed release(DR/EC) 60 mg PO DAILY prednisone 20 mg tablet 40 mg PO DAILY 4 Days Qty: 8 0RF albuterol sulfate 90 mcg/actuation HFA aerosol inhaler 2 puff inhalation QID PRN (Reason: shortness of breath or wheezing) Qty: 8.5 0RF ipratropium-albuterol 0.5 mg-3 mg(2.5 mg base)/3 mL solution for nebulization 3 ml inhalation Q4H PRN (Reason: shortness of breath or wheezing) Qty: 180 0RF (DME) nebulizers [Compact Compressor Nebulizer] Misc See Rx Instructions .Route Qty: 1 0RF Rx Instructions: As directed pantoprazole 40 mg tablet,delayed release (DR/EC) 40 mg PO HS 28 Days Qty: 28 0RF Follow-up/Referrals: Sebas,MD Saji [Primary Care Provider, Unknown]
--- NOTE | 2025-01-06 19:23 | PC.NURSE ---
BSSR received from Onelia RN at this time. Pt ambulating with windows migration technician at this time.
[2025-01-06 20:02] VITALS: BP 130/89; PULSE 93; RESP 16; O2SAT 97
== END 2025-01-06 20:04 | disposition home or self-care (01) ==
PROVIDERS: Emergency Provider Student in an Organized Health Care Education/Training Program; PCP Internal Medicine
DX: S09.90XA Unspecified injury of head, initial encounter (principal); N18.32 Chronic kidney disease, stage 3b; E03.9 Hypothyroidism, unspecified; J44.9 Chronic obstructive pulmonary disease, unspecified; Z87.891 Personal history of nicotine dependence; W19.XXXA Unspecified fall, initial encounter
CPT/HCPCS: 70450; 72125; 93005; 99284

== ENCOUNTER 2025-02-01 02:57 | Inpatient (IN) | payer MEDICARE, SELFPAY ==
--- OUTSIDE RECORDS SUMMARY | 2024-01-12 10:00 | XMS_ITS ---
Author Organization [facility] Office Address [address] [place] [address] Care Team Providers Care Planner Chief Name Role Phone Faiza Willams Unavailable [phone] Social History Sex Assigned At : Social History Observation Description Sex Assigned At Female Problems Problem Type SNOMED Code ICD Code Onset Dates Problem Status W/U Status Risk Notes Problem Chronic kidney disease stage 3B (disorder) (658387547) Chronic kidney disease, stage 3b (N18.32) Active confirmed Problem Hypokalemia (82535668) Hypokalemia (E87.6) Active confirmed Problem Hypoparathyroidism (96687592) Hypoparathyroi dism, unspecified (E20.9) Active confirmed Problem Anxiety disorder (560638235) Anxiety disorder, unspecified (F41.9) Active confirmed Encounters Encounter Location Date Provider Diagnosis [place] Office [address] [facility] [address] [place] [address] 01/12/2024 Faiza Willams Chronic kidney disease, stage [...] 02:30:00 PM, [address], [place], [address], Progress Notes * EVITA CURTISADOB:1945 ( 80 yo F)Acc No.[id number]:01/12/2024 Progress Notes Patient: MARGIE CAMPOS Provider: Queenie WILLAMS M.D :1945 A ge:79 Y S ex:Female Date:01/12/2024 Address:[address] [place] [address] Subjective: * Chief Complaints: * * Medical History: Objective: * Vitals: Assessment: * Assessment: 1. C hronic kidney disease, stage 3b - N18.32 (Primary) 2 . H ypokalemia - E87.6 3 . H ypoparathyroidism, unspecified - E20.9 4 . A nxiety disorder, unspecified - F41.9 Plan: * Treatment: * Billing Information: * Visit Code: 97243 Office Visit, Est Pt., Level 3. * Procedure Codes: * Electronic signature of Liberty Willams MD on 02/01/2025 at 03:18 AM CDT Sign off status: Pending * Provider: Queenie WILLAMS M.D Date: 0 01/12/2024 Generated for Nadira myers/Rosalind/Kristen on: 1 03:18 AM CDT
--- OUTSIDE RECORDS SUMMARY | 2024-04-12 10:30 | XMS_ITS ---
Author Organization [facility] Address [address] [place] [address] Care Team Providers Care Air Pollution Control Engineer Name Role Phone Agapito Faiza Unavailable [phone] Social History Sex Assigned At : Social History Observation Description Sex Assigned At Female Encounters Encounter Location Date Provider Diagnosis [place] Office [address] [facility] [address] [place] [address] 04/12/2024 Faiza Willams Plan Of Treatment Next Appt Details Provider Name:Faiza ordoñez, 02/14/2025 02:30:00 PM, [address], [place], [address], Progress Notes * MARIO CURTISB:1945 ( 80 yo F)Acc No.[id number]:04/12/2024 Progress Notes Patient: MARGIE CAMPOS Provider: Queenie WILLAMS M.D :1945 A ge:79 Y S ex:Female Date:04/12/2024 Address:[address] [place] [address] Subjective: * Chief Complaints: * * Medical History: Objective: * Vitals: Assessment: Plan: * Treatment: * Billing Information: * Visit Code: * Procedure Codes: * Electronic signature of Liberty Willams MD on 02/01/2025 at 03:18 AM CDT Sign off status: Pending * Provider: Queenie WILLAMS M.D Date: 06/13/2023 Generated for Nadira myers/Rosailnd/eTransmlos on: 03:18 AM CDT
--- OUTSIDE RECORDS SUMMARY | 2024-05-10 09:15 | XMS_ITS ---
Author Organization [facility] Address [address] [place] [address] Care Team Providers Care Analysis Engineer Name Role Phone Agapito Faiza Unavailable [phone] Social History Sex Assigned At : Social History Observation Description Sex Assigned At Female Encounters Encounter Location Date Provider Diagnosis [place] [facility] [address] [facility] 15 [place] [address] 05/10/2024 Faiza Willams Plan Of Treatment Next Appt Details Provider Name:Faiza ordoñez, 02/14/2025 02:30:00 PM, [address], [address], [place], [address], Progress Notes * MARIO CURTISB:1945 ( 80 yo F)Acc No.[id number]:05/10/2024 Progress Notes Patient: MARGIE CAMPOS Provider: Queenie WILLAMS M.D :1945 A ge:79 Y S ex:Female Date:05/10/2024 Address:[address] [place] [address] Subjective: * Chief Complaints: * * Medical History: Objective: * Vitals: Assessment: Plan: * Treatment: * Billing Information: * Visit Code: * Procedure Codes: * Electronic signature of Liberty Willams MD on 02/01/2025 at 03:19 AM CDT Sign off status: Pending * Provider: Queenie WILLAMS M.D Date: 0 05/10/2024 Generated for Ndaira myers/Rosalind/eTransmlos on: 03:19 AM CDT
--- OUTSIDE RECORDS SUMMARY | 2024-06-14 09:15 | XMS_ITS ---
Author Organization [facility] Address [address] [place] [address] Care Team Providers Care Scenic Arts Supervisor Name Role Phone Faiza Willams Unavailable [phone] REASON FOR VISIT pt needs phone call Social History Sex Assigned At : Social History Observation Description Sex Assigned At Female Encounters Encounter Location Date Provider Diagnosis [place] [facility] [address] [facility] [address] [phone] 06/14/2024 Faiza Willams Plan Of Treatment Next Appt Details Provider Name:Faiza ordoñez, 02/14/2025 02:30:00 PM, [address], [place], [address], Progress Notes * MARIO CURTISB:1945 ( 80 yo F)Acc No.[id number]:06/14/2024 Progress Notes Patient: MARGIE CAMPOS Provider: Queenie WILLAMS M.D :1945 A ge:79 Y S ex:Female Date:06/14/2024 Address:[address] [place] [address] Subjective: * Chief Complaints: * 1 . Pt needs phone call. * Medical History: Objective: * Vitals: Assessment: Plan: * Treatment: * Billing Information: * Visit Code: * Procedure Codes: * Electronic signature of Liberty Willams MD on 02/01/2025 at 03:18 AM CDT Sign off status: Pending * Provider: Queenie WILLAMS M.D Date: 0 06/14/2024 Generated for Nadira myers/Rosalind/eTransmitting on: 1 03:18 AM CDT
--- OUTSIDE RECORDS SUMMARY | 2024-08-16 10:45 | XMS_ITS ---
Author Organization [facility] Address [address] [place] [address] Care Team Providers Care Water Leak Repairer Name Role Phone Agapito Faiza Unavailable [phone] Social History Sex Assigned At : Social History Observation Description Sex Assigned At Female Problems Problem Type SNOMED Code ICD Code Onset Dates Problem Status W/U Status Risk Notes Problem Hyperuricemia without signs of inflammatory arthritis and tophaceous disease (726408077) Hyperuricemia without signs of inflammatory arthritis and tophaceous disease (E79.0) Active confirmed Problem Pyuria (6944388) Pyuria (R82.81) Active confirm ed Encounters Encounter Location Date Provider Diagnosis [facility] [place] [facility] [address] [place] [address] 08/16/2024 Faiza Willams Chronic kidney disease, stage [...] [address], [place], [address], Progress Notes * MARIO CURTISB:1945 ( 80 yo F)Acc No.[id number]:08/16/2024 Progress Notes Patient: MARGIE CAMPOS Provider: Queenie WILLAMS M.D :1945 A ge:79 Y S ex:Female Date:08/16/2024 Address:[address] [place] [address] Subjective: * Chief Complaints: * * Medical History: Objective: * Vitals: Assessment: * Assessment: 1. C hronic kidney disease, stage 3a - N18.31 (Primary) 2 . H ypokalemia - E87.6 3 . H yperuricemia without signs of inflammatory arthritis and tophaceous disease - E79.0 4 . P yuria - R82.81 Plan: * Treatment: * Billing Information: * Visit Code: 06010 Office Visit, Est Pt., Level 3. * Procedure Codes: * Electronic signature of Liberty Willams MD on 02/01/2025 at 03:19 AM CDT Sign off status: Pending * Provider: Queenie WILLAMS M.D Date: 0 08/16/2024 Generated for Nadira myers/Rosalind/Kristen on: 1 03:19 AM CDT
[2025-02-01] VITALS (33 sets, daily range): BP systolic 94–142; BP diastolic 52–79; PULSE 67–108; RESP 13–31; TEMP 36.3–37.1; O2SAT 82–100; BMI 30.6
--- NOTE | ~2025-02-01 | XR_ITS ---
Examination: XR chest 1V portable Clinical History: CHEST PAIN SOB Comparison: 11/10/2024 Technique: Portable AP Findings: Heart size normal. Right upper lobe mass as before. Small right middle lobe nodule. No acute bony abnormality. IMPRESSION: 1. No acute cardiopulmonary findings given portable technique. 2. Large mass right upper lobe as before. Reviewed, dictated and finalized at location R.
--- NOTE | ~2025-02-01 | CT_ITS ---
EXAMINATION: CTA chest PE protocol DATE: 02/01/2025 05:36 INDICATION: Chest pain. Shortness of breath. TECHNIQUE: Computed tomography angiography (CTA) of the chest was performed with 100 mL Omnipaque-350 intravenous contrast timed to evaluate the pulmonary arteries. Coronal maximum intensity projection 3D-reconstructions were created by the technologist. Automated exposure control and iterative reconstruction technique were employed. The dose-length product was 809.83 mGy-cm. COMPARISON: Chest CT 11/02/2024 FINDINGS: There is moderate emphysema. Calcified pulmonary nodules and calcified hilar and mediastinal lymph nodes are consistent with old granulomatous disease. There is a 5.0 x 3.9 cm mass in right lung upper lobe. There are a few scattered nodules in the lungs measuring up to 7 mm in left upper lobe. There is mild atelectasis bilaterally. There are chronic groundglass opacities in left upper lobe. No pleural effusion. Cardiomegaly is noted. There are coronary artery calcifications. No pericardial effusion. The central pulmonary arteries are enlarged, consistent with pulmonary arterial hypertension. There is no pulmonary embolus. There is right hilar lymphadenopathy measuring 2.0 x 3.2 cm. Calcif ications in the liver and spleen are consistent with old granulomatous disease. There are greater than 10 masses in the liver measuring up to 4.0 cm. 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 There is gallstones in the gallbladder, which is normal in size. There are chronic burst fractures of T8 and T12. There is a burst fracture of L1 with 2/5 loss of height and retropulsion of bone 3 mm into central spinal canal. IMPRESSION: 1. No pulmonary embolus. 2. Worsened right lung upper lobe mass, consistent with primary bronchogenic carcinoma. 3. Right hilar lymphadenopathy, lung nodules, and liver masses, consistent with worsened metastatic disease. 4. Subacute L1 burst fracture, worsened from 11/02/2024. 5. 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 Reviewed, dictated and finalized at location E. IMPRESSION: 1. No pulmonary embolus. 2. Worsened right lung upper lobe mass, consistent with primary bronchogenic ca rcinoma. 3. Right hilar lymphadenopathy, lung nodules, and liver masses, consistent with worsened metastatic disease. 4. Subacute L1 burst fracture, worsened from 11/02/2024. 5. 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
--- NOTE | ~2025-02-01 | US_ITS ---
EXAMINATION: US biopsy liver DATE: 02/02/2025 12:32 INDICATION: Liver lesions TECHNIQUE: The procedure including the risks and benefits was discussed with the patient. Risks discussed included bleeding and infection. The patient understood the risks and agreed to proceed. The skin overlying the liver via subxiphoid approach was prepped and draped in usual sterile fashion. Anesthetic was administered with 1% lidocaine subcutaneously. An 18 gauge core biopsy needle was advanced under continuous ultrasound observation to the lesion of interest. 3 core biopsy specimens were obtained. The needle was removed and the entry site was cleaned and dressed. Post procedure ultrasound demonstrated no hemorrhage. FINDINGS: Ultrasound images demonstrate biopsy needles at thinning through a 1.8 cm hypoechoic liver nodule. IMPRESSION: 1. Successful Ultrasound-guided biopsy of a 1.8 cm hypoechoic hepatic nodules suspicious for metastatic disease. Reviewed, dictated and finalized at location A. IMPRESSION: 1. Successful Ultrasound-guided biopsy of a 1.8 cm hypoechoic hepatic nodules s uspicious for metastatic disease.
--- NOTE | 2025-02-01 03:06 | ECG_ITS ---
Test Date: 2025-02-01 03:27:37 Measurements Intervals [place] Rate: 77 P: 0 IA: 0 QRS: 26 QRSD: 87 T: 28 QT: 376 QTc: 428 Interpretive Statements ATRIAL FIBRILLATION ST-T WAVE ABNORMALITY IN ANTEROLATERAL LEADS- CONSIDER ISCHEMIA BASELINE ARTIFACT- I, II, III, AVR, AVL, AVF ABNORMAL ECG Compared to ECG 01/06/2025 18:52:18 Possible ischemia now present Electronically Signed On 02-01-2025 06:15:51 CDT by Arik Boykin D.O.
--- OUTSIDE RECORDS SUMMARY | 2025-02-01 03:19 | XMS_ITS | Patient Health Record ---
Author Organization [facility] Address [address] [place] [address] Care Team Providers Care Press Reader Name Role Phone Tre Coto Primary Care [...] Status W/U Status Risk Notes Problem Anxiety (59362240) Anxiety (F41.9) Active confi rmed Problem Depressive disorder (disorder) (17349587) Depression, unspecified depression type (F32.9) Active confirmed Problem Hypothyroidism (50870317) Hypothyroidism, unspecified type (E03.9) Active confirmed Problem COPD - Chronic obstructive pulmonary disease (26786111) Chronic obstructive pulmonary disease, unspecified COPD type (J44.9) Active confirmed Plan Of Treatment No Information Insurance Providers Payer Name Payer Address Payer Phone Subscriber Number Group Number Insured Name Patient Relationship to Insured Coverage Start Date Coverage End Date AARP Medicare Complete [address] [address] [place] [address] [phone] [id number] [address] Self - patient is the insured 7 Medical (General) History Medical History History ICD Code COPD depression anxiety hypothyroidism Surgical History Surgery Date(Month/Year) hystorectomy bladder tied up appendectomy
--- OUTSIDE RECORDS SUMMARY | 2025-02-01 03:19 | XMS_ITS | Patient Health Record ---
Author Organization [facility] Address [address] [place] [address] Care Team Providers Care Lumber Handler Name Role Phone Faiza Altman Unavailable [phone] Reason For Referral No Information Medications Medication [...] Status W/U Status Risk Notes Problem Hypothyroidism (19113688) Hypothyroidism, unspecified (E03.9) Active confirmed Problem Hypoparathyroidism (87490787) Hypoparathyroidi sm, unspecified (E20.9) Active confirmed Problem Secondary hyperparathyroidism (33106417) Secondary hyperparathyroid ism, not elsewhere classified (E21.1) Active confirmed Problem Hyperlipidemia (00714065) Hyperlipidemia, unspecified (E78.5) Active confirmed Problem Hyperuricemia withou t signs of inflammatory arthritis and tophaceous disease (054161699) Hyperuricemia without signs of inflammatory arthritis and tophaceous disease (E79.0) Active confirmed Problem Hypokalemia (68699419) Hypokalemia (E87.6) Active confirmed Problem Anxiety disorder (307074916) Anxiety disorder, unspecified (F41.9) Active confirmed Problem Renal osteodystrophy (55915197) Renal osteodystrophy (N25.0) Active confirmed Problem Pyuria (1060224) Pyuria (R82.81) Active confirm ed Problem Chronic kidney disease stage 3A (disorder) (088137540) Chronic kidney disease, stage 3a (N18.31) Active confirmed Problem Chronic kidney disease stage 3B (disorder) (161520775) Chronic kidney disease, stage 3b (N18.32) Active confirmed Encounters Encounter Location Date Provider Diagnosis [facility] [place] [facility] [address] [place] [address] 08/16/2024 Faiza Altman Chronic kidney disease, stage 3a N18.31 ; Hypokalemia E87.6 ; Hyperuricemia without signs of inflammatory arthritis and tophaceous disease E79.0 and Pyuria R82.81 [facility] [place] [facility] [address] [place] [address] 08/18/2024 Faiza Altman Assessments Encounter Date Diagnosis [...] 02:30:00 PM, [address], [place], [address],
[2025-02-01 03:37] LABS: Hematocrit 38.5 % (37.0-47.0); Hemoglobin 12.4 g/dL (12.0-15.0); Immature Granulocyte Percent A 0.3 % (0-0.5); Lymphocytes Absolute Auto 1.41 K/mm3 (0.9-3.2); Mean Corpuscular HGB Conc 32.2 g/dl (32-36); Mean Corpuscular Hemoglobin 28.6 pg (26-34); Mean Corpuscular Volume 88.7 fl (80-100); Nucleated Red Blood Cells Absolute Auto 0.000 K/mm3 (0.0-0.012); Nucleated Red Blood Cells Perc 0.0 % (0.0-0.2); Platelet Count Result 246 k/mm3 (150-375); Red Blood Count 4.34 M/mm3 (4.2-5.4); White Blood Count 10.9 K/mm3 (4.5-10.0)
[2025-02-01 03:47] LABS: Alanine Aminotransferase 14 U/L (6-35); Albumin Level 4.0 g/dL (3.5-5.1); Alkaline Phosphatase 112 U/L (38-126); Anion Gap 9 mmol/L (4-12); Aspartate Amino Transferase 22 U/L (14-36); Bilirubin,Total 1.3 mg/dL (0.2-1.3); Blood Urea Nitrogen 18 mg/dL (7-17); Calcium 11.1 mg/dL (8.4-10.2); Carbon Dioxide 29 mmol/L (22-30); Chloride 96 mmol/L (98-107); Estimated CRCL calculation 32 ml/min; Estimated Glomerular Filt Rate 38; Glucose 109 mg/dL (65-110); Lipase 53 U/L (23-300); Potassium 3.6 mmol/L (3.4-5.0); Sodium 134 mmol/L (137-145); Total Protein 7.2 g/dL (6.3-8.2)
[2025-02-01 03:52] LABS: INR 1.4; Partial Thromboplastin Time 35.0 Seconds (22.3-36.8); Prothrombin Time 17.6 Seconds (11.1-14.7)
[2025-02-01 03:59] LABS: Troponin I 0.030 ng/mL (0.000-0.034)
[2025-02-01 04:13] LABS: Influenza A QL RT-PCR Negative (Negative); Influenza B QL RT-PCR Negative (Negative); RSV RNA, RT-PCR Negative (Negative); SARS-CoV-2 RNA PCR Negative (Negative)
[2025-02-01 04:46] LABS: NT Pro B Type Natriuretic Pept 2190 pg/mL (19.9-100)
--- NOTE | 2025-02-01 05:02 | ED.GENADULT ---
HPI - General Adult General Chief complaint: Chest Pain Stated complaint: CHEST PAIN/SOB Time Seen by Provider: 02/01/25 03:05 History of Present Illness HPI narrative: Patient 80-year-old female who presents emergency department with chief complaint of chest discomfort. The patient reports she does history of a showed history of reflux and reports that she has had a prior cardiac catheterization but no stents placed in her heart patient states that she has a burning and aching in her chest patient reports that she normally uses 2 L nasal cannula but has required additional oxygen patient was in the 80s on her normal 2 L upon initial presentation. Related Data Home Medications ?Medication ?Instructions ?Recorded ?Confirmed ?Last Taken ?Type diltiazem HCl 120 mg 120 mg PO HS 09/27/21 02/01/25 01/31/25 History capsule,extended release 24 hr duloxetine 30 mg capsule,delayed 60 mg PO DAILY 09/27/21 02/01/25 01/31/25 History release ergocalciferol (vitamin D2) 1,250 1,250 mcg PO WEEKLY 09/27/21 02/01/25 11/01/24 History mcg (50,000 unit) capsule famotidine 20 mg tablet 20 mg PO Q12H 09/27/21 02/01/25 01/31/25 History furosemide 40 mg tablet 40 tablet PO DAILY 09/27/21 02/01/25 01/31/25 History levothyroxine 100 mcg tablet 125 mcg PO DAILY 09/27/21 02/01/25 02/01/25 History alprazolam 0.25 mg tablet 0.25 mg PO TID 11/02/24 02/01/25 01/31/25 History apixaban 5 mg tablet (Eliquis) 5 mg PO Q12H 11/02/24 02/01/25 01/31/25 History atorvastatin 40 mg tablet 40 mg PO DAILY 11/02/24 02/01/25 01/31/25 History potassium chloride 10 mEq 10 meq PO EVERY OTHER DAY 11/02/24 02/01/25 01/29/25 History tablet,extended release amoxicillin 875 mg-potassium 1 tablet PO Q12H 02/01/25 02/01/25 01/31/25 History clavulanate 125 mg tablet Allergies Allergy/AdvReac Type Severity Reaction Status Date / Time No Known Allergies Allergy Verified 01/06/25 16:12 Review of Systems Review of Systems: A 10 system review of systems was completed on the patient and is negative except for what is stated in the HPI. Nursing and ancillary documentation was reviewed. [facility] Past Medical History Medical History Hepatic steatosis Closed wedge compression fracture of T12 vertebra (2021) Chronic respiratory failure with hypoxia Chronic kidney disease Stage IIIB baseline creatinine 1.3-1 point 4 5 Depression Hypothyroidism COPD (chronic obstructive pulmonary disease) Surgical History Surgical History Status post cataract extraction of both eyes with insertion of intraocular lens History of hysterectomy History of appendectomy Social History Social History Social History: Lives in apartment by herself. She was twice. She had 4 children 1 of her children is due to accident. She reports that her other children are healthy. She used to smoke 1.5 packs cigarettes per day. She smoked from the time she was a teenager until age 69. Code status: Full code (?as long as there is a chance) His surrogate decision maker: Lexii Clements (sister) Smoking packs per day: 1.5 Smoking cigarettes per day: 30.0 Years smoked: 50 Smoking pack-years: 75.00 Smoking status: Former smoker Tobacco type: cigarettes and cigars Second hand tobacco smoke exposure: No Additional smoking assessment comments: 2014 Alcohol intake: former Alcohol use details: She used to drink moderate to heavy amount of alcohol but quit over 20 years ago. Substance use: never Do You Feel Safe in your Home?: Yes Lack of Transportation: YES Lack of Food: Never True Current Housing: I Have Housing Concerned About Future Housing: No Difficulty Paying Gas/Electric Bills: No Difficulty Paying for Meds: No Currently Unemployed: No Education: High School Diploma/GED Difficulty w/ Childcare or Family Care: No Living arrangements: alone Spiritual care concerns: No Exam Narrative: GENERAL: Well-appearing, well-nourished, and in no acute distress. HEAD: Normocephalic, atraumatic. EYES: PERRLA and EOMI. ENT: Nares clear, no rhinorrhea or epistaxis. Mucous membranes moist. NECK: Supple. CHEST: Clear to auscultation. No respiratory distress. HEART: Regular rate and rhythm. No murmur heard. Normal peripheral pulses. ABDOMEN: Soft, nontender, nondistended, normal active bowel sounds. EXTREMITIES: Normal range of motion. No edema. SKIN: Warm, dry, no rash. NEURO: No focal deficits. Alert and oriented x3. PSYCH: Normal mood and affect. Course Vital Signs Vital signs: Vital Signs Temperature 36.6 C 02/01/25 02:53 Pulse Rate 80 02/01/25 02:53 Respiratory Rate 22 H 02/01/25 02:53 Blood Pressure 116/64 02/01/25 02:53 Pulse Oximetry 100 02/01/25 02:53 Oxygen Delivery Room Air 02/01/25 02:53 Oxygen Flow Rate 4 02/01/25 02:53 Temperature 37.1 C 02/01/25 16:00 Pulse Rate 91 02/01/25 18:00 Respiratory Rate 20 02/01/25 16:00 Blood Pressure 142/75 H 02/01/25 16:00 Pulse Oximetry 93 02/01/25 16:00 Oxygen Delivery Nasal Cannula 02/01/25 16:00 Oxygen Flow Rate 2 02/01/25 16:00 Medical Decision Making Vital Signs Vital Signs: Vital Signs Temperature 36.6 C 02/01/25 02:53 Pulse Rate 80 02/01/25 02:53 Respiratory Rate 22 H 02/01/25 02:53 Blood Pressure 116/64 02/01/25 02:53 Pulse Oximetry 100 02/01/25 02:53 Oxygen Delivery Room Air 02/01/25 02:53 Oxygen Flow Rate 4 02/01/25 02:53 Temperature 37.1 C 02/01/25 16:00 Pulse Rate 91 02/01/25 18:00 Respiratory Rate 20 02/01/25 16:00 Blood Pressure 142/75 H 02/01/25 16:00 Pulse Oximetry 93 02/01/25 16:00 Oxygen Delivery Nasal Cannula 02/01/25 16:00 Oxygen Flow Rate 2 02/01/25 16:00 Lab Data 02/01/25 03:26 02/01/25 03:26 Labs: Lab Results 02/01/25 02/01/25 02/01/25 Range/Units 03:26 03:26 07:08 WBC 10.9 H (4.5-10.0) K/mm3 RBC 4.34 (4.2-5.4) M/mm3 Hgb 12.4 (12.0-15.0) g/dL Hct 38.5 (37.0-47.0) % MCV 88.7 (80-100) fl MCH 28.6 (26-34) pg MCHC 32.2 (32-36) g/dl RDW 14.9 H (11.5-14.5) % Plt Count 246 (150-375) k/mm3 MPV 10.3 (7.4-10.4) fl Immature Gran % (Auto) 0.3 (0-0.5) % Neut % (Auto) 78.9 H (45.5-73.1) % Lymph % (Auto) 12.9 L (18.3-44.2) % Wirt % (Auto) 7.2 (2.6-8.5) % Eos % (Auto) 0.2 (0-4.4) % Baso % (Auto) 0.5 (0.2-1.2) % Lymph # (Auto) 1.41 (0.9-3.2) K/mm3 Wirt # (Auto) 0.8 H (0.1-0.6) K/mm3 Eos # (Auto) 0.0 (0-0.3) K/mm3 Baso # (Auto) 0.1 (0.0-0.1) K/mm3 Abs Immat Gran (auto) 0.03 (0.00-0.031) K/mm3 Absolute Neuts (auto) 8.6 H (1.3-6.7) K/mm3 Absolute Nucleated RBC 0.000 (0.0-0.012) K/mm3 Nucleated RBC % 0.0 (0.0-0.2) % PT 17.6 H (11.1-14.7) Seconds INR 1.4 APTT 35.0 (22.3-36.8) Seconds Sodium 134 L (137-145) mmol/L Potassium 3.6 (3.4-5.0) mmol/L Chloride 96 L (98-107) mmol/L Carbon Dioxide 29 (22-30) mmol/L Anion Gap 9 (4-12) mmol/L BUN 18 H (7-17) mg/dL Creatinine 1.35 H (0.7-1.0) mg/dL Estim Creat Clear Calc 32 ml/min Estimated GFR 38 L (59 - ) Glucose 109 (65-110) mg/dL Lactic Acid 2.6 H (0.7-2.0) mmol/L Calcium 11.1 H (8.4-10.2) mg/dL Total Bilirubin 1.3 (0.2-1.3) mg/dL AST 22 (14-36) U/L ALT 14 (6-35) U/L Alkaline Phosphatase 112 (38-126) U/L Troponin I 0.030 0.028 (0.000-0.034) ng/mL NT-Pro-B Natriuret Pep 2190 H Cancelled (19.9-100) pg/mL Total Protein 7.2 (6.3-8.2) g/dL Albumin 4.0 (3.5-5.1) g/dL Lipase 53 (23-300) U/L IgG Pending IgA Pending IgM Pending BARBARA Interpretation Pending Influenza A (RT-PCR) Negative (Negative) Influenza B (RT-PCR) Negative (Negative) RSV (RT-PCR) Negative (Negative) SARS-CoV-2 RNA (RT-PCR) Negative (Negative) Discharge Plan Discharge Clinical Impression: COPD (chronic obstructive pulmonary disease) Patient Disposition: Still a Patient Condition: Stable
--- NOTE | 2025-02-01 06:26 | ECG_ITS ---
Test Date: 2025-02-01 07:17:17 Measurements Intervals [place] Rate: 73 P: 0 MI: 0 QRS: 28 QRSD: 90 T: 50 QT: 387 QTc: 429 Interpretive Statements SINUS RHYTHM WITH FREQUENT ATRIAL PREMATURE COMPLEXES INCOMPLETE RIGHT BUNDLE BRANCH BLOCK ST-T WAVE ABNORMALITY IN ANTEROLATERAL LEADS- CONSIDER ISCHEMIA BASELINE ARTIFACT- I, II, III, AVR, AVL, AVF ABNORMAL ECG Compared to ECG 02/01/2025 03:27:37 No significant changes Electronically Signed On 02-01-2025 08:15:55 CDT by Arik Boykin D.O.
[2025-02-01] MEDS: IPRATROPIUM 0.5 MG/ALBUTEROL SULFATE 2.5 MG (BASE) AMPUL.NEB 3 ML INHALATION ×3 (07:37→19:58)
[2025-02-01 07:46] LABS: Troponin I 0.028 ng/mL (0.000-0.034)
--- NOTE | 2025-02-01 08:32 | ADMGEN ---
This patient, Vibha Hill, was admitted to IMU Room 204-01. Patient/family oriented to hospital policies and general routines including ID bracelet, bed and alarms, visiting hours, pain management, procedures, bathroom and other care routines, personal items, smoking policy, room service/diet, and visiting hours. Information on how to activate the Rapid Response Team has been discussed. Patient/Family are encouraged to report perceived risks to care and to ask questions if they do not understand what they are told or what they should do.
--- NOTE | 2025-02-01 09:33 | PM.IMHP ---
H&P: HPI History of Present Illness Date/Time: 02/01/25 09:33 Chief Complaint: Chest pain Narrative: This is 80-year-old female who presents to the ED with complaint of chest pain. Chest pain is burning aching in nature started yesterday. Associated shortness of breath. No diaphoresis. In the ED her vitals were stable except for hypoxia requiring high level of oxygen. She normally uses 2 L of oxygen via nasal cannula but has required additional oxygen. Patient was in 80s in her usual 2 L on presentation. Oxygen requirement has been increased to 4 L with adequate oxygenation. Laboratory workup revealed WBC of 10.9 hemoglobin 12.4 platelet count of 246. Chem panel shows sodium of 134 potassium 3.6 chloride 96 bicarbonate 29 BUN 18 creatinine 1.35 blood glucose of 109. Calcium was 11.1 lactate was high at 2.6 LFTs were normal troponin was negative at 0.03 BNP elevated at 2190. Lipase was 53. Influenza RSV and COVID swab was negative. EKG showed sinus rhythm with frequent atrial premature complex incomplete right bundle branch block nonspecific ST-T changes. Unchanged compared to prior EKGs. Serial troponin remained negative with next troponin at 0.028. Chest x-ray showed no acute cardiopulmonary findings however there was large mass right upper lobe as noted previously. CTA chest PE protocol was performed which was negative for PE but showed worsened right lung upper lobe mass consistent with primary bronchogenic carcinoma. Right hilar lymphadenopathy lung nodules and liver masses consistent with worsening metastatic disease. Subacute L1 burst fractures worsened from 11/02/2024. 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 She is treated as COPD exacerbation with DuoNeb and steroid in the ER. She is admitted for further treatment. See states she does not want to do chemotherapy or radiation therapy however wants to know further diagnosis. Review of Systems Review of Systems: - CONSTITUTIONAL: Denies weight loss, fever and chills. - HEENT: Denies changes in vision and hearing - RESPIRATORY: Reports SOB and cough. - CV: Denies palpitations and reports CP. - GI: Denies abdominal pain, nausea, vomiting and diarrhea. - : Denies dysuria and urinary frequency. - MSK: Denies myalgia and joint pain. - SKIN: Denies rash and pruritus. - NEUROLOGICAL: Denies headache and syncope. - PSYCHIATRIC: Denies recent changes in mood. Denies anxiety and depression. PMFSH Past Medical History Medical History Hepatic steatosis Closed wedge compression fracture of T12 vertebra (2021) Chronic respiratory failure with hypoxia Chronic kidney disease Stage IIIB baseline creatinine 1.3-1 point 4 5 Depression Hypothyroidism COPD (chronic obstructive pulmonary disease) Surgical History Surgical History Status post cataract extraction of both eyes with insertion of intraocular lens History of hysterectomy History of appendectomy Social History Social History Social History: Lives in apartment by herself. She was twice. She had 4 children 1 of her children is due to accident. She reports that her other children are healthy. She used to smoke 1.5 packs cigarettes per day. She smoked from the time she was a teenager until age 69. Code status: Full code (?as long as there is a chance) His surrogate decision maker: Lexii Clements (sister) Smoking packs per day: 1.5 Smoking cigarettes per day: 30.0 Years smoked: 50 Smoking pack-years: 75.00 Smoking status: Former smoker Tobacco type: cigarettes and cigars Second hand tobacco smoke exposure: No Additional smoking assessment comments: 2014 Alcohol intake: former Alcohol use details: She used to drink moderate to heavy amount of alcohol but quit over 20 years ago. Substance use: former Do You Feel Safe in your Home?: Yes Lack of Transportation: No Lack of Food: Never True Current Housing: I Have Housing Concerned About Future Housing: No Difficulty Paying Gas/Electric Bills: No Difficulty Paying for Meds: No Currently Unemployed: No Education: Decline to Answer Difficulty w/ Childcare or Family Care: No Living arrangements: alone Spiritual care concerns: No Meds Home Medications and Allergies Home Medications ?Medication ?Instructions ?Recorded ?Confirmed ?Type albuterol sulfate 90 mcg/actuation 2 inh inhalation PRN PRN Shortness 09/27/21 11/02/24 History aerosol inhaler Of Breath Or Wheezing diltiazem HCl 120 mg 120 mg PO HS 09/27/21 11/02/24 History capsule,extended release 24 hr duloxetine 30 mg capsule,delayed 60 mg PO DAILY 09/27/21 11/02/24 History release ergocalciferol (vitamin D2) 1,250 1,250 mcg PO WEEKLY 09/27/21 11/02/24 History mcg (50,000 unit) capsule famotidine 20 mg tablet 20 tablet PO DAILY 09/27/21 11/02/24 History furosemide 40 mg tablet 40 tablet PO DAILY 09/27/21 11/02/24 History levothyroxine 100 mcg tablet 125 mcg PO DAILY 09/27/21 11/02/24 History montelukast 10 mg tablet 10 tablet PO DAILY 09/27/21 11/02/24 History alprazolam 0.25 mg tablet 0.25 mg PO TID 11/02/24 11/02/24 History apixaban 5 mg tablet (Eliquis) 5 mg PO Q12H 11/02/24 11/02/24 History atorvastatin 40 mg tablet 40 mg PO DAILY 11/02/24 11/02/24 History potassium chloride 10 mEq 10 meq PO EVERY OTHER DAY 11/02/24 11/02/24 History tablet,extended release oxycodone 5 mg tablet 5 mg PO Q6H PRN pain #20 tabs 11/08/24 Rx alprazolam 0.25 mg tablet 0.25 mg PO TID #20 tabs 11/09/24 Rx albuterol sulfate 90 mcg/actuation 2 puff inhalation QID PRN 11/10/24 Rx aerosol inhaler shortness of breath or wheezing #8.5 grams ipratropium 0.5 mg-albuterol 3 mg 3 ml inhalation Q4H PRN shortness 11/10/24 Rx (2.5 mg base)/3 mL nebulization of breath or wheezing #180 mL soln nebulizers (Compact Compressor #1 ea 11/10/24 Rx Nebulizer) prednisone 20 mg tablet 40 mg (2 x 20 mg) PO DAILY 4 days 11/10/24 Rx #8 tabs pantoprazole 40 mg tablet,delayed 40 mg PO HS 4 weeks #28 tabs 11/16/24 Rx release Allergies Allergy/AdvReac Type Severity Reaction Status Date / Time No Known Allergies Allergy Verified 01/06/25 16:12 Vital Signs Vital Signs - 24 hr 02/01/25 02:53 02/01/25 02:53 02/01/25 03:10 Temperature 97.8 F Pulse Rate 80 79 Respiratory Rate 22 H 27 H Blood Pressure 116/64 Pulse Oximetry 100 97 99 Oxygen Delivery Room Air Nasal Cannula Oxygen Flow Rate 4 02/01/25 03:15 02/01/25 03:17 02/01/25 03:30 Temperature Pulse Rate 77 75 81 Respiratory Rate 19 23 H 16 Blood Pressure 117/74 Pulse Oximetry 98 97 Oxygen Delivery Oxygen Flow Rate 02/01/25 03:50 02/01/25 04:19 02/01/25 04:30 Temperature Pulse Rate 78 72 78 Respiratory Rate 19 24 H 25 H Blood Pressure Pulse Oximetry 97 Oxygen Delivery Oxygen Flow Rate 02/01/25 04:45 02/01/25 06:20 02/01/25 06:36 Temperature Pulse Rate 77 68 72 Respiratory Rate 14 31 H 20 Blood Pressure Pulse Oximetry 82 L 97 100 Oxygen Delivery Oxygen Flow Rate 02/01/25 06:45 02/01/25 07:00 02/01/25 07:15 Temperature Pulse Rate 69 73 70 Respiratory Rate 24 H 17 24 H Blood Pressure Pulse Oximetry 97 95 Oxygen Delivery Oxygen Flow Rate 02/01/25 07:30 02/01/25 07:40 02/01/25 07:45 Temperature Pulse Rate 74 73 67 Respiratory Rate 17 17 16 Blood Pressure Pulse Oximetry 96 Oxygen Delivery Oxygen Flow Rate 02/01/25 07:45 02/01/25 07:54 02/01/25 09:12 Temperature 98.0 F Pulse Rate 72 75 Respiratory Rate 13 20 Blood Pressure 124/79 Pulse Oximetry 100 99 94 Oxygen Delivery Nasal Cannula Oxygen Flow Rate 2 Exam Narrative: GENERAL: Well-appearing, well-nourished, and in no acute distress. HEAD: Normocephalic, atraumatic. EYES: PERRLA and EOMI. ENT: Nares clear, no rhinorrhea or epistaxis. Mucous membranes moist. NECK: Supple. CHEST: Clear to auscultation. No respiratory distress. HEART: Regular rate and rhythm. No murmur heard. Normal peripheral pulses. ABDOMEN: Soft, nontender, nondistended, normal active bowel sounds. EXTREMITIES: Normal range of motion. No edema. SKIN: Warm, dry, no rash. NEURO: No focal deficits. Alert and oriented x3. PSYCH: Normal mood and affect. H&P: Results Labs Labs: Short CBC 02/01/25 Range/Units 03:26 WBC 10.9 H (4.5-10.0) K/mm3 Hgb 12.4 (12.0-15.0) g/dL Hct 38.5 (37.0-47.0) % Plt Count 246 (150-375) k/mm3 BMP 02/01/25 03:26 Sodium 134 L Potassium 3.6 Chloride 96 L Carbon Dioxide 29 BUN 18 H Creatinine 1.35 H Glucose 109 Calcium 11.1 H Cardiac Enzymes 02/01/25 02/01/25 Range/Units 03:26 07:08 Troponin I 0.030 0.028 (0.000-0.034) ng/mL Liver Function 02/01/25 Range/Units 03:26 Total Bilirubin 1.3 (0.2-1.3) mg/dL AST 22 (14-36) U/L ALT 14 (6-35) U/L Alkaline Phosphatase 112 (38-126) U/L Albumin 4.0 (3.5-5.1) g/dL Assessment and Plan Assessment and plan (1) Chronic kidney disease: Code(s): N18.9 - Chronic kidney disease, unspecified Status: Acute (2) Compression fracture: Status: Acute (3) COPD (chronic obstructive pulmonary disease): Code(s): J44.9 - Chronic obstructive pulmonary disease, unspecified Status: Acute (4) Chronic respiratory failure with hypoxia: Code(s): J96.11 - Chronic respiratory failure with hypoxia Status: Acute (5) Mass of upper lobe of right lung: Code(s): R91.8 - Other nonspecific abnormal finding of lung field Status: Acute (6) Liver lesion: Code(s): K76.9 - Liver disease, unspecified Status: Acute Plan This is 80-year-old female who presents to the ED with complaint of chest pain. Chest pain is burning aching in nature started yesterday. Associated shortness of breath. No diaphoresis. In the ED her vitals were stable except for hypoxia requiring high level of oxygen. She normally uses 2 L of oxygen via nasal cannula but has required additional oxygen. Patient was in 80s in her usual 2 L on presentation. Oxygen requirement has been increased to 4 L with adequate oxygenation. Laboratory workup revealed WBC of 10.9 hemoglobin 12.4 platelet count of 246. Chem panel shows sodium of 134 potassium 3.6 chloride 96 bicarbonate 29 BUN 18 creatinine 1.35 blood glucose of 109. Calcium was 11.1 lactate was high at 2.6 LFTs were normal troponin was negative at 0.03 BNP elevated at 2190. Lipase was 53. Influenza RSV and COVID swab was negative. EKG showed sinus rhythm with frequent atrial premature complex incomplete right bundle branch block nonspecific ST-T changes. Unchanged compared to prior EKGs. Serial troponin remained negative with next troponin at 0.028. Chest x-ray showed no acute cardiopulmonary findings however there was large mass right upper lobe as noted previously. CTA chest PE protocol was performed which was negative for PE but showed worsened right lung upper lobe mass consistent with primary bronchogenic carcinoma. Right hilar lymphadenopathy lung nodules and liver masses consistent with worsening metastatic disease. Subacute L1 burst fractures worsened from 11/02/2024. 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 She is treated as COPD exacerbation with DuoNeb and steroid in the ER. She is admitted for further treatment. See states she does not 1 a do chemotherapy or radiation therapy however wants to know further diagnosis. Chest pain negative cardiac workup. CTA with worsening right upper lobe mass with multiple liver lesions and hilar lymphadenopathy with hypercalcemia. Likely metastatic lung cancer. Workup with regard to biopsy discussed with the patient agreeable. Will get ultrasound-guided liver biopsy. Acute on chronic hypoxic respiratory failure normally at 2 L oxygen at home. Currently at 4 L with hypoxia noted on presentation. Unclear etiology CTA negative for PE. Possible COPD exacerbation. Cardiac workup negative Lung mass with findings suggestive of metastatic disease. Patient has previously declined biopsy however currently once/agreeable to get a biopsy. Will get ultrasound-guided liver biopsy. She did not follow up with Pulmonary as was planned from last admission Multiple compression fractures Gallbladder mass further MRI revealed 8 to be mobile non enhancing gallbladder sludge CKD stage 3 Hypothyroidism COPD Chronic respiratory failure on home oxygen 2 L Lytic skull lesions CT head 01/06/2025 showed lytic lesions identified bilaterally predominantly involving the vertex of skull 2.5 x 2 cm concerning for metastatic disease. 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 PET with 12 mm right parotid mass with increased activity differential could be benign mixed tumor, warfarin tumor. Aortic atherosclerosis DVT prophylaxis SCDs Code status full code discussed with the patient. Hospitalist [facility] Advance Care Plan I have confirmed that the patient's Advanced Care Plan is present, code status is documented, or surrogate decision maker is listed in patient medical record.: Yes Medication Reconciliation I have utilized all available resources to obtain, update and review the patients current medications (includes all prescriptions, OTC, herbals, cannabis, and nutritional supplements).: Yes
[2025-02-01 10:32] LABS: Troponin I 0.027 ng/mL (0.000-0.034)
[2025-02-01] MEDS: ALPRAZolam (*CRX) 0.25 MG TABLET PO ×2 (16:31→21:16)
[2025-02-01] MEDS: FAMOTIDINE 20 MG TABLET PO (21:16)
[2025-02-02] VITALS (17 sets, daily range): BP systolic 103–119; BP diastolic 40–74; PULSE 71–110; RESP 16–24; TEMP 36.1–36.9; O2SAT 89–93
[2025-02-02 04:19] LABS: Hematocrit 37.5 % (37.0-47.0); Hemoglobin 12.1 g/dL (12.0-15.0); Immature Granulocyte Percent A 0.6 % (0-0.5); Lymphocytes Absolute Auto 0.96 K/mm3 (0.9-3.2); Mean Corpuscular HGB Conc 32.3 g/dl (32-36); Mean Corpuscular Hemoglobin 28.3 pg (26-34); Mean Corpuscular Volume 87.8 fl (80-100); Nucleated Red Blood Cells Absolute Auto 0.000 K/mm3 (0.0-0.012); Nucleated Red Blood Cells Perc 0.0 % (0.0-0.2); Platelet Count Result 250 k/mm3 (150-375); Red Blood Count 4.27 M/mm3 (4.2-5.4); White Blood Count 13.9 K/mm3 (4.5-10.0)
[2025-02-02 04:31] LABS: Alanine Aminotransferase 13 U/L (6-35); Albumin Level 3.8 g/dL (3.5-5.1); Alkaline Phosphatase 94 U/L (38-126); Anion Gap 9 mmol/L (4-12); Aspartate Amino Transferase 21 U/L (14-36); Bilirubin,Total 0.7 mg/dL (0.2-1.3); Blood Urea Nitrogen 26 mg/dL (7-17); Calcium 11.1 mg/dL (8.4-10.2); Carbon Dioxide 26 mmol/L (22-30); Chloride 98 mmol/L (98-107); Estimated CRCL calculation 33 ml/min; Estimated Glomerular Filt Rate 39; Glucose 137 mg/dL (65-110); Magnesium 2.0 mg/dL (1.6-2.3); Potassium 3.8 mmol/L (3.4-5.0); Sodium 133 mmol/L (137-145); Total Protein 6.8 g/dL (6.3-8.2)
[2025-02-02] MEDS: LEVOTHYROXINE SODIUM 125 MCG TABLET PO (05:35)
[2025-02-02] MEDS: ALPRAZolam (*CRX) 0.25 MG TABLET PO ×3 (05:36→21:30)
[2025-02-02] MEDS: IPRATROPIUM 0.5 MG/ALBUTEROL SULFATE 2.5 MG (BASE) AMPUL.NEB 3 ML INHALATION ×3 (08:05→20:22)
[2025-02-02] MEDS: ATORVASTATIN 40 MG TABLET PO (09:25)
[2025-02-02] MEDS: FAMOTIDINE 20 MG TABLET PO ×2 (09:25→20:31)
[2025-02-02] MEDS: FUROSEMIDE 40 MG TABLET PO (09:26)
--- NOTE | 2025-02-02 12:26 | S_PTH ---
PATIENT: Vibha Hill LOC: [id number] U#:[id number] AGE/SX: 80/F ROOM: 314 RE02/02/[address]: Mavis Shaw MD : 1945 BED: 01 DIS: 02/07/2025 SPEC #: [id number] RECD: 02/02/25 12:45 STATUS: LEANNE REQ #: [id number] ROHITH: 02/02/25 12:[address]: Jus Theodore DEPT: [facility] Surgical RECD BY: Imelda Palumbo ENTERED: 02/02/25 12:45 SP TYPE: Surgical OTHR DR: Saji MullenMD Tissues: A - Liver Biopsy Procedures: P63 Odom Keratin PAX-8 TTF Unstained Slides Hematoxylin and Eosin Stain Estrogen Receptor Immuno Progestogen Receptor immuno Gross and Microscopic Level 5 SOX 10 Synaptoshysin Chromogranin Stain CDX2 CK 20 CK 7 OLIVIER-3 Hepatocyte HER2 Mib
[2025-02-02 14:08] LABS: Albumin 3.4 g/dL (2.9-4.4); Alpha-1-Globulin 0.4 g/dL (0.0-0.4); Alpha-2-Globulin 1.1 g/dL (0.4-1.0); Gamma Globulin 0.9 g/dL (0.4-1.8)
[2025-02-02] MEDS: ACETAMINOPHEN 500 MG TABLET 1000 MG PO (15:42)
--- NOTE | 2025-02-02 16:01 | PC.NURSE ---
This patient, Vibha Hill, was transferred to [ [id number]] on 02/02/25 at 1550. Personal belongings sent with patient. Report given to [Samantha CHAPA ]. Appropriate documentation sent with patient.
--- NOTE | 2025-02-02 16:25 | PC.NURSE ---
This patient, Vibha Hill, was received from [[facility] ] on 02/02/25 at 1625. Patient/family oriented to unit policies and routines
--- NOTE | 2025-02-02 18:16 | P.PNIM_ITS ---
Progress Note: A&P Assessment and Plan (1) Chronic kidney disease: Code(s): N18.9 - Chronic kidney disease, unspecified Status: Acute (2) Compression fracture: Status: Acute (3) COPD (chronic obstructive pulmonary disease): Code(s): J44.9 - Chronic obstructive pulmonary disease, unspecified Status: Acute (4) Chronic respiratory failure with hypoxia: Code(s): J96.11 - Chronic respiratory failure with hypoxia Status: Acute (5) Mass of upper lobe of right lung: Code(s): R91.8 - Other nonspecific abnormal finding of lung field Status: Acute (6) Liver lesion: Code(s): K76.9 - Liver disease, unspecified Status: Acute Plan Patient with metastatic bronchogenic carcinoma of lungs, has decided to go on DNR and under hospice care, will consult hospice and further recommendation to follow. This is 80-year-old female who presents to the ED with complaint of chest pain. Chest pain is burning aching in nature started yesterday. Associated shortness of breath. No diaphoresis. In the ED her vitals were stable except for hypoxia requiring high level of oxygen. She normally uses 2 L of oxygen via nasal cannula but has required additional oxygen. Patient was in 80s in her usual 2 L on presentation. Oxygen requirement has been increased to 4 L with adequate oxygenation. Laboratory workup revealed WBC of 10.9 hemoglobin 12.4 platelet count of 246. Chem panel shows sodium of 134 potassium 3.6 chloride 96 bicarbonate 29 BUN 18 creatinine 1.35 blood glucose of 109. Calcium was 11.1 lactate was high at 2.6 LFTs were normal troponin was negative at 0.03 BNP elevated at 2190. Lipase was 53. Influenza RSV and COVID swab was negative. EKG showed sinus rhythm with frequent atrial premature complex incomplete right bundle branch block nonspecific ST-T changes. Unchanged compared to prior EKGs. Serial troponin remained negative with next troponin at 0.028. Chest x-ray showed no acute cardiopulmonary findings however there was large mass right upper lobe as noted previously. CTA chest PE protocol was performed which was negative for PE but showed worsened right lung upper lobe mass consistent with primary bronchogenic carcinoma. Right hilar lymphadenopathy lung nodules and liver masses consistent with worsening metastatic disease. Subacute L1 burst fractures worsened from 11/02/2024. 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 She is treated as COPD exacerbation with DuoNeb and steroid in the ER. She is admitted for further treatment. See states she does not 1 a do chemotherapy or radiation therapy however wants to know further diagnosis. Chest pain negative cardiac workup. CTA with worsening right upper lobe mass with multiple liver lesions and hilar lymphadenopathy with hypercalcemia. Likely metastatic lung cancer. Workup with regard to biopsy discussed with the patient agreeable. Will get ultrasound-guided liver biopsy. Acute on chronic hypoxic respiratory failure normally at 2 L oxygen at home. Currently at 4 L with hypoxia noted on presentation. Unclear etiology CTA negative for PE. Possible COPD exacerbation. Cardiac workup negative Lung mass with findings suggestive of metastatic disease. Patient has previously declined biopsy however currently once/agreeable to get a biopsy. Will get ultrasound-guided liver biopsy. She did not follow up with Pulmonary as was planned from last admission Multiple compression fractures Gallbladder mass further MRI revealed 8 to be mobile non enhancing gallbladder sludge CKD stage 3 Hypothyroidism COPD Chronic respiratory failure on home oxygen 2 L Lytic skull lesions CT head 01/06/2025 showed lytic lesions identified bilaterally predominantly involving the vertex of skull 2.5 x 2 cm concerning for metastatic disease. 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 PET with 12 mm right parotid mass with increased activity differential could be benign mixed tumor, warfarin tumor. Aortic atherosclerosis DVT prophylaxis SCDs Code status full code discussed with the patient. Subjective Date/time seen: 02/02/25 18:16 Interval history: Patient with metastatic bronchogenic carcinoma of lungs, has decided to go on DNR and under hospice care, will consult hospice and further recommendation to follow. Review of Systems Review of Systems: - CONSTITUTIONAL: Denies weight loss, fever and chills. - HEENT: Denies changes in vision and he aring - RESPIRATORY: Reports SOB and cough. - CV: Denies palpitations and reports CP . - GI: Denies abdominal pain, nausea, vom iting and diarrhea. - : Denies dysuria and urinary frequen cy. - MSK: Denies myalgia and joint pain. - SKIN: Denies rash and pruritus. - NEUROLOGICAL: Denies headache and sync ope. - PSYCHIATRIC: Denies recent changes in mood. Denies anxiety and depression. Exam Narrative: GENERAL: Well-appearing, well-nourished, and in no acute distress. HEAD: Normocephalic, atraumatic. EYES: PERRLA and EOMI. ENT: Nares clear, no rhinorrhea or epistaxis. Mucous membranes moist. NECK: Supple. CHEST: Clear to auscultation. No respiratory distress. HEART: Regular rate and rhythm. No murmur heard. Normal peripheral pulses. ABDOMEN: Soft, nontender, nondistended, normal active bowel sounds. EXTREMITIES: Normal range of motion. No edema. SKIN: Warm, dry, no rash. NEURO: No focal deficits. Alert and oriented x3. PSYCH: Normal mood and affect. Objective Data Vital Signs Vital Signs: Vital Signs - 24 hr 02/01/25 19:58 02/01/25 19:58 02/01/25 20:00 Temperature 36.3 C L Pulse Rate 94 101 H Respiratory Rate 16 18 Blood Pressure 94/56 L Pulse Oximetry 95 93 Oxygen Delivery Nasal Cannula Oxygen Flow Rate 2 02/01/25 20:00 02/01/25 20:04 02/01/25 22:00 Temperature Pulse Rate 86 80 101 H Respiratory Rate 16 Blood Pressure Pulse Oximetry Oxygen Delivery Oxygen Flow Rate 02/01/25 23:35 02/02/25 00:00 02/02/25 02:00 Temperature 36.5 C Pulse Rate 88 101 H 85 Respiratory Rate 20 Blood Pressure 109/52 L Pulse Oximetry 95 Oxygen Delivery Oxygen Flow Rate 02/02/25 04:00 02/02/25 04:00 02/02/25 06:00 Temperature 36.9 C Pulse Rate 95 79 84 Respiratory Rate 18 Blood Pressure 110/40 L Pulse Oximetry 92 Oxygen Delivery Oxygen Flow Rate 02/02/25 08:00 02/02/25 08:00 02/02/25 08:08 Temperature 36.8 C Pulse Rate 80 95 76 Respiratory Rate 18 18 Blood Pressure 119/52 L Pulse Oximetry 93 Oxygen Delivery Oxygen Flow Rate 02/02/25 08:11 02/02/25 08:18 02/02/25 10:00 Temperature Pulse Rate 71 107 H Respiratory Rate 18 Blood Pressure Pulse Oximetry 89 L Oxygen Delivery Nasal Cannula Oxygen Flow Rate 2 02/02/25 11:27 02/02/25 14:41 02/02/25 14:57 Temperature 36.6 C Pulse Rate 103 H 75 78 Respiratory Rate 18 16 Blood Pressure 103/51 L Pulse Oximetry 90 Oxygen Delivery Oxygen Flow Rate Intake/Output Intake/Output: Intake & Output 01/30/25 01/31/25 02/01/25 02/02/25 23:59 23:59 23:59 23:59 Intake Total 980 300 Output Total 400 400 Balance 580 -100 Meds/Results Medications: Active Medications Generic Name Dose Route Start Last Admin Trade Name Freq PRN Reason Stop Dose Admin Acetaminophen 1,000 mg 02/02/25 15:29 02/02/25 15:42 Acetaminophen 500 Mg Tablet PO 1,000 mg Q6H PRN Administration Mild Pain (1-3) or Fever Albuterol 2 puff 02/01/25 15:31 Albuterol Sulfate (*Sp) Aerosol 1 Puff INHALATION QIDRT PRN Shortness Of Breath Or Wheezin Albuterol/Ipratropium 3 ml 02/01/25 08:00 02/02/25 14:58 Ipratropium 0.5 Mg/Albuterol Sulfate 2.5 Mg (Base) Ampul.Neb 3 Ml INHALATION 3 ml Q6HRT [place] Administration Alprazolam 0.25 mg 02/01/25 15:40 02/02/25 13:35 Alprazolam (*Crx) 0.25 Mg Tablet PO 0.25 mg Q8HR [place] Administration Apixaban 5 mg 02/01/25 21:00 02/02/25 08:08 Apixaban 5 Mg Tablet PO Not Given Q12HR [place] Atorvastatin Calcium 40 mg 02/02/25 09:00 02/02/25 09:25 Atorvastatin 40 Mg Tablet PO 40 mg DAILY [place] Administration Diltiazem HCl 120 mg 02/01/25 21:00 02/01/25 21:16 Diltiazem Hcl Cd 120 Mg Cap.24hr PO Not Given HS [place] Duloxetine HCl 60 mg 02/02/25 09:00 02/02/25 09:25 Duloxetine Hcl 30 Mg Capsule.Dr PO 60 mg DAILY [place] Administration Ergocalciferol 1,250 mcg 02/08/25 09:00 Ergocalciferol (Vitamin D2) 1,250 Mcg (50,000 Units) Capsule PO WEEKLY [place] Famotidine 20 mg 02/01/25 21:00 02/02/25 09:25 Famotidine 20 Mg Tablet PO 20 mg Q12HR [place] Administration Furosemide 40 mg 02/02/25 09:00 02/02/25 09:26 Furosemide 40 Mg Tablet PO 40 mg QAM [place] Administration Levothyroxine Sodium 125 mcg 02/02/25 06:30 02/02/25 05:35 Levothyroxine Sodium 125 Mcg Tablet PO 125 mcg DAILY@0630 [place] Administration Methylprednisolone Sodium Succinate 60 mg 02/01/25 14:00 02/02/25 14:07 Methylprednisolone Sod Succ 125 Mg Vial IV PUSH 60 mg Q8HR [place] Administration Miscellaneous Information 0 each 02/01/25 00:01 Ergocalciferol Once A Week Clarify When Next Dose Due XX 03/03/25 00:00 [facility] Miscellaneous Information 0 each 02/01/25 00:01 Kcl Every Other Day When Is Next Dose Due?? XX 03/03/25 00:00 [facility] Potassium Chloride 10 meq 02/01/25 15:35 Potassium Chloride 10 Meq Er Tablet PO Q48H [facility] Radiology Results: ITS Impressions Chest CTA 02/01/25 07:20 IMPRESSION: 1. No pulmonary embolus. 2. Worsened right lung upper lobe mass, consistent with primary bronchogenic carcinoma. 3. Right hilar lymphadenopathy, lung nodules, and liver masses, consistent with worsened metastatic disease. 4. Subacute L1 burst fracture, worsened from 11/02/2024. 5. 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 Chest X-Ray 02/01/25 07:37 IMPRESSION: 1. No acute cardiopulmonary findings given portable technique. 2. Large mass right upper lobe as before. Liver Biopsy Ultrasound 02/02/25 15:12 IMPRESSION: 1. Successful Ultrasound-guided biopsy of a 1.8 cm hypoechoic hepatic nodules suspicious for metastatic disease. Labs Labs: Laboratory Results - last 24 hr 02/01/25 02/02/25 09:35 04:00 WBC 13.9 H RBC 4.27 Hgb 12.1 Hct 37.5 MCV 87.8 MCH 28.3 MCHC 32.3 RDW 15.1 H Plt Count 250 MPV 11.1 H Immature Gran % (Auto) 0.6 H Neut % (Auto) 90.6 H Lymph % (Auto) 6.9 L Bell % (Auto) 1.8 L Eos % (Auto) 0.0 Baso % (Auto) 0.1 L Lymph # (Auto) 0.96 Bell # (Auto) 0.3 Eos # (Auto) 0.0 Baso # (Auto) 0.0 Abs Immat Gran (auto) 0.08 H Absolute Neuts (auto) 12.6 H Absolute Nucleated RBC 0.000 Nucleated RBC % 0.0 Sodium 133 L Potassium 3.8 Chloride 98 Carbon Dioxide 26 Anion Gap 9 BUN 26 H Creatinine 1.30 H Estim Creat Clear Calc 33 Estimated GFR 39 L Glucose 137 H Calcium 11.1 H Magnesium 2.0 Total Bilirubin 0.7 AST 21 ALT 13 Alkaline Phosphatase 94 Total Protein 6.8 Total Protein (PEP) 6.8 Albumin 3.8 Albumin (PEP) 3.4 Globulin (PEP) 3.4 Albumin/Globulin Ratio 1.0 Sagmf-[id number] 0.4 Yhfto-4-Idhtdqizb 1.1 H Beta Globulins 1.0 Gamma Globulins 0.9 PEP Comment Comment Pr Electrophoresis MSpike Not observed
[2025-02-02] MEDS: HYDROcodone/acetaminophen (*CRX) 5-325 MG TABLET 1 TAB PO (18:40)
[2025-02-02] MEDS: APIXABAN 5 MG TABLET PO (20:31)
[2025-02-02] MEDS: dilTIAZem HCL CD 120 MG CAP.24HR PO (20:32)
[2025-02-03] VITALS (12 sets, daily range): BP systolic 106–123; BP diastolic 69–84; PULSE 60–99; RESP 18–22; TEMP 36.3; O2SAT 80–95
[2025-02-03] MEDS: HYDROcodone/acetaminophen (*CRX) 5-325 MG TABLET 1 TAB PO (01:32)
[2025-02-03] MEDS: SENNA/DOCUSATE SODIUM TABLET 1 TAB PO (01:33)
[2025-02-03] MEDS: IPRATROPIUM 0.5 MG/ALBUTEROL SULFATE 2.5 MG (BASE) AMPUL.NEB 3 ML INHALATION ×4 (01:41→20:27)
[2025-02-03 06:01] LABS: Hematocrit 37.4 % (37.0-47.0); Hemoglobin 12.1 g/dL (12.0-15.0); Mean Corpuscular HGB Conc 32.4 g/dl (32-36); Mean Corpuscular Hemoglobin 28.6 pg (26-34); Mean Corpuscular Volume 88.4 fl (80-100); Platelet Count Result 322 k/mm3 (150-375); Red Blood Count 4.23 M/mm3 (4.2-5.4); White Blood Count 21.0 K/mm3 (4.5-10.0)
[2025-02-03] MEDS: LEVOTHYROXINE SODIUM 125 MCG TABLET PO (06:10)
[2025-02-03] MEDS: ALPRAZolam (*CRX) 0.25 MG TABLET PO ×3 (06:10→21:03)
[2025-02-03 06:26] LABS: Anion Gap 10 mmol/L (4-12); Blood Urea Nitrogen 39 mg/dL (7-17); Calcium 11.1 mg/dL (8.4-10.2); Carbon Dioxide 25 mmol/L (22-30); Chloride 96 mmol/L (98-107); Estimated CRCL calculation 27 ml/min; Estimated Glomerular Filt Rate 30; Glucose 134 mg/dL (65-110); Magnesium 2.2 mg/dL (1.6-2.3); Potassium 3.6 mmol/L (3.4-5.0); Sodium 131 mmol/L (137-145)
[2025-02-03] MEDS: ATORVASTATIN 40 MG TABLET PO (08:23)
[2025-02-03] MEDS: FUROSEMIDE 40 MG TABLET PO (08:24)
[2025-02-03] MEDS: FAMOTIDINE 20 MG TABLET PO ×2 (08:24→21:00)
[2025-02-03] MEDS: APIXABAN 5 MG TABLET PO ×2 (08:24→21:02)
[2025-02-03] MEDS: POTASSIUM CHLORIDE 10 MEQ ER TABLET PO (14:10)
[2025-02-03 15:09] LABS: Immunoglobulin A, Qn 134 mg/dL (64-422); Immunoglobulin G, Qn 848 mg/dL (586-1602); Immunoglobulin M, Qn 121 mg/dL (26-217)
--- NOTE | 2025-02-03 17:13 | P.PNIM_ITS ---
Progress Note: A&P Assessment and Plan (1) Chronic kidney disease: Code(s): N18.9 - Chronic kidney disease, unspecified Status: Acute (2) Compression fracture: Status: Acute (3) COPD (chronic obstructive pulmonary disease): Code(s): J44.9 - Chronic obstructive pulmonary disease, unspecified Status: Acute (4) Chronic respiratory failure with hypoxia: Code(s): J96.11 - Chronic respiratory failure with hypoxia Status: Acute (5) Mass of upper lobe of right lung: Code(s): R91.8 - Other nonspecific abnormal finding of lung field Status: Acute (6) Liver lesion: Code(s): K76.9 - Liver disease, unspecified Status: Acute Plan Patient with metastatic bronchogenic carcinoma of lungs, had decided to go on DNR and under hospice care on 02/02 and liver biopsy, however today will to consult oncologist for further evaluation, patient remains clinically stable, patient family is present and gave updates will consult oncologist and further recommendation to follow. This is 80-year-old female who presents to the ED with complaint of chest pain. Chest pain is burning aching in nature started yesterday. Associated shortness of breath. No diaphoresis. In the ED her vitals were stable except for hypoxia requiring high level of oxygen. She normally uses 2 L of oxygen via nasal cannula but has required additional oxygen. Patient was in 80s in her usual 2 L on presentation. Oxygen requirement has been increased to 4 L with adequate oxygenation. Laboratory workup revealed WBC of 10.9 hemoglobin 12.4 platelet count of 246. Chem panel shows sodium of 134 potassium 3.6 chloride 96 bicarbonate 29 BUN 18 creatinine 1.35 blood glucose of 109. Calcium was 11.1 lactate was high at 2.6 LFTs were normal troponin was negative at 0.03 BNP elevated at 2190. Lipase was 53. Influenza RSV and COVID swab was negative. EKG showed sinus rhythm with frequent atrial premature complex incomplete right bundle branch block nonspecific ST-T changes. Unchanged compared to prior EKGs. Serial troponin remained negative with next troponin at 0.028. Chest x-ray showed no acute cardiopulmonary findings however there was large mass right upper lobe as noted previously. CTA chest PE protocol was performed which was negative for PE but showed wo rsened right lung upper lobe mass consistent with primary bronchogenic carcinoma. Right hilar lymphadenopathy lung nodules and liver masses consistent with worsening metastatic disease. Subacute L1 burst fractures worsened from 11/02/2024. 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 She is treated as COPD exacerbation with DuoNeb and steroid in the ER. She is admitted for further treatment. See states she does not 1 a do chemotherapy or radiation therapy however wants to know further diagnosis. Chest pain negative cardiac workup. CTA with worsening right upper lobe mass with multiple liver lesions and hilar lymphadenopathy with hypercalcemia. Likely metastatic lung cancer. Workup with regard to biopsy discussed with the patient agreeable. Will get ultrasound-guided liver biopsy. Acute on chronic hypoxic respiratory failure normally at 2 L oxygen at home. Currently at 4 L with hypoxia noted on presentation. Unclear etiology CTA negative for PE. Possible COPD exacerbation. Cardiac workup negative Lung mass with findings suggestive of metastatic disease. Patient has previously declined biopsy however currently once/agreeable to get a biopsy. Will get ultrasound-guided liver biopsy. She did not follow up with Pulmonary as was planned from last admission Multiple compression fractures Gallbladder mass further MRI revealed 8 to be mobile non enhancing gallbladder sludge CKD stage 3 Hypothyroidism COPD Chronic respiratory failure on home oxygen 2 L Lytic skull lesions CT head 01/06/2025 showed lytic lesions identified bilaterally predominantly involving the vertex of skull 2.5 x 2 cm concerning for metastatic disease. 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 PET with 12 mm right parotid mass with increased activity differential could be benign mixed tumor, warfarin tumor. Aortic atherosclerosis DVT prophylaxis SCDs Code status full code discussed with the patient. Subjective Date/time seen: 02/03/25 17:13 Interval history: Patient with metastatic bronchogenic carcinoma of lungs, had decided to go on DNR and under hospice care on 02/02 and liver biopsy, however today will to consult oncologist for further evaluation, patient remains clinically stable, patient family is present and gave updates will consult oncologist and further recommendation to follow. Review of Systems Review of Systems: - CONSTITUTIONAL: Denies weight loss, fever and chills. - HEENT: Denies changes in vision and he aring - RESPIRATORY: Reports SOB and cough. - CV: Denies palpitations and reports CP . - GI: Denies abdominal pain, nausea, vom iting and diarrhea. - : Denies dysuria and urinary frequen cy. - MSK: Denies myalgia and joint pain. - SKIN: Denies rash and pruritus. - NEUROLOGICAL: Denies headache and sync ope. - PSYCHIATRIC: Denies recent changes in mood. Denies anxiety and depression. Exam Narrative: GENERAL: Well-appearing, well-nourished, and in no acute distress. HEAD: Normocephalic, atraumatic. EYES: PERRLA and EOMI. ENT: Nares clear, no rhinorrhea or epistaxis. Mucous membranes moist. NECK: Supple. CHEST: Clear to auscultation. No respiratory distress. HEART: Regular rate and rhythm. No murmur heard. Normal peripheral pulses. ABDOMEN: Soft, nontender, nondistended, normal active bowel sounds. EXTREMITIES: Normal range of motion. No edema. SKIN: Warm, dry, no rash. NEURO: No focal deficits. Alert and oriented x3. PSYCH: Normal mood and affect. Objective Data Vital Signs Vital Signs: Vital Signs - 24 hr 02/02/25 20:00 02/02/25 20:22 02/02/25 20:22 Temperature Pulse Rate 101 H 101 H Respiratory Rate 24 H 24 H Blood Pressure Pulse Oximetry 92 89 L Oxygen Delivery Nasal Cannula Nasal Cannula Oxygen Flow Rate 3 2 Fraction of Inspired Oxygen 02/02/25 20:25 02/02/25 20:35 02/02/25 20:45 Temperature 36.1 C L Pulse Rate 101 H 110 H 110 H Respiratory Rate 19 20 20 Blood Pressure 119/74 Pulse Oximetry 89 L 92 Oxygen Delivery Nasal Cannula Oxygen Flow Rate 3 Fraction of Inspired Oxygen 02/03/25 01:41 02/03/25 01:41 02/03/25 01:55 Temperature Pulse Rate 69 69 68 Respiratory Rate 20 20 20 Blood Pressure Pulse Oximetry 80 L Oxygen Delivery Room Air Oxygen Flow Rate Fraction of Inspired Oxygen 21 02/03/25 07:57 02/03/25 07:57 02/03/25 08:00 Temperature Pulse Rate 71 71 Respiratory Rate 20 20 Blood Pressure Pulse Oximetry 95 91 Oxygen Delivery Nasal Cannula Nasal Cannula Oxygen Flow Rate 3 3 Fraction of Inspired Oxygen 02/03/25 08:00 02/03/25 08:05 02/03/25 14:01 Temperature 36.3 C L Pulse Rate 68 99 99 Respiratory Rate 18 20 20 Blood Pressure 106/69 Pulse Oximetry 92 Oxygen Delivery Oxygen Flow Rate Fraction of Inspired Oxygen 02/03/25 14:07 Temperature Pulse Rate 91 Respiratory Rate 20 Blood Pressure Pulse Oximetry Oxygen Delivery Oxygen Flow Rate Fraction of Inspired Oxygen Intake/Output Intake/Output: Intake & Output 01/31/25 02/01/25 02/02/25 02/03/25 23:59 23:59 23:59 23:59 Intake Total 980 540 840 Output Total 400 400 Balance 580 140 840 Meds/Results Medications: Active Medications Generic Name Dose Route Start Last Admin Trade Name Freq PRN Reason Stop Dose Admin Acetaminophen 1,000 mg 02/02/25 15:29 02/02/25 15:42 Acetaminophen 500 Mg Tablet PO 1,000 mg Q6H PRN Administration Mild Pain (1-3) or Fever Hydrocodone Bitart/Acetaminophen 1 tab 02/02/25 18:32 02/03/25 01:32 Hydrocodone/Acetaminophen (*Crx) 5-325 Mg Tablet PO 1 tab Q6H PRN Administration Pain Rated 4-6 Albuterol 2 puff 02/01/25 15:31 Albuterol Sulfate (*Sp) Aerosol 1 Puff INHALATION QIDRT PRN Shortness Of Breath Or Wheezin Albuterol/Ipratropium 3 ml 02/01/25 08:00 02/03/25 14:01 Ipratropium 0.5 Mg/Albuterol Sulfate 2.5 Mg (Base) Ampul.Neb 3 Ml INHALATION 3 ml Q6HRT [place]KE Administration Alprazolam 0.25 mg 02/01/25 15:40 02/03/25 14:10 Alprazolam (*Crx) 0.25 Mg Tablet PO 0.25 mg Q8HR [place] Administration Apixaban 5 mg 02/01/25 21:00 02/03/25 08:24 Apixaban 5 Mg Tablet PO 5 mg Q12HR [place] Administration Atorvastatin Calcium 40 mg 02/02/25 09:00 02/03/25 08:23 Atorvastatin 40 Mg Tablet PO 40 mg DAILY [place] Administration Diltiazem HCl 120 mg 02/01/25 21:00 02/02/25 20:32 Diltiazem Hcl Cd 120 Mg Cap.24hr PO 120 mg HS LAKE Administration Duloxetine HCl 60 mg 02/02/25 09:00 02/03/25 08:24 Duloxetine Hcl 30 Mg Capsule.Dr PO 60 mg DAILY [place] Administration Ergocalciferol 1,250 mcg 02/08/25 09:00 Ergocalciferol (Vitamin D2) 1,250 Mcg (50,000 Units) Capsule PO WEEKLY [place] Famotidine 20 mg 02/01/25 21:00 02/03/25 08:24 Famotidine 20 Mg Tablet PO 20 mg Q12HR [place] Administration Furosemide 40 mg 02/02/25 09:00 02/03/25 08:24 Furosemide 40 Mg Tablet PO 40 mg QAM [place] Administration Levothyroxine Sodium 125 mcg 02/02/25 06:30 02/03/25 06:10 Levothyroxine Sodium 125 Mcg Tablet PO 125 mcg DAILY@0630 [facility] Administration Methylprednisolone Sodium Succinate 60 mg 02/01/25 14:00 02/03/25 14:10 Methylprednisolone Sod Succ 125 Mg Vial IV PUSH 60 mg Q8HR [place] Administration Miscellaneous Information 0 each 02/01/25 00:01 02/02/25 20:28 Ergocalciferol Once A Week Clarify When Next Dose Due XX 03/03/25 00:00 Not Given [facility] Potassium Chloride 10 meq 02/03/25 09:00 02/03/25 14:10 Potassium Chloride 10 Meq Er Tablet PO 10 meq Q48H [place] Administration Senna/Docusate Sodium 1 tab 02/03/25 01:11 02/03/25 01:33 Senna/Docusate Sodium Tablet PO 1 tab HS PRN Administration Constipation Radiology Results: ITS Impressions Chest CTA 02/01/25 07:20 IMPRESSION: 1. No pulmonary embolus. 2. Worsened right lung upper lobe mass, consistent with primary bronchogenic carcinoma. 3. Right hilar lymphadenopathy, lung nodules, and liver masses, consistent with worsened metastatic disease. 4. Subacute L1 burst fracture, worsened from 11/02/2024. 5. 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 Chest X-Ray 02/01/25 07:37 IMPRESSION: 1. No acute cardiopulmonary findings given portable technique. 2. Large mass right upper lobe as before. Liver Biopsy Ultrasound 02/02/25 15:12 IMPRESSION: 1. Successful Ultrasound-guided biopsy of a 1.8 cm hypoechoic hepatic nodules suspicious for metastatic disease. Labs Labs: Laboratory Results - last 24 hr 02/01/25 02/03/25 03:26 05:21 WBC 21.0 H RBC 4.23 Hgb 12.1 Hct 37.4 MCV 88.4 MCH 28.6 MCHC 32.4 RDW 15.5 H Plt Count 322 MPV 11.0 H Sodium 131 L Potassium 3.6 Chloride 96 L Carbon Dioxide 25 Anion Gap 10 BUN 39 H D Creatinine 1.63 H Estim Creat Clear Calc 27 Estimated GFR 30 L Glucose 134 H Calcium 11.1 H Magnesium 2.2 IgG 848 IgA 134 IgM 121 BARBARA Interpretation Comment A
[2025-02-03] MEDS: dilTIAZem HCL CD 120 MG CAP.24HR PO (21:00)
[2025-02-04] VITALS (13 sets, daily range): BP systolic 125–155; BP diastolic 58–68; PULSE 60–103; RESP 18–24; TEMP 36.1–36.6; O2SAT 90–95
[2025-02-04] MEDS: IPRATROPIUM 0.5 MG/ALBUTEROL SULFATE 2.5 MG (BASE) AMPUL.NEB 3 ML INHALATION ×4 (02:52→20:46)
[2025-02-04] MEDS: LEVOTHYROXINE SODIUM 125 MCG TABLET PO (05:53)
[2025-02-04] MEDS: ALPRAZolam (*CRX) 0.25 MG TABLET PO ×3 (05:53→21:02)
[2025-02-04 07:40] LABS: Hematocrit 36.3 % (37.0-47.0); Hemoglobin 11.6 g/dL (12.0-15.0); Mean Corpuscular HGB Conc 32.0 g/dl (32-36); Mean Corpuscular Hemoglobin 28.4 pg (26-34); Mean Corpuscular Volume 89.0 fl (80-100); Platelet Count Result 328 k/mm3 (150-375); Red Blood Count 4.08 M/mm3 (4.2-5.4); White Blood Count 15.0 K/mm3 (4.5-10.0)
[2025-02-04 08:09] LABS: Anion Gap 11 mmol/L (4-12); Blood Urea Nitrogen 43 mg/dL (7-17); Calcium 10.7 mg/dL (8.4-10.2); Carbon Dioxide 26 mmol/L (22-30); Chloride 97 mmol/L (98-107); Estimated CRCL calculation 33 ml/min; Estimated Glomerular Filt Rate 38; Glucose 124 mg/dL (65-110); Magnesium 2.2 mg/dL (1.6-2.3); Potassium 3.4 mmol/L (3.4-5.0); Sodium 134 mmol/L (137-145)
--- NOTE | 2025-02-04 09:11 | PC.NURSE ---
RN found patient without clasps. Yellow and purple clasps placed on patient after confirming code status.
[2025-02-04] MEDS: ATORVASTATIN 40 MG TABLET PO (09:12)
[2025-02-04] MEDS: FUROSEMIDE 40 MG TABLET PO (09:13)
[2025-02-04] MEDS: APIXABAN 5 MG TABLET PO ×2 (09:13→20:45)
[2025-02-04] MEDS: FAMOTIDINE 20 MG TABLET PO ×2 (09:13→20:44)
[2025-02-04] MEDS: ALPRAZolam (*CRX) 0.5 MG TABLET PO (11:02)
--- NOTE | 2025-02-04 13:59 | P.PNIM_ITS ---
Progress Note: A&P Assessment and Plan (1) Chronic kidney disease: Code(s): N18.9 - Chronic kidney disease, unspecified Status: Acute (2) Compression fracture: Status: Acute (3) COPD (chronic obstructive pulmonary disease): Code(s): J44.9 - Chronic obstructive pulmonary disease, unspecified Status: Acute (4) Chronic respiratory failure with hypoxia: Code(s): J96.11 - Chronic respiratory failure with hypoxia Status: Acute (5) Mass of upper lobe of right lung: Code(s): R91.8 - Other nonspecific abnormal finding of lung field Status: Acute (6) Liver lesion: Code(s): K76.9 - Liver disease, unspecified Status: Acute Plan Patient with metastatic bronchogenic carcinoma of lungs, had decided to go on DNR and under hospice care, on 02/02 had liver biopsy, now patient has decided against hospice and want to discuss with an oncologist, will to consult oncologist for further evaluation and recommendation, patient remains clinically stable, on 02/03 patient family was present and gave updates will consult oncologist and further recommendation to follow. This is 80-year-old female who presents to the ED with complaint of chest pain. Chest pain is burning aching in nature started yesterday. Associated shortness of breath. No diaphoresis. In the ED her vitals were stable except for hypoxia requiring high level of oxygen. She normally uses 2 L of oxygen via nasal cannula but has required additional oxygen. Patient was in 80s in her usual 2 L on presentation. Oxygen requirement has been increased to 4 L with adequate oxygenation. Laboratory workup revealed WBC of 10.9 hemoglobin 12.4 platelet count of 246. Chem panel shows sodium of 134 potassium 3.6 chloride 96 bicarbonate 29 BUN 18 creatinine 1.35 blood glucose of 109. Calcium was 11.1 lactate was high at 2.6 LFTs were normal troponin was negative at 0.03 BNP elevated at 2190. Lipase was 53. Influenza RSV and COVID swab was negative. EKG showed sinus rhythm with frequent atrial premature complex incomplete right bundle branch block nonspecific ST-T changes. Unchanged compared to prior EKGs. Serial troponin remained negative with next troponin at 0.028. Chest x-ray showed no acute cardiopulmonary findings however there was large mass right upper lobe as noted previously. CTA chest PE protocol was performed which was negative for PE but showed worsened right lung upper lobe mass consistent with primary bronchogenic carcinoma. Right hilar lymphadenopathy lung nodules and liver masses consistent with worsening metastatic disease. Subacute L1 burst fractures worsened from 11/02/2024. 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 She is treated as COPD exacerbation with DuoNeb and steroid in the ER. She is admitted for further treatment. See states she does not 1 a do chemotherapy or radiation therapy however wants to know further diagnosis. Chest pain negative cardiac workup. CTA with worsening right upper lobe mass with multiple liver lesions and hilar lymphadenopathy with hypercalcemia. Likely metastatic lung cancer. Workup with regard to biopsy discussed with the patient agreeable. Will get ultrasound-guided liver biopsy. Acute on chronic hypoxic respiratory failure normally at 2 L oxygen at home. Currently at 4 L with hypoxia noted on presentation. Unclear etiology CTA negative for PE. Possible COPD exacerbation. Cardiac workup negative Lung mass with findings suggestive of metastatic disease. Patient has pr eviously declined biopsy however currently once/agreeable to get a biopsy. Will get ultrasound-guided liver biopsy. She did not follow up with Pulmonary as was planned from last admission Multiple compression fractures Gallbladder mass further MRI revealed 8 to be mobile non enhancing gallbladder sludge CKD stage 3 Hypothyroidism COPD Chronic respiratory failure on home oxygen 2 L Lytic skull lesions CT head 01/06/2025 showed lytic lesions identified bilaterally predominantly involving the vertex of skull 2.5 x 2 cm concerning for metastatic disease. 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 PET with 12 mm right parotid mass with increased activity differential could be benign mixed tumor, warfarin tumor. Aortic atherosclerosis DVT prophylaxis SCDs Code status full code discussed with the patient. Subjective Date/time seen: 02/04/25 13:59 Interval history: Patient with metastatic bronchogenic carcinoma of lungs, had decided to go on DNR and under hospice care, on 02/02 had liver biopsy, now patient has decided against hospice and want to discuss with an oncologist, will to consult oncologist for further evaluation and recommendation, patient remains clinically stable, on 02/03 patient family was present and gave updates will consult oncologist and further recommendation to follow. Review of Systems Review of Systems: - CONSTITUTIONAL: Denies weight loss, fever and chills. - HEENT: Denies changes in vision and he aring - RESPIRATORY: Reports SOB and cough. - CV: Denies palpitations and reports CP . - GI: Denies abdominal pain, nausea, vom iting and diarrhea. - : Denies dysuria and urinary frequen cy. - MSK: Denies myalgia and joint pain. - SKIN: Denies rash and pruritus. - NEUROLOGICAL: Denies headache and sync ope. - PSYCHIATRIC: Denies recent changes in mood. Denies anxiety and depression. Exam Narrative: GENERAL: Well-appearing, well-nourished, and in no acute distress. HEAD: Normocephalic, atraumatic. EYES: PERRLA and EOMI. ENT: Nares clear, no rhinorrhea or epistaxis. Mucous membranes moist. NECK: Supple. CHEST: Clear to auscultation. No respiratory distress. HEART: Regular rate and rhythm. No murmur heard. Normal peripheral pulses. ABDOMEN: Soft, nontender, nondistended, normal active bowel sounds. EXTREMITIES: Normal range of motion. No edema. SKIN: Warm, dry, no rash. NEURO: No focal deficits. Alert and oriented x3. PSYCH: Normal mood and affect. Objective Data Vital Signs Vital Signs: Vital Signs - 24 hr 02/03/25 14:01 02/03/25 14:07 02/03/25 20:00 Temperature Pulse Rate 99 91 Respiratory Rate 20 20 Blood Pressure Pulse Oximetry 95 Oxygen Delivery Nasal Cannula Oxygen Flow Rate 3 Fraction of Inspired Oxygen 21 02/03/25 20:27 02/03/25 20:30 02/03/25 20:37 Temperature Pulse Rate 87 84 Respiratory Rate 20 20 Blood Pressure Pulse Oximetry 95 Oxygen Delivery Nasal Cannula Oxygen Flow Rate 3 Fraction of Inspired Oxygen 02/03/25 20:40 02/04/25 02:53 02/04/25 03:02 Temperature 36.3 C L Pulse Rate 60 87 85 Respiratory Rate 22 H 20 20 Blood Pressure 123/84 Pulse Oximetry 93 Oxygen Delivery Oxygen Flow Rate Fraction of Inspired Oxygen 02/04/25 04:29 02/04/25 08:39 02/04/25 08:39 Temperature 36.6 C Pulse Rate 69 68 Respiratory Rate 18 24 H Blood Pressure 140/58 L Pulse Oximetry 93 91 Oxygen Delivery Nasal Cannula Oxygen Flow Rate 3 Fraction of Inspired Oxygen 02/04/25 08:45 02/04/25 09:06 02/04/25 13:06 Temperature Pulse Rate 68 80 Respiratory Rate 24 H 20 Blood Pressure Pulse Oximetry 93 Oxygen Delivery Nasal Cannula Oxygen Flow Rate 3 Fraction of Inspired Oxygen 02/04/25 13:12 Temperature Pulse Rate 85 Respiratory Rate 20 Blood Pressure Pulse Oximetry Oxygen Delivery Oxygen Flow Rate Fraction of Inspired Oxygen Intake/Output Intake/Output: Intake & Output 02/01/25 02/02/25 02/03/25 02/04/25 23:59 23:59 23:59 23:59 Intake Total 469 519 3111 810 Output Total 400 400 Balance 473 726 2843 810 Meds/Results Medications: Active Medications Generic Name Dose Route Start Last Admin Trade Name Freq PRN Reason Stop Dose Admin Acetaminophen 1,000 mg 02/02/25 15:29 02/02/25 15:42 Acetaminophen 500 Mg Tablet PO 1,000 mg Q6H PRN Administration Mild Pain (1-3) or Fever Hydrocodone Bitart/Acetaminophen 1 tab 02/02/25 18:32 02/03/25 01:32 Hydrocodone/Acetaminophen (*Crx) 5-325 Mg Tablet PO 1 tab Q6H PRN Administration Pain Rated 4-6 Albuterol 2 puff 02/01/25 15:31 Albuterol Sulfate (*Sp) Aerosol 1 Puff INHALATION QIDRT PRN Shortness Of Breath Or Wheezin Albuterol/Ipratropium 3 ml 02/01/25 08:00 02/04/25 13:04 Ipratropium 0.5 Mg/Albuterol Sulfate 2.5 Mg (Base) Ampul.Neb 3 Ml INHALATION 3 ml Q6HRT [place] Administration Alprazolam 0.25 mg 02/01/25 15:40 02/04/25 13:51 Alprazolam (*Crx) 0.25 Mg Tablet PO 0.25 mg Q8HR [place] Administration Apixaban 5 mg 02/01/25 21:00 02/04/25 09:13 Apixaban 5 Mg Tablet PO 5 mg Q12HR [place] Administration Atorvastatin Calcium 40 mg 02/02/25 09:00 02/04/25 09:12 Atorvastatin 40 Mg Tablet PO 40 mg DAILY [place] Administration Diltiazem HCl 120 mg 02/01/25 21:00 02/03/25 21:00 Diltiazem Hcl Cd 120 Mg Cap.24hr PO 120 mg HS [place]KE Administration Duloxetine HCl 60 mg 02/02/25 09:00 02/04/25 09:12 Duloxetine Hcl 30 Mg Capsule.Dr PO 60 mg DAILY [place] Administration Ergocalciferol 1,250 mcg 02/08/25 09:00 Ergocalciferol (Vitamin D2) 1,250 Mcg (50,000 Units) Capsule PO WEEKLY [place] Famotidine 20 mg 02/01/25 21:00 02/04/25 09:13 Famotidine 20 Mg Tablet PO 20 mg Q12HR [place] Administration Furosemide 40 mg 02/02/25 09:00 02/04/25 09:13 Furosemide 40 Mg Tablet PO 40 mg QAM [place] Administration Levothyroxine Sodium 125 mcg 02/02/25 06:30 02/04/25 05:53 Levothyroxine Sodium 125 Mcg Tablet PO 125 mcg DAILY@0630 [place] Administration Methylprednisolone Sodium Succinate 60 mg 02/01/25 14:00 02/04/25 13:51 Methylprednisolone Sod Succ 125 Mg Vial IV PUSH 60 mg Q8HR [place] Administration Miscellaneous Information 0 each 02/01/25 00:01 02/04/25 08:00 Ergocalciferol Once A Week Clarify When Next Dose Due XX 03/03/25 00:00 Not Given [facility] Potassium Chloride 10 meq 02/03/25 09:00 02/03/25 14:10 Potassium Chloride 10 Meq Er Tablet PO 10 meq Q48H [place] Administration Senna/Docusate Sodium 1 tab 02/03/25 01:11 02/03/25 01:33 Senna/Docusate Sodium Tablet PO 1 tab HS PRN Administration Constipation Radiology Results: ITS Impressions Chest CTA 02/01/25 07:20 IMPRESSION: 1. No pulmonary embolus. 2. Worsened right lung upper lobe mass, consistent with primary bronchogenic carcinoma. 3. Right hilar lymphadenopathy, lung nodules, and liver masses, consistent with worsened metastatic disease. 4. Subacute L1 burst fracture, worsened from 11/02/2024. 5. 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 Chest X-Ray 02/01/25 07:37 IMPRESSION: 1. No acute cardiopulmonary findings given portable technique. 2. Large mass right upper lobe as before. Liver Biopsy Ultrasound 02/02/25 15:12 IMPRESSION: 1. Successful Ultrasound-guided biopsy of a 1.8 cm hypoechoic hepatic nodules suspicious for metastatic disease. Labs Labs: Laboratory Results - last 24 hr 02/01/25 02/04/25 03:26 06:31 WBC 15.0 H RBC 4.08 L Hgb 11.6 L Hct 36.3 L MCV 89.0 MCH 28.4 MCHC 32.0 RDW 15.4 H Plt Count 328 MPV 11.4 H Sodium 134 L Potassium 3.4 Chloride 97 L Carbon Dioxide 26 Anion Gap 11 BUN 43 H Creatinine 1.34 H Estim Creat Clear Calc 33 Estimated GFR 38 L Glucose 124 H Calcium 10.7 H Magnesium 2.2 IgG 848 IgA 134 IgM 121 BARBARA Interpretation Comment A
[2025-02-04 15:09] LABS: Albumin, U 25.8 % (.); Alpha-1-Globulin, U 1.8 % (.); Alpha-2-Globulin, U 21.0 % (.); Beta Globulin, U 32.0 % (.); Gamma Globulin, U 19.3 % (.)
[2025-02-04] MEDS: HYDROcodone/acetaminophen (*CRX) 5-325 MG TABLET 1 TAB PO (16:50)
--- NOTE | 2025-02-04 16:51 | WPDONCCN ---
Assessment and Plan Assessment and plan (1) Liver lesion: Code(s): K76.9 - Liver disease, unspecified Status: Acute Assessment and Plan: Patient is a pleasant 80-year-old female with history of smoking 1 pack for 40 years duration but quit about 8 years ago along with history of chronic respiratory failure and COPD along with hepatic steatosis came into the hospital with chest pain and shortness of breath. She has lost significant amount of weight as well. CTA chest showed no PE but there was worsening of the right upper lobe lung mass consistent with primary bronchogenic carcinoma with right hilar lymphadenopathy and liver masses. Liver biopsy showed squamous cell carcinoma. This is likely primary metastatic lung cancer. I have discussed treatment options with patient and the son in detail. I have discussed the prognosis with and without chemotherapy. After long discussion patient and family decided to proceed with hospice and comfort care only. HPI Data of Consult Date/Time: 02/04/25 16:51 Requesting Physician: Jus Theodore MD Primary Care Provider: Saji Mullen, Consult Narrative Narrative: Vibha Hill is a 80 year old female with history of hepatic steatosis, chronic respiratory failure, chronic kidney disease, hypothyroidism and COPD along with history of smoking 40 years duration but quit about 8 years ago came into the hospital with shortness of breath and chest discomfort. CT chest for PE protocol was done that showed no evidence of PE but there was worsening of the right upper lobe mass consistent with primary bronchogenic carcinoma lung with right hilar lymphadenopathy and liver masses. There was subacute L1 burst fracture. She is complaining of bilateral rib cage pain as well. Patient had ultrasound-guided liver biopsy of 1.8 cm mass done and pathology showed metastatic likely squamous cell carcinoma of unknown primary. She denies any other complaint other than tiredness and fatigue poor appetite and weight loss. Review of Systems Review of Systems: Twelve point review of system was reviewed [facility] Past Medical History Medical History Hepatic steatosis Closed wedge compression fracture of T12 vertebra (2021) Chronic respiratory failure with hypoxia Chronic kidney disease Stage IIIB baseline creatinine 1.3-1 point 4 5 Depression Hypothyroidism COPD (chronic obstructive pulmonary disease) Surgical History Surgical History Status post cataract extraction of both eyes with insertion of intraocular lens History of hysterectomy History of appendectomy Social History Social History Social History: Lives in apartment by herself. She was twice. She had 4 children 1 of her children is due to accident. She reports that her other children are healthy. She used to smoke 1.5 packs cigarettes per day. She smoked from the time she was a teenager until age 69. Code status: Full code (?as long as there is a chance) His surrogate decision maker: Lexii Clements (sister) Smoking packs per day: 1.5 Smoking cigarettes per day: 30.0 Years smoked: 50 Smoking pack-years: 75.00 Smoking status: Former smoker Tobacco type: cigarettes and cigars Second hand tobacco smoke exposure: No Additional smoking assessment comments: 2014 Alcohol intake: former Alcohol use details: She used to drink moderate to heavy amount of alcohol but quit over 20 years ago. Substance use: never Do You Feel Safe in your Home?: Yes Lack of Transportation: YES Lack of Food: Never True Current Housing: I Have Housing Concerned About Future Housing: No Difficulty Paying Gas/Electric Bills: No Difficulty Paying for Meds: No Currently Unemployed: No Education: High School Diploma/GED Difficulty w/ Childcare or Family Care: No Living arrangements: alone Spiritual care concerns: No Meds Home Medications and Allergies Home Medications ?Medication ?Instructions ?Recorded ?Confirmed ?Type diltiazem HCl 120 mg 120 mg PO HS 09/27/21 02/01/25 History capsule,extended release 24 hr duloxetine 30 mg capsule,delayed 60 mg PO DAILY 09/27/21 02/01/25 History release ergocalciferol (vitamin D2) 1,250 1,250 mcg PO WEEKLY 09/27/21 02/01/25 History mcg (50,000 unit) capsule famotidine 20 mg tablet 20 mg PO Q12H 09/27/21 02/01/25 History furosemide 40 mg tablet 40 tablet PO DAILY 09/27/21 02/01/25 History levothyroxine 100 mcg tablet 125 mcg PO DAILY 09/27/21 02/01/25 History alprazolam 0.25 mg tablet 0.25 mg PO TID 11/02/24 02/01/25 History apixaban 5 mg tablet (Eliquis) 5 mg PO Q12H 11/02/24 02/01/25 History atorvastatin 40 mg tablet 40 mg PO DAILY 11/02/24 02/01/25 History potassium chloride 10 mEq 10 meq PO EVERY OTHER DAY 11/02/24 02/01/25 History tablet,extended release alprazolam 0.25 mg tablet 0.25 mg PO TID #20 tabs 11/09/24 02/01/25 Rx albuterol sulfate 90 mcg/actuation 2 puff inhalation QID PRN 11/10/24 02/01/25 Rx aerosol inhaler shortness of breath or wheezing #8.5 grams ipratropium 0.5 mg-albuterol 3 mg 3 ml inhalation Q4H PRN shortness 11/10/24 02/01/25 Rx (2.5 mg base)/3 mL nebulization of breath or wheezing #180 mL soln nebulizers (Compact Compressor #1 ea 11/10/24 02/01/25 Rx Nebulizer) amoxicillin 875 mg-potassium 1 tablet PO Q12H 02/01/25 02/01/25 History clavulanate 125 mg tablet Allergies Allergy/AdvReac Type Severity Reaction Status Date / Time No Known Allergies Allergy Verified 01/06/25 16:12 Vital Signs Vital Signs - 24 hr 02/03/25 20:00 02/03/25 20:27 02/03/25 20:30 Temperature Pulse Rate 87 Respiratory Rate 20 Blood Pressure Pulse Oximetry 95 95 Oxygen Delivery Nasal Cannula Nasal Cannula Oxygen Flow Rate 3 3 Fraction of Inspired Oxygen 21 02/03/25 20:37 02/03/25 20:40 02/04/25 02:53 Temperature 36.3 C L Pulse Rate 84 60 87 Respiratory Rate 20 22 H 20 Blood Pressure 123/84 Pulse Oximetry 93 Oxygen Delivery Oxygen Flow Rate Fraction of Inspired Oxygen 02/04/25 03:02 02/04/25 04:29 02/04/25 08:39 Temperature 36.6 C Pulse Rate 85 69 Respiratory Rate 20 18 Blood Pressure 140/58 L Pulse Oximetry 93 91 Oxygen Delivery Nasal Cannula Oxygen Flow Rate 3 Fraction of Inspired Oxygen 02/04/25 08:39 02/04/25 08:45 02/04/25 09:06 Temperature Pulse Rate 68 68 Respiratory Rate 24 H 24 H Blood Pressure Pulse Oximetry 93 Oxygen Delivery Nasal Cannula Oxygen Flow Rate 3 Fraction of Inspired Oxygen 02/04/25 13:06 02/04/25 13:12 Temperature Pulse Rate 80 85 Respiratory Rate 20 20 Blood Pressure Pulse Oximetry Oxygen Delivery Oxygen Flow Rate Fraction of Inspired Oxygen Exam Narrative: Lungs are clear to auscultation bilaterally Cardiovascular regular rate rhythm no murmurs Abdomen soft nontender nondistended Extremities no edema Results Labs 02/04/25 06:31 02/04/25 06:31 Labs: Short CBC 02/04/25 Range/Units 06:31 WBC 15.0 H (4.5-10.0) K/mm3 Hgb 11.6 L (12.0-15.0) g/dL Hct 36.3 L (37.0-47.0) % Plt Count 328 (150-375) k/mm3 [facility] 02/04/25 06:31 Sodium 134 L Potassium 3.4 Chloride 97 L Carbon Dioxide 26 BUN 43 H Creatinine 1.34 H Glucose 124 H Calcium 10.7 H
[2025-02-04] MEDS: dilTIAZem HCL CD 120 MG CAP.24HR PO (20:44)
[2025-02-05] VITALS (14 sets, daily range): BP systolic 116–140; BP diastolic 67–74; PULSE 68–77; RESP 12–20; TEMP 36.2–36.5; O2SAT 92–97
[2025-02-05] MEDS: IPRATROPIUM 0.5 MG/ALBUTEROL SULFATE 2.5 MG (BASE) AMPUL.NEB 3 ML INHALATION ×4 (02:39→20:22)
[2025-02-05 06:04] LABS: Hematocrit 37.9 % (37.0-47.0); Hemoglobin 11.9 g/dL (12.0-15.0); Mean Corpuscular HGB Conc 31.4 g/dl (32-36); Mean Corpuscular Hemoglobin 28.2 pg (26-34); Mean Corpuscular Volume 89.8 fl (80-100); Platelet Count Result 330 k/mm3 (150-375); Red Blood Count 4.22 M/mm3 (4.2-5.4); White Blood Count 12.0 K/mm3 (4.5-10.0)
[2025-02-05] MEDS: LEVOTHYROXINE SODIUM 125 MCG TABLET PO (06:07)
[2025-02-05] MEDS: ALPRAZolam (*CRX) 0.25 MG TABLET PO ×3 (06:07→21:29)
[2025-02-05 06:37] LABS: Anion Gap 11 mmol/L (4-12); Blood Urea Nitrogen 41 mg/dL (7-17); Calcium 10.4 mg/dL (8.4-10.2); Carbon Dioxide 28 mmol/L (22-30); Chloride 95 mmol/L (98-107); Estimated CRCL calculation 33 ml/min; Estimated Glomerular Filt Rate 39; Glucose 133 mg/dL (65-110); Magnesium 2.2 mg/dL (1.6-2.3); Potassium 3.4 mmol/L (3.4-5.0); Sodium 134 mmol/L (137-145)
[2025-02-05] MEDS: HYDROcodone/acetaminophen (*CRX) 5-325 MG TABLET 1 TAB PO ×2 (10:15→20:49)
[2025-02-05] MEDS: POTASSIUM CHLORIDE 10 MEQ ER TABLET PO (10:16)
[2025-02-05] MEDS: APIXABAN 5 MG TABLET PO ×2 (10:16→21:30)
[2025-02-05] MEDS: POTASSIUM CHLORIDE 20 MEQ PACKET (FOR LIQUID) 40 MEQ PO (10:16)
[2025-02-05] MEDS: FAMOTIDINE 20 MG TABLET PO ×2 (10:16→21:29)
[2025-02-05] MEDS: ATORVASTATIN 40 MG TABLET PO (10:16)
[2025-02-05] MEDS: FUROSEMIDE 40 MG TABLET PO (10:16)
--- NOTE | 2025-02-05 12:12 | P.PNIM_ITS ---
Progress Note: A&P Assessment and Plan (1) Chronic kidney disease: Code(s): N18.9 - Chronic kidney disease, unspecified Status: Acute (2) Compression fracture: Status: Acute (3) COPD (chronic obstructive pulmonary disease): Code(s): J44.9 - Chronic obstructive pulmonary disease, unspecified Status: Acute (4) Chronic respiratory failure with hypoxia: Code(s): J96.11 - Chronic respiratory failure with hypoxia Status: Acute (5) Mass of upper lobe of right lung: Code(s): R91.8 - Other nonspecific abnormal finding of lung field Status: Acute (6) Liver lesion: Code(s): K76.9 - Liver disease, unspecified Status: Acute Plan Patient with metastatic bronchogenic carcinoma of lungs, had decided to go on DNR and under hospice care, on 02/02 had liver biopsy, now patient has decided against hospice and want to discuss with an oncologist, will to consult oncologist for further evaluation and recommendation, patient remains clinically stable, on 02/03 patient family was present and gave updates will consult oncologist and further recommendation to follow. on 02/04/25 patient and her son discussed with Dr Oconnor, oncologist regarding her lung cancer, treatment plan was discussed, patient and her son have decided about hospice care, patient will be seen be seen senior benefits manager and further recommendation to follow. This is 80-year-old female who presents to the ED with complaint of chest pain. Chest pain is burning aching in nature started yesterday. Associated shortness of breath. No diaphoresis. In the ED her vitals were stable except for hypoxia requiring high level of oxygen. She normally uses 2 L of oxygen via nasal cannula but has required additional oxygen. Patient was in 80s in her usual 2 L on presentation. Oxygen requirement has been increased to 4 L with adequate oxygenation. Laboratory workup revealed WBC of 10.9 hemoglobin 12.4 platelet count of 246. Chem panel shows sodium of 134 potassium 3.6 chloride 96 bicarbonate 29 BUN 18 creatinine 1.35 blood glucose of 109. Calcium was 11.1 lactate was high at 2.6 LFTs were normal troponin was negative at 0.03 BNP elevated at 2190. Lipase was 53. Influenza RSV and COVID swab was negative. EKG showed sinus rhythm with frequent atrial premature complex incomplete right bundle branch block nonspecific ST-T changes. Unchanged compared to prior EKGs. Serial troponin remained negative with next troponin at 0.028. Chest x-ray showed no acute cardiopulmonary findings however there was large mass right upper lobe as noted previously. CTA chest PE protocol was performed which was negative for PE but showed worsened right lung upper lobe mass consistent with primary bronchogenic carcinoma. Right hilar lymphadenopathy lung nodules and liver masses consistent with worsening metastatic disease. Subacute L1 burst fractures worsened from 11/02/2024. 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 She is treated as COPD exacerbation with DuoNeb and steroid in the ER. She is admitted for further treatment. See states she does not 1 a do chemotherapy or radiation therapy however wants to know further diagnosis. Chest pain negative cardiac workup. CTA with worsening right upper lobe mass with multiple liver lesions and hilar lymphadenopathy with hypercalcemia. Likely metastatic lung cancer. Workup with regard to biopsy discussed with the patient agreeable. Will get ultrasound-guided liver biopsy. Acute on chronic hypoxic respiratory failure normally at 2 L oxygen at home. Currently at 4 L with hypoxia noted on presentation. Unclear etiology CTA negative for PE. Possible COPD exacerbation. Cardiac workup negative Lung mass with findings suggestive of metastatic disease. Patient has previously declined biopsy however currently once/agreeable to get a biopsy. Will get ultrasound-guided liver biopsy. She did not follow up with Pulmonary as was planned from last admission Multiple compression fractures Gallbladder mass further MRI revealed 8 to be mobile non enhancing gallbladder sludge CKD stage 3 Hypothyroidism COPD Chronic respiratory failure on home oxygen 2 L Lytic skull lesions CT head 01/06/2025 showed lytic lesions identified bilaterally predominantly involving the vertex of skull 2.5 x 2 cm concerning for metastatic disease. 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 PET with 12 mm right parotid mass with increased activity differential could be benign mixed tumor, warfarin tumor. Aortic atherosclerosis DVT prophylaxis SCDs Code status full code discussed with the patient. Subjective Date/time seen: 02/05/25 12:12 Interval history: Patient with metastatic bronchogenic carcinoma of lungs, had decided to go on DNR and under hospice care, on 02/02 had liver biopsy, now patient has decided against hospice and want to discuss with an oncologist, will to consult oncologist for further evaluation and recommendation, patient remains clinically stable, on 02/03 patient family was present and gave updates will consult oncologist and further recommendation to follow. on 02/04/25 patient and her son discussed with Dr Oconnor, oncologist regarding her lung cancer, treatment plan was discussed, patient and her son have decided about hospice care, patient will be seen be seen senior benefits manager and further recommendation to follow. Review of Systems Review of Systems: - CONSTITUTIONAL: Denies weight loss, fever and chills. - HEENT: Denies changes in vision and he aring - RESPIRATORY: Reports SOB and cough. - CV: Denies palpitations and reports CP . - GI: Denies abdominal pain, nausea, vom iting and diarrhea. - : Denies dysuria and urinary frequen cy. - MSK: Denies myalgia and joint pain. - SKIN: Denies rash and pruritus. - NEUROLOGICAL: Denies headache and sync ope. - PSYCHIATRIC: Denies recent changes in mood. Denies anxiety and depression. Exam Narrative: GENERAL: Well-appearing, well-nourished, and in no acute distress. HEAD: Normocephalic, atraumatic. EYES: PERRLA and EOMI. ENT: Nares clear, no rhinorrhea or epistaxis. Mucous membranes moist. NECK: Supple. CHEST: Clear to auscultation. No respiratory distress. HEART: Regular rate and rhythm. No murmur heard. Normal peripheral pulses. ABDOMEN: Soft, nontender, nondistended, normal active bowel sounds. EXTREMITIES: Normal range of motion. No edema. SKIN: Warm, dry, no rash. NEURO: No focal deficits. Alert and oriented x3. PSYCH: Normal mood and affect. Objective Data Vital Signs Vital Signs: Vital Signs - 24 hr 02/04/25 13:06 02/04/25 13:12 02/04/25 13:57 Temperature 36.1 C L Pulse Rate 80 85 103 H Respiratory Rate 20 20 20 Blood Pressure 125/67 Pulse Oximetry 92 Oxygen Delivery Oxygen Flow Rate Fraction of Inspired Oxygen 02/04/25 19:45 02/04/25 20:00 02/04/25 20:46 Temperature 36.5 C Pulse Rate 72 Respiratory Rate 20 Blood Pressure 155/68 H Pulse Oximetry 90 95 95 Oxygen Delivery Nasal Cannula Nasal Cannula Oxygen Flow Rate 3 3 Fraction of Inspired Oxygen 21 02/04/25 20:46 02/04/25 20:52 02/05/25 02:39 Temperature Pulse Rate 80 60 69 Respiratory Rate 18 18 12 Blood Pressure Pulse Oximetry Oxygen Delivery Oxygen Flow Rate Fraction of Inspired Oxygen 02/05/25 02:43 02/05/25 04:19 02/05/25 07:50 Temperature 36.5 C Pulse Rate 77 77 Respiratory Rate 12 20 Blood Pressure 131/72 Pulse Oximetry 93 97 Oxygen Delivery Nasal Cannula Oxygen Flow Rate 3 Fraction of Inspired Oxygen 02/05/25 07:50 02/05/25 08:00 02/05/25 08:02 Temperature Pulse Rate 71 74 Respiratory Rate 16 16 Blood Pressure Pulse Oximetry 94 Oxygen Delivery Nasal Cannula Oxygen Flow Rate 3 Fraction of Inspired Oxygen 02/05/25 08:57 Temperature Pulse Rate Respiratory Rate Blood Pressure Pulse Oximetry 94 Oxygen Delivery Nasal Cannula Oxygen Flow Rate 2 Fraction of Inspired Oxygen Intake/Output Intake/Output: Intake & Output 02/02/25 02/03/25 02/04/25 02/05/25 23:59 23:59 23:59 23:59 Intake Total 540 1080 2340 1040 Output Total 400 Balance 140 1080 2340 1040 Meds/Results Medications: Active Medications Generic Name Dose Route Start Last Admin Trade Name Freq PRN Reason Stop Dose Admin Acetaminophen 1,000 mg 02/02/25 15:29 02/02/25 15:42 Acetaminophen 500 Mg Tablet PO 1,000 mg Q6H PRN Administration Mild Pain (1-3) or Fever Hydrocodone Bitart/Acetaminophen 1 tab 02/02/25 18:32 02/05/25 10:15 Hydrocodone/Acetaminophen (*Crx) 5-325 Mg Tablet PO 1 tab Q6H PRN Administration Pain Rated 4-6 Albuterol 2 puff 02/01/25 15:31 Albuterol Sulfate (*Sp) Aerosol 1 Puff INHALATION QIDRT PRN Shortness Of Breath Or Wheezin Albuterol/Ipratropium 3 ml 02/01/25 08:00 02/05/25 07:50 Ipratropium 0.5 Mg/Albuterol Sulfate 2.5 Mg (Base) Ampul.Neb 3 Ml INHALATION 3 ml Q6HRT [place] Administration Alprazolam 0.25 mg 02/01/25 15:40 02/05/25 06:07 Alprazolam (*Crx) 0.25 Mg Tablet PO 0.25 mg Q8HR [place] Administration Apixaban 5 mg 02/01/25 21:00 02/05/25 10:16 Apixaban 5 Mg Tablet PO 5 mg Q12HR [place] Administration Atorvastatin Calcium 40 mg 02/02/25 09:00 02/05/25 10:16 Atorvastatin 40 Mg Tablet PO 40 mg DAILY [place] Administration Diltiazem HCl 120 mg 02/01/25 21:00 02/04/25 20:44 Diltiazem Hcl Cd 120 Mg Cap.24hr PO 120 mg HS LAEK Administration Duloxetine HCl 60 mg 02/02/25 09:00 02/05/25 10:16 Duloxetine Hcl 30 Mg Capsule.Dr PO 60 mg DAILY [place] Administration Ergocalciferol 1,250 mcg 02/08/25 09:00 Ergocalciferol (Vitamin D2) 1,250 Mcg (50,000 Units) Capsule PO WEEKLY [place] Famotidine 20 mg 02/01/25 21:00 02/05/25 10:16 Famotidine 20 Mg Tablet PO 20 mg Q12HR [place] Administration Furosemide 40 mg 02/02/25 09:00 02/05/25 10:16 Furosemide 40 Mg Tablet PO 40 mg QAM [place] Administration Levothyroxine Sodium 125 mcg 02/02/25 06:30 02/05/25 06:07 Levothyroxine Sodium 125 Mcg Tablet PO 125 mcg DAILY@0630 [place] Administration Methylprednisolone Sodium Succinate 60 mg 02/01/25 14:00 02/05/25 06:06 Methylprednisolone Sod Succ 125 Mg Vial IV PUSH 60 mg Q8HR [place] Administration Miscellaneous Information 0 each 02/01/25 00:01 02/04/25 08:00 Ergocalciferol Once A Week Clarify When Next Dose Due XX 03/03/25 00:00 Not Given [facility] Potassium Chloride 10 meq 02/03/25 09:00 02/05/25 10:16 Potassium Chloride 10 Meq Er Tablet PO 10 meq Q48H [place] Administration Senna/Docusate Sodium 1 tab 02/03/25 01:11 02/03/25 01:33 Senna/Docusate Sodium Tablet PO 1 tab HS PRN Administration Constipation Radiology Results: ITS Impressions Chest CTA 02/01/25 07:20 IMPRESSION: 1. No pulmonary embolus. 2. Worsened right lung upper lobe mass, consistent with primary bronchogenic carcinoma. 3. Right hilar lymphadenopathy, lung nodules, and liver masses, consistent with worsened metastatic disease. 4. Subacute L1 burst fracture, worsened from 11/02/2024. 5. 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 Chest X-Ray 02/01/25 07:37 IMPRESSION: 1. No acute cardiopulmonary findings given portable technique. 2. Large mass right upper lobe as before. Liver Biopsy Ultrasound 02/02/25 15:12 IMPRESSION: 1. Successful Ultrasound-guided biopsy of a 1.8 cm hypoechoic hepatic nodules suspicious for metastatic disease. Labs Labs: Laboratory Results - last 24 hr 02/01/25 02/05/25 18:11 05:24 WBC 12.0 H RBC 4.22 Hgb 11.9 L Hct 37.9 MCV 89.8 MCH 28.2 MCHC 31.4 L RDW 15.5 H Plt Count 330 MPV 11.0 H Sodium 134 L Potassium 3.4 Chloride 95 L Carbon Dioxide 28 Anion Gap 11 BUN 41 H Creatinine 1.31 H Estim Creat Clear Calc 33 Estimated GFR 39 L Glucose 133 H Calcium 10.4 H Magnesium 2.2 Urine Total Protein 21.3 Urine Albumin (PEP) 25.8 U [id number] 1.8 U Urzaa-5-[id number] 21.0 U Beta Globulin 32.0 U Gamma Globulin 19.3 U Random M-Robert (%) Not observed Urine PEP Note Comment
[2025-02-05] MEDS: ACETAMINOPHEN 500 MG TABLET 1000 MG PO (15:32)
[2025-02-05] MEDS: dilTIAZem HCL CD 120 MG CAP.24HR PO (21:30)
[2025-02-06] VITALS (13 sets, daily range): BP systolic 122–132; BP diastolic 70–89; PULSE 60–84; RESP 18–23; TEMP 36.2–36.5; O2SAT 94–98
[2025-02-06] MEDS: IPRATROPIUM 0.5 MG/ALBUTEROL SULFATE 2.5 MG (BASE) AMPUL.NEB 3 ML INHALATION ×4 (01:58→21:45)
[2025-02-06 06:11] LABS: Hematocrit 37.5 % (37.0-47.0); Hemoglobin 12.0 g/dL (12.0-15.0); Mean Corpuscular HGB Conc 32.0 g/dl (32-36); Mean Corpuscular Hemoglobin 28.2 pg (26-34); Mean Corpuscular Volume 88.2 fl (80-100); Platelet Count Result 342 k/mm3 (150-375); Red Blood Count 4.25 M/mm3 (4.2-5.4); White Blood Count 12.5 K/mm3 (4.5-10.0)
[2025-02-06] MEDS: ALPRAZolam (*CRX) 0.25 MG TABLET PO ×3 (06:18→21:59)
[2025-02-06] MEDS: LEVOTHYROXINE SODIUM 125 MCG TABLET PO (06:18)
[2025-02-06 06:25] LABS: Anion Gap 7 mmol/L (4-12); Blood Urea Nitrogen 43 mg/dL (7-17); Calcium 10.2 mg/dL (8.4-10.2); Carbon Dioxide 29 mmol/L (22-30); Chloride 96 mmol/L (98-107); Estimated CRCL calculation 33 ml/min; Estimated Glomerular Filt Rate 40; Glucose 126 mg/dL (65-110); Magnesium 2.4 mg/dL (1.6-2.3); Potassium 4.1 mmol/L (3.4-5.0); Sodium 132 mmol/L (137-145)
[2025-02-06] MEDS: FUROSEMIDE 40 MG TABLET PO (08:41)
[2025-02-06] MEDS: HYDROcodone/acetaminophen (*CRX) 5-325 MG TABLET 1 TAB PO ×2 (08:41→18:32)
[2025-02-06] MEDS: APIXABAN 5 MG TABLET PO ×2 (08:41→21:59)
[2025-02-06] MEDS: ATORVASTATIN 40 MG TABLET PO (08:41)
[2025-02-06] MEDS: FAMOTIDINE 20 MG TABLET PO ×2 (08:42→21:59)
--- NOTE | 2025-02-06 11:54 | P.PNIM_ITS ---
Progress Note: A&P Assessment and Plan (1) Chronic kidney disease: Code(s): N18.9 - Chronic kidney disease, unspecified Status: Acute (2) Compression fracture: Status: Acute (3) COPD (chronic obstructive pulmonary disease): Code(s): J44.9 - Chronic obstructive pulmonary disease, unspecified Status: Acute (4) Chronic respiratory failure with hypoxia: Code(s): J96.11 - Chronic respiratory failure with hypoxia Status: Acute (5) Mass of upper lobe of right lung: Code(s): R91.8 - Other nonspecific abnormal finding of lung field Status: Acute (6) Liver lesion: Code(s): K76.9 - Liver disease, unspecified Status: Acute Plan Patient with metastatic bronchogenic carcinoma of lungs, had decided to go on DNR and under hospice care, on 02/02 had liver biopsy, now patient has decided against hospice and want to discuss with an oncologist, will to consult oncologist for further evaluation and recommendation, patient remains clinically stable, on 02/03 patient family was present and gave updates patient was seen by oncologist. on 02/04/25 patient and her son discussed with Dr Oconnor, oncologist regarding her lung cancer, treatment plan was discussed, patient and her son have decided about hospice care, patient will be seen be seen internal controls manager and further recommendation to follow. waiting for a placement. This is 80-year-old female who presents to the ED with complaint of chest pain. Chest pain is burning aching in nature started yesterday. Associated shortness of breath. No diaphoresis. In the ED her vitals were stable except for hypoxia requiring high level of oxygen. She normally uses 2 L of oxygen via nasal cannula but has required additional oxygen. Patient was in 80s in her usual 2 L on presentation. Oxygen requirement has been increased to 4 L with adequate oxygenation. Laboratory workup revealed WBC of 10.9 hemoglobin 12.4 platelet count of 246. Chem panel shows sodium of 134 potassium 3.6 chloride 96 bicarbonate 29 BUN 18 creatinine 1.35 blood glucose of 109. Calcium was 11.1 lactate was high at 2.6 LFTs were normal troponin was negative at 0.03 BNP elevated at 2190. Lipase was 53. Influenza RSV and COVID swab was negative. EKG showed sinus rhythm with frequent atrial premature complex incomplete right bundle branch block nonspecific ST-T changes. Unchanged compared to prior EKGs. Serial troponin remained negative with next troponin at 0.028. Chest x-ray showed no acute cardiopulmonary findings however there was large mass right upper lobe as noted previously. CTA chest PE protocol was performed which was negative for PE but showed worsened right lung upper lobe mass consistent with primary bronchogenic carcinoma. Right hilar lymphadenopathy lung nodules and liver masses consistent with worsening metastatic disease. Subacute L1 burst fractures worsened from 11/02/2024. 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 She is treated as COPD exacerbation with DuoNeb and steroid in the ER. She is admitted for further treatment. See states she does not 1 a do chemotherapy or radiation therapy however wants to know further diagnosis. Chest pain negative cardiac workup. CTA with worsening right upper lobe mass with multiple liver lesions and hilar lymphadenopathy with hypercalcemia. Likely metastatic lung cancer. Workup with regard to biopsy discussed with the patient agreeable. Will get ultrasound-guided liver biopsy. Acute on chronic hypoxic respiratory failure normally at 2 L oxygen at home. Currently at 4 L with hypoxia noted on presentation. Unclear etiology CTA negative for PE. Possible COPD exacerbation. Cardiac workup negative Lung mass with findings suggestive of metastatic disease. Patient has previously declined biopsy however currently once/agreeable to get a biopsy. Will get ultrasound-guided liver biopsy. She did not follow up with Pulmonary as was planned from last admission Multiple compression fractures Gallbladder mass further MRI revealed 8 to be mobile non enhancing gallbladder sludge CKD stage 3 Hypothyroidism COPD Chronic respiratory failure on home oxygen 2 L Lytic skull lesions CT head 01/06/2025 showed lytic lesions identified bilaterally predominantly involving the vertex of skull 2.5 x 2 cm concerning for metastatic disease. 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 PET with 12 mm right parotid mass with increased activity differential could be benign mixed tumor, warfarin tumor. Aortic atherosclerosis DVT prophylaxis SCDs Code status full code discussed with the patient. Subjective Date/time seen: 02/06/25 11:54 Interval history: Patient with metastatic bronchogenic carcinoma of lungs, had decided to go on DNR and under hospice care, on 02/02 had liver biopsy, now patient has decided against hospice and want to discuss with an oncologist, will to consult oncologist for further evaluation and recommendation, patient remains clinically stable, on 02/03 patient family was present and gave updates patient was seen by oncologist. on 02/04/25 patient and her son discussed with Dr Oconnor, oncologist regarding her lung cancer, treatment plan was discussed, patient and her son have decided about hospice care, patient will be seen be seen internal controls manager and further recommendation to follow. waiting for a placement. Review of Systems Review of Systems: - CONSTITUTIONAL: Denies weight loss, fever and chills. - HEENT: Denies changes in vision and he aring - RESPIRATORY: Reports SOB and cough. - CV: Denies palpitations and reports CP . - GI: Denies abdominal pain, nausea, vom iting and diarrhea. - : Denies dysuria and urinary frequen cy. - MSK: Denies myalgia and joint pain. - SKIN: Denies rash and pruritus. - NEUROLOGICAL: Denies headache and sync ope. - PSYCHIATRIC: Denies recent changes in mood. Denies anxiety and depression. Exam Narrative: GENERAL: Well-appearing, well-nourished, and in no acute distress. HEAD: Normocephalic, atraumatic. EYES: PERRLA and EOMI. ENT: Nares clear, no rhinorrhea or epistaxis. Mucous membranes moist. NECK: Supple. CHEST: Clear to auscultation. No respiratory distress. HEART: Regular rate and rhythm. No murmur heard. Normal peripheral pulses. ABDOMEN: Soft, nontender, nondistended, normal active bowel sounds. EXTREMITIES: Normal range of motion. No edema. SKIN: Warm, dry, no rash. NEURO: No focal deficits. Alert and oriented x3. PSYCH: Normal mood and affect. Objective Data Vital Signs Vital Signs: Vital Signs - 24 hr 02/05/25 13:43 02/05/25 13:52 02/05/25 14:48 Temperature 36.2 C L Pulse Rate 68 74 72 Respiratory Rate 16 16 18 Blood Pressure 140/74 Pulse Oximetry 92 Oxygen Delivery Oxygen Flow Rate 02/05/25 20:23 02/05/25 20:26 02/05/25 20:29 Temperature Pulse Rate 68 70 Respiratory Rate 16 16 Blood Pressure Pulse Oximetry 95 Oxygen Delivery Nasal Cannula Oxygen Flow Rate 2 02/05/25 22:26 02/06/25 01:58 02/06/25 02:04 Temperature 36.4 C L Pulse Rate 68 81 83 Respiratory Rate 18 23 H 21 H Blood Pressure 116/67 Pulse Oximetry 95 Oxygen Delivery Oxygen Flow Rate 02/06/25 07:30 02/06/25 07:30 02/06/25 07:33 Temperature 36.5 C Pulse Rate 66 67 Respiratory Rate 18 18 Blood Pressure 123/77 Pulse Oximetry 97 94 Oxygen Delivery Nasal Cannula Oxygen Flow Rate 2 02/06/25 07:39 02/06/25 08:00 Temperature Pulse Rate 68 Respiratory Rate 18 Blood Pressure Pulse Oximetry 94 Oxygen Delivery Nasal Cannula Oxygen Flow Rate 3 Intake/Output Intake/Output: Intake & Output 02/03/25 02/04/25 02/05/25 02/06/25 23:59 23:59 23:59 23:59 Intake Total 1080 2340 1969 Balance 1080 2340 1969 Meds/Results Medications: Active Medications Generic Name Dose Route Start Last Admin Trade Name Freq PRN Reason Stop Dose Admin Acetaminophen 1,000 mg 02/02/25 15:29 02/05/25 15:32 Acetaminophen 500 Mg Tablet PO 1,000 mg Q6H PRN Administration Mild Pain (1-3) or Fever Hydrocodone Bitart/Acetaminophen 1 tab 02/02/25 18:32 02/06/25 08:41 Hydrocodone/Acetaminophen (*Crx) 5-325 Mg Tablet PO 1 tab Q6H PRN Administration Pain Rated 4-6 Albuterol 2 puff 02/01/25 15:31 Albuterol Sulfate (*Sp) Aerosol 1 Puff INHALATION QIDRT PRN Shortness Of Breath Or Wheezin Albuterol/Ipratropium 3 ml 02/01/25 08:00 02/06/25 07:29 Ipratropium 0.5 Mg/Albuterol Sulfate 2.5 Mg (Base) Ampul.Neb 3 Ml INHALATION 3 ml Q6HRT LAKE Administration Alprazolam 0.25 mg 02/01/25 15:40 02/06/25 06:18 Alprazolam (*Crx) 0.25 Mg Tablet PO 0.25 mg Q8HR LAKE Administration Apixaban 5 mg 02/01/25 21:00 02/06/25 08:41 Apixaban 5 Mg Tablet PO 5 mg Q12HR [place] Administration Atorvastatin Calcium 40 mg 02/02/25 09:00 02/06/25 08:41 Atorvastatin 40 Mg Tablet PO 40 mg DAILY LA[place] Administration Diltiazem HCl 120 mg 02/01/25 21:00 02/05/25 21:30 Diltiazem Hcl Cd 120 Mg Cap.24hr PO 120 mg HS LAKE Administration Duloxetine HCl 60 mg 02/02/25 09:00 02/06/25 08:40 Duloxetine Hcl 30 Mg Capsule.Dr PO 60 mg DAILY LKAE Administration Ergocalciferol 1,250 mcg 02/07/25 09:00 Ergocalciferol (Vitamin D2) 1,250 Mcg (50,000 Units) Capsule PO WEEKLY LAKE Famotidine 20 mg 02/01/25 21:00 02/06/25 08:42 Famotidine 20 Mg Tablet PO 20 mg Q12HR [place] Administration Furosemide 40 mg 02/02/25 09:00 02/06/25 08:41 Furosemide 40 Mg Tablet PO 40 mg QAM [place] Administration Levothyroxine Sodium 125 mcg 02/02/25 06:30 02/06/25 06:18 Levothyroxine Sodium 125 Mcg Tablet PO 125 mcg DAILY@0630 LAKE Administration Methylprednisolone Sodium Succinate 60 mg 02/01/25 14:00 02/06/25 06:17 Methylprednisolone Sod Succ 125 Mg Vial IV PUSH 60 mg Q8HR LAKE Administration Potassium Chloride 10 meq 02/03/25 09:00 02/05/25 10:16 Potassium Chloride 10 Meq Er Tablet PO 10 meq Q48H LAKE Administration Senna/Docusate Sodium 1 tab 02/03/25 01:11 02/03/25 01:33 Senna/Docusate Sodium Tablet PO 1 tab HS PRN Administration Constipation Radiology Results: ITS Impressions Chest CTA 02/01/25 07:20 IMPRESSION: 1. No pulmonary embolus. 2. Worsened right lung upper lobe mass, consistent with primary bronchogenic carcinoma. 3. Right hilar lymphadenopathy, lung nodules, and liver masses, consistent with worsened metastatic disease. 4. Subacute L1 burst fracture, worsened from 11/02/2024. 5. 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 Chest X-Ray 02/01/25 07:37 IMPRESSION: 1. No acute cardiopulmonary findings given portable technique. 2. Large mass right upper lobe as before. Liver Biopsy Ultrasound 02/02/25 15:12 IMPRESSION: 1. Successful Ultrasound-guided biopsy of a 1.8 cm hypoechoic hepatic nodules suspicious for metastatic disease. Labs Labs: Laboratory Results - last 24 hr 02/06/25 05:55 WBC 12.5 H RBC 4.25 Hgb 12.0 Hct 37.5 MCV 88.2 MCH 28.2 MCHC 32.0 RDW 15.1 H Plt Count 342 MPV 11.0 H Sodium 132 L Potassium 4.1 Chloride 96 L Carbon Dioxide 29 Anion Gap 7 BUN 43 H Creatinine 1.29 H Estim Creat Clear Calc 33 Estimated GFR 40 L Glucose 126 H Calcium 10.2 Magnesium 2.4 H
[2025-02-06] MEDS: dilTIAZem HCL CD 120 MG CAP.24HR PO (21:59)
[2025-02-07] VITALS (8 sets, daily range): BP systolic 129–152; BP diastolic 57–90; PULSE 63–80; RESP 16–18; TEMP 36.1–36.4; O2SAT 90–95
[2025-02-07] MEDS: IPRATROPIUM 0.5 MG/ALBUTEROL SULFATE 2.5 MG (BASE) AMPUL.NEB 3 ML INHALATION ×3 (02:59→14:00)
[2025-02-07] MEDS: ALPRAZolam (*CRX) 0.25 MG TABLET PO ×2 (05:48→13:19)
[2025-02-07] MEDS: LEVOTHYROXINE SODIUM 125 MCG TABLET PO (05:48)
[2025-02-07 06:41] LABS: Hematocrit 38.5 % (37.0-47.0); Hemoglobin 12.3 g/dL (12.0-15.0); Mean Corpuscular HGB Conc 31.9 g/dl (32-36); Mean Corpuscular Hemoglobin 28.3 pg (26-34); Mean Corpuscular Volume 88.5 fl (80-100); Platelet Count Result 339 k/mm3 (150-375); Red Blood Count 4.35 M/mm3 (4.2-5.4); White Blood Count 13.5 K/mm3 (4.5-10.0)
[2025-02-07 07:36] LABS: Anion Gap 10 mmol/L (4-12); Blood Urea Nitrogen 48 mg/dL (7-17); Calcium 10.0 mg/dL (8.4-10.2); Carbon Dioxide 29 mmol/L (22-30); Chloride 94 mmol/L (98-107); Estimated CRCL calculation 31 ml/min; Estimated Glomerular Filt Rate 35; Glucose 117 mg/dL (65-110); Magnesium 2.3 mg/dL (1.6-2.3); Potassium 4.0 mmol/L (3.4-5.0); Sodium 133 mmol/L (137-145)
[2025-02-07] MEDS: ERGOCALCIFEROL (VITAMIN D2) 1,250 MCG (50,000 UNITS) CAPSULE 1250 MCG PO (08:27)
[2025-02-07] MEDS: FUROSEMIDE 40 MG TABLET PO (08:27)
[2025-02-07] MEDS: ATORVASTATIN 40 MG TABLET PO (08:27)
[2025-02-07] MEDS: FAMOTIDINE 20 MG TABLET PO (08:27)
[2025-02-07] MEDS: POTASSIUM CHLORIDE 10 MEQ ER TABLET PO (08:27)
[2025-02-07] MEDS: APIXABAN 5 MG TABLET PO (08:27)
--- NOTE | 2025-02-07 10:38 | PM.DS ---
DS: Admitting Diagnosis Discharge Date 02/07/25 Admitting Diagnosis Chest pain DS: Discharge Diagnosis Discharge Diagnosis (1) Chronic kidney disease: Code(s): N18.9 - Chronic kidney disease, unspecified Status: Acute (2) Compression fracture: Status: Acute (3) COPD (chronic obstructive pulmonary disease): Code(s): J44.9 - Chronic obstructive pulmonary disease, unspecified Status: Acute (4) Chronic respiratory failure with hypoxia: Code(s): J96.11 - Chronic respiratory failure with hypoxia Status: Acute (5) Mass of upper lobe of right lung: Code(s): R91.8 - Other nonspecific abnormal finding of lung field Status: Acute (6) Liver lesion: Code(s): K76.9 - Liver disease, unspecified Status: Acute Plan Patient with metastatic bronchogenic carcinoma of lungs, had decided to go on DNR and under hospice care, on 02/02 had liver biopsy, now patient has decided against hospice and want to discuss with an oncologist, will to consult oncologist for further evaluation and recommendation, patient remains clinically stable, on 02/03 patient family was present and gave updates patient was seen by oncologist. on 02/04/25 patient and her son discussed with Dr Oconnor, oncologist regarding her lung cancer, treatment plan was discussed, patient and her son have decided about hospice care, patient will be seen be seen financial analysis manager and further recommendation to follow. waiting for a placement. This is 80-year-old female who presents to the ED with complaint of chest pain. Chest pain is burning aching in nature started yesterday. Associated shortness of breath. No diaphoresis. In the ED her vitals were stable except for hypoxia requiring high level of oxygen. She normally uses 2 L of oxygen via nasal cannula but has required additional oxygen. Patient was in 80s in her usual 2 L on presentation. Oxygen requirement has been increased to 4 L with adequate oxygenation. Laboratory workup revealed WBC of 10.9 hemoglobin 12.4 platelet count of 246. Chem panel shows sodium of 134 potassium 3.6 chloride 96 bicarbonate 29 BUN 18 creatinine 1.35 blood glucose of 109. Calcium was 11.1 lactate was high at 2.6 LFTs were normal troponin was negative at 0.03 BNP elevated at 2190. Lipase was 53. Influenza RSV and COVID swab was negative. EKG showed sinus rhythm with frequent atrial premature complex incomplete right bundle branch block nonspecific ST-T changes. Unchanged compared to prior EKGs. Serial troponin remained negative with next troponin at 0.028. Chest x-ray showed no acute cardiopulmonary findings however there was large mass right upper lobe as noted previously. CTA chest PE protocol was performed which was negative for PE but showed worsened right lung upper lobe mass consistent with primary bronchogenic carcinoma. Right hilar lymphadenopathy lung nodules and liver masses consistent with worsening metastatic disease. Subacute L1 burst fractures worsened from 11/02/2024. 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 She is treated as COPD exacerbation with DuoNeb and steroid in the ER. She is admitted for further treatment. See states she does not 1 a do chemotherapy or radiation therapy however wants to know further diagnosis. Chest pain negative cardiac workup. CTA with worsening right upper lobe mass with multiple liver lesions and hilar lymphadenopathy with hypercalcemia. Likely metastatic lung cancer. Workup with regard to biopsy discussed with the patient agreeable. Will get ultrasound-guided liver biopsy. Acute on chronic hypoxic respiratory failure normally at 2 L oxygen at home. Currently at 4 L with hypoxia noted on presentation. Unclear etiology CTA negative for PE. Possible COPD exacerbation. Cardiac workup negative Lung mass with findings suggestive of metastatic disease. Patient has previously declined biopsy however currently once/agreeable to get a biopsy. Will get ultrasound-guided liver biopsy. She did not follow up with Pulmonary as was planned from last admission Multiple compression fractures Gallbladder mass further MRI revealed 8 to be mobile non enhancing gallbladder sludge CKD stage 3 Hypothyroidism COPD Chronic respiratory failure on home oxygen 2 L Lytic skull lesions CT head 01/06/2025 showed lytic lesions identified bilaterally predominantly involving the vertex of skull 2.5 x 2 cm concerning for metastatic disease. 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 PET with 12 mm right parotid mass with increased activity differential could be benign mixed tumor, warfarin tumor. Aortic atherosclerosis DVT prophylaxis SCDs Code status full code discussed with the patient. DS: Summary Hospital Course Hospital Course: Patient with metastatic bronchogenic carcinoma of lungs, had decided to go on DNR and under hospice care, on 02/02 had liver biopsy, now patient has decided against hospice and want to discuss with an oncologist, will to consult oncologist for further evaluation and recommendation, patient remains clinically stable, on 02/03 patient family was present and gave updates patient was seen by oncologist. on 02/04/25 patient and her son discussed with Dr Oconnor, oncologist regarding her lung cancer, treatment plan was discussed, patient and her son have decided about hospice care, patient will be seen be seen financial analysis manager and further recommendation to follow. waiting for a placement. Patient and family have decided to take the patient home with home health. Time Spent with Patient Time attestation: Total time spent providing and/or coordinating discharge services: Exam Narrative: GENERAL: Well-appearing, well-nourished, and in no acute distress. HEAD: Normocephalic, atraumatic. EYES: PERRLA and EOMI. ENT: Nares clear, no rhinorrhea or epistaxis. Mucous membranes moist. NECK: Supple. CHEST: Clear to auscultation. No respiratory distress. HEART: Regular rate and rhythm. No murmur heard. Normal peripheral pulses. ABDOMEN: Soft, nontender, nondistended, normal active bowel sounds. EXTREMITIES: Normal range of motion. No edema. SKIN: Warm, dry, no rash. NEURO: No focal deficits. Alert and oriented x3. PSYCH: Normal mood and affect. DS: Data Data Completed and Pending Completed studies during hospitalization: Pending at discharge 02/02/25 12:26 Surgical [PTH] Routine Labs on day of discharge: Labs from last 24 hours 02/07/25 05:57 WBC 13.5 H RBC 4.35 Hgb 12.3 Hct 38.5 MCV 88.5 MCH 28.3 MCHC 31.9 L RDW 15.1 H Plt Count 339 MPV 10.9 H Sodium 133 L Potassium 4.0 Chloride 94 L Carbon Dioxide 29 Anion Gap 10 BUN 48 H Creatinine 1.43 H Estim Creat Clear Calc 31 Estimated GFR 35 L Glucose 117 H Calcium 10.0 Magnesium 2.3 Discharge Plan Discharge Attending physician on discharge: Jus Theodore Consulting providers: Gilmar Oconnor; Arik Boykin; Rich Sotelo V.; Gregg Ramirez; Ari Thomas Discharging Clinician: Mavis Shaw Patient Disposition: Hospice - Home Activity: as tolerated Diet: heart healthy Discharge Instructions: patient being discharged home. patient to follow up with her primary care provider as soon as possible, patient is instructed if any symptoms worsen to go to nearest ER. Patient Instructions: Antibiotic Form Patient Language: Lithuanian Stand Alone Forms: General Discharge Information Follow-up/Referrals: Sebas,MD Saji [Primary Care Provider, Unknown] Discharge Medications: New hydrocodone-acetaminophen 5-325 mg Tablet 1 tablet PO Q6H PRN (Reason: Pain Rated 4-6) Qty: 15 0RF sennosides-docusate sodium [Senokot-S] 8.6-50 mg Tablet 1 tab PO HS PRN (Reason: Constipation) Qty: 30 0RF Continued potassium chloride 10 mEq tablet extended release 10 meq PO EVERY OTHER DAY Eliquis 5 mg tablet 5 mg PO Q12H atorvastatin 40 mg tablet 40 mg PO DAILY furosemide 40 mg tablet 40 tablet PO DAILY levothyroxine 100 mcg tablet 125 mcg PO DAILY famotidine 20 mg tablet 20 mg PO Q12H diltiazem HCl 120 mg capsule,extended release 24hr 120 mg PO HS ergocalciferol (vitamin D2) 1,250 mcg (50,000 unit) capsule 1,250 mcg PO WEEKLY duloxetine 30 mg capsule,delayed release(DR/EC) 60 mg PO DAILY albuterol sulfate 90 mcg/actuation HFA aerosol inhaler 2 puff inhalation QID PRN (Reason: shortness of breath or wheezing) Qty: 8.5 0RF ipratropium-albuterol 0.5 mg-3 mg(2.5 mg base)/3 mL solution for nebulization 3 ml inhalation Q4H PRN (Reason: shortness of breath or wheezing) Qty: 180 0RF (DME) nebulizers [Compact Compressor Nebulizer] Misc See Rx Instructions .Route Qty: 1 0RF Rx Instructions: As directed alprazolam 0.25 mg tablet 0.25 mg PO TID Qty: 15 0RF amoxicillin-pot clavulanate 875-125 mg tablet 1 tablet PO Q12H Qty: 10 0RF Discontinued alprazolam 0.25 mg Tablet 0.25 mg PO TID Qty: 20 0RF Date of admission: 02/02/25 09:52 Primary Care Provider: Sebsa,Saji Admitting Provider: Jus Theodore Attending physician on admission: Mavis Shaw Condition: Stable
[2025-02-07] MEDS: HYDROcodone/acetaminophen (*CRX) 5-325 MG TABLET 1 TAB PO (13:21)
== END 2025-02-07 16:26 | disposition hospice, home (50) | DRG 436 ==
LOC: ANHED 03:16 → ANHIMU 07:54 → ANH3MEDSUR 02-04 12:43 → ANHIMU 02-09 12:06
PROVIDERS: Admitting Provider Internal Medicine; Emergency Provider Emergency Medicine; PCP Internal Medicine; Visit Provider Family Medicine
DX: C78.7 Secondary malignant neoplasm of liver and intrahepatic bile duct (principal); C34.11 Malignant neoplasm of upper lobe, right bronchus or lung; J44.1 Chronic obstructive pulmonary disease with (acute) exacerbation; J96.11 Chronic respiratory failure with hypoxia; E83.52 Hypercalcemia; E03.9 Hypothyroidism, unspecified; N18.32 Chronic kidney disease, stage 3b; I70.0 Atherosclerosis of aorta; I71.43 Infrarenal abdominal aortic aneurysm, without rupture; K76.0 Fatty (change of) liver, not elsewhere classified; M51.35 Other intervertebral disc degeneration, thoracolumbar region; F32.A Depression, unspecified; Z66 Do not resuscitate; Z20.822 Contact with and (suspected) exposure to COVID-19; Z87.891 Personal history of nicotine dependence; Z99.81 Dependence on supplemental oxygen; Z90.49 Acquired absence of other specified parts of digestive tract; Z51.5 Encounter for palliative care
CPT/HCPCS: 36415; 47000; 71045; 71275; 76942; 80048; 80053; 82784; 83605; 83690; 83735; 83880; 84155; 84156; 84165; 84166; 84484; 85025; 85027; 85610; 85730; 86334; 87637; 88307; 88342; 93005; 94640; 96374; 99285; A9270; J2919; Q9967